=== PATIENT | female | born 1985 | race Caucasian/White ===

== ENCOUNTER 2016-03-07 17:18 | Emergency (ER) | payer OTHER ==
[~2016-03-07] VITALS: Ht 157.5 cm; Wt 61.1 kg
[~2016-03-07 17:18] MED LIST: ALBUAER2 INH; AMT24 PO; FLX/5 PO; LAMO200T38 PO; PRAZ2CAP2 PO; PROM25TA9 PO; PRT/40 PO; QUET1TAB32 PO; QUET1TAB7 PO; TOPI100T20 PO; ZLF/100 PO
[2016-03-07 17:22] VITALS: TEMP 36.9; Ht 157.5 cm; Wt 61.1 kg
[2016-03-07] MEDS ORDERED: HYDROmorphone INJ 1 MG/ML SYR IM STA (18:35)
[2016-03-07] MEDS ORDERED: PROCHLORPERAZINE 5 MG/ML 2 ML VIAL IM STA (18:35)
[2016-03-07] MEDS ORDERED: DiphenhydrAMINE HCL 50 MG/ML VIAL IM STA (18:35)
[2016-03-07] MEDS ORDERED: TOPI200T14 PO (18:55)
--- NOTE | 2016-03-07 19:19 | EMERGENCY ROOM VISIT NOTE ---
History Report prepared by Shawn: Anuel Chen Under the Supervision of: Dr. Buck Vo M.D. First contact with patient: 18:28 Chief Complaint: HEADACHE Stated Complaint: MIGRAINE, PASSED OUT History of Present Illness The patient is a 30 year old female who presents to the Emergency Room with complaints of a persistent headache beginning several hours prior to arrival. She currently rates her discomfort as an 8/10 in severity. The patient associates decreased appetite and two syncopal episodes with today's symptoms. She states she woke up with the headache this morning. The patient notes she was recently put back on her seizure medication a few days ago after being off of them for nine days, while she was being monitored at [facility]. She also complains of persistent left knee numbness with today's symptoms. The patient denies a rash or recent trauma to her knee. She notes she took ibuprofen for her headache this morning. The patient denies taking any narcotics today. She denies hitting her head, fever, shortness of breath, swelling in the legs, and cardiac or kidney issues. Source of History: patient Onset: several hours [employer] Position: head Symptom Intensity: 8/10 Quality: ache Timing: other (persistent) Associated Symptoms: + headache, + numbness (left knee), No SOB, No fevers, No rash Note: Associated symptoms: decreased appetite, two syncopal episodes. Review of Systems See HPI for pertinent positives & negatives. A total of 10 systems reviewed and were otherwise negative. Past Medical & Surgical Medical Problems: (1) Benzodiazepine overdose (2) blood clots (3) Bronchitis (4) Cerebral Thrombosis Wo Cerebral Infarction (5) section (6) Cholecystectomy (7) Depression (8) Gallbladder problem (9) Hysterectomy (10) Migraine Unspecified W/O Intract Mgrn W/O Status Migrainosus (11) Myalgia And Myositis Nos (12) Panic Disorder Without Agoraphobia (13) Phlebitis & Thrombophlebitis,Sup Veins Upper Extr (14) Pneumonia (15) Polysubstance dependence (16) PTSD (17) Seizure disorder (18) Stomach problems (19) Tubal Ligation Status (20) ulcers Family History Diabetes mellitus FH: cancer FH: lung disease Kidney disease or stones Social History Smoking Status: Former Smoker Alcohol Use: none Drug Use: none Marital Status: Housing Status: lives with family Occupation Status: unemployed Current/Historical Medications Scheduled Cyclobenzaprine HCl (Cyclobenzaprine HCl), 5 MG PO BID Lamotrigine (Lamictal), 200 MG PO BID Lubiprostone (Amitiza), 24 MCG PO BID Pantoprazole (Pantoprazole Sodium), 40 MG PO BID Prazosin Hcl (Prazosin), 4 MG PO QPM Quetiapine Fumarate (Seroquel), 25 MG PO QAM Quetiapine Fumarate (Seroquel), 50 MG PO QPM Sertraline HCl (Sertraline HCl), 100 MG PO QPM Topiramate (Topamax), 200 MG PO AMPM Scheduled PRN Albuterol (Ventolin Hfa), 2 PUFFS INH UD PRN for Cough Hydrocodone/Acetaminophen 5MG/325MG ([place] 5MG/325MG), 1 TABLET PO for Pain Promethazine Hcl (Phenergan), 25 MG PO Q4H PRN for Nausea Allergies Coded Allergies: Bupropion (Verified Allergy, Severe, " TOLD HER MAY HAVE INCREASED CHANCES OF SEIZURES"., 03/07/16) Methocarbamol (Verified Allergy, Mild, RASH, 03/07/16) Linaclotide (Verified Allergy, Unknown, LINZESS -- HIVES, 03/07/16) Tramadol (Verified Adverse Reaction, Severe, " TOLD HER IT MAY HAVE INCREASED CHANCES OF SEIZURES"., 03/07/16) PT REPORTS SHE HAS NEVER HAD SEIZURES FROM TRAMADOL Trazodone (Verified Adverse Reaction, Intermediate, "SEVERE DIZZINESS", ) Physical Exam Vital Signs Date Time Temp Pulse Resp B/P Pulse Ox O2 Delivery O2 Flow Rate FiO2 03/07/16 20:05 76 18 112/78 100 03/07/16 19:25 76 18 102/70 98 Room Air 03/07/16 17:22 36.9 113 16 116/73 100 Room Air Physical Exam GENERAL: Patient is well appearing and in mild distress. HEAD: No acute trauma, normocephalic atraumatic ENT: Mucous membranes moist, no nasal congestion. EYES: Equal/Reactive Bilaterally, No scleral icterus, Normal ROM NECK: No nuchal rigidity, no meningismus, trachea is midline, full ROM LUNGS: No dyspnea. Clear to auscultation and equal bilaterally. No wheeze, no rhonchi. HEART: Regular rate and rhythm. No murmurs, rubs, gallops appreciated. ABDOMEN: Soft, nontender, bowel sounds positive, no masses appreciated, no peritonitis. BACK: No midline tenderness, no CVA tenderness EXTREMITIES: Normal motion all extremities, no cyanosis, no edema. NEUROLOGIC: Awake, Alert, Oriented, no acute motor or sensory deficits, no focal weakness, cranial nerves grossly intact. SKIN: No rash, no jaundice, no diaphoresis. Medical Decision & Procedures Laboratory Results Test 03/07/16 18:57 Bedside Hemoglobin 11.2 g/dl (12.0-16.0) Bedside Hematocrit 33 % (37-47) Bedside D-Dimer 296 ng/mlFEU (0-450) Bedside Sodium 143 mEq/L (135-144) Bedside Potassium 3.6 mEq/L (3.3-5.0) Bedside Chloride 111 mEq/L (101-112) Bedside Total CO2 19 mEq/l (24-31) Anion Gap 17.0 mmol/L (16-25) Bedside Blood Urea Nitrogen 22 mg/dl (7-18) Bedside Creatinine 1.1 mg/dl (0.6-1.3) Bedside Glucose (other) 102 mg/dl (70-99) Bedside Ionized Calcium (Vivian) 1.18 mmol/l (1.12-1.32) Bedside Troponin I 0.000 ng/ml (0-0.045) Laboratory results as reviewed by me. Medications Administered Medications (Trade) Dose Ordered Sig/Javier Route Start Time Stop Time Status Last Admin Dose Admin Hydromorphone HCl (Dilaudid Inj) 1 mg NOW STAT IM 03/07/16 18:35 03/07/16 18:37 DC 03/07/16 18:44 1 MG Prochlorperazine Edisylate (Compazine Inj) 10 mg NOW STAT IM 03/07/16 18:35 03/07/16 18:37 DC 03/07/16 18:44 10 MG Diphenhydramine HCl (Benadryl Inj) 50 mg NOW STAT IM 03/07/16 18:35 03/07/16 18:37 DC 03/07/16 18:43 50 MG Oxycodone HCl (Roxicodone Immediate Rel Tab) 5 mg NOW STAT PO 03/07/16 19:32 03/07/16 19:33 DC 03/07/16 20:07 5 MG ECG Indication: other (headache) Rate (beats per minute): 72 Rhythm: normal sinus Findings: no acute ischemic change, no ectopy ED Course 1829: The patient was evaluated in room C12B. A complete history and physical exam was performed. 1834: Ordered Benadryl Inj 50 mg IM, Compazine Inj 10 mg IM, Dilaudid Inj 1 mg IM. 1929: Reevaluated the patient, and she is feeling better and would like to get something for overnight. She will call her neurologist tomorrow. Discussed results and discharge instructions: She verbalized understanding and agreement. The patient is ready for discharge. 1931: Ordered Oxycodone HCl 5 mg PO. Medical Decision Differential: Headache, Migraine, Cluster Headache, Seizure, Meningitis, Sinusitis, CO exposure, ICH/SAH, Infectious, Tumor, Sinus Thrombosis, Arterial Dissection, amongst other pathologies entertained. 30 yr old female well known to department arrives complaining of her chronic migraines that started up again this morning. No evidence of meningitis, nor history suggestive of dissection, sah, ich. She notes two "syncopal" events but admits this may have just been her sleeping on the couch. No falls nor trauma. She is stable and feeling improved. Will follow up with her neurologist. With normal EKG, normal Dimer, normal trop, unremarkable istat I do not feel further evaluation required at this time. Impression Primary Impression: Headache Additional Impressions: Migraine Syncope Scribe Attestation The scribe's documentation has been prepared under my direction and personally reviewed by me in its entirety. I confirm that the note above accurately reflects all work, treatment, procedures, and medical decision making performed by me. Departure Information Dispostion Home / Self-Care Referrals Hubert Mortensen M.D. (PCP) Forms HOME CARE DOCUMENTATION FORM, IMPORTANT VISIT INFORMATION Patient Instructions Headache Pain, My [facility], Syncope Problem Qualifiers Primary Impression: Headache Headache type: unspecified Headache chronicity pattern: acute headache Intractability: not intractable Qualified Codes: R51 - Headache Additional Impressions: Migraine Migraine type: unspecified Status migrainosus presence: without status migrainosus Intractability: not intractable Qualified Codes: G43.909 - Migraine, unspecified, not intractable, without status migrainosus Syncope Syncope type: unspecified Qualified Codes: R55 - Syncope and collapse
[2016-03-07] MEDS ORDERED: OXYCODONE HCL IR 5 MG TAB (IMMEDIATE RELEASE) PO STA (19:32)
[2016-03-07 19:55] LABS: ISTAT CREATININE 1.1 mg/dl (0.6-1.3); ISTAT HEMOGLOBIN 11.2 g/dl (12.0-16.0); ISTAT IONIZED CALCIUM 1.18 mmol/l (1.12-1.32)
[2016-03-07 20:05] VITALS: BP 112/78; PULSE 76; O2SAT 100
[2016-03-31] MEDS ORDERED: MELO7.5T5 PO (13:01)
[2016-06-06] MEDS ORDERED: TOPI100T45 PO (11:38)
[2016-06-06] MEDS ORDERED: ALBU18002 INH (11:38)
[2016-06-06] MEDS ORDERED: QUET1TAB30 PO ×2 (11:38)
[2016-06-06] MEDS ORDERED: HYDR-3126 PO (11:38)
[2016-06-06] MEDS ORDERED: PANT1TAB48 PO (11:38)
[2016-06-06] MEDS ORDERED: SERT-234 PO (11:38)
[2016-06-06] MEDS ORDERED: GABA-113 PO (11:38)
[2016-06-16] MEDS ORDERED: HYDR-5688 PO (09:52)
[2016-06-16] MEDS ORDERED: PROM25TA9 PO (11:38)
[2016-06-28] MEDS ORDERED: OXYC-57 PO (10:11)
[2016-08-09] MEDS ORDERED: SERTRALINE 150 MG PO (10:04)
[2016-11-03] MEDS ORDERED: OXYC-57 PO (00:32)
[2016-11-03] MEDS ORDERED: TOPI100T20 PO (10:04)
[2016-11-03] MEDS ORDERED: AMT24 PO (11:38)
[2016-11-03] MEDS ORDERED: PRAZ2CAP2 PO (11:38)
[2016-11-03] MEDS ORDERED: LAMO200T38 PO (11:38)
[2016-11-03] MEDS ORDERED: SERT-234 PO (16:43)
[2016-11-03] MEDS ORDERED: PRT/40 PO (18:54)
[2016-11-03] MEDS ORDERED: QUET5TAB PO (18:54)
[2016-11-03] MEDS ORDERED: HYDR50CA2 PO (18:54)
[2016-11-03] MEDS ORDERED: VNTHFA/IN INH (18:58)
[2016-11-10] MEDS ORDERED: MAGN400T6 PO (13:30)
== END 2016-03-07 20:05 | disposition home or self-care (01) ==
LOC: C.EDB 17:19 → C.EDC 20:05
DX: G43.909 Migraine, unspecified, not intractable, without status migrainosus (principal); R55 Syncope and collapse; G40.909 Epilepsy, unspecified, not intractable, without status epilepticus; Z90.49 Acquired absence of other specified parts of digestive tract; F32.9 Major depressive disorder, single episode, unspecified; Z90.710 Acquired absence of both cervix and uterus; F41.0 Panic disorder [episodic paroxysmal anxiety]; Z87.01 Personal history of pneumonia (recurrent); Z98.51 Tubal ligation status; Z83.3 Family history of diabetes mellitus; Z87.891 Personal history of nicotine dependence; Z79.899 Other long term (current) drug therapy

== ENCOUNTER 2016-04-12 19:35 | Emergency (ER) | payer OTHER ==
[~2016-04-12] VITALS: Ht 157.5 cm; Wt 60.0 kg
[~2016-04-12 19:35] MED LIST changes: +MELO7.5T5 PO; -TOPI100T20 PO; +TOPI200T14 PO
[2016-04-12 19:39] VITALS: TEMP 37.1; Ht 157.5 cm; Wt 60.0 kg
[2016-04-12 19:44] VITALS: O2SAT 98
[2016-04-12] MEDS ORDERED: DiphenhydrAMINE HCL 50 MG/ML VIAL IV STA (21:14)
[2016-04-12] MEDS ORDERED: SODIUM CHLORIDE 0.9% 1000ML 1,000 ML IV STA (21:14)
[2016-04-12] MEDS ORDERED: HYDROmorphone INJ 2 MG/ML SYR/VIAL IV STA (21:14)
[2016-04-12] MEDS ORDERED: PROCHLORPERAZINE 5 MG/ML 2 ML VIAL IV STA (21:14)
[2016-04-12] MEDS ORDERED: TOPIRAMATE 100 MG TAB PO SCH (21:15)
[2016-04-12 21:25] LABS: HEMATOCRIT 35.3 % (37-47); MEAN CELL VOLUME 81.3 fL (80-100); MEAN CORPUSCULAR HEMOGLOBIN 27.6 pg (25-34); MEAN PLATELET VOLUME 12.2 fL (7.4-10.4); PLATELET COUNT 134 K/uL (130-400); RED BLOOD COUNT 4.34 M/uL (4.2-5.4); WHITE BLOOD COUNT 5.83 K/uL (4.8-10.8)
--- NOTE | 2016-04-12 21:25 | EMERGENCY ROOM VISIT NOTE ---
History Report prepared by Shawn: Luis Funez Under the Supervision of: Dr. Zeeshan Menjivar M.D. First contact with patient: 21:12 Chief Complaint: SEIZURE Stated Complaint: SEIZURE Nursing Triage Summary: Patient presents ALS for evaluation of ? unwitnessed seizure. Patient states she has had a headache x3 days. Tonight, called EMS because she woke up and was "postictal." A/O x upon arrival. Hx: seizures; states she has not missed any meds. No obvious signs of injury noted. History of Present Illness The patient is a 30 year old female who presents to the Emergency Room by EMS with complaints of an episode of seizure occurring this evening. She notes that she has a history of seizures, the last of which was a couple months ago. She is on medication for her seizure, though notes she has missed a few morning medication doses recently, and has not yet taken her evening doses. She reports that she was in the kitchen at the time of the episode, but denies hitting her head. She adds that her daughter witnessed the seizure and reported that there was blood in her mouth. The patient complains also of a headache beginning 3 days ago which she describes as a migraine. She notes she woke up today feeling nauseated but denies any vomiting, fever, cough, or congestion. She states she has felt "weird" all day today and describes her head pain as lightheadedness and pressure on the head. She rates her headache an 8/10 in severity. Source of History: patient Onset: this evening Position: other (global) Quality: other (seizure) Timing: other (episode) Associated Symptoms: + headache, + nausea, No cough, No fevers, No vomiting Note: The patient denies having any congestion. Review of Systems See HPI for pertinent positives & negatives. A total of 10 systems reviewed and were otherwise negative. Past Medical & Surgical Medical Problems: (1) Benzodiazepine overdose (2) blood clots (3) Bronchitis (4) Cerebral Thrombosis Wo Cerebral Infarction (5) section (6) Cholecystectomy (7) Depression (8) Gallbladder problem (9) Hysterectomy (10) Migraine Unspecified W/O Intract Mgrn W/O Status Migrainosus (11) Myalgia And Myositis Nos (12) Panic Disorder Without Agoraphobia (13) Phlebitis & Thrombophlebitis,Sup Veins Upper Extr (14) Pneumonia (15) Polysubstance dependence (16) PTSD (17) Seizure disorder (18) Stomach problems (19) Tubal Ligation Status (20) ulcers Family History Diabetes mellitus FH: cancer FH: lung disease Kidney disease or stones Social History Smoking Status: Never Smoker Alcohol Use: none Drug Use: none Marital Status: Housing Status: lives with family Occupation Status: unemployed Current/Historical Medications Scheduled Cyclobenzaprine HCl (Cyclobenzaprine HCl), 5 MG PO BID Lamotrigine (Lamictal), 200 MG PO BID Lubiprostone (Amitiza), 24 MCG PO BID Meloxicam (Mobic), 7.5 MG PO DAILY Pantoprazole (Pantoprazole Sodium), 40 MG PO BID Prazosin Hcl (Prazosin), 4 MG PO QPM Quetiapine Fumarate (Seroquel), 25 MG PO QAM Quetiapine Fumarate (Seroquel), 50 MG PO QPM Sertraline HCl (Sertraline HCl), 100 MG PO QPM Topiramate (Topamax), 200 MG PO AMPM Scheduled PRN Albuterol (Ventolin Hfa), 2 PUFFS INH UD PRN for Cough Hydrocodone/Acetaminophen 5MG/325MG ([place] 5MG/325MG), 1 TABLET PO for Pain Promethazine Hcl (Phenergan), 25 MG PO Q4H PRN for Nausea Allergies Coded Allergies: Bupropion (Verified Allergy, Severe, " TOLD HER MAY HAVE INCREASED CHANCES OF SEIZURES"., 03/07/16) Methocarbamol (Verified Allergy, Mild, RASH, 03/07/16) Linaclotide (Verified Allergy, Unknown, LINZESS -- HIVES, 03/07/16) Tramadol (Verified Adverse Reaction, Severe, " TOLD HER IT MAY HAVE INCREASED CHANCES OF SEIZURES"., 03/07/16) PT REPORTS SHE HAS NEVER HAD SEIZURES FROM TRAMADOL Trazodone (Verified Adverse Reaction, Intermediate, "SEVERE DIZZINESS", ) Physical Exam Vital Signs Date Time Temp Pulse Resp B/P Pulse Ox O2 Delivery O2 Flow Rate FiO2 04/12/16 22:57 73 20 107/81 100 04/12/16 21:19 75 18 112/67 98 Room Air 04/12/16 19:44 98 Room Air 04/12/16 19:40 68 04/12/16 19:39 37.1 71 20 112/67 100 Room Air Physical Exam GENERAL: Patient is in no acute distress. HEENT: No acute trauma, normocephalic atraumatic, mucous membranes moist, no nasal congestion, no scleral icterus. Pupils equal and reactive to light. No tongue bite. NECK: No stridor, no adenopathy, no meningismus, trachea is midline. LUNGS: Clear to auscultation bilaterally, no wheeze, no rhonchi, breath sounds equal. HEART: Without murmurs gallops or rubs, regular rate and rhythm. ABDOMEN: Soft, nontender, bowel sounds positive, no hernias, no peritonitis. EXTREMITIES: No cyanosis or edema, full range of motion of all the joints without pain or difficulty, no signs for acute trauma. NEUROLOGIC: Oriented x 3, no acute motor or sensory deficits, no focal weakness. No cerebellar deficits. SKIN: No rash, no jaundice, no diaphoresis. Medical Decision & Procedures Laboratory Results 04/12/16 20:35 Red Blood Count 4.34, Mean Corpuscular Volume 81.3, Mean Corpuscular Hemoglobin 27.6, Mean Corpuscular Hemoglobin Concent 34.0, Mean Platelet Volume 12.2, Neutrophils (%) (Auto) 53.5, Lymphocytes (%) (Auto) 37.7, Monocytes (%) (Auto) 7.2, Eosinophils (%) (Auto) 1.4, Basophils (%) (Auto) 0.2, Neutrophils # (Auto) 3.12, Lymphocytes # (Auto) 2.20, Monocytes # (Auto) 0.42, Eosinophils # (Auto) 0.08, Basophils # (Auto) 0.01 04/12/16 20:35 Test 04/12/16 20:35 04/12/16 21:56 White Blood Count 5.83 K/uL (4.8-10.8) Red Blood Count 4.34 M/uL (4.2-5.4) Hemoglobin 12.0 g/dL (12.0-16.0) Hematocrit 35.3 % (37-47) Mean Corpuscular Volume 81.3 fL (80-100) Mean Corpuscular Hemoglobin 27.6 pg (25-34) Mean Corpuscular Hemoglobin Concent 34.0 g/dl (32-36) Platelet Count 134 K/uL (130-400) Mean Platelet Volume 12.2 fL (7.4-10.4) Neutrophils (%) (Auto) 53.5 % Lymphocytes (%) (Auto) 37.7 % Monocytes (%) (Auto) 7.2 % Eosinophils (%) (Auto) 1.4 % Basophils (%) (Auto) 0.2 % Neutrophils # (Auto) 3.12 K/uL (1.4-6.5) Lymphocytes # (Auto) 2.20 K/uL (1.2-3.4) Monocytes # (Auto) 0.42 K/uL (0.11-0.59) Eosinophils # (Auto) 0.08 K/uL (0-0.5) Basophils # (Auto) 0.01 K/uL (0-0.2) RDW Standard Deviation 43.6 fL (36.4-46.3) RDW Coefficient of Variation 14.7 % (11.5-14.5) Immature Granulocyte % (Auto) 0.0 % Immature Granulocyte # (Auto) 0.00 K/uL (0.00-0.02) Red Blood Cell Morphology Unremarkable Anion Gap 8.0 mmol/L (3-11) Est Creatinine Clear Calc Drug Dose 86.0 ml/min Estimated GFR () 123.1 Estimated GFR (Non- 106.2 BUN/Creatinine Ratio 17.5 (10-20) Calcium Level 8.4 mg/dl (8.5-10.1) Total Bilirubin 0.3 mg/dl (0.2-1) Aspartate Amino Transf (AST/SGOT) 11 U/L (15-37) Alanine Aminotransferase (ALT/SGPT) 11 U/L (12-78) Alkaline Phosphatase 48 U/L (45-117) Total Protein 6.9 gm/dl (6.4-8.2) Albumin 3.5 gm/dl (3.4-5.0) Globulin 3.4 gm/dl (2.5-4.0) Albumin/Globulin Ratio 1.0 (0.9-2) Urine Color YELLOW Urine Appearance CLEAR (CLEAR) Urine pH 7.5 (4.5-7.5) Urine Specific [place] 1.013 (1.000-1.030) Urine Protein NEG (NEG) Urine Glucose (UA) NEG (NEG) Urine Ketones NEG (NEG) Urine Occult Blood NEG (NEG) Urine Nitrite NEG (NEG) Urine Bilirubin NEG (NEG) Urine Urobilinogen NEG (NEG) Urine Leukocyte Esterase NEG (NEG) Laboratory results reviewed by me. Medications Administered Medications (Trade) Dose Ordered Sig/Javier Route Start Time Stop Time Status Last Admin Dose Admin Sodium Chloride (Nss 1000ml) 1,000 ml @ 999 mls/hr Q1H1M STAT IV 04/12/16 21:14 04/12/16 22:14 DC 04/12/16 21:34 999 MLS/HR Lamotrigine (Lamictal Tab) 200 mg NOW STAT PO 04/12/16 21:14 04/12/16 21:20 DC 04/12/16 22:07 200 MG Topiramate (Topamax Tab) 200 mg NOW PO 04/12/16 21:15 04/12/16 23:21 DC 04/12/16 22:07 200 MG Hydromorphone HCl (Dilaudid Inj) 0.5 mg NOW STAT IV 04/12/16 21:14 04/12/16 21:20 DC 04/12/16 21:34 0.5 MG Prochlorperazine Edisylate (Compazine Inj) 10 mg NOW STAT IV 04/12/16 21:14 04/12/16 21:20 DC 04/12/16 21:35 10 MG Diphenhydramine HCl (Benadryl Inj) 25 mg NOW STAT IV 04/12/16 21:14 04/12/16 21:20 DC 04/12/16 21:35 25 MG ECG Indication: other (seizure) Rate (beats per minute): 61 Rhythm: normal sinus Findings: no acute ischemic change, no ectopy ED Course 2112: The patient was evaluated in room C12B. A complete history and physical exam was performed. 2113: Ordered Benadryl Inj 25 mg Iv, Compazine Inj 10 mg IV, Dilaudid Inj 0.5 mg IV, Lamictal Tab 200 mg PO, and NSS 1,000 ml @ 999 mls/hr IV. 2114: Ordered Topiramate 200 mg PO. 2239: Reevaluated the patient. Discussed results and discharge instructions: She verbalized understanding and agreement. The patient is ready for discharge. Medical Decision Differentials include breakthrough seizure, medication noncompliance, dehydration, electrolyte imbalance, infection, migraine headache, tension headache, meningitis, and head trauma. There is no leukocytosis or concerning anemia. No significant electrolyte abnormality, kidney failure or hepatitis. Urinalysis does not show infection. On exam, I did not find any evidence for focal neurologic deficit. There was no evidence for head trauma. She was not febrile or toxic. The patient was given her typical doses of Lamictal and Topamax orally. She received IV saline, IV Compazine, IV Benadryl and a small dose of IV Dilaudid. The patient feels markedly better, there has been no further seizure-like activity. She does admit that she has missed a few doses of her seizure meds, this likely contributed to the breakthrough seizure tonight. I do think the patient can be discharged to follow with her neurologist. Her headache sounds migrainous, she has a history of the same. Impression Primary Impression: Headache Additional Impression: Seizure Scribe Attestation The scribe's documentation has been prepared under my direction and personally reviewed by me in its entirety. I confirm that the note above accurately reflects all work, treatment, procedures, and medical decision making performed by me. Departure Information Dispostion Home / Self-Care Referrals Hubert Mortensen M.D. (PCP) Patient Instructions My [facility] Additional Instructions talk with your neurologist rest stay well hydrated return if worsening lab testing today was all ok Problem Qualifiers
[2016-04-12 21:32] LABS: BUN/CREATININE RATIO 17.5 (10-20); CALCIUM 8.4 mg/dl (8.5-10.1); CREATININE 0.75 mg/dl (0.60-1.20)
[2016-04-12 21:49] LABS: BASO % 0.2 %; BASO ABS # 0.01 K/uL (0-0.2); COMPLETE YES; EOS % 1.4 %; LYMPH % 37.7 %; MONO % 7.2 %; NEUT % 53.5 %
[2016-04-12 22:06] LABS: URINE APPEARANCE CLEAR (CLEAR); URINE BILIRUBIN NEG (NEG); URINE COLOR YELLOW; URINE NITRITE NEG (NEG); URINE PH 7.5 (4.5-7.5); URINE SPECIFIC GRAVITY 1.013 (1.000-1.030); UROBILINOGEN NEG (NEG); ZZUR CULT IF INDIC CLEAN CATCH NO
[2016-04-12 22:09] LABS: MANUAL MICROSCOPIC REQUIRED? NO; REVIEW REQ? NO
[2016-04-12 22:57] VITALS: BP 107/81; PULSE 73; O2SAT 100
[2016-06-06] MEDS ORDERED: TOPI100T45 PO (11:38)
[2016-06-06] MEDS ORDERED: QUET1TAB30 PO ×2 (11:38)
[2016-06-06] MEDS ORDERED: PANT1TAB48 PO (11:38)
[2016-06-06] MEDS ORDERED: ALBU18002 INH (11:38)
[2016-06-06] MEDS ORDERED: HYDR-3126 PO (11:38)
[2016-06-06] MEDS ORDERED: GABA-113 PO (11:38)
[2016-06-06] MEDS ORDERED: SERT-234 PO (11:38)
[2016-06-16] MEDS ORDERED: HYDR-5688 PO (09:52)
[2016-06-16] MEDS ORDERED: PROM25TA9 PO (11:38)
[2016-06-28] MEDS ORDERED: OXYC-57 PO (10:11)
[2016-08-09] MEDS ORDERED: SERTRALINE 150 MG PO (10:04)
[2016-11-03] MEDS ORDERED: OXYC-57 PO (00:32)
[2016-11-03] MEDS ORDERED: TOPI100T20 PO (10:04)
[2016-11-03] MEDS ORDERED: AMT24 PO (11:38)
[2016-11-03] MEDS ORDERED: LAMO200T38 PO (11:38)
[2016-11-03] MEDS ORDERED: PRAZ2CAP2 PO (11:38)
[2016-11-03] MEDS ORDERED: SERT-234 PO (16:43)
[2016-11-03] MEDS ORDERED: HYDR50CA2 PO (18:54)
[2016-11-03] MEDS ORDERED: PRT/40 PO (18:54)
[2016-11-03] MEDS ORDERED: QUET5TAB PO (18:54)
[2016-11-03] MEDS ORDERED: VNTHFA/IN INH (18:58)
[2016-11-10] MEDS ORDERED: MAGN400T6 PO (13:30)
== END 2016-04-12 22:58 | disposition home or self-care (01) ==
LOC: EDBD 19:35 → C.EDC 19:36
DX: G40.909 Epilepsy, unspecified, not intractable, without status epilepticus (principal); R51 Headache; Z90.49 Acquired absence of other specified parts of digestive tract; F32.9 Major depressive disorder, single episode, unspecified; Z90.710 Acquired absence of both cervix and uterus; Z98.51 Tubal ligation status; Z86.73 Personal history of transient ischemic attack (TIA), and cerebral infarction without residual deficits

== ENCOUNTER 2016-05-18 16:54 | Emergency (ER) | payer OTHER ==
[~2016-05-18] VITALS: Ht 157.5 cm; Wt 58.4 kg
[~2016-05-18 16:54] MED LIST changes: -FLX/5 PO; -MELO7.5T5 PO; +PANT40TA2 PO; -PRT/40 PO
[2016-05-18 16:57] VITALS: TEMP 37; Ht 157.5 cm; Wt 58.4 kg
[2016-05-18] MEDS ORDERED: SODIUM CHLORIDE 0.9% 1000ML 1,000 ML IV STA (17:36)
[2016-05-18] MEDS ORDERED: FAMOTIDINE 20MG/102 ML D5W IV STA (17:36)
[2016-05-18] MEDS ORDERED: PROMETHAZINE HCL INJ 25 MG/ML 1 ML VIAL IV STA (17:36)
--- NOTE | 2016-05-18 17:50 | EMERGENCY ROOM VISIT NOTE ---
History Report prepared by Shawn: Silas Stubbs Under the Supervision of: Dr. Zeeshan Menjivar M.D. First contact with patient: 17:29 Chief Complaint: ABDOMINAL PAIN Stated Complaint: SEVERE STOMACH PAIN, VOMITING BLOOD Nursing Triage Summary: Patient reports left sided abd pain with n/v today. History of Present Illness The patient is a 30 year old female who presents to the Emergency Room with complaints of persistent left sided abdominal pain starting about 6 hours ago. She currently rates a pain intensity of 8/10. She describes it to be a sharp, stabbing pain. She has some pain improvement with applying pressure. She had one episode of vomiting with bright red blood. She continues to complain of nausea. She had an increased urinary output today but otherwise denies any urinary symptoms. Her last bowel movement was 2 days ago. She has been taking laxatives for the past few days. She is unsure about any dark or tarry stools. She did not have any recent ill contacts. She denies any history of hernia or of similar pain. She has a history of ulcer, acid reflux, colonoscopy, , tubal, hysterectomy, and cholecystectomy. She is no longer on any blood thinners. Source of History: patient Onset: about 6 hours ago Position: abdomen (left sided) Symptom Intensity: 8/10 Quality: sharp, stabbing Timing: other (persistent) Modifying Factors (Relieving): other (pressure) Associated Symptoms: + nausea, + vomiting Review of Systems See HPI for pertinent positives & negatives. A total of 10 systems reviewed and were otherwise negative. Past Medical & Surgical Medical Problems: (1) Benzodiazepine overdose (2) blood clots (3) Bronchitis (4) Cerebral Thrombosis Wo Cerebral Infarction (5) section (6) Cholecystectomy (7) Depression (8) Gallbladder problem (9) Hysterectomy (10) Migraine Unspecified W/O Intract Mgrn W/O Status Migrainosus (11) Myalgia And Myositis Nos (12) Panic Disorder Without Agoraphobia (13) Phlebitis & Thrombophlebitis,Sup Veins Upper Extr (14) Pneumonia (15) Polysubstance dependence (16) PTSD (17) Seizure disorder (18) Stomach problems (19) Tubal Ligation Status (20) ulcers Family History Diabetes mellitus FH: cancer FH: lung disease Kidney disease or stones Social History Smoking Status: Former Smoker Alcohol Use: none Drug Use: none Marital Status: Housing Status: lives with family Occupation Status: unemployed Current/Historical Medications Scheduled Hydroxyzine Pamoate (Vistaril), 1 CAP PO HS Lamotrigine (Lamictal), 200 MG PO BID Lubiprostone (Amitiza), 24 MCG PO BID Pantoprazole (Pantoprazole Sodium), 40 MG PO BID Prazosin Hcl (Prazosin), 4 MG PO QPM Quetiapine Fumarate (Seroquel), 25 MG PO QAM Quetiapine Fumarate (Seroquel), 50 MG PO QPM Ranitidine (Zantac), 150 MG PO BID Sertraline HCl (Sertraline HCl), 100 MG PO QPM Topiramate (Topamax), 200 MG PO QAM Topiramate (Topamax), 2 TAB PO HS Scheduled PRN Hydrocodone/Acetaminophen 5MG/325MG ([place] 5MG/325MG), 1 TABLET PO for Pain Promethazine Hcl (Phenergan), 25 MG PO Q4H PRN for Nausea Allergies Coded Allergies: Bupropion (Verified Allergy, Severe, "DR TOLD HER MAY HAVE INCREASED CHANCES OF SEIZURES"., 05/18/16) Methocarbamol (Verified Allergy, Mild, RASH, 05/18/16) Linaclotide (Verified Allergy, Unknown, LINZESS -- HIVES, 05/18/16) Tramadol (Verified Adverse Reaction, Severe, "DR TOLD HER IT MAY HAVE INCREASED CHANCES OF SEIZURES"., 05/18/16) PT REPORTS SHE HAS NEVER HAD SEIZURES FROM TRAMADOL Trazodone (Verified Adverse Reaction, Intermediate, "SEVERE DIZZINESS", 05/18/16) Physical Exam Vital Signs Date Time Temp Pulse Resp B/P Pulse Ox O2 Delivery O2 Flow Rate FiO2 05/18/16 18:16 71 16 114/72 98 Room Air 05/18/16 16:57 37.0 110 20 100/59 98 Room Air Physical Exam GENERAL: Patient is in moderate distress secondary to pain. HEENT: No acute trauma, normocephalic atraumatic, mucous membranes moist, no nasal congestion, no scleral icterus. NECK: No stridor, no adenopathy, no meningismus, trachea is midline. LUNGS: Clear to auscultation bilaterally, no wheeze, no rhonchi, breath sounds equal. HEART: Without murmurs gallops or rubs, regular rate and rhythm. ABDOMEN: Soft, tenderness along the entire left side, no abdominal distention, bowel sounds positive, no hernias, no peritonitis. EXTREMITIES: No cyanosis or edema, full range of motion of all the joints without pain or difficulty, no signs for acute trauma. NEUROLOGIC: Oriented x 3, no acute motor or sensory deficits, no focal weakness. SKIN: No rash, no jaundice, no diaphoresis. Medical Decision & Procedures ER Provider Diagnostic Interpretation: X-ray results as stated below per interpretation by me and the radiologist: SONYA CLINICAL HISTORY: Possible abdominal foreign body. COMPARISON STUDY: Abdominal series performed earlier today. FINDINGS: There are cholecystectomy clips. The previously described 1 cm metallic density now projects over the left lower quadrant. Bowel gas pattern is normal. IMPRESSION: Previously described 1 cm metallic density now projects over the left lower quadrant. This may reflect an ingested metallic foreign body although could be correlated with physical exam to exclude the possibility of a structure on the patient. Electronically signed by: Farooq Garcia M.D. 05/18/2016 8:12 PM Dictated Date/Time: 05/18/2016 8:11 PM PA CHEST RADIOGRAPH AND UPRIGHT AND SUPINE AP RADIOGRAPHS OF THE ABDOMEN CLINICAL HISTORY: Abdominal pain and vomiting. COMPARISON STUDY: Chest radiograph January 04, 2016 and abdominal series March 06, 2013. FINDINGS: There is no pneumothorax or pleural effusion. There is no consolidation to suggest pneumonia. Cardiac size is normal. Mediastinal contours are normal. There is no free air. There are cholecystectomy clips. Bowel gas pattern is normal. Note is made of a 9 mm metallic density which projects over the mid lower abdomen. A left pelvic calcification represents a phlebolith. IMPRESSION: 1. 9 mm metallic density which projects over the lower mid abdomen. This could be within or on the patient. This may reflect an ingested foreign body and clinical correlation is recommended. 2. No free air or evidence of bowel obstruction. Electronically signed by: Farooq Garcia M.D. 05/18/2016 7:23 PM Dictated Date/Time: 05/18/2016 7:19 PM Laboratory Results 05/18/16 17:50 Red Blood Count 4.43, Mean Corpuscular Volume 79.0, Mean Corpuscular Hemoglobin 27.1, Mean Corpuscular Hemoglobin Concent 34.3, Mean Platelet Volume 11.5, Neutrophils (%) (Auto) 53.3, Lymphocytes (%) (Auto) 35.9, Monocytes (%) (Auto) 9.5, Eosinophils (%) (Auto) 1.0, Basophils (%) (Auto) 0.3, Neutrophils # (Auto) 3.08, Lymphocytes # (Auto) 2.08, Monocytes # (Auto) 0.55, Eosinophils # (Auto) 0.06, Basophils # (Auto) 0.02 05/18/16 17:50 Test 05/18/16 17:50 White Blood Count 5.79 K/uL (4.8-10.8) Red Blood Count 4.43 M/uL (4.2-5.4) Hemoglobin 12.0 g/dL (12.0-16.0) Hematocrit 35.0 % (37-47) Mean Corpuscular Volume 79.0 fL (80-100) Mean Corpuscular Hemoglobin 27.1 pg (25-34) Mean Corpuscular Hemoglobin Concent 34.3 g/dl (32-36) Platelet Count 144 K/uL (130-400) Mean Platelet Volume 11.5 fL (7.4-10.4) Neutrophils (%) (Auto) 53.3 % Lymphocytes (%) (Auto) 35.9 % Monocytes (%) (Auto) 9.5 % Eosinophils (%) (Auto) 1.0 % Basophils (%) (Auto) 0.3 % Neutrophils # (Auto) 3.08 K/uL (1.4-6.5) Lymphocytes # (Auto) 2.08 K/uL (1.2-3.4) Monocytes # (Auto) 0.55 K/uL (0.11-0.59) Eosinophils # (Auto) 0.06 K/uL (0-0.5) Basophils # (Auto) 0.02 K/uL (0-0.2) RDW Standard Deviation 43.1 fL (36.4-46.3) RDW Coefficient of Variation 14.9 % (11.5-14.5) Immature Granulocyte % (Auto) 0.0 % Immature Granulocyte # (Auto) 0.00 K/uL (0.00-0.02) Urine Color YELLOW Urine Appearance CLEAR (CLEAR) Urine pH 5.5 (4.5-7.5) Urine Specific [place] 1.015 (1.000-1.030) Urine Protein NEG (NEG) Urine Glucose (UA) NEG (NEG) Urine Ketones NEG (NEG) Urine Occult Blood NEG (NEG) Urine Nitrite NEG (NEG) Urine Bilirubin NEG (NEG) Urine Urobilinogen NEG (NEG) Urine Leukocyte Esterase NEG (NEG) Anion Gap 9.0 mmol/L (3-11) Est Creatinine Clear Calc Drug Dose 64.5 ml/min Estimated GFR () 86.9 Estimated GFR (Non- 75.0 BUN/Creatinine Ratio 13.3 (10-20) Calcium Level 8.7 mg/dl (8.5-10.1) Total Bilirubin 0.2 mg/dl (0.2-1) Aspartate Amino Transf (AST/SGOT) 7 U/L (15-37) Alanine Aminotransferase (ALT/SGPT) 11 U/L (12-78) Alkaline Phosphatase 45 U/L (45-117) Total Protein 7.3 gm/dl (6.4-8.2) Albumin 3.8 gm/dl (3.4-5.0) Globulin 3.5 gm/dl (2.5-4.0) Albumin/Globulin Ratio 1.1 (0.9-2) Lipase 125 U/L (73-393) Laboratory results reviewed by me. Medications Administered Medications (Trade) Dose Ordered Sig/Javier Route Start Time Stop Time Status Last Admin Dose Admin Promethazine HCl 12.5 mg 12.5 mg NOW STAT IV 05/18/16 17:36 05/18/16 17:41 DC 05/18/16 18:10 12.5 MG Sodium Chloride (Nss 1000ml) 1,000 ml @ 999 mls/hr Q1H1M STAT IV 05/18/16 17:36 05/18/16 18:36 DC 05/18/16 18:10 999 MLS/HR Hydromorphone HCl (Dilaudid Inj) 1 mg Q30M PRN IV 05/18/16 17:45 06/01/16 17:44 05/18/16 19:29 1 MG Famotidine (Pepcid 20mg/100 ml) 20 mg ONE STAT IV 05/18/16 17:36 05/18/16 17:41 DC 05/18/16 18:09 20 MG ED Course 1729: The patient was evaluated in room A02. A complete history and physical exam was performed. 1736: Famotidine 20 mg IV, Sodium Chloride 1000 ml @ 999 mls/hr IV, Phenergan Inj 12.5 mg IV 1745: Dilaudid Inj 1 mg IV 2017: Reevaluated the patient who is feeling better. Discussed results and discharge instructions: She verbalized understanding and agreement. The patient is ready for discharge. 2030: Oxycodone HCl 1 homepack PO Medical Decision Differential diagnosis includes but is not limited to bowel obstruction, ulcer, renal colic, pancreatitis, UTI, pneumonia, musculoskeletal pain, intestinal colic, constipation. There is no leukocytosis or concerning anemia. No significant electrolyte abnormality, kidney failure or hepatitis. There is no pancreatitis. Urinalysis does not show evidence for infection, there was no hematuria. Abdominal series shows no bowel obstruction, free air or pneumonia. A metallic foreign body was thought possible within the intestine. Repeat KUB done a short time after the initial x-ray shows the same metallic foreign body but it appears to have moved some through the intestines. On exam, the patient's rectal exam was heme-negative. She was not toxic or febrile. The patient presents with left-sided abdominal pain. She received IV Dilaudid, IV Phenergan, IV saline. She was given IV Pepcid. The patient feels improved. The cause for the pain is unclear. This may be intestinal colic, it may be gastritis. I doubt the metallic foreign body is causing her trouble. She was told to have a repeat x-ray in about 2 days to see if the foreign body has passed. She does have nausea medication at home to use for her symptoms, a bland diet was suggested. I'm going to add Zantac to her proton pump inhibitor. If worsening, she should return for reassessment. Impression Primary Impression: Left sided abdominal pain Additional Impressions: Vomiting Foreign body in intestine Scribe Attestation The scribe's documentation has been prepared under my direction and personally reviewed by me in its entirety. I confirm that the note above accurately reflects all work, treatment, procedures, and medical decision making performed by me. Departure Information Dispostion Home / Self-Care Prescriptions Ranitidine (Zantac) 150 Mg Tab 150 MG PO BID for 14 Days, #28 TAB Prov: Zeeshan Menjivar M.D. 05/18/16 Referrals No Doctor, Assigned (PCP) Forms Call Back Authorization, HOME CARE DOCUMENTATION FORM, IMPORTANT VISIT INFORMATION Patient Instructions My [facility] Additional Instructions bland diet---crackers, soup, toast, gatorade zantac 2x per day for 2 weeks oxy ir 1 tab every 4 hours for severe pain follow with your fam md or this ER for a repeat film to be sure the piece of metal has passed return for worsening symptoms, fever. Problem Qualifiers
[2016-05-18 18:00] LABS: BASO % 0.3 %; BASO ABS # 0.02 K/uL (0-0.2); COMPLETE YES; LYMPH % 35.9 %; LYMPH ABS # 2.08 K/uL (1.2-3.4); MEAN CORPUSCULAR HEMOGLOBIN 27.1 pg (25-34); MEAN CORPUSCULAR HGB CONC 34.3 g/dl (32-36); MEAN PLATELET VOLUME 11.5 fL (7.4-10.4); MONO % 9.5 %; NEUT % 53.3 %; PLATELET COUNT 144 K/uL (130-400); RED BLOOD COUNT 4.43 M/uL (4.2-5.4); WHITE BLOOD COUNT 5.79 K/uL (4.8-10.8)
[2016-05-18] MEDS ORDERED: TOPI200T20 PO (18:01)
[2016-05-18] MEDS ORDERED: HYDR50CA2 PO (18:01)
[2016-05-18] MEDS: HYDROmorphone INJ 2 MG/ML SYR/VIAL IV PRN ×2 (18:09→19:29)
[2016-05-18 18:17] LABS: BUN/CREATININE RATIO 13.3 (10-20); CALCIUM 8.7 mg/dl (8.5-10.1); POTASSIUM 3.6 mmol/L (3.5-5.1)
[2016-05-18 18:20] LABS: ALB/GLOB RATIO 1.1 (0.9-2)
[2016-05-18 18:30] LABS: URINE APPEARANCE CLEAR (CLEAR); URINE BILIRUBIN NEG (NEG); URINE COLOR YELLOW; URINE NITRITE NEG (NEG); URINE PH 5.5 (4.5-7.5); URINE SPECIFIC GRAVITY 1.015 (1.000-1.030); UROBILINOGEN NEG (NEG); ZZUR CULT IF INDIC CLEAN CATCH NO
[2016-05-18 18:39] LABS: MANUAL MICROSCOPIC REQUIRED? NO; REVIEW REQ? NO
--- NOTE | 2016-05-18 19:24 | DIAGNOSTIC IMAGING REPORT ---
PA CHEST RADIOGRAPH AND UPRIGHT AND SUPINE AP RADIOGRAPHS OF THE ABDOMEN CLINICAL HISTORY: Abdominal pain and vomiting. COMPARISON STUDY: Chest radiograph January 04, 2016 and abdominal series March 06, 2013. FINDINGS: There is no pneumothorax or pleural effusion. There is no consolidation to suggest pneumonia. Cardiac size is normal. Mediastinal contours are normal. There is no free air. There are cholecystectomy clips. Bowel gas pattern is normal. Note is made of a 9 mm metallic density which projects over the mid lower abdomen. A left pelvic calcification represents a phlebolith. IMPRESSION: 1. 9 mm metallic density which projects over the lower mid abdomen. This could be within or on the patient. This may reflect an ingested foreign body and clinical correlation is recommended. 2. No free air or evidence of bowel obstruction. Electronically signed by: Farooq Garcia M.D. 05/18/2016 7:23 PM Dictated Date/Time: 05/18/2016 7:19 PM
--- NOTE | 2016-05-18 20:13 | DIAGNOSTIC IMAGING REPORT ---
KUB CLINICAL HISTORY: Possible abdominal foreign body. COMPARISON STUDY: Abdominal series performed earlier today. FINDINGS: There are cholecystectomy clips. The previously described 1 cm metallic density now projects over the left lower quadrant. Bowel gas pattern is normal. IMPRESSION: Previously described 1 cm metallic density now projects over the left lower quadrant. This may reflect an ingested metallic foreign body although could be correlated with physical exam to exclude the possibility of a structure on the patient. Electronically signed by: Farooq Garcia M.D. 05/18/2016 8:12 PM Dictated Date/Time: 05/18/2016 8:11 PM
[2016-05-18] MEDS ORDERED: ZNTT/150 PO (20:21)
[2016-05-18] MEDS ORDERED: OXYCODONE IR HOME PACK PO ONE (20:30)
[2016-05-18 21:04] VITALS: BP 109/65; PULSE 76; O2SAT 99
[2016-06-06] MEDS ORDERED: TOPI100T45 PO (11:38)
[2016-06-06] MEDS ORDERED: ALBU18002 INH (11:38)
[2016-06-06] MEDS ORDERED: SERT-234 PO (11:38)
[2016-06-06] MEDS ORDERED: QUET1TAB30 PO ×2 (11:38)
[2016-06-06] MEDS ORDERED: GABA-113 PO (11:38)
[2016-06-06] MEDS ORDERED: PANT1TAB48 PO (11:38)
[2016-06-06] MEDS ORDERED: HYDR-3126 PO (11:38)
[2016-06-16] MEDS ORDERED: HYDR-5688 PO (09:52)
[2016-06-16] MEDS ORDERED: PROM25TA9 PO (11:38)
[2016-06-28] MEDS ORDERED: OXYC-57 PO (10:11)
[2016-08-09] MEDS ORDERED: SERTRALINE 150 MG PO (10:04)
[2016-11-03] MEDS ORDERED: OXYC-57 PO (00:32)
[2016-11-03] MEDS ORDERED: TOPI100T20 PO (10:04)
[2016-11-03] MEDS ORDERED: PRAZ2CAP2 PO (11:38)
[2016-11-03] MEDS ORDERED: LAMO200T38 PO (11:38)
[2016-11-03] MEDS ORDERED: AMT24 PO (11:38)
[2016-11-03] MEDS ORDERED: SERT-234 PO (16:43)
[2016-11-03] MEDS ORDERED: HYDR50CA2 PO (18:54)
[2016-11-03] MEDS ORDERED: PANT40TA2 PO (18:54)
[2016-11-03] MEDS ORDERED: QUET5TAB PO (18:54)
[2016-11-03] MEDS ORDERED: VNTHFA/IN INH (18:58)
[2016-11-10] MEDS ORDERED: MAGN400T6 PO (13:30)
== END 2016-05-18 21:06 | disposition home or self-care (01) ==
LOC: C.EDB 16:55 → C.EDA 21:06
DX: R10.9 Unspecified abdominal pain (principal); R11.10 Vomiting, unspecified; T18.9XXA Foreign body of alimentary tract, part unspecified, initial encounter; X58.XXXA Exposure to other specified factors, initial encounter; K21.9 Gastro-esophageal reflux disease without esophagitis; Z98.51 Tubal ligation status; Z90.710 Acquired absence of both cervix and uterus; Z90.49 Acquired absence of other specified parts of digestive tract; F32.9 Major depressive disorder, single episode, unspecified; F41.0 Panic disorder [episodic paroxysmal anxiety]; Z86.718 Personal history of other venous thrombosis and embolism; F19.21 Other psychoactive substance dependence, in remission; Z87.01 Personal history of pneumonia (recurrent); F43.10 Post-traumatic stress disorder, unspecified; G40.909 Epilepsy, unspecified, not intractable, without status epilepticus; Z83.3 Family history of diabetes mellitus; Z80.9 Family history of malignant neoplasm, unspecified; Z87.891 Personal history of nicotine dependence; Z79.899 Other long term (current) drug therapy

== ENCOUNTER → 2016-05-20 | Outpatient (CLI) | payer OTHER ==
[~2016-05-20] MED LIST changes: +ALBU18002 INH; -ALBUAER2 INH; +AMOX875T PO; +ASPI-390 PO; +DICY20TA35 PO; +DOXY100C PO; +FAMO20TA9 PO; +GABA-113 PO; +GABA1CAP4 PO; +GABA1CAP5 PO; +HYDR-3126 PO; +HYDR-5688 PO; +HYDR50CA2 PO; +IBUP-103 PO; +LINA1CAP2 PO; +MAGN400T6 PO; +MDRDP21 PO; +MELA1TAB54 PO; +METH4PAK PO; +MOXI400T2 PO; +NRN400 PO; +ONDA4TAB10 SL; +OXYC-57 PO; +PANT1TAB48 PO; +PROM25TA16 PO; +QUET1TAB30 PO; +QUET5TAB PO; +SERT-234 PO; +SERT50TA PO; +SERTRALINE 150 MG PO; +SRQ25 PO; +TOPI100T20 PO; +TOPI100T45 PO; +TOPI200T20 PO; +TOPI50TA16 PO; +TPM100 PO; +VNTHFA/IN INH; +ZNTT/150 PO
--- NOTE | 2016-05-20 12:39 | DIAGNOSTIC IMAGING REPORT ---
KUB CLINICAL HISTORY: R10.9 Abdominal [id number] pain COMPARISON STUDY: 05/18/2016 FINDINGS: The radiopaque density previously described overlying left sacroiliac joint is no longer present. Nonobstructive bowel pattern. IMPRESSION: The radiopaque foreign body body previously described is no longer seen. Nonobstructive bowel pattern. Electronically signed by: Frankie Rodriguez M.D. 05/20/2016 12:37 PM Dictated Date/Time: 05/20/2016 12:32 PM
== END | disposition home or self-care (01) ==
LOC: C.RAD1850 12:11
PROVIDERS: ATTEND Physician Assistant
DX: R10.9 Unspecified abdominal pain (principal)

== ENCOUNTER → 2016-05-27 | Outpatient (CLI) | payer OTHER ==
--- NOTE | 2016-05-27 08:37 | DIAGNOSTIC IMAGING REPORT ---
LUMBAR SPINE MRI HISTORY: Back pain. Radiculopathy. LUMBOSACRAL RADICULOPATHY TECHNIQUE: Multiplanar multisequence MRI of the lumbar spine was performed without the use of contrast. COMPARISON: None. FINDINGS: For the purpose of the report the L5-S1 disc space will be located on axial image 23 of 25. Mild disc desiccation. Normal signal characteristics of the vertebral bodies. L1-L2: No significant central canal or neural foraminal narrowing. L2-L3: Minimal central disc bulge. Minimal impact with anterior thecal sac. L3-L4: No significant central canal or neural foraminal narrowing. L4-L5: Mild central disc bulge. Minimal impact anterior thecal sac. L5-S1: No significant central canal or neural foraminal narrowing. IMPRESSION: 1. Minimal central disc bulges L2-L3 and L4-L5. 2. No evidence for significant disc herniation or component of spinal stenosis. 3. note is made of a left ovarian cyst measuring 4.4 x 4.1 cm. Electronically signed by: Frankie Rodriguez M.D. 05/27/2016 8:35 AM Dictated Date/Time: 05/27/2016 8:30 AM
== END | disposition home or self-care (01) ==
LOC: C.MRI 07:34
PROVIDERS: ATTEND Psychiatry & Neurology Neurology
DX: M51.16 Intervertebral disc disorders with radiculopathy, lumbar region (principal)

== ENCOUNTER → 2016-06-10 | Day surgery (SDC) | payer OTHER ==
[2016-06-06 11:23] VITALS: Ht 157.5 cm; Wt 59.1 kg
[~2016-06-10] VITALS: Ht 157.5 cm; Wt 59.1 kg
[~2016-06-10] MED LIST changes: +LIDOCAINE HCL 2% 2 ML VIAL (20MG/ML) ONE; +MIDAZOLAM HCL 1 MG/ML 2ML VIAL ONE; +ONDANSETRON INJ 2 MG/ML 2 ML VIAL ONE; +PROPOFOL IV EMULSION 10 MG/ML 20 ML VIAL IV ONE; -QUET1TAB32 PO; -QUET1TAB7 PO; +SODIUM CHLORIDE 0.9% 500ML 500 ML IV ONE; -TOPI200T20 PO; -ZNTT/150 PO
--- NOTE | 2016-06-10 08:53 | Endo History and Physical ---
History & Physical Date of Service: Jun 10, 2016. Chief Complaint: Change in bowel habit Referring Physician: Hubert Mortensen History of Present Illness 31 yo CF who presents for colonoscopy secondary to change in bowel habits. Past Medical History Eating Disorders, Anxiety, Reflux, Seizure Disorder, CVA/TIA, Depression Past Surgical History Hx Cardiac Surgery: No Hx Internal Defibrillator: No Hx Pacemaker: No Hx Abdominal Surgery: Yes (PARTIAL HYSTERECTOMY, , TUBAL LIGATION, JEANNINE) Hx of Implantable Prosthesis: No Hx Post-Op Nausea and Vomiting: No Hx Cancer Surgery: No Hx Thoracic Surgery: No Hx Orthopedic: No Hx Urinary Tract Surgery: No Family History None Social History Smoking Status: Former Smoker Hx Substance Use: No Hx Alcohol Use: Yes (VERY RARELY) Allergies Coded Allergies: Bupropion (Verified Allergy, Severe, "DR TOLD HER MAY HAVE INCREASED CHANCES OF SEIZURES"., 06/06/16) Methocarbamol (Verified Allergy, Mild, RASH, 06/06/16) Linaclotide (Verified Allergy, Unknown, LINZESS -- HIVES, 06/06/16) Tramadol (Verified Adverse Reaction, Severe, " TOLD HER IT MAY HAVE INCREASED CHANCES OF SEIZURES"., 06/06/16) PT REPORTS SHE HAS NEVER HAD SEIZURES FROM TRAMADOL Trazodone (Verified Adverse Reaction, Intermediate, "SEVERE DIZZINESS", ) Current Medications Reported Home Medications Medications Dose Route/Sig Max Daily Dose Days Date Category Dose Instructions Topamax (Topiramate) 100 Mg Tab 300 Mg PO BID 06/06/16 Reported Zoloft (Sertraline HCl) 100 Mg Tab 100 Mg PO QAM 06/06/16 Reported Seroquel (Quetiapine Fumarate) 25 Mg Tab 2 Tab PO HS 06/06/16 Reported Seroquel (Quetiapine Fumarate) 25 Mg Tab 0.5 Tab PO QAM 06/06/16 Reported Proair Respiclick (Albuterol Sulfate) 108 Mcg/Act Aer 2 Puff INH Q6H PRN 06/06/16 Reported Prazosin (Prazosin Hcl) 2 Mg Cap 2 Cap PO HS 06/06/16 Reported Phenergan (Promethazine HCl) 25 Mg Tab 25 Mg PO Q6H PRN 06/06/16 Reported Protonix (Pantoprazole) 40 Mg Tab 40 Mg PO BID 06/06/16 Reported Lamictal (Lamotrigine) 200 Mg Tab 200 Mg PO BID 06/06/16 Reported Atarax (Hydroxyzine Hcl) 50 Mg Tab 50 Mg PO HS 06/06/16 Reported Neurontin (Gabapentin) 300 Mg Cap 300 Mg PO TID 06/06/16 Reported Amitiza (Lubiprostone) 24 Mcg Cap 24 Mcg PO BID 06/06/16 Reported [place] 5MG/325MG (Acetaminophen/Hydrocodone Bitart) Tab 1 Tablet PO PRN 01/12/16 Reported PRN PAIN Vital Signs Weight (Kilograms): 59.09 Height (Feet): 5 Height (Inches): 2 Date Time Temp Pulse Resp B/P Pulse Ox O2 Delivery O2 Flow Rate FiO2 06/10/16 08:47 37 65 16 104/66 100 Room Air Physical Exam General Appearance: WD/WN, no apparent distress Respiratory/Chest: Auscultation: breath sounds normal Cardiovascular: Heart Auscultation: RRR Abdomen: Bowel Sounds: normal Inspection & Palpation: soft, non-distended, no tenderness, guarding & rebound Assessment and Plan Assessment: 31 yo CF who presents for colonoscopy secondary to change in bowel habits. Plan: Proceed with colonoscopy.
--- NOTE | 2016-06-10 09:33 | Discharge Instructions ---
Endoscopy Patient Instructions Date / Procedure(s) Performed Jun 10, 2016. Colonoscopy Allergy Information Coded Allergies: Bupropion (Verified Allergy, Severe, "DR TOLD HER MAY HAVE INCREASED CHANCES OF SEIZURES"., 06/06/16) Methocarbamol (Verified Allergy, Mild, RASH, 06/06/16) Linaclotide (Verified Allergy, Unknown, LINZESS -- HIVES, 06/06/16) Tramadol (Verified Adverse Reaction, Severe, "DR TOLD HER IT MAY HAVE INCREASED CHANCES OF SEIZURES"., 06/06/16) PT REPORTS SHE HAS NEVER HAD SEIZURES FROM TRAMADOL Trazodone (Verified Adverse Reaction, Intermediate, "SEVERE DIZZINESS", ) Discharge Date / Findings Jun 10, 2016. Normal colonoscopy Random colon biopsies Medication Instructions OK to resume all medications today as prescribed Reported Home Medications Medications Dose Route/Sig Max Daily Dose Days Date Category Dose Instructions Topamax (Topiramate) 100 Mg Tab 300 Mg PO BID 06/06/16 Reported Zoloft (Sertraline HCl) 100 Mg Tab 100 Mg PO QAM 06/06/16 Reported Seroquel (Quetiapine Fumarate) 25 Mg Tab 2 Tab PO HS 06/06/16 Reported Seroquel (Quetiapine Fumarate) 25 Mg Tab 0.5 Tab PO QAM 06/06/16 Reported Proair Respiclick (Albuterol Sulfate) 108 Mcg/Act Aer 2 Puff INH Q6H PRN 06/06/16 Reported Prazosin (Prazosin Hcl) 2 Mg Cap 2 Cap PO HS 06/06/16 Reported Phenergan (Promethazine HCl) 25 Mg Tab 25 Mg PO Q6H PRN 06/06/16 Reported Protonix (Pantoprazole) 40 Mg Tab 40 Mg PO BID 06/06/16 Reported Lamictal (Lamotrigine) 200 Mg Tab 200 Mg PO BID 06/06/16 Reported Atarax (Hydroxyzine Hcl) 50 Mg Tab 50 Mg PO HS 06/06/16 Reported Neurontin (Gabapentin) 300 Mg Cap 300 Mg PO TID 06/06/16 Reported Amitiza (Lubiprostone) 24 Mcg Cap 24 Mcg PO BID 06/06/16 Reported [place] 5MG/325MG (Acetaminophen/Hydrocodone Bitart) Tab 1 Tablet PO PRN 01/12/16 Reported PRN PAIN Provider Instructions Activity Restrictions - No exercising or heavy lifting for 24 hours. - Do not drink alcohol the day of the procedure. - Do not drive a car or operate machinery until the day after the procedure. - Do not make any important decisions or sign important papers in 24 hours after the procedure. Following Day: - Return to full activity which may include returning to work/school. Diet Start your diet with liquids and light foods (jello, soup, juice, toast). Then eat your usual diet if not nauseated. Treatment For Common After Affects For mild abdominal pain, bloating, or excessive gas: - Rest - Eat lightly - Lie on right side Follow-Up Information Follow-up with Hubert Mortensen as scheduled Anesthesia Information What You Should Know You have had a procedure that required some medicine to reduce anxiety and discomfort. This treatment is called moderate sedation. After receiving the treatment, you may be sleepy, but you will be able to breathe on your own. The effects of the treatment may last for several hours. Follow these instructions along with Activity/Diet recommendations noted above: * Do NOT do anything where dizziness or clumsiness would be dangerous. * Rest quietly at home today, then you can be up and about tomorrow. * Have a responsible person stay with you the rest of today. * You may have had an I.V. today. If so, you may take the dressing off later today. Recommendations Call your doctor if: * Trouble breathing * Continuous vomiting for more than 24 hours * Temperature above 101 degrees * Severe abdominal pain or bloating * Pain not relieved by pain medicine ordered * There is increased drainage or redness from any incision * A large amount of rectal bleeding greater than 2-3 tablespoons. (If you had a polyp/s removed or have hemorrhoids, a small amount of blood - from the rectum is to be expected.) * You have any unanswered questions or concerns. IN THE EVENT OF A SERIOUS EMERGENCY, GO TO THE NEAREST EMERGENCY ROOM Your discharge instructions were prepared by provider Levon Moreau. Patient Instructions Signature Page Purvi Cline Patient (or Guardian) Signature/Date: I have read and understand the instructions given to me by my caregivers. Caregiver/RN/Doctor Signature/Date: The above-named patient and/or guardian has received patient instructions on this date. + Original Patient Signature Page (only) stays with chart. Please make copy for patient.
--- NOTE | 2016-06-10 09:40 | GI REPORT ---
Procedure Date: 06/10/2016 8:50 AM Procedure: Colonoscopy Indications: Change in bowel habits Medicines: Monitored Anesthesia Care Complications: No immediate complications. Estimated Blood Loss: Estimated blood loss: none. Procedure: Pre-Anesthesia Assessment: - Prior to the procedure, a History and Physical was performed, and patient medications and allergies were reviewed. The patient's tolerance of previous anesthesia was also reviewed. The risks and benefits of the procedure and the sedation options and risks were discussed with the patient. All questions were answered, and informed consent was obtained. Prior Anticoagulants: The patient has taken no previous anticoagulant or antiplatelet agents. ASA Grade Assessment: II - A patient with mild systemic disease. After reviewing the risks and benefits, the patient was deemed in satisfactory condition to undergo the procedure. After I obtained informed consent, the scope was passed under direct vision. Throughout the procedure, the patient's blood pressure, pulse, and oxygen saturations were monitored continuously. The scope was introduced through the anus and advanced to the terminal ileum. The colonoscopy was performed without difficulty. The patient tolerated the procedure well. The quality of the bowel preparation was good. The terminal ileum, the appendiceal orifice and the rectum were photographed. Findings: The colon (entire examined portion) appeared normal. Several random biopsies were obtained with cold forceps for histology in the entire colon. Impression: - The entire examined colon is normal. - Several random biopsies were obtained in the entire colon. Recommendation: - Resume previous diet. - Continue present medications. - Repeat colonoscopy for surveillance based on pathology results. - Return to primary care physician as previously scheduled. Levon Moreau DO 06/10/2016 9:38:52 AM This report has been signed electronically. Note Initiated On: 06/10/2016 8:50 AM I attest to the content of the Intraoperative Record and orders documented therein, exceptions below
--- NOTE | 2016-06-10 09:47 | Anesthesiology Progress Note ---
Anesthesia Post Op Note Date & Time Jun 10, 2016 at 09:46 Vital Signs Pain Intensity: 0 Vital Signs Past 12 Hours Date Time Temp Pulse Resp B/P Pulse Ox O2 Delivery O2 Flow Rate FiO2 06/10/16 09:32 66 16 98/58 100 Room Air 06/10/16 08:47 37 65 16 104/66 100 Room Air Notes Mental Status: alert / awake / arousable, participated in evaluation Pt Amnestic to Procedure: Yes Nausea / Vomiting: adequately controlled Pain: adequately controlled Airway Patency, RR, SpO2: stable & adequate BP & HR: stable & adequate Hydration State: stable & adequate Anesthetic Complications: no major complications apparent
[2016-06-10 10:05] VITALS: BP 106/68; PULSE 59; O2SAT 100
== END | disposition home or self-care (01) ==
LOC: C.GI 08:13
PROVIDERS: ATTEND Internal Medicine
DX: R19.4 Change in bowel habit (principal); G40.909 Epilepsy, unspecified, not intractable, without status epilepticus; Z86.73 Personal history of transient ischemic attack (TIA), and cerebral infarction without residual deficits; F32.9 Major depressive disorder, single episode, unspecified

== ENCOUNTER 2016-06-16 18:04 | Emergency (ER) | payer OTHER ==
[~2016-06-16] VITALS: Ht 157.5 cm; Wt 58.7 kg
[~2016-06-16 18:04] MED LIST changes: -AMOX875T PO; -AMT24 PO; -ASPI-390 PO; -DICY20TA35 PO; -DOXY100C PO; -FAMO20TA9 PO; -GABA1CAP4 PO; -GABA1CAP5 PO; -HYDR50CA2 PO; -IBUP-103 PO; -LAMO200T38 PO; -LIDOCAINE HCL 2% 2 ML VIAL (20MG/ML) ONE; -LINA1CAP2 PO; -MAGN400T6 PO; -MDRDP21 PO; -MELA1TAB54 PO; -METH4PAK PO; -MIDAZOLAM HCL 1 MG/ML 2ML VIAL ONE; -MOXI400T2 PO; -NRN400 PO; -ONDA4TAB10 SL; -ONDANSETRON INJ 2 MG/ML 2 ML VIAL ONE; -OXYC-57 PO; -PANT40TA2 PO; -PRAZ2CAP2 PO; -PROM25TA16 PO; -PROPOFOL IV EMULSION 10 MG/ML 20 ML VIAL IV ONE; -QUET5TAB PO; -SERT50TA PO; -SERTRALINE 150 MG PO; -SODIUM CHLORIDE 0.9% 500ML 500 ML IV ONE; -SRQ25 PO; -TOPI100T20 PO; -TOPI200T14 PO; -TOPI50TA16 PO; -TPM100 PO; -VNTHFA/IN INH; -ZLF/100 PO
[2016-06-16 18:13] VITALS: TEMP 36.8; Ht 157.5 cm; Wt 58.7 kg
[2016-06-16] MEDS ORDERED: DiphenhydrAMINE HCL 50 MG/ML VIAL IV STA (18:25)
[2016-06-16] MEDS ORDERED: PROCHLORPERAZINE 5 MG/ML 2 ML VIAL IV STA (18:25)
[2016-06-16] MEDS ORDERED: DEXAMETHASONE SOD INJ 10 MG/ML VIAL IV ONE (18:30)
[2016-06-16] MEDS ORDERED: SODIUM CHLORIDE 0.9% 1000ML 1,000 ML IV ONE (18:30)
[2016-06-16] MEDS: KETOROLAC TROMETHAMINE 30 MG/ML VIAL IV STA ×2 (18:49→18:52)
[2016-06-16] MEDS ORDERED: ZLF/100 PO (18:54)
[2016-06-16] MEDS ORDERED: SRQ25 PO (18:54)
[2016-06-16] MEDS ORDERED: GABA1CAP4 PO (18:54)
[2016-06-16] MEDS ORDERED: TPM100 PO (18:54)
[2016-06-16 19:24] LABS: URINE APPEARANCE CLOUDY (CLEAR); URINE BILIRUBIN NEG (NEG); URINE COLOR YELLOW; URINE EPITHELIAL CELL AUTO >30 /lpf (0-5); URINE NITRITE NEG (NEG); URINE SPECIFIC GRAVITY 1.028 (1.000-1.030); UROBILINOGEN NEG (NEG); ZZUR CULT IF INDIC CLEAN CATCH YES
[2016-06-16] MEDS ORDERED: ACETAMINOPHEN IV 100 ML IV ONE (19:30)
[2016-06-16 19:37] LABS: MANUAL MICROSCOPIC REQUIRED? NO; REVIEW REQ? YES
[2016-06-16 19:59] LABS: BENZODIAZEPINE, URINE NEG (NEG); COCAINE,URINE NEG (NEG); PHENCYCLIDINE, URINE NEG (NEG)
[2016-06-16 20:01] LABS: BASO % 0.4 %; BASO ABS # 0.02 K/uL (0-0.2); COMPLETE YES; EOS % 2.2 %; HEMATOCRIT 36.4 % (37-47); LYMPH % 46.4 %; LYMPH ABS # 2.09 K/uL (1.2-3.4); MEAN CORPUSCULAR HEMOGLOBIN 26.6 pg (25-34); MEAN CORPUSCULAR HGB CONC 32.4 g/dl (32-36); MEAN PLATELET VOLUME 12.8 fL (7.4-10.4); PLATELET COUNT 153 K/uL (130-400); RED BLOOD COUNT 4.44 M/uL (4.2-5.4)
[2016-06-16 20:03] LABS: URINE MUCUS PRESENT (NONE PRSENT)
[2016-06-16 20:19] LABS: ALB/GLOB RATIO 1.2 (0.9-2); BUN/CREATININE RATIO 17.6 (10-20); CALCIUM 9.3 mg/dl (8.5-10.1); CREATININE 1.1 mg/dl (0.60-1.20); POTASSIUM 3.6 mmol/L (3.5-5.1)
[2016-06-16] MEDS ORDERED: HYDROmorphone INJ 0.5 MG/0.5 ML SYR IV STA (20:25)
[2016-06-16 21:52] VITALS: BP 103/70; PULSE 82; O2SAT 95
--- NOTE | 2016-06-17 21:53 | EMERGENCY ROOM VISIT NOTE ---
History First contact with patient: 18:14 Chief Complaint: HEADACHE Stated Complaint: MIGRAINE,NAUSEA,DIARRHEA,DIZZY History of Present Illness The patient is a 31 year old female who presents to the Emergency Room with complaints of nausea, diarrhea, dizziness, and migraine headache. The patient states that her symptoms began 2 or 3 days ago. The patient has a history of chronic migraines and this is not the worst headache of her life. She rates her overall discomfort a 7/10. She does not have recent antibiotic use or recent travel history. She states that she is having 4-5 episodes of diarrhea per day. Review of Systems More than 10 systems were reviewed and otherwise negative with the exception of history of present illness. Past Medical/Surgical History Medical Problems: (1) Benzodiazepine overdose (2) blood clots (3) Bronchitis (4) Cerebral Thrombosis Wo Cerebral Infarction (5) section (6) Cholecystectomy (7) Depression (8) Gallbladder problem (9) Hysterectomy (10) Migraine Unspecified W/O Intract Mgrn W/O Status Migrainosus (11) Myalgia And Myositis Nos (12) Panic Disorder Without Agoraphobia (13) Phlebitis & Thrombophlebitis,Sup Veins Upper Extr (14) Pneumonia (15) Polysubstance dependence (16) PTSD (17) Seizure disorder (18) Stomach problems (19) Tubal Ligation Status (20) ulcers Family History Diabetes mellitus FH: cancer FH: lung disease Kidney disease or stones Social History Smoking Status: Former Smoker Alcohol Use: none Drug Use: none Marital Status: Housing Status: lives with family Occupation Status: unemployed Current/Historical Medications Scheduled Gabapentin (Gabapentin), 300 MG PO TID Hydroxyzine Pamoate (Vistaril), 50 MG PO HS Lamotrigine (Lamictal), 200 MG PO BID Lubiprostone (Amitiza), 24 MCG PO BID Pantoprazole (Pantoprazole Sodium), 40 MG PO BID Prazosin Hcl (Prazosin), 4 MG PO HS Quetiapine Fumarate (Quetiapine Fumarate), 12.5 MG PO QAM Quetiapine Fumarate (Seroquel), 50 MG PO HS Sertraline HCl (Sertraline HCl), 100 MG PO QAM Topiramate (Topiramate), 300 MG PO BID Scheduled PRN Albuterol Hfa (Ventolin Hfa), 2 PUFFS INH Q4-6HRS PRN for Shortness of Breath Hydrocodone/Acetaminophen 5MG/325MG ([place] 5MG/325MG), 1-2 TABS PO Q6H PRN for Pain Promethazine Hcl (Phenergan), 25 MG PO Q6H PRN for Nausea Allergies Coded Allergies: Bupropion (Verified Allergy, Severe, "DR TOLD HER MAY HAVE INCREASED CHANCES OF SEIZURES"., 06/16/16) Methocarbamol (Verified Allergy, Mild, RASH, 06/16/16) Ketorolac Tromethamine (Verified Allergy, Unknown, Rash, 06/16/16) Linaclotide (Verified Allergy, Unknown, LINZESS -- HIVES, 06/16/16) Tramadol (Verified Adverse Reaction, Severe, "DR TOLD HER IT MAY HAVE INCREASED CHANCES OF SEIZURES"., 06/16/16) PT REPORTS SHE HAS NEVER HAD SEIZURES FROM TRAMADOL Trazodone (Verified Adverse Reaction, Intermediate, "SEVERE DIZZINESS", 06/16/16) Physical Exam Vital Signs Date Time Temp Pulse Resp B/P Pulse Ox O2 Delivery O2 Flow Rate FiO2 06/16/16 21:52 82 16 103/70 95 06/16/16 21:00 72 16 96/60 98 Room Air 06/16/16 18:13 36.8 95 16 104/73 97 Room Air Pain Rating (0-10): 6.0 Physical Exam VITALS: Vitals are noted on the nurse's note and reviewed by myself. Vital signs stable. GENERAL: Well-developed, well-nourished, white female, who is in no acute distress and resting comfortably. Patient is cooperative with the examination. HEAD: Normocephalic atraumatic. EARS: External ear normal. External auditory canals clear, tympanic membranes pearly paris without erythema or effusion bilaterally. EYES: Pupils equal round and reactive to light and accommodation. Conjunctivae without injection, sclerae without icterus. Extraocular movements intact. NOSE: Patent, turbinates without inflammation or discharge. MOUTH: Mucous membranes moist. Tonsils are not enlarged. Pharynx without erythema, blood, or exudate. Uvula midline. Airway patent. NECK: Supple without nuchal rigidity. No lymphadenopathy. No thyromegaly. Cervical spine is nontender. HEART: Regular rate and rhythm without murmurs gallops or rubs. LUNGS: Clear to auscultation bilaterally without wheezes, rales or rhonchi. No retractions or accessory muscle use. ABDOMEN: Positive normal bowel sounds x 4. Soft, nontender, without masses or organomegaly. No guarding or rebound tenderness. MUSCULOSKELETAL: No muscle atrophy, erythema, or edema noted. Full range of motion without joint tenderness in all extremities. Medical Decision & Procedures Laboratory Results 06/16/16 18:40 Red Blood Count 4.44, Mean Corpuscular Volume 82.0, Mean Corpuscular Hemoglobin 26.6, Mean Corpuscular Hemoglobin Concent 32.4, Mean Platelet Volume 12.8, Neutrophils (%) (Auto) 41.0, Lymphocytes (%) (Auto) 46.4, Monocytes (%) (Auto) 10.0, Eosinophils (%) (Auto) 2.2, Basophils (%) (Auto) 0.4, Neutrophils # (Auto ) 1.84, Lymphocytes # (Auto) 2.09, Monocytes # (Auto) 0.45, Eosinophils # (Auto ) 0.10, Basophils # (Auto) 0.02 06/16/16 18:40 Test 06/16/16 18:40 White Blood Count 4.50 K/uL (4.8-10.8) Red Blood Count 4.44 M/uL (4.2-5.4) Hemoglobin 11.8 g/dL (12.0-16.0) Hematocrit 36.4 % (37-47) Mean Corpuscular Volume 82.0 fL (80-100) Mean Corpuscular Hemoglobin 26.6 pg (25-34) Mean Corpuscular Hemoglobin Concent 32.4 g/dl (32-36) Platelet Count 153 K/uL (130-400) Mean Platelet Volume 12.8 fL (7.4-10.4) Neutrophils (%) (Auto) 41.0 % Lymphocytes (%) (Auto) 46.4 % Monocytes (%) (Auto) 10.0 % Eosinophils (%) (Auto) 2.2 % Basophils (%) (Auto) 0.4 % Neutrophils # (Auto) 1.84 K/uL (1.4-6.5) Lymphocytes # (Auto) 2.09 K/uL (1.2-3.4) Monocytes # (Auto) 0.45 K/uL (0.11-0.59) Eosinophils # (Auto) 0.10 K/uL (0-0.5) Basophils # (Auto) 0.02 K/uL (0-0.2) RDW Standard Deviation 47.9 fL (36.4-46.3) RDW Coefficient of Variation 15.8 % (11.5-14.5) Immature Granulocyte % (Auto) 0.0 % Immature Granulocyte # (Auto) 0.00 K/uL (0.00-0.02) Urine Color YELLOW Urine Appearance CLOUDY (CLEAR) Urine pH 5.0 (4.5-7.5) Urine Specific [place] 1.028 (1.000-1.030) Urine Protein NEG (NEG) Urine Glucose (UA) NEG (NEG) Urine Ketones TRACE (NEG) Urine Occult Blood NEG (NEG) Urine Nitrite NEG (NEG) Urine Bilirubin NEG (NEG) Urine Urobilinogen NEG (NEG) Urine Leukocyte Esterase NEG (NEG) Urine WBC (Auto) 5-10 /hpf (0-5) Urine RBC (Auto) 0-4 /hpf (0-4) Urine Hyaline Casts (Auto) 0 /lpf (0-5) Urine Epithelial Cells (Auto) >30 /lpf (0-5) Urine Bacteria (Auto) 1+ (NEG) Urine Crystals CALCIUM OXALATE (NONE Urine Pathogenic Casts /lpf (0) Urine Mucus PRESENT (NONE PRSENT) Anion Gap 7.0 mmol/L (3-11) Est Creatinine Clear Calc Drug Dose 58.1 ml/min Estimated GFR () 76.9 Estimated GFR (Non- 66.4 BUN/Creatinine Ratio 17.6 (10-20) Calcium Level 9.3 mg/dl (8.5-10.1) Total Bilirubin 0.2 mg/dl (0.2-1) Aspartate Amino Transf (AST/SGOT) 9 U/L (15-37) Alanine Aminotransferase (ALT/SGPT) 12 U/L (12-78) Alkaline Phosphatase 39 U/L (45-117) Total Protein 7.1 gm/dl (6.4-8.2) Albumin 3.8 gm/dl (3.4-5.0) Globulin 3.3 gm/dl (2.5-4.0) Albumin/Globulin Ratio 1.2 (0.9-2) Urine Opiates Screen POS (NEG) Urine Methadone, Qualitative NEG (NEG) Urine Barbiturates NEG (NEG) Urine Phencyclidine (PCP) Level NEG (NEG) Ur Amphetamine/Methamphetamine NEG (NEG) MDMA (Ecstasy) Screen NEG (NEG) Urine Benzodiazepines Screen NEG (NEG) Urine Cocaine Metabolite NEG (NEG) Urine Marijuana (THC) NEG (NEG) Medications Administered Medications (Trade) Dose Ordered Sig/Javier Route Start Time Stop Time Status Last Admin Dose Admin Sodium Chloride (Nss 1000ml) 1,000 ml @ 999 mls/hr Q1H1M ONCE IV 06/16/16 18:30 06/16/16 19:30 DC 06/16/16 18:49 999 MLS/HR Diphenhydramine HCl (Benadryl Inj) 50 mg NOW STAT IV 06/16/16 18:25 06/16/16 18:27 DC 06/16/16 18:49 50 MG Prochlorperazine Edisylate (Compazine Inj) 10 mg NOW STAT IV 06/16/16 18:25 06/16/16 18:27 DC 06/16/16 18:49 10 MG Dexamethasone Sodium Phosphate (Decadron Inj) 10 mg NOW ONCE IV 06/16/16 18:30 06/16/16 18:31 DC 06/16/16 18:49 10 MG Hydromorphone HCl (Dilaudid Inj) 0.5 mg NOW STAT IV 06/16/16 20:25 06/16/16 20:26 DC 06/16/16 21:00 0.5 MG ED Course Physical exam and history were performed. Nursing notes and EMR were reviewed. Patient appears to have nausea, diarrhea, and headache symptoms. The patient is well-known to us and is on a 2 shot treatment plan at this facility. The axis was established and labs were obtained. The patient was hydrated as above. Her blood work is as above and was reviewed. She does not have a significantly elevated white blood cell count, anemia, bandemia, or significant electrolyte imbalance the patient's remaining labs are fairly unremarkable. Overall the patient felt significantly better after the above interventions. She was able to sleep in the ER without difficulty and was very comfortable. The patient had significant improvement of her symptoms and is felt to be stable for discharge home. I suspect her symptoms are likely related to her migraine. The patient was given discharge instructions as below and discharged home under the care of a family member. The chart was completed utilizing [employer] Voice Recognition Software. Grammatical errors, random word insertions, pronoun errors, and incomplete sentences are an occasional consequence of this system due to software limitations, ambient noise, and hardware issues. Any formal questions or concerns about the content, text, or information contained within the body of this dictation should be directly addressed to the provider for clarification. . Medical Decision The differential diagnosis includes, but is not limited to: acute intracranial bleed, meningitis, encephalitis, mass or mass effect, sinusitis, infection, tumor, headache, temporal arteritis and carbon monoxide exposure, and migraine. Impression Primary Impression: Migraine Departure Information Referrals Hubert Mortensen M.D. (PCP) Forms HOME CARE DOCUMENTATION FORM, IMPORTANT VISIT INFORMATION Patient Instructions [facility] Additional Instructions You were seen and evaluated today on an emergency basis only. This is not a substitute for, or an effort to provide, complete comprehensive medical care. It is not possible to recognize and treat all injuries or illnesses in a single emergency department visit. For this reason it is recommended that you followup with your primary care physician or neurologist this week for ongoing care and evaluation. DO NOT drive, drink alcohol, operate machinery, or perform dangerous activities today. You were given medications in the ER that can affect your ability to safely function or operate a vehicle. Rest today in a quiet, peaceful, dark environment and get a full 8-10 hrs of sleep tonight. Avoid loud noises, smoke/smoking, alcohol, bright lights, stress, or physical exertion today to minimize the chance the headache may return. Continue current medications. Ibuprofen(Motrin, Advil) may be used for fever or pain. Use 600mg every six hours as needed. Take with food. Avoid using more than 2400mg in a 24 hour period. Do not use 2400mg per day for more than three consecutive days without physician direction. Prolonged inappropriate use can lead to stomach upset or ulcers. (AND/OR) Acetaminophen(Tylenol) may be used for fever or pain. Use 1000mg every six hours as needed. Avoid using more than 4000mg in a 24 hour period. Return to the ER for passing out, worsening headache, vision problems, neck stiffness/pain, fevers, vomiting, worsening of your condition, or as needed.
[2016-06-20 10:46] LABS: COD UR NEGATIVE NG/ML (CUTOFF=50); HYDROCOD UR 420 NG/ML (CUTOFF=50); HYDROMOR UR NEGATIVE NG/ML (CUTOFF=50); MORPHINE UR NEGATIVE NG/ML (CUTOFF=50); NORHYDROCODONE CONF UR 4560 NG/ML (CUTOFF=50); OXYMORPH UR NEGATIVE NG/ML (CUTOFF=50)
[2016-06-28] MEDS ORDERED: OXYC-57 PO (10:11)
[2016-08-09] MEDS ORDERED: SERTRALINE 150 MG PO (10:04)
[2016-11-03] MEDS ORDERED: OXYC-57 PO (00:32)
[2016-11-03] MEDS ORDERED: TOPI100T20 PO (10:04)
[2016-11-03] MEDS ORDERED: AMT24 PO (11:38)
[2016-11-03] MEDS ORDERED: LAMO200T38 PO (11:38)
[2016-11-03] MEDS ORDERED: PRAZ2CAP2 PO (11:38)
[2016-11-03] MEDS ORDERED: SERT-234 PO (16:43)
[2016-11-03] MEDS ORDERED: HYDR50CA2 PO (18:54)
[2016-11-03] MEDS ORDERED: PANT40TA2 PO (18:54)
[2016-11-03] MEDS ORDERED: QUET5TAB PO (18:54)
[2016-11-03] MEDS ORDERED: VNTHFA/IN INH (18:58)
[2016-11-10] MEDS ORDERED: MAGN400T6 PO (13:30)
== END 2016-06-16 21:53 | disposition home or self-care (01) ==
LOC: C.EDB 18:05 → C.EDA 21:53
DX: G43.909 Migraine, unspecified, not intractable, without status migrainosus (principal); Z90.49 Acquired absence of other specified parts of digestive tract; F32.9 Major depressive disorder, single episode, unspecified; Z90.710 Acquired absence of both cervix and uterus; F41.0 Panic disorder [episodic paroxysmal anxiety]; Z87.01 Personal history of pneumonia (recurrent); F43.10 Post-traumatic stress disorder, unspecified; G40.909 Epilepsy, unspecified, not intractable, without status epilepticus; Z98.51 Tubal ligation status; Z83.3 Family history of diabetes mellitus; Z80.9 Family history of malignant neoplasm, unspecified; Z84.1 Family history of disorders of kidney and ureter; Z87.891 Personal history of nicotine dependence; Z79.899 Other long term (current) drug therapy

== ENCOUNTER 2016-07-21 22:58 | Emergency (ER) | payer OTHER ==
[~2016-07-21] VITALS: Ht 157.5 cm; Wt 59.6 kg
[~2016-07-21 22:58] MED LIST changes: -ALBU18002 INH; -GABA-113 PO; +GABA1CAP4 PO; -HYDR-3126 PO; -HYDR-5688 PO; +OXYC-57 PO; -PANT1TAB48 PO; -QUET1TAB30 PO; -SERT-234 PO; +SRQ25 PO; -TOPI100T45 PO; +TPM100 PO; +ZLF/100 PO
[2016-07-21 23:02] VITALS: TEMP 36.8; Ht 157.5 cm; Wt 59.6 kg
[2016-07-21] MEDS ORDERED: ACETAMINOPHEN 500 MG TAB PO STA (23:13)
[2016-07-21 23:15] VITALS: O2SAT 100
[2016-07-21 23:24] LABS: HEMATOCRIT 35.1 % (37-47); MEAN CELL VOLUME 81.1 fL (80-100); MEAN CORPUSCULAR HGB CONC 33.3 g/dl (32-36); MEAN PLATELET VOLUME 11.6 fL (7.4-10.4); PLATELET COUNT 157 K/uL (130-400); RED BLOOD COUNT 4.33 M/uL (4.2-5.4); WHITE BLOOD COUNT 5.85 K/uL (4.8-10.8)
[2016-07-21 23:41] LABS: BUN/CREATININE RATIO 14.4 (10-20); CALCIUM 8.2 mg/dl (8.5-10.1); CREATININE 1.1 mg/dl (0.60-1.20); MAGNESIUM 2.2 mg/dl (1.8-2.4); POTASSIUM 3.2 mmol/L (3.5-5.1)
[2016-07-21 23:47] LABS: URINE APPEARANCE CLEAR (CLEAR); URINE BILIRUBIN NEG (NEG); URINE COLOR YELLOW; URINE NITRITE NEG (NEG); URINE PH 5.5 (4.5-7.5); URINE SPECIFIC GRAVITY 1.021 (1.000-1.030); UROBILINOGEN NEG (NEG)
[2016-07-21 23:53] LABS: BASO % 0.2 %; BASO ABS # 0.01 K/uL (0-0.2); COMPLETE YES; EOS % 0.5 %; IG% 0.2 %; LYMPH % 41.5 %; LYMPH ABS # 2.43 K/uL (1.2-3.4); MONO % 5.3 %; NEUT % 52.3 %
--- NOTE | 2016-07-21 23:55 | EMERGENCY ROOM VISIT NOTE ---
History Report prepared by Isaakibdonald: Arya Mendoza Under the Supervision of: Dr. Santiago Galindo D.O. First contact with patient: 23:07 Chief Complaint: SEIZURE Stated Complaint: SEIZURE History of Present Illness The patient is a 31 year old female who presents to the Emergency Room with complaints of an episode of seizure-like activity occurring shortly prior to arrival. She was found unresponsive on her couch by her daughter. She has a history of epilepsy and is on Topamax. Nursing staff notes that there was some blood on the patient's shirt when she was found. The patient currently complains of blurred vision, headache, back pain, and shakiness. She believes that she bit her tongue. She denies any loss of bowel or bladder continence. The patient states that she hasn't had a seizure in several months. Source of History: patient, nursing staff Onset: shortly prior to arrival Quality: other (seizure-like activity) Timing: other (episode) Associated Symptoms: + headache, + back pain Note: The patient denies any loss of bowel or bladder continence. She also complains of blurred vision and shakiness. Review of Systems See HPI for pertinent positives and negatives. A total of ten systems were reviewed and were otherwise negative. Past Medical & Surgical Medical Problems: (1) Benzodiazepine overdose (2) blood clots (3) Bronchitis (4) Cerebral Thrombosis Wo Cerebral Infarction (5) section (6) Cholecystectomy (7) Depression (8) Gallbladder problem (9) Hysterectomy (10) Migraine Unspecified W/O Intract Mgrn W/O Status Migrainosus (11) Myalgia And Myositis Nos (12) Panic Disorder Without Agoraphobia (13) Phlebitis & Thrombophlebitis,Sup Veins Upper Extr (14) Pneumonia (15) Polysubstance dependence (16) PTSD (17) Seizure disorder (18) Stomach problems (19) Tubal Ligation Status (20) ulcers Family History Diabetes mellitus FH: cancer FH: lung disease Kidney disease or stones Social History Smoking Status: Current Every Day Smoker Alcohol Use: none Drug Use: none Marital Status: Housing Status: lives with family Occupation Status: unemployed Current/Historical Medications Scheduled Gabapentin (Gabapentin), 300 MG PO TID Hydroxyzine Pamoate (Vistaril), 50 MG PO HS Lamotrigine (Lamictal), 200 MG PO BID Lubiprostone (Amitiza), 24 MCG PO BID Pantoprazole (Pantoprazole Sodium), 40 MG PO BID Prazosin Hcl (Prazosin), 4 MG PO HS Quetiapine Fumarate (Quetiapine Fumarate), 12.5 MG PO QAM Quetiapine Fumarate (Seroquel), 50 MG PO HS Sertraline HCl (Sertraline HCl), 100 MG PO QAM Topiramate (Topiramate), 300 MG PO BID Scheduled PRN Albuterol Hfa (Ventolin Hfa), 2 PUFFS INH Q4-6HRS PRN for Shortness of Breath Oxycodone/Acetaminophen 5MG/325MG (Percocet 5MG/325MG), 2 TABLETS PO Q4H PRN for Pain Promethazine Hcl (Phenergan), 25 MG PO Q6H PRN for Nausea Allergies Coded Allergies: Bupropion (Verified Allergy, Severe, "DR TOLD HER MAY HAVE INCREASED CHANCES OF SEIZURES"., 07/21/16) Methocarbamol (Verified Allergy, Mild, RASH, 07/21/16) Ketorolac Tromethamine (Verified Allergy, Unknown, Rash, 07/21/16) Linaclotide (Verified Allergy, Unknown, LINZESS -- HIVES, 07/21/16) Tramadol (Verified Adverse Reaction, Severe, "DR TOLD HER IT MAY HAVE INCREASED CHANCES OF SEIZURES"., 07/21/16) PT REPORTS SHE HAS NEVER HAD SEIZURES FROM TRAMADOL Trazodone (Verified Adverse Reaction, Intermediate, "SEVERE DIZZINESS", 07/21/16) Physical Exam Vital Signs Date Time Temp Pulse Resp B/P (MAP) Pulse Ox O2 Delivery O2 Flow Rate FiO2 07/21/16 23:15 100 Room Air 07/21/16 23:09 100 Room Air 07/21/16 23:09 84 07/21/16 23:02 36.8 82 20 122/74 100 Room Air Physical Exam GENERAL: Awake, alert, well-appearing, in no distress HENT: Normocephalic, atraumatic. Oropharynx unremarkable. EYES: Normal conjunctiva. Sclera non-icteric. NECK: Supple. No nuchal rigidity. FROM. No JVD. RESPIRATORY: Clear to auscultation. CARDIAC: Regular rate, normal rhythm. Extremities warm and well perfused. Pulses equal. ABDOMEN: Soft, non-distended. No tenderness to palpation. No rebound or guarding. No masses. RECTAL: Deferred. MUSCULOSKELETAL: Chest examination reveals no tenderness. The back is symmetrical on inspection without obvious abnormality. There is no CVA tenderness to palpation. No joint edema. LOWER EXTREMITIES: Calves are equal size bilaterally and non-tender. No edema. No discoloration. NEURO: Normal sensorium. No sensory or motor deficits noted. SKIN: No rash or jaundice noted. Medical Decision & Procedures Laboratory Results 07/21/16 22:55 Red Blood Count 4.33, Mean Corpuscular Volume 81.1, Mean Corpuscular Hemoglobin 27.0, Mean Corpuscular Hemoglobin Concent 33.3, Mean Platelet Volume 11.6, Neutrophils (%) (Auto) 52.3, Lymphocytes (%) (Auto) 41.5, Monocytes (%) (Auto) 5.3, Eosinophils (%) (Auto) 0.5, Basophils (%) (Auto) 0.2, Neutrophils # (Auto) 3.06, Lymphocytes # (Auto) 2.43, Monocytes # (Auto) 0.31, Eosinophils # (Auto) 0.03, Basophils # (Auto) 0.01 07/21/16 22:55 Test 07/21/16 22:55 07/21/16 23:13 07/21/16 23:20 White Blood Count 5.85 K/uL (4.8-10.8) Red Blood Count 4.33 M/uL (4.2-5.4) Hemoglobin 11.7 g/dL (12.0-16.0) Hematocrit 35.1 % (37-47) Mean Corpuscular Volume 81.1 fL (80-100) Mean Corpuscular Hemoglobin 27.0 pg (25-34) Mean Corpuscular Hemoglobin Concent 33.3 g/dl (32-36) Platelet Count 157 K/uL (130-400) Mean Platelet Volume 11.6 fL (7.4-10.4) Neutrophils (%) (Auto) 52.3 % Lymphocytes (%) (Auto) 41.5 % Monocytes (%) (Auto) 5.3 % Eosinophils (%) (Auto) 0.5 % Basophils (%) (Auto) 0.2 % Neutrophils # (Auto) 3.06 K/uL (1.4-6.5) Lymphocytes # (Auto) 2.43 K/uL (1.2-3.4) Monocytes # (Auto) 0.31 K/uL (0.11-0.59) Eosinophils # (Auto) 0.03 K/uL (0-0.5) Basophils # (Auto) 0.01 K/uL (0-0.2) RDW Standard Deviation 47.8 fL (36.4-46.3) RDW Coefficient of Variation 15.9 % (11.5-14.5) Immature Granulocyte % (Auto) 0.2 % Immature Granulocyte # (Auto) 0.01 K/uL (0.00-0.02) Anion Gap 10.0 mmol/L (3-11) Est Creatinine Clear Calc Drug Dose 58.1 ml/min Estimated GFR () 76.9 Estimated GFR (Non- 66.4 BUN/Creatinine Ratio 14.4 (10-20) Calcium Level 8.2 mg/dl (8.5-10.1) Magnesium Level 2.2 mg/dl (1.8-2.4) Bedside Glucose 81 mg/dl (70-90) Laboratory results reviewed by me Medications Administered Medications (Trade) Dose Ordered Sig/Javier Route Start Time Stop Time Status Last Admin Dose Admin Acetaminophen (Tylenol Tab) 1,000 mg NOW STAT PO 07/21/16 23:13 07/21/16 23:14 DC 07/21/16 23:23 1,000 MG ED Course 2308: The patient was evaluated in room C5. A complete history and physical exam was performed. 2313: Ordered Tylenol Tab 1000 mg PO. 0000: I reevaluated the patient. Discussed results and discharge instructions: she verbalized understanding and agreement. The patient is ready for discharge. Medical Decision Differential diagnosis: Etiologies such as infection, hypoglycemia, electrolyte abnormalities, cardiac sources, intracerebral event, trauma, toxicologic, neurologic, as well as others were entertained. Patient did not have any seizure activity throughout emergency department evaluation. Patient was given Tylenol. Patient is under treatment plan and requested Dilaudid. Patient was not given medication. She is nonfocal neurologically on repeat examination at 2359 Impression Primary Impression: Seizure Scribe Attestation The scribe's documentation has been prepared under my direction and personally reviewed by me in its entirety. I confirm that the note above accurately reflects all work, treatment, procedures, and medical decision making performed by me. Departure Information Dispostion Home / Self-Care Referrals Hubert Mortensen M.D. (PCP) Patient Instructions ED Seizure Recurrent, [facility]
[2016-07-21 23:59] LABS: MANUAL MICROSCOPIC REQUIRED? NO; REVIEW REQ? NO
[2016-07-22 00:01] VITALS: BP 101/63; PULSE 81; O2SAT 99
[2016-07-23] MEDS ORDERED: GABA1CAP5 PO (00:26)
[2016-07-23] MEDS ORDERED: TOPI200T14 PO ×2 (00:41→00:43)
[2016-07-23] MEDS ORDERED: TOPI50TA16 PO (00:44)
[2016-07-23] MEDS ORDERED: TOPI100T45 PO (00:52)
[2016-08-09] MEDS ORDERED: SERTRALINE 150 MG PO (10:04)
[2016-11-03] MEDS ORDERED: OXYC-57 PO (00:32)
[2016-11-03] MEDS ORDERED: TOPI100T20 PO (10:04)
[2016-11-03] MEDS ORDERED: PRAZ2CAP2 PO (11:38)
[2016-11-03] MEDS ORDERED: AMT24 PO (11:38)
[2016-11-03] MEDS ORDERED: LAMO200T38 PO (11:38)
[2016-11-03] MEDS ORDERED: SERT-234 PO (16:43)
[2016-11-03] MEDS ORDERED: HYDR50CA2 PO (18:54)
[2016-11-03] MEDS ORDERED: QUET5TAB PO (18:54)
[2016-11-03] MEDS ORDERED: PANT40TA2 PO (18:54)
[2016-11-03] MEDS ORDERED: VNTHFA/IN INH (18:58)
[2016-11-10] MEDS ORDERED: MAGN400T6 PO (13:30)
== END 2016-07-22 00:04 | disposition home or self-care (01) ==
LOC: EDBD 22:58 → C.EDC 22:59
DX: R56.9 Unspecified convulsions (principal); R51 Headache; M54.9 Dorsalgia, unspecified; F32.9 Major depressive disorder, single episode, unspecified; F41.0 Panic disorder [episodic paroxysmal anxiety]; F19.20 Other psychoactive substance dependence, uncomplicated; F43.10 Post-traumatic stress disorder, unspecified; F17.200 Nicotine dependence, unspecified, uncomplicated; Z86.718 Personal history of other venous thrombosis and embolism; Z86.72 Personal history of thrombophlebitis; Z90.710 Acquired absence of both cervix and uterus; Z83.3 Family history of diabetes mellitus

== ENCOUNTER 2016-07-22 22:15 | Emergency (ER) | payer OTHER ==
[~2016-07-22] VITALS: Ht 157.5 cm; Wt 58.8 kg
[2016-07-22 22:17] VITALS: Ht 157.5 cm; Wt 58.8 kg
[2016-07-22] MEDS ORDERED: SODIUM CHLORIDE 0.9% 1000ML 1,000 ML IV STA (22:28)
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
[2016-07-22 22:36] VITALS: O2SAT 97
[2016-07-22 22:38] LABS: HEMATOCRIT 34.7 % (37-47); MEAN CELL VOLUME 80.9 fL (80-100); MEAN CORPUSCULAR HEMOGLOBIN 27.3 pg (25-34); MEAN CORPUSCULAR HGB CONC 33.7 g/dl (32-36); MEAN PLATELET VOLUME 12.1 fL (7.4-10.4); PLATELET COUNT 168 K/uL (130-400); RED BLOOD COUNT 4.29 M/uL (4.2-5.4); WHITE BLOOD COUNT 4.59 K/uL (4.8-10.8)
[2016-07-22 22:46] LABS: PARTIAL THROMBOPLASTIN RATIO 0.9; PROTHROMBIN TIME (PATIENT) 10.8 SECONDS (9.0-12.0)
[2016-07-22 23:01] LABS: MANUAL MICROSCOPIC REQUIRED? NO; REVIEW REQ? NO; URINE APPEARANCE CLEAR (CLEAR); URINE BILIRUBIN NEG (NEG); URINE COLOR DK YELLOW; URINE NITRITE NEG (NEG); URINE SPECIFIC GRAVITY 1.036 (1.000-1.030); UROBILINOGEN NEG (NEG)
[2016-07-22 23:05] LABS: ALT/SGPT 15 U/L (12-78); AST/SGOT 9 U/L (15-37); BLOOD UREA NITROGEN 18 mg/dl (7-18); BUN/CREATININE RATIO 14.9 (10-20); CALCIUM 8.3 mg/dl (8.5-10.1); CARBON DIOXIDE 19 mmol/L (21-32); CHLORIDE 116 mmol/L (98-107); GLUCOSE 82 mg/dl (70-99); POTASSIUM 3.4 mmol/L (3.5-5.1); SODIUM 145 mmol/L (136-145)
[2016-07-22 23:08] LABS: ALKALINE PHOSPHATASE 52 U/L (45-117)
[2016-07-22 23:21] LABS: BENZODIAZEPINE, URINE NEG (NEG); COCAINE,URINE NEG (NEG); PHENCYCLIDINE, URINE NEG (NEG)
[2016-07-22 23:24] LABS: BASO % 0.2 %; BASO ABS # 0.01 K/uL (0-0.2); COMPLETE YES; EOS % 1.5 %; HYPERSEGMENTED POLYS 1+; LYMPH % 50.1 %; MONO % 5.2 %; OVALOCYTES 1+
[2016-07-23] MEDS ORDERED: GABA1CAP5 PO (00:26)
[2016-07-23] MEDS ORDERED: TOPI200T14 PO ×2 (00:41→00:43)
[2016-07-23] MEDS ORDERED: TOPI50TA16 PO (00:44)
[2016-07-23] MEDS ORDERED: TOPI100T45 PO (00:52)
[2016-07-23 02:02] VITALS: BP 105/66; PULSE 69; TEMP 36.9; O2SAT 95
[2016-08-09] MEDS ORDERED: SERTRALINE 150 MG PO (10:04)
[2016-11-03] MEDS ORDERED: OXYC-57 PO (00:32)
[2016-11-03] MEDS ORDERED: TOPI100T20 PO (10:04)
[2016-11-03] MEDS ORDERED: LAMO200T38 PO (11:38)
[2016-11-03] MEDS ORDERED: PRAZ2CAP2 PO (11:38)
[2016-11-03] MEDS ORDERED: AMT24 PO (11:38)
[2016-11-03] MEDS ORDERED: SERT-234 PO (16:43)
[2016-11-03] MEDS ORDERED: HYDR50CA2 PO (18:54)
[2016-11-03] MEDS ORDERED: PANT40TA2 PO (18:54)
[2016-11-03] MEDS ORDERED: QUET5TAB PO (18:54)
[2016-11-03] MEDS ORDERED: VNTHFA/IN INH (18:58)
[2016-11-10] MEDS ORDERED: MAGN400T6 PO (13:30)
== END 2016-07-23 02:03 | disposition home or self-care (01) ==
LOC: EDBD 22:15 → C.EDB 22:16
DX: T42.6X2A Poisoning by other antiepileptic and sedative-hypnotic drugs, intentional self-harm, initial encounter (principal); F32.9 Major depressive disorder, single episode, unspecified; G40.909 Epilepsy, unspecified, not intractable, without status epilepticus; Z86.73 Personal history of transient ischemic attack (TIA), and cerebral infarction without residual deficits; Z86.718 Personal history of other venous thrombosis and embolism; Z87.01 Personal history of pneumonia (recurrent); Z98.51 Tubal ligation status; Z90.49 Acquired absence of other specified parts of digestive tract; Z90.710 Acquired absence of both cervix and uterus; Z98.891 History of uterine scar from previous surgery; Z79.899 Other long term (current) drug therapy; Z83.3 Family history of diabetes mellitus

== ENCOUNTER 2016-08-08 15:15 | Emergency (ER) | payer OTHER ==
[~2016-08-08] VITALS: Ht 157.5 cm; Wt 57.2 kg
[~2016-08-08 15:15] MED LIST changes: -GABA1CAP4 PO; +GABA1CAP5 PO; -OXYC-57 PO; +TOPI100T45 PO; +TOPI200T14 PO; +TOPI50TA16 PO; -TPM100 PO
[2016-08-08 15:21] VITALS: BP 102/69; TEMP 36.9; Ht 157.5 cm; Wt 57.2 kg
[2016-08-08] MEDS ORDERED: DiphenhydrAMINE HCL 50 MG/ML VIAL IV STA (15:32)
[2016-08-08] MEDS ORDERED: SODIUM CHLORIDE 0.9% 1000ML 1,000 ML IV STA (15:32)
[2016-08-08] MEDS ORDERED: HYDROmorphone INJ 0.5 MG/0.5 ML SYR IV STA (15:32)
[2016-08-08] MEDS ORDERED: PROCHLORPERAZINE 5 MG/ML 2 ML VIAL IV STA (15:32)
[2016-08-08] MEDS ORDERED: DEXAMETHASONE SOD INJ 10 MG/ML VIAL IV ONE (15:45)
--- NOTE | 2016-08-08 16:09 | EMERGENCY ROOM VISIT NOTE ---
History First contact with patient: 15:23 Chief Complaint: HEADACHE Stated Complaint: MIGRAINE - NAUSEA History of Present Illness The patient is a 31 year old female who presents to the Emergency Room with complaints of migraine headache. The patient states that she has had intermittent headaches over the last week but last night the headache worsened. The patient states the pain is on the right side of her head. The patient admits to photosensitivity but denies any other visual changes. The patient also admits to nausea and vomiting. The patient took a Zofran without any relief of her nausea she also took an Excedrin Migraine. The patient did not take any of her Percocet for pain since she was vomiting. The patient states that she is scheduled tomorrow for a Botox injection. The patient states that this is not the worst headache of her life. The patient states that this is typical for her migraine headaches. Review of Systems 10 system review was performed and was negative unless stated otherwise history of present illness. Past Medical/Surgical History Medical Problems: (1) Benzodiazepine overdose (2) blood clots (3) Bronchitis (4) Cerebral Thrombosis Wo Cerebral Infarction (5) section (6) Cholecystectomy (7) Depression (8) Gallbladder problem (9) Hysterectomy (10) Migraine Unspecified W/O Intract Mgrn W/O Status Migrainosus (11) Myalgia And Myositis Nos (12) Panic Disorder Without Agoraphobia (13) Phlebitis & Thrombophlebitis,Sup Veins Upper Extr (14) Pneumonia (15) Polysubstance dependence (16) PTSD (17) Seizure disorder (18) Stomach problems (19) Tubal Ligation Status (20) ulcers Family History Diabetes mellitus FH: cancer FH: lung disease Kidney disease or stones Social History Smoking Status: Current Every Day Smoker Alcohol Use: none Drug Use: none Marital Status: Housing Status: lives with family Occupation Status: unemployed Current/Historical Medications Scheduled Gabapentin (Neurontin), 400 MG PO TID Hydroxyzine Pamoate (Vistaril), 50 MG PO HS Lamotrigine (Lamictal), 200 MG PO BID Lubiprostone (Amitiza), 24 MCG PO BID Pantoprazole (Pantoprazole Sodium), 40 MG PO BID Prazosin Hcl (Prazosin), 4 MG PO HS Quetiapine Fumarate (Quetiapine Fumarate), 12.5 MG PO QAM Quetiapine Fumarate (Seroquel), 50 MG PO HS Sertraline HCl (Sertraline HCl), 100 MG PO QAM Topiramate (Topamax), 200 MG PO QAM Topiramate (Topamax), 50 MG PO QAM Topiramate (Topamax), 300 MG PO QPM Scheduled PRN Albuterol Hfa (Ventolin Hfa), 2 PUFFS INH Q4-6HRS PRN for Shortness of Breath Oxycodone/Acetaminophen 5MG/325MG (Percocet 5MG/325MG), 1 TAB PO DAILY PRN for Pain Promethazine Hcl (Phenergan), 25 MG PO Q6H PRN for Nausea Allergies Coded Allergies: Bupropion (Verified Allergy, Severe, "DR TOLD HER MAY HAVE INCREASED CHANCES OF SEIZURES"., 07/21/16) Methocarbamol (Verified Allergy, Mild, RASH, 07/21/16) Ketorolac Tromethamine (Verified Allergy, Unknown, Rash, 07/21/16) Linaclotide (Verified Allergy, Unknown, LINZESS -- HIVES, 07/21/16) Tramadol (Verified Adverse Reaction, Severe, " TOLD HER IT MAY HAVE INCREASED CHANCES OF SEIZURES"., 07/21/16) PT REPORTS SHE HAS NEVER HAD SEIZURES FROM TRAMADOL Trazodone (Verified Adverse Reaction, Intermediate, "SEVERE DIZZINESS", 07/21/16) Physical Exam Vital Signs Date Time Temp Pulse Resp B/P (MAP) Pulse Ox O2 Delivery O2 Flow Rate FiO2 08/08/16 15:21 36.9 95 16 102/69 99 Room Air Physical Exam GENERAL: 31 white female appears lying in a darkened room in no acute distress. MENTAL STATUS: Patient is alert and oriented x3 EYES: PERRLA. EOMs intact. EARS: Canals clear. TMs without fluid level noted. NECK: Supple, no lymphadenopathy noted. No carotid bruits noted. LUNGS: Clear auscultation without wheezes rales or rhonchi. CARDIAC: Regular rate and rhythm without murmur. Pulses is full and equal throughout. ABDOMEN: Positive bowel sounds all 4 quadrants. Soft, nontender to palpation without organomegaly or masses. NEURO:Cranial nerves two through 12 intact. Cerebellar function intact with [id number]. Fine motor intact with alternating finger motions. Medical Decision & Procedures Medications Administered Medications (Trade) Dose Ordered Sig/Javier Route Start Time Stop Time Status Last Admin Dose Admin Diphenhydramine HCl (Benadryl Inj) 50 mg NOW STAT IV 08/08/16 15:32 08/08/16 15:34 DC 08/08/16 15:52 50 MG Prochlorperazine Edisylate (Compazine Inj) 10 mg NOW STAT IV 08/08/16 15:32 08/08/16 15:34 DC 08/08/16 15:52 10 MG Dexamethasone Sodium Phosphate (Decadron Inj) 10 mg NOW ONCE IV 08/08/16 15:45 08/08/16 15:46 DC 08/08/16 15:52 10 MG Hydromorphone HCl (Dilaudid Inj) 0.5 mg NOW STAT IV 08/08/16 15:32 08/08/16 15:34 DC 08/08/16 15:53 0.5 MG Sodium Chloride 1,000 ml @ 999 mls/hr Q1H1M STAT IV 08/08/16 15:32 08/08/16 16:32 08/08/16 15:52 999 MLS/HR ED Course The patient was evaluated. IV access was obtained. The patient was given 1 L normal saline wide-open. The patient was given Benadryl 50 mg IV, Compazine 10 mg IV, Decadron 10 mg IV and Dilaudid 0.5 mg IV. The patient is on a 2 injection per month treatment plan for her migraine headaches. This is her first injection of the month. The patient was reevaluated was feeling better. The patient was discharged home in stable condition with a family member driving. Medical Decision Differential includes: Acute intracranial bleed, trauma, meningitis, encephalitis, increased intracranial pressure, mass or mass effect, facial or dental infection, temporal arteritis, CVA, TIA, acute hypertensive emergency, sinusitis, carbon monoxide exposure. The patient presented with her typical migraine headache symptoms are for no additional diagnostic imaging was performed. Impression Primary Impression: Migraine Departure Information Dispostion Home / Self-Care Condition GOOD Referrals Hubert Mortensen M.D. (PCP) Forms HOME CARE DOCUMENTATION FORM, IMPORTANT VISIT INFORMATION Patient Instructions ED Headache Migraine, My [facility] Additional Instructions Go home and rest in a dark room. Do not drive for the remainder of the day. Keep scheduled appointment for your Botox injection tomorrow. If symptoms persist or worsen, return to ER. Problem Qualifiers Primary Impression: Migraine Migraine type: unspecified Status migrainosus presence: without status migrainosus Intractability: intractable Qualified Codes: G43.919 - Migraine , unspecified, intractable, without status migrainosus
[2016-08-08 16:48] VITALS: PULSE 63; O2SAT 100
[2016-08-09] MEDS ORDERED: SERTRALINE 150 MG PO (10:04)
[2016-11-03] MEDS ORDERED: OXYC-57 PO (00:32)
[2016-11-03] MEDS ORDERED: TOPI100T20 PO (10:04)
[2016-11-03] MEDS ORDERED: PRAZ2CAP2 PO (11:38)
[2016-11-03] MEDS ORDERED: AMT24 PO (11:38)
[2016-11-03] MEDS ORDERED: LAMO200T38 PO (11:38)
[2016-11-03] MEDS ORDERED: SERT-234 PO (16:43)
[2016-11-03] MEDS ORDERED: PANT40TA2 PO (18:54)
[2016-11-03] MEDS ORDERED: QUET5TAB PO (18:54)
[2016-11-03] MEDS ORDERED: HYDR50CA2 PO (18:54)
[2016-11-03] MEDS ORDERED: VNTHFA/IN INH (18:58)
[2016-11-10] MEDS ORDERED: MAGN400T6 PO (13:30)
== END 2016-08-08 16:49 | disposition home or self-care (01) ==
LOC: C.EDB 15:16 → C.EDD 16:49
DX: G43.919 Migraine, unspecified, intractable, without status migrainosus (principal); G40.909 Epilepsy, unspecified, not intractable, without status epilepticus; F17.200 Nicotine dependence, unspecified, uncomplicated; Z86.73 Personal history of transient ischemic attack (TIA), and cerebral infarction without residual deficits; Z98.891 History of uterine scar from previous surgery; Z90.49 Acquired absence of other specified parts of digestive tract; Z90.710 Acquired absence of both cervix and uterus; Z86.72 Personal history of thrombophlebitis; Z87.01 Personal history of pneumonia (recurrent); Z98.51 Tubal ligation status; Z83.3 Family history of diabetes mellitus; Z79.899 Other long term (current) drug therapy; F32.9 Major depressive disorder, single episode, unspecified

== ENCOUNTER 2016-08-29 15:05 | Emergency (ER) | payer OTHER ==
[~2016-08-29] VITALS: Ht 157.5 cm; Wt 55.4 kg
[~2016-08-29 15:05] MED LIST changes: +SERTRALINE 150 MG PO; -TOPI100T45 PO; -TOPI200T14 PO; -TOPI50TA16 PO; -ZLF/100 PO
[2016-08-29 15:07] VITALS: TEMP 36.7; Ht 157.5 cm; Wt 55.4 kg
[2016-08-29 15:20] VITALS: O2SAT 100
[2016-08-29] MEDS ORDERED: ACETAMINOPHEN 500 MG TAB PO STA (16:05)
[2016-08-29 16:35] LABS: BASO % 0.2 %; BASO ABS # 0.01 K/uL (0-0.2); COMPLETE YES; IG% 0.2 %; LYMPH % 49.7 %; MEAN CORPUSCULAR HEMOGLOBIN 26.7 pg (25-34); MEAN CORPUSCULAR HGB CONC 32.5 g/dl (32-36); MEAN PLATELET VOLUME 11.6 fL (7.4-10.4); MONO % 6.2 %; NEUT % 42.7 %; PLATELET COUNT 153 K/uL (130-400); RED BLOOD COUNT 4.39 M/uL (4.2-5.4); WHITE BLOOD COUNT 4.83 K/uL (4.8-10.8)
[2016-08-29 16:36] LABS: URINE APPEARANCE CLEAR (CLEAR); URINE BILIRUBIN NEG (NEG); URINE COLOR YELLOW; URINE PH 5.5 (4.5-7.5); URINE SPECIFIC GRAVITY 1.026 (1.000-1.030); ZZUR CULT IF INDIC CLEAN CATCH NO
[2016-08-29 16:37] LABS: URINE NITRITE NEG (NEG); UROBILINOGEN NEG (NEG)
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
[2016-08-29] MEDS ORDERED: MDRDP21 PO (16:45)
[2016-08-29 16:57] LABS: BUN/CREATININE RATIO 15.7 (10-20); CALCIUM 8.5 mg/dl (8.5-10.1); CREATININE 1.2 mg/dl (0.60-1.20); POTASSIUM 3.3 mmol/L (3.5-5.1)
[2016-08-29 16:57] LABS: MANUAL MICROSCOPIC REQUIRED? NO; REVIEW REQ? NO
[2016-08-29 16:59] LABS: BENZODIAZEPINE, URINE NEG (NEG); COCAINE,URINE NEG (NEG); PHENCYCLIDINE, URINE NEG (NEG)
[2016-08-29 17:00] LABS: ALB/GLOB RATIO 1.2 (0.9-2)
[2016-08-29] MEDS ORDERED: PROCHLORPERAZINE 5 MG/ML 2 ML VIAL IV STA (17:15)
[2016-08-29] MEDS ORDERED: DiphenhydrAMINE HCL 50 MG/ML VIAL IV STA (17:15)
--- NOTE | 2016-08-29 17:30 | EMERGENCY ROOM VISIT NOTE ---
History First contact with patient: 15:48 Chief Complaint: SEIZURE Stated Complaint: SEIZURE, FELL AND HIT HEAD Nursing Triage Summary: Patient presents with history of seizure disorder and c/o seizure today Patient reports that she woke at the bottom of the stairs with a bump on her head Denies other pain or injury Unwitnessed seizure Patient states her seizures are worse when she is stressed and she has increased stress currently with her 15 year old daughter History of Present Illness The patient is a 31 year old female who presents to the Emergency Room with complaints of a seizure which occurred earlier today. The patient states that she has a long history of seizures. She takes Topamax and Lamictal. She sees a neurologist in [place]. She reports that she was walking out of the bathroom today and had a seizure while walking down the stairs. The seizure was unwitnessed. She does not typically have and are with her seizures. She states that her boyfriend found her at the bottom of the stairs. She had a small amount of dried blood around her mouth and feels she may have bit her tongue. She was not incontinent. She states that she felt slightly "off" initially, but is feeling better now. She reports she has had increased stress recently and feels that may have contributed to her having a seizure. She is scheduled to see a therapist soon. She reports a headache which she rates an 8/ 10 and associated nausea. She denies any blurred vision, slurred speech, numbness or weakness. There has been no further seizure-like activity. She denies any neck pain or any other injuries. Review of Systems A complete 10 point review of systems was reviewed with the patient with pertinent positives and negatives as per history of present illness. All else were negative. Past Medical/Surgical History Medical Problems: (1) Benzodiazepine overdose (2) blood clots (3) Bronchitis (4) Cerebral Thrombosis Wo Cerebral Infarction (5) section (6) Cholecystectomy (7) Depression (8) Gallbladder problem (9) Hysterectomy (10) Migraine Unspecified W/O Intract Mgrn W/O Status Migrainosus (11) Myalgia And Myositis Nos (12) Panic Disorder Without Agoraphobia (13) Phlebitis & Thrombophlebitis,Sup Veins Upper Extr (14) Pneumonia (15) Polysubstance dependence (16) PTSD (17) Seizure disorder (18) Stomach problems (19) Tubal Ligation Status (20) ulcers Family History Diabetes mellitus FH: cancer FH: lung disease Kidney disease or stones Social History Smoking Status: Current Every Day Smoker Alcohol Use: none Drug Use: none Marital Status: Housing Status: lives with family Occupation Status: unemployed Current/Historical Medications Scheduled Gabapentin (Neurontin), 400 MG PO TID Hydroxyzine Pamoate (Vistaril), 50 MG PO HS Lamotrigine (Lamictal), 200 MG PO BID Lubiprostone (Amitiza), 24 MCG PO BID Methylprednisolone (Methylprednisolone Dose P), PO DAILY/UD Pantoprazole (Pantoprazole Sodium), 40 MG PO BID Prazosin Hcl (Prazosin), 4 MG PO HS Quetiapine Fumarate (Quetiapine Fumarate), 12.5 MG PO QAM Quetiapine Fumarate (Seroquel), 50 MG PO HS Sertraline (Zoloft), 100 MG PO DAILY Topiramate (Topamax), 300 MG PO BID Scheduled PRN Albuterol Hfa (Ventolin Hfa), 2 PUFFS INH Q4-6HRS PRN for Shortness of Breath Oxycodone/Acetaminophen 5MG/325MG (Percocet 5MG/325MG), 1 TAB PO DAILY PRN for Pain Promethazine Hcl (Phenergan), 25 MG PO Q6H PRN for Nausea Allergies Coded Allergies: Bupropion (Verified Allergy, Severe, "DR TOLD HER MAY HAVE INCREASED CHANCES OF SEIZURES"., 07/21/16) Methocarbamol (Verified Allergy, Mild, RASH, 07/21/16) Ketorolac Tromethamine (Verified Allergy, Unknown, Rash, 07/21/16) Linaclotide (Verified Allergy, Unknown, LINZESS -- HIVES, 07/21/16) Tramadol (Verified Adverse Reaction, Severe, " TOLD HER IT MAY HAVE INCREASED CHANCES OF SEIZURES"., 07/21/16) PT REPORTS SHE HAS NEVER HAD SEIZURES FROM TRAMADOL Trazodone (Verified Adverse Reaction, Intermediate, "SEVERE DIZZINESS", 07/21/16) Physical Exam Vital Signs Date Time Temp Pulse Resp B/P (MAP) Pulse Ox O2 Delivery O2 Flow Rate FiO2 08/29/16 18:10 65 16 110/72 99 08/29/16 16:12 92 16 108/63 99 Room Air 08/29/16 15:25 71 08/29/16 15:20 100 Room Air 08/29/16 15:07 36.7 86 20 101/73 99 Room Air Physical Exam VITALS: Vitals are noted on the nurse's note and reviewed by myself. Vital signs stable. GENERAL: This is a 31-year-old female, in no acute distress, nondiaphoretic, well-developed well-nourished. SKIN: The skin was without rashes, erythema, or bruising. HEAD: Normocephalic atraumatic. There is a small right frontal hematoma. EARS: External auditory canals clear, tympanic membranes pearly paris without erythema or effusion bilaterally. No hemotympanum. EYES: Pupils equal round and reactive to light and accommodation. Conjunctivae without injection, sclerae without icterus. Extraocular movements intact. MOUTH: Mucous membranes moist. No laceration of the tongue. NECK: Supple without nuchal rigidity. No lymphadenopathy. Cervical spine is nontender. No meningismus. HEART: Regular rate and rhythm without murmurs gallops or rubs. LUNGS: Clear to auscultation bilaterally without wheezes, rales or rhonchi. MUSCULOSKELETAL: Full range of motion throughout. Strength 5/5 throughout. NEURO: Patient was alert and oriented to person place and time. Normal sensation to light and sharp touch. Deep tendon reflexes 2+ throughout. No focal neurological deficits. Medical Decision & Procedures ER Provider Diagnostic Interpretation: HEAD WITHOUT CONTRAST (CT) Findings: The paranasal sinuses and mastoid air cells are clear. The calvarium and skull base are intact. The ventricles and sulci are within normal limits. There is no mass, hematoma, midline shift, or acute infarct. Impression: No acute intracranial abnormality. Laboratory Results 08/29/16 16:20 Red Blood Count 4.39, Mean Corpuscular Volume 82.0, Mean Corpuscular Hemoglobin 26.7, Mean Corpuscular Hemoglobin Concent 32.5, Mean Platelet Volume 11.6, Neutrophils (%) (Auto) 42.7, Lymphocytes (%) (Auto) 49.7, Monocytes (%) (Auto) 6.2, Eosinophils (%) (Auto) 1.0, Basophils (%) (Auto) 0.2, Neutrophils # (Auto) 2.06, Lymphocytes # (Auto) 2.40, Monocytes # (Auto) 0.30, Eosinophils # (Auto) 0.05, Basophils # (Auto) 0.01 08/29/16 16:20 Test 08/29/16 15:20 08/29/16 16:20 Urine Color YELLOW Urine Appearance CLEAR (CLEAR) Urine pH 5.5 (4.5-7.5) Urine Specific [place] 1.026 (1.000-1.030) Urine Protein NEG (NEG) Urine Glucose (UA) NEG (NEG) Urine Ketones NEG (NEG) Urine Occult Blood NEG (NEG) Urine Nitrite NEG (NEG) Urine Bilirubin NEG (NEG) Urine Urobilinogen NEG (NEG) Urine Leukocyte Esterase NEG (NEG) Urine Opiates Screen NEG (NEG) Urine Methadone, Qualitative NEG (NEG) Urine Barbiturates NEG (NEG) Urine Phencyclidine (PCP) Level NEG (NEG) Ur Amphetamine/Methamphetamine NEG (NEG) MDMA (Ecstasy) Screen NEG (NEG) Urine Benzodiazepines Screen NEG (NEG) Urine Cocaine Metabolite NEG (NEG) Urine Marijuana (THC) NEG (NEG) White Blood Count 4.83 K/uL (4.8-10.8) Red Blood Count 4.39 M/uL (4.2-5.4) Hemoglobin 11.7 g/dL (12.0-16.0) Hematocrit 36.0 % (37-47) Mean Corpuscular Volume 82.0 fL (80-100) Mean Corpuscular Hemoglobin 26.7 pg (25-34) Mean Corpuscular Hemoglobin Concent 32.5 g/dl (32-36) Platelet Count 153 K/uL (130-400) Mean Platelet Volume 11.6 fL (7.4-10.4) Neutrophils (%) (Auto) 42.7 % Lymphocytes (%) (Auto) 49.7 % Monocytes (%) (Auto) 6.2 % Eosinophils (%) (Auto) 1.0 % Basophils (%) (Auto) 0.2 % Neutrophils # (Auto) 2.06 K/uL (1.4-6.5) Lymphocytes # (Auto) 2.40 K/uL (1.2-3.4) Monocytes # (Auto) 0.30 K/uL (0.11-0.59) Eosinophils # (Auto) 0.05 K/uL (0-0.5) Basophils # (Auto) 0.01 K/uL (0-0.2) RDW Standard Deviation 48.7 fL (36.4-46.3) RDW Coefficient of Variation 16.1 % (11.5-14.5) Immature Granulocyte % (Auto) 0.2 % Immature Granulocyte # (Auto) 0.01 K/uL (0.00-0.02) Anion Gap 8.0 mmol/L (3-11) Est Creatinine Clear Calc Drug Dose 53.2 ml/min Estimated GFR () 69.3 Estimated GFR (Non- 59.8 BUN/Creatinine Ratio 15.7 (10-20) Calcium Level 8.5 mg/dl (8.5-10.1) Total Bilirubin 0.2 mg/dl (0.2-1) Aspartate Amino Transf (AST/SGOT) 10 U/L (15-37) Alanine Aminotransferase (ALT/SGPT) 15 U/L (12-78) Alkaline Phosphatase 45 U/L (45-117) Total Protein 6.6 gm/dl (6.4-8.2) Albumin 3.6 gm/dl (3.4-5.0) Globulin 3.0 gm/dl (2.5-4.0) Albumin/Globulin Ratio 1.2 (0.9-2) Medications Administered Medications (Trade) Dose Ordered Sig/Javier Route Start Time Stop Time Status Last Admin Dose Admin Acetaminophen (Tylenol Tab) 1,000 mg NOW STAT PO 08/29/16 16:05 08/29/16 16:07 DC 08/29/16 16:11 1,000 MG Prochlorperazine Edisylate (Compazine Inj) 5 mg NOW STAT IV 08/29/16 17:15 08/29/16 17:17 DC 08/29/16 17:30 5 MG Diphenhydramine HCl (Benadryl Inj) 25 mg NOW STAT IV 08/29/16 17:15 08/29/16 17:17 DC 08/29/16 17:31 25 MG ED Course The patient was evaluated as above. Labs were drawn and IV access was obtained. Patient was medicated with 1 g Tylenol for her headache. CT of head was performed and read by radiology as above. Patient was reevaluated and complained of continued headache. She was given IV Compazine and Benadryl. Discharge instructions were reviewed with the patient. The patient verbalized understanding of my assessment and treatment plan and was discharged home in good condition. Medical Decision Differential diagnosis includes breakthrough seizure, medication noncompliance, hypoglycemia, altered abnormality, infection, among others. The patient is a 31-year-old female who presents today complaining of an unwitnessed seizure which occurred this morning. She states she is taking medications as prescribed. Labs were unremarkable. No leukocytosis or electrolyte abnormalities. There is no evidence of infection on exam. No neuro deficits. CT of the head was performed due to the head injury and was read by radiology with no acute findings. The patient did complain of a headache and was given Tylenol, Compazine and Benadryl. Patient had no further seizure activity throughout her stay in the emergency department. She was instructed to follow-up with her primary care provider and neurologist for further evaluation. The patient's case was reviewed with Dr. Roman, ED attending physician, who agreed with my assessment and treatment plan. Based on the patient's presentation and work up, I feel the patient is stable for outpatient treatment. The patient was educated to return to the emergency department for any worsening of their current condition or new/concerning symptoms. She will follow up with her neurologist at [facility]. Medication reconciliation: I attest that I have personally reviewed the patient 's current medication list. Blood pressure screening: Patient was found to have normal blood pressure on screening and does not require follow-up. Impression Primary Impression: Seizure Departure Information Dispostion Home / Self-Care Condition GOOD Referrals Hubert Mortensen M.D. (PCP) Patient Instructions My [facility] Additional Instructions Call your neurologist to schedule follow-up. Take all of your seizure medications as prescribed. Rest and drink plenty of fluids. Return to the emergency department with any recurrent seizures or any other new/ concerning symptoms.
[2016-08-29 18:10] VITALS: BP 110/72; PULSE 65; O2SAT 99
[2016-11-03] MEDS ORDERED: OXYC-57 PO (00:32)
[2016-11-03] MEDS ORDERED: TOPI100T20 PO (10:04)
[2016-11-03] MEDS ORDERED: PRAZ2CAP2 PO (11:38)
[2016-11-03] MEDS ORDERED: LAMO200T38 PO (11:38)
[2016-11-03] MEDS ORDERED: AMT24 PO (11:38)
[2016-11-03] MEDS ORDERED: SERT-234 PO (16:43)
[2016-11-03] MEDS ORDERED: HYDR50CA2 PO (18:54)
[2016-11-03] MEDS ORDERED: PRT/40 PO (18:54)
[2016-11-03] MEDS ORDERED: QUET5TAB PO (18:54)
[2016-11-03] MEDS ORDERED: VNTHFA/IN INH (18:58)
[2016-11-10] MEDS ORDERED: MAGN400T6 PO (13:30)
== END 2016-08-29 18:11 | disposition home or self-care (01) ==
LOC: C.EDB 15:06 → C.EDC 18:11
DX: S09.90XA Unspecified injury of head, initial encounter (principal); R56.9 Unspecified convulsions; R51 Headache; W10.9XXA Fall (on) (from) unspecified stairs and steps, initial encounter; F17.210 Nicotine dependence, cigarettes, uncomplicated; Z79.899 Other long term (current) drug therapy; Z86.73 Personal history of transient ischemic attack (TIA), and cerebral infarction without residual deficits; Z90.710 Acquired absence of both cervix and uterus; Z86.72 Personal history of thrombophlebitis

== ENCOUNTER 2016-11-03 19:22 | Emergency (ER) | payer OTHER ==
[~2016-11-03] VITALS: Ht 157.5 cm; Wt 53.7 kg
[~2016-11-03 19:22] MED LIST changes: +AMT24 PO; +HYDR50CA2 PO; +LAMO200T38 PO; +MDRDP21 PO; +OXYC-57 PO; +PRAZ2CAP2 PO; +PRT/40 PO; +QUET5TAB PO; +SERT-234 PO; -SERTRALINE 150 MG PO; +TOPI100T20 PO; +VNTHFA/IN INH
[2016-11-03 20:00] VITALS: TEMP 36.8; Ht 157.5 cm; Wt 53.7 kg
[2016-11-03] MEDS ORDERED: NRN400 PO (21:56)
[2016-11-03] MEDS ORDERED: PROM25TA16 PO (21:56)
[2016-11-03] MEDS ORDERED: IBUP-103 PO (21:56)
[2016-11-03] MEDS ORDERED: ASPI-390 PO (21:56)
[2016-11-03] MEDS ORDERED: METOCLOPRAMIDE HCL INJ 5 MG/ML 2 ML VIAL IV STA (21:58)
[2016-11-03] MEDS ORDERED: SODIUM CHLORIDE 0.9% 1000ML 1,000 ML IV STA (21:58)
[2016-11-03] MEDS ORDERED: DiphenhydrAMINE HCL 50 MG/ML VIAL IV STA (21:58)
[2016-11-03] MEDS ORDERED: MAGNESIUM SULFATE 1GM / D5W 1 GM BAG IV STA (21:58)
--- NOTE | 2016-11-03 22:28 | EMERGENCY ROOM VISIT NOTE ---
History Report prepared by Shawn: Beck Ellsworth Under the Supervision of: Dr. Naresh Friedman M.D. First contact with patient: 21:23 Chief Complaint: DIZZY Stated Complaint: DIZZY, SICK, LIGHT HEADED Nursing Triage Summary: pt states "I haven't been able to eat for three days, i've just been feeling so sick. today I got dizzy and light headed and pain in my back that goes into my chest." pt has a hx of a stroke. pt reports upper mid back pain that radiates into her chest. pt alert and oriented x4. breathing WNL. lungs clear in all reeves. History of Present Illness The patient is a 31 year old white female with a past medical history of stroke , UTI, hysterectomy, C- Section, and cholecystectomy who presents to the ED with a cc of constant dizziness beginning yesterday. She rates her pain as a 7/ 10 in severity. The patient states that she has not been able to eat for the last three days. The patient states that she has been experiencing nausea, which she has been taking nausea medication for. She reports that her lightheadedness and dizziness began yesterday. The patient reports that her dizziness worsened today. She states that she started to experience back, chest , and head pain. The patient reports that she normally experiences headaches. She reports that she has also been experiencing constipation and is going to see a specialist at [facility]. Positive nausea, lightheaded, headache. Negative vomiting, fevers, chills, cough, sore throat, recent travel, recent antibiotics , sick contact, recent trauma or injury. Source of History: patient Onset: yesterday Position: other (global) Symptom Intensity: 7/10 Quality: other (lightheaded) Timing: constant Associated Symptoms: + chest pain, + nausea, + back pain, No fevers, No chills, No sorethroat, No cough, No vomiting Review of Systems See HPI for pertinent positives and negatives. A total of ten systems were reviewed and were otherwise negative. Past Medical & Surgical Medical Problems: (1) Benzodiazepine overdose (2) blood clots (3) Bronchitis (4) Cerebral Thrombosis Wo Cerebral Infarction (5) section (6) Cholecystectomy (7) Depression (8) Gallbladder problem (9) Hysterectomy (10) Migraine Unspecified W/O Intract Mgrn W/O Status Migrainosus (11) Myalgia And Myositis Nos (12) Panic Disorder Without Agoraphobia (13) Phlebitis & Thrombophlebitis,Sup Veins Upper Extr (14) Pneumonia (15) Polysubstance dependence (16) PTSD (17) Seizure disorder (18) Stomach problems (19) Tubal Ligation Status (20) ulcers Family History Diabetes mellitus FH: cancer FH: lung disease Kidney disease or stones Social History Smoking Status: Current Every Day Smoker Alcohol Use: none Drug Use: none Marital Status: Housing Status: lives with family Occupation Status: unemployed Current/Historical Medications Scheduled Eypispc-Clxspsahxmnle-Rhjzjonq (Excedrin Migraine), 1 TAB PO PRN UD Famotidine (Pepcid), 20 MG PO QD Gabapentin (Gabapentin), 400 MG PO TID Hydroxyzine Pamoate (Vistaril), 50 MG PO HS Ibuprofen Tab (Advil), 600 MG PO PRN UD Lamotrigine (Lamictal), 200 MG PO BID Lubiprostone (Amitiza), 24 MCG PO BID Ondasetron Odt (Zofran Odt), 4 MG SL Q6H Pantoprazole (Pantoprazole Sodium), 40 MG PO BID Prazosin Hcl (Prazosin), 4 MG PO HS Quetiapine Fumarate (Quetiapine Fumarate), 12.5 MG PO HS Quetiapine Fumarate (Seroquel), 50 MG PO HS Sertraline (Zoloft), 100 MG PO DAILY Topiramate (Topamax), 300 MG PO BID Scheduled PRN Albuterol Hfa (Ventolin Hfa), 2 PUFFS INH Q4-6HRS PRN for Shortness of Breath Oxycodone/Acetaminophen 5MG/325MG (Percocet 5MG/325MG), 1 TAB PO DAILY PRN for Pain Promethazine HCl (Promethazine HCl), 25 MG PO Q4 PRN for Nausea or Vomiting Allergies Coded Allergies: Bupropion (Verified Allergy, Severe, "DR TOLD HER MAY HAVE INCREASED CHANCES OF SEIZURES"., 10/10/16) Methocarbamol (Verified Allergy, Mild, RASH, 10/10/16) Ketorolac Tromethamine (Verified Allergy, Unknown, Rash, 10/10/16) Linaclotide (Verified Allergy, Unknown, LINZESS -- HIVES, 10/10/16) Tramadol (Verified Adverse Reaction, Severe, "DR TOLD HER IT MAY HAVE INCREASED CHANCES OF SEIZURES"., 10/10/16) PT REPORTS SHE HAS NEVER HAD SEIZURES FROM TRAMADOL Trazodone (Verified Adverse Reaction, Intermediate, "SEVERE DIZZINESS", ) Physical Exam Vital Signs Date Time Temp Pulse Resp B/P (MAP) Pulse Ox O2 Delivery O2 Flow Rate FiO2 11/04/16 00:30 79 18 116/69 100 11/04/16 00:03 76 11/03/16 22:42 83 18 115/76 100 Room Air 11/03/16 21:01 79 11/03/16 20:59 80 18 110/73 98 Room Air 85 108/88 92 113/89 11/03/16 20:00 36.8 104 20 107/80 99 Room Air Physical Exam GENERAL: Awake, alert, well-appearing, NAD HENT: Normocephalic, atraumatic. EYES: Normal conjunctiva. Sclera non-icteric. NECK: Supple. No nuchal rigidity. FROM. RESPIRATORY: CTAB, no rhonchi, wheezing, crackles CARDIAC: RRR, no MRG ABDOMEN: Soft, epigastric tenderness, BS+, negative obturator's and psoae's. MSK: No chest wall TTP, no LE edema NEURO: GCS 15, CN 2-12 intact, moves all 4s on command. SKIN: No rash or jaundice noted. Medical Decision & Procedures ER Provider Diagnostic Interpretation: X-ray: Per my interpretation, radiologist review. CHEST ONE VIEW PORTABLE CLINICAL HISTORY: 31 years-old Female presenting with chest pain. TECHNIQUE: Portable upright AP view of the chest was obtained. COMPARISON: 05/18/2016. FINDINGS: Cardiomediastinal silhouette normal. Lungs and pleural spaces clear. Osseous structures normal. Upper abdomen normal. IMPRESSION: 1. No acute cardiopulmonary disease. Electronically signed by: Abraham Reyes M.D. 11/03/2016 10:35 PM Dictated Date/Time: 11/03/2016 10:35 PM Laboratory Results 11/03/16 22:30 Red Blood Count 4.45, Mean Corpuscular Volume 83.8, Mean Corpuscular Hemoglobin 27.2, Mean Corpuscular Hemoglobin Concent 32.4, Mean Platelet Volume 12.1, Neutrophils (%) (Auto) 49.2, Lymphocytes (%) (Auto) 41.9, Monocytes (%) (Auto) 7.8, Eosinophils (%) (Auto) 0.6, Basophils (%) (Auto) 0.3, Neutrophils # (Auto) 3.24, Lymphocytes # (Auto) 2.75, Monocytes # (Auto) 0.51, Eosinophils # (Auto) 0.04, Basophils # (Auto) 0.02 11/03/16 22:30 Test 11/03/16 22:30 11/03/16 22:37 11/03/16 22:48 White Blood Count 6.57 K/uL (4.8-10.8) Red Blood Count 4.45 M/uL (4.2-5.4) Hemoglobin 12.1 g/dL (12.0-16.0) Hematocrit 37.3 % (37-47) Mean Corpuscular Volume 83.8 fL (80-100) Mean Corpuscular Hemoglobin 27.2 pg (25-34) Mean Corpuscular Hemoglobin Concent 32.4 g/dl (32-36) Platelet Count 171 K/uL (130-400) Mean Platelet Volume 12.1 fL (7.4-10.4) Neutrophils (%) (Auto) 49.2 % Lymphocytes (%) (Auto) 41.9 % Monocytes (%) (Auto) 7.8 % Eosinophils (%) (Auto) 0.6 % Basophils (%) (Auto) 0.3 % Neutrophils # (Auto) 3.24 K/uL (1.4-6.5) Lymphocytes # (Auto) 2.75 K/uL (1.2-3.4) Monocytes # (Auto) 0.51 K/uL (0.11-0.59) Eosinophils # (Auto) 0.04 K/uL (0-0.5) Basophils # (Auto) 0.02 K/uL (0-0.2) RDW Standard Deviation 49.3 fL (36.4-46.3) RDW Coefficient of Variation 16.0 % (11.5-14.5) Immature Granulocyte % (Auto) 0.2 % Immature Granulocyte # (Auto) 0.01 K/uL (0.00-0.02) Anion Gap 9.0 mmol/L (3-11) Est Creatinine Clear Calc Drug Dose 58.1 ml/min Estimated GFR () 76.9 Estimated GFR (Non- 66.4 BUN/Creatinine Ratio 20.4 (10-20) Calcium Level 8.9 mg/dl (8.5-10.1) Total Bilirubin 0.3 mg/dl (0.2-1) Direct Bilirubin < 0.1 mg/dl (0-0.2) Aspartate Amino Transf (AST/SGOT) 14 U/L (15-37) Alanine Aminotransferase (ALT/SGPT) 11 U/L (12-78) Alkaline Phosphatase 40 U/L (45-117) Total Protein 7.5 gm/dl (6.4-8.2) Albumin 3.9 gm/dl (3.4-5.0) Lipase 110 U/L (73-393) Bedside Troponin I < 0.030 ng/ml (0-0.045) Urine Color DK YELLOW Urine Appearance CLOUDY (CLEAR) Urine pH 5.0 (4.5-7.5) Urine Specific [place] 1.040 (1.000-1.030) Urine Protein TRACE (NEG) Urine Glucose (UA) NEG (NEG) Urine Ketones TRACE (NEG) Urine Occult Blood NEG (NEG) Urine Nitrite NEG (NEG) Urine Bilirubin NEG (NEG) Urine Urobilinogen NEG (NEG) Urine Leukocyte Esterase NEG (NEG) Urine WBC (Auto) 1-5 /hpf (0-5) Urine RBC (Auto) 0-4 /hpf (0-4) Urine Hyaline Casts (Auto) 0 /lpf (0-5) Urine Epithelial Cells (Auto) >30 /lpf (0-5) Urine Bacteria (Auto) NEG (NEG) Urine Crystals CALCIUM OXALATE (NONE Urine Pathogenic Casts /lpf (0) Urine Mucus PRESENT (NONE PRSENT) Urine Test NEG (NEG) Laboratory results reviewed by me Medications Administered Medications (Trade) Dose Ordered Sig/Javier Route Start Time Stop Time Status Last Admin Dose Admin Sodium Chloride 1,000 ml @ 999 mls/hr Q1H1M STAT IV 11/03/16 21:58 11/03/16 22:58 DC 11/03/16 22:42 999 MLS/HR Metoclopramide HCl (Reglan Inj) 20 mg NOW STAT IV 11/03/16 21:58 11/03/16 22:01 DC 11/03/16 22:44 20 MG Diphenhydramine HCl (Benadryl Inj) 50 mg NOW STAT IV 11/03/16 21:58 11/03/16 22:01 DC 11/03/16 22:42 50 MG Magnesium Sulfate (Magnesium Sulfate) 1 gm NOW STAT IV 11/03/16 21:58 11/03/16 22:01 DC 11/03/16 22:42 1 GM ECG Indication: other (dizzy) Rate (beats per minute): 82 Rhythm: normal sinus Findings: other (Normal intervals and axis. No ST changes or TWI) ED Course 2137: The patient was evaluated in room B09. A complete history and physical exam was performed. 0004: I reevaluated the patient. Discussed results and discharge instructions: She verbalized understanding and agreement. The patient is ready for discharge. Medical Decision The differential diagnosis includes etiologies such as appendicitis, diverticulitis, PUD, biliary pathology, UTI, pancreatitis, obstruction, mesenteric ischemia, aortic pathology, infections, inflammatory bowel disease, renal colic, as well as others were entertained. Patient w/ nausea and inability to tolerated PO. Also concomitant complaints of CP and ZEPEDA. No fevers or chills. No signs of meningismus. No focal neuro deficits. No trauma, no blood thinners. Not HTNsive. H/o of seizures but no reported seizures, AMS, or concern for overdose. PERC out. HEART score < 3, EKG unremarkable, trop neg. Patient sleeping comfortably upon reassessment. LFTs/ lipase WNL. Patient UA and UPT neg for infection or . Patient tolerated PO. Patient given strict f/u, d/c, and return precautions and d/c'ed to home. Medication Reconcilliation Current Medication List: was personally reviewed by me Blood Pressure Screening Patient's blood pressure: Normal blood pressure Impression Primary Impression: Gastritis Additional Impression: Nausea & vomiting Scribe Attestation The scribe's documentation has been prepared under my direction and personally reviewed by me in its entirety. I confirm that the note above accurately reflects all work, treatment, procedures, and medical decision making performed by me. Departure Information Dispostion Home / Self-Care Prescriptions Ondasetron Odt (ZOFRAN ODT) 4 Mg Tab 4 MG SL Q6H for Nausea, #6 TAB Prov: Naresh Friedman M.D. 11/04/16 Famotidine (PEPCID) 20 Mg Tab 20 MG PO QD, #30 TAB Prov: Naresh Friedman M.D. 11/04/16 Referrals No Doctor, Assigned (PCP) Patient Instructions Headache Pain, My [facility] Additional Instructions Please return to the emergency department if you have worsening or recurrent symptoms not amenable to at-home treatment. Please call for a follow-up appointment with her primary care physician. Please take your medications as prescribed. If you have other concerns and/or complaints please feel free to also call your primary care physician's office or return the ED for further evaluation, management, and treatment. You may take tylenol 1000mg every 6 hours as needed for pain. Avoid NSAIDs like motrin/ibuprofen. Avoid spicy or citrus foods, caffeine, or mint as they can cause some upset stomach. You have been examined and treated today on an emergency basis only. This is not a substitute for, or an effort to provide, complete comprehensive medical care. It is impossible to recognize and treat all injuries or illnesses in a single emergency department visit. It is therefore important that you follow up closely with [facility]. Call as soon as possible for an appointment. Thank you for your time and consideration. I look forward to speaking with you again soon. Please don't hesitate to call us if you have any questions. Problem Qualifiers Primary Impression: Gastritis Gastritis type: unspecified gastritis Chronicity: unspecified Gastritis bleeding: presence of bleeding unspecified Qualified Codes: K29.70 - Gastritis, unspecified, without bleeding Additional Impression: Nausea & vomiting Vomiting type: unspecified Vomiting Intractability: non-intractable Qualified Codes: R11.2 - Nausea with vomiting, unspecified
--- NOTE | 2016-11-03 22:37 | DIAGNOSTIC IMAGING REPORT ---
CHEST ONE VIEW PORTABLE CLINICAL HISTORY: 31 years-old Female presenting with chest pain. TECHNIQUE: Portable upright AP view of the chest was obtained. COMPARISON: 05/18/2016. FINDINGS: Cardiomediastinal silhouette normal. Lungs and pleural spaces clear. Osseous structures normal. Upper abdomen normal. IMPRESSION: 1. No acute cardiopulmonary disease. Electronically signed by: Abraham Reyes M.D. 11/03/2016 10:35 PM Dictated Date/Time: 11/03/2016 10:35 PM
[2016-11-03 22:43] LABS: BASO % 0.3 %; BASO ABS # 0.02 K/uL (0-0.2); COMPLETE YES; EOS % 0.6 %; HEMATOCRIT 37.3 % (37-47); IG% 0.2 %; LYMPH % 41.9 %; LYMPH ABS # 2.75 K/uL (1.2-3.4); MEAN CELL VOLUME 83.8 fL (80-100); MEAN CORPUSCULAR HEMOGLOBIN 27.2 pg (25-34); MEAN CORPUSCULAR HGB CONC 32.4 g/dl (32-36); MEAN PLATELET VOLUME 12.1 fL (7.4-10.4); MONO % 7.8 %; NEUT % 49.2 %; PLATELET COUNT 171 K/uL (130-400); RED BLOOD COUNT 4.45 M/uL (4.2-5.4); WHITE BLOOD COUNT 6.57 K/uL (4.8-10.8)
[2016-11-03 23:10] LABS: ALT/SGPT 11 U/L (12-78); BLOOD UREA NITROGEN 22 mg/dl (7-18); BUN/CREATININE RATIO 20.4 (10-20); CALCIUM 8.9 mg/dl (8.5-10.1); CARBON DIOXIDE 16 mmol/L (21-32); CHLORIDE 114 mmol/L (98-107); GLUCOSE 78 mg/dl (70-99); POTASSIUM 3.4 mmol/L (3.5-5.1); SODIUM 139 mmol/L (136-145)
[2016-11-03 23:13] LABS: ALKALINE PHOSPHATASE 40 U/L (45-117); AST/SGOT 14 U/L (15-37)
[2016-11-03 23:14] LABS: URINE APPEARANCE CLOUDY (CLEAR); URINE BILIRUBIN NEG (NEG); URINE COLOR DK YELLOW; URINE EPITHELIAL CELL AUTO >30 /lpf (0-5); URINE NITRITE NEG (NEG); UROBILINOGEN NEG (NEG); ZZUR CULT IF INDIC CLEAN CATCH NO
[2016-11-03 23:21] LABS: MANUAL MICROSCOPIC REQUIRED? NO; REVIEW REQ? YES
[2016-11-03 23:31] LABS: URINE MUCUS PRESENT (NONE PRSENT)
[2016-11-04] MEDS ORDERED: FAMO20TA9 PO (00:16)
[2016-11-04] MEDS ORDERED: ONDA4TAB10 SL (00:16)
[2016-11-04 00:30] VITALS: BP 116/69; PULSE 79; O2SAT 100
[2016-11-10] MEDS ORDERED: MAGN400T6 PO (13:30)
== END 2016-11-04 00:30 | disposition home or self-care (01) ==
LOC: C.EDB 19:23
DX: K29.70 Gastritis, unspecified, without bleeding (principal); R11.2 Nausea with vomiting, unspecified; R42 Dizziness and giddiness; R51 Headache; R07.9 Chest pain, unspecified; M54.9 Dorsalgia, unspecified; F32.9 Major depressive disorder, single episode, unspecified; Z79.899 Other long term (current) drug therapy; Z86.73 Personal history of transient ischemic attack (TIA), and cerebral infarction without residual deficits; Z86.718 Personal history of other venous thrombosis and embolism; Z87.01 Personal history of pneumonia (recurrent); Z87.09 Personal history of other diseases of the respiratory system; Z87.440 Personal history of urinary (tract) infections; Z87.898 Personal history of other specified conditions; Z83.3 Family history of diabetes mellitus; Z83.6 Family history of other diseases of the respiratory system; Z84.1 Family history of disorders of kidney and ureter; F17.200 Nicotine dependence, unspecified, uncomplicated

== ENCOUNTER 2016-11-06 22:11 | Emergency (ER) | payer OTHER ==
[~2016-11-06] VITALS: Ht 157.5 cm; Wt 46.4 kg
[~2016-11-06 22:11] MED LIST changes: +ASPI-390 PO; +FAMO20TA9 PO; -GABA1CAP5 PO; +IBUP-103 PO; -MDRDP21 PO; +NRN400 PO; +ONDA4TAB10 SL; +PROM25TA16 PO; -PROM25TA9 PO
[2016-11-06 22:23] VITALS: TEMP 36.7; Ht 157.5 cm; Wt 46.4 kg
[2016-11-06] MEDS ORDERED: MELA1TAB54 PO (22:49)
[2016-11-06] MEDS ORDERED: SERT50TA PO (22:49)
[2016-11-06] MEDS ORDERED: ONDANSETRON INJ 2 MG/ML 2 ML VIAL IV STA (22:55)
[2016-11-06] MEDS ORDERED: SODIUM CHLORIDE 0.9% 1000ML 1,000 ML IV STA (22:55)
[2016-11-06] MEDS ORDERED: DICYCLOMINE HCL 10 MG/ML 2 ML AMP IM ONE (23:00)
[2016-11-06 23:12] LABS: URINE APPEARANCE CLEAR (CLEAR); URINE BILIRUBIN NEG (NEG); URINE COLOR DK YELLOW; URINE NITRITE NEG (NEG); URINE SPECIFIC GRAVITY 1.044 (1.000-1.030); UROBILINOGEN NEG (NEG); ZZUR CULT IF INDIC CLEAN CATCH NO
[2016-11-06] MEDS ORDERED: OPTIRAY 320 IV PRN (23:15)
[2016-11-06 23:16] LABS: MANUAL MICROSCOPIC REQUIRED? NO; REVIEW REQ? NO
[2016-11-06 23:18] LABS: BASO % 0.2 %; BASO ABS # 0.01 K/uL (0-0.2); COMPLETE YES; EOS % 1.1 %; HEMATOCRIT 35.8 % (37-47); IG% 0.3 %; LYMPH % 42.6 %; LYMPH ABS # 2.79 K/uL (1.2-3.4); MEAN CELL VOLUME 82.7 fL (80-100); MEAN CORPUSCULAR HEMOGLOBIN 28.6 pg (25-34); MEAN CORPUSCULAR HGB CONC 34.6 g/dl (32-36); MEAN PLATELET VOLUME 12.2 fL (7.4-10.4); MONO % 8.2 %; NEUT % 47.6 %; PLATELET COUNT 163 K/uL (130-400); RED BLOOD COUNT 4.33 M/uL (4.2-5.4); WHITE BLOOD COUNT 6.55 K/uL (4.8-10.8)
[2016-11-06 23:31] LABS: BUN/CREATININE RATIO 15.1 (10-20); CALCIUM 8.5 mg/dl (8.5-10.1); CREATININE 1.2 mg/dl (0.60-1.20); POTASSIUM 3.6 mmol/L (3.5-5.1)
[2016-11-06 23:34] LABS: ALB/GLOB RATIO 1.1 (0.9-2)
[2016-11-07] MEDS ORDERED: DICY20TA35 PO (01:08)
--- NOTE | 2016-11-07 01:08 | EMERGENCY ROOM VISIT NOTE ---
History First contact with patient: 22:33 Chief Complaint: ABDOMINAL PAIN Stated Complaint: AB PAIN, BLOOD IN STOOL Nursing Triage Summary: Pt arrives ALS for evaluation of sudden onset of sharp, stabbing abd pain, reports more to left abd. Started approx 2 hr ago. Pt reports watery, bloody diarrhea. Pt reports unable to control bowel movements. Pt has hx constipation. Took laxatives yesterday. Reports she tok 6 ducolax pills. Was seen here 3 days ago for dehydration. History of Present Illness The patient is a 31 year old female who presents to the Emergency Room with complaints of abdominal pain. The patient states that she has had right-sided abdominal pain which shoots into the left side which began 2-3 hours ago. She reports a history of constipation. She took 6 Dulcolax tablets yesterday for constipation. She states that she has had diarrhea and has had difficulty controlling her bowel movements since this pain started. She rates her discomfort a 9/10. She reports that the diarrhea has been blood-tinged. She denies any vomiting. She denies fevers. She denies urinary symptoms. Review of Systems A complete 10 point review of systems was reviewed with the patient with pertinent positives and negatives as per history of present illness. All else were negative. Past Medical/Surgical History Medical Problems: (1) Benzodiazepine overdose (2) blood clots (3) Bronchitis (4) Cerebral Thrombosis Wo Cerebral Infarction (5) section (6) Cholecystectomy (7) Depression (8) Gallbladder problem (9) Hysterectomy (10) Migraine Unspecified W/O Intract Mgrn W/O Status Migrainosus (11) Myalgia And Myositis Nos (12) Panic Disorder Without Agoraphobia (13) Phlebitis & Thrombophlebitis,Sup Veins Upper Extr (14) Pneumonia (15) Polysubstance dependence (16) PTSD (17) Seizure disorder (18) Stomach problems (19) Tubal Ligation Status (20) ulcers Family History Diabetes mellitus FH: cancer FH: lung disease Kidney disease or stones Social History Smoking Status: Current Every Day Smoker Alcohol Use: none Drug Use: none Marital Status: Housing Status: lives with family Occupation Status: unemployed Current/Historical Medications Scheduled Dicyclomine Hcl (Bentyl), 1 TAB PO TID Gabapentin (Gabapentin), 400 MG PO TID Hydroxyzine Pamoate (Vistaril), 50 MG PO HS Ibuprofen Tab (Advil), 600 MG PO PRN UD Lamotrigine (Lamictal), 200 MG PO BID Lubiprostone (Amitiza), 24 MCG PO BID Melatonin (Melatonin), 5 MG PO HS Pantoprazole (Pantoprazole Sodium), 40 MG PO BID Prazosin Hcl (Prazosin), 4 MG PO HS Quetiapine Fumarate (Quetiapine Fumarate), 12.5 MG PO HS Quetiapine Fumarate (Seroquel), 50 MG PO HS Sertraline (Zoloft), 50 MG PO DAILY Topiramate (Topamax), 300 MG PO BID Scheduled PRN Oxycodone/Acetaminophen 5MG/325MG (Percocet 5MG/325MG), 1 TAB PO DAILY PRN for Pain Promethazine HCl (Promethazine HCl), 25 MG PO Q4 PRN for Nausea or Vomiting Allergies Coded Allergies: Bupropion (Verified Allergy, Severe, "DR TOLD HER MAY HAVE INCREASED CHANCES OF SEIZURES"., 10/10/16) Methocarbamol (Verified Allergy, Mild, RASH, 10/10/16) Ketorolac Tromethamine (Verified Allergy, Unknown, Rash, 10/10/16) Linaclotide (Verified Allergy, Unknown, LINZESS -- HIVES, 10/10/16) Tramadol (Verified Adverse Reaction, Severe, "DR TOLD HER IT MAY HAVE INCREASED CHANCES OF SEIZURES"., 10/10/16) PT REPORTS SHE HAS NEVER HAD SEIZURES FROM TRAMADOL Trazodone (Verified Adverse Reaction, Intermediate, "SEVERE DIZZINESS", ) Physical Exam Vital Signs Date Time Temp Pulse Resp B/P (MAP) Pulse Ox O2 Delivery O2 Flow Rate FiO2 11/07/16 01:25 74 103/71 98 11/06/16 22:23 36.7 104 20 112/73 98 Room Air Physical Exam VITALS: Vitals are noted on the nurse's note and reviewed by myself. Vital signs stable. GENERAL: This is a 31-year-old female, in no acute distress, nondiaphoretic, well-developed well-nourished. EYES: Pupils equal round and reactive to light and accommodation. MOUTH: Mucous membranes moist. NECK: Supple without nuchal rigidity. HEART: Regular rate and rhythm without murmurs gallops or rubs. LUNGS: Clear to auscultation bilaterally without wheezes, rales or rhonchi. ABDOMEN: Positive bowel sounds x 4. Soft, tenderness to palpation diffusely across the upper abdomen. No guarding or rebound tenderness. NEURO: Patient was alert and oriented to person place and time. Medical Decision & Procedures ER Provider Diagnostic Interpretation: CT ABDOMEN & PELVIS: Normal appendix. Liquid stool in colon, compatible with diarrhea. No evidence of bowel wall thickening or focal inflammatory changes. No bowel obstruction. Post cholecystectomy. Biliary ductal dilatation which may be physiologic post cholecystectomy. Hysterectomy. Spleen mildly enlarged. No free air or free fluid. Solid organs otherwise unremarkable. Radiologist: Buck Wolf MD Laboratory Results 11/06/16 22:00 Red Blood Count 4.33, Mean Corpuscular Volume 82.7, Mean Corpuscular Hemoglobin 28.6, Mean Corpuscular Hemoglobin Concent 34.6, Mean Platelet Volume 12.2, Neutrophils (%) (Auto) 47.6, Lymphocytes (%) (Auto) 42.6, Monocytes (%) (Auto) 8.2, Eosinophils (%) (Auto) 1.1, Basophils (%) (Auto) 0.2, Neutrophils # (Auto) 3.12, Lymphocytes # (Auto) 2.79, Monocytes # (Auto) 0.54, Eosinophils # (Auto) 0.07, Basophils # (Auto) 0.01 11/06/16 22:00 Test 11/06/16 22:00 11/06/16 22:30 White Blood Count 6.55 K/uL (4.8-10.8) Red Blood Count 4.33 M/uL (4.2-5.4) Hemoglobin 12.4 g/dL (12.0-16.0) Hematocrit 35.8 % (37-47) Mean Corpuscular Volume 82.7 fL (80-100) Mean Corpuscular Hemoglobin 28.6 pg (25-34) Mean Corpuscular Hemoglobin Concent 34.6 g/dl (32-36) Platelet Count 163 K/uL (130-400) Mean Platelet Volume 12.2 fL (7.4-10.4) Neutrophils (%) (Auto) 47.6 % Lymphocytes (%) (Auto) 42.6 % Monocytes (%) (Auto) 8.2 % Eosinophils (%) (Auto) 1.1 % Basophils (%) (Auto) 0.2 % Neutrophils # (Auto) 3.12 K/uL (1.4-6.5) Lymphocytes # (Auto) 2.79 K/uL (1.2-3.4) Monocytes # (Auto) 0.54 K/uL (0.11-0.59) Eosinophils # (Auto) 0.07 K/uL (0-0.5) Basophils # (Auto) 0.01 K/uL (0-0.2) RDW Standard Deviation 48.7 fL (36.4-46.3) RDW Coefficient of Variation 16.0 % (11.5-14.5) Immature Granulocyte % (Auto) 0.3 % Immature Granulocyte # (Auto) 0.02 K/uL (0.00-0.02) Anion Gap 13.0 mmol/L (3-11) Est Creatinine Clear Calc Drug Dose 49.3 ml/min Estimated GFR () 69.3 Estimated GFR (Non- 59.8 BUN/Creatinine Ratio 15.1 (10-20) Calcium Level 8.5 mg/dl (8.5-10.1) Total Bilirubin 0.2 mg/dl (0.2-1) Aspartate Amino Transf (AST/SGOT) 11 U/L (15-37) Alanine Aminotransferase (ALT/SGPT) 12 U/L (12-78) Alkaline Phosphatase 44 U/L (45-117) Total Protein 7.3 gm/dl (6.4-8.2) Albumin 3.9 gm/dl (3.4-5.0) Globulin 3.4 gm/dl (2.5-4.0) Albumin/Globulin Ratio 1.1 (0.9-2) Lipase 126 U/L (73-393) Urine Color DK YELLOW Urine Appearance CLEAR (CLEAR) Urine pH 5.0 (4.5-7.5) Urine Specific [place] 1.044 (1.000-1.030) Urine Protein NEG (NEG) Urine Glucose (UA) NEG (NEG) Urine Ketones NEG (NEG) Urine Occult Blood NEG (NEG) Urine Nitrite NEG (NEG) Urine Bilirubin NEG (NEG) Urine Urobilinogen NEG (NEG) Urine Leukocyte Esterase NEG (NEG) Medications Administered Medications (Trade) Dose Ordered Sig/Javier Route Start Time Stop Time Status Last Admin Dose Admin Sodium Chloride 1,000 ml @ 999 mls/hr Q1H1M STAT IV 11/06/16 22:55 11/06/16 23:55 DC 11/06/16 23:00 999 MLS/HR Ondansetron HCl (Zofran Inj) 4 mg NOW STAT IV 11/06/16 22:55 11/06/16 22:58 DC 11/06/16 23:10 4 MG Dicyclomine HCl (Bentyl Inj) 20 mg NOW ONCE IM 11/06/16 23:00 11/06/16 23:01 DC 11/06/16 23:10 20 MG ED Course The patient was evaluated as above. Labs were drawn and IV access was obtained. Patient was medicated with 1 L normal saline solution, 20 mg Bentyl and [address] of the abdomen and pelvis was performed and read by radiology as above. Patient was reevaluated and was sleeping. She was woken up and findings were discussed. Discharge instructions were reviewed with the patient. The patient verbalized understanding of my assessment and treatment plan and was discharged home in good condition. Medical Decision Differential diagnosis includes colitis, gastroenteritis, C. dif infection, UTI , kidney stone, among others. The patient is a 31-year-old female who presents today complaining of abdominal pain. The patient does admit to taking 6 Dulcolax tablets prior to the onset of pain. Labs revealed no leukocytosis, anemia or concerning electrolyte abnormalities. Urinalysis was not suggestive of infection. Urine was negative. CT of the abdomen and pelvis was performed and showed findings consistent with diarrhea but no acute infectious or inflammatory findings. This is likely secondary to the patient's Dulcolax use. She was treated with Bentyl. Stool studies were sent and are pending. She was advised to follow-up with her primary care provider for further evaluation of her abdominal pain. Based on the patient's presentation and work up, I feel the patient is stable for outpatient treatment. The patient was educated to return to the emergency department for any worsening of their current condition or new/concerning symptoms. She will follow up with her PCP. Medication reconciliation: I attest that I have personally reviewed the patient 's current medication list. Blood pressure screening: Patient was found to have normal blood pressure on screening and does not require follow-up. Impression Primary Impression: Right sided abdominal pain Additional Impression: Diarrhea Departure Information Dispostion Home / Self-Care Condition GOOD Prescriptions Dicyclomine Hcl (BENTYL) 20 Mg Tab 1 TAB PO TID for 5 Days, #15 TAB Prov: Carito Al PA-C 11/07/16 Referrals Hubert Mortensen M.D. (PCP) Patient Instructions My [facility] Additional Instructions You have been treated in the Emergency Department your Abdominal Pain. Laboratory results and imaging studies have ruled out any emergent causes for your abdominal pain which would warrant admission or surgery. Bentyl as prescribed. For pain control, you can use the following [id number] medicines (if >12 yo): - Regular strength (325mg/tab) Tylenol (acetaminophen) 2 tabs every 4-6 hours as needed. Do not exceed 12 tablets in a 24 hour period. Avoid taking more than 4 grams (4000 mg) of Tylenol per day. This includes any other sources of acetaminophen you may take on a regular basis. - Regular strength (200 mg/tab) Advil (ibuprofen) 1-2 tabs every 4-6 hours as needed. Do not exceed a dose of 3200 mg per day. Drink plenty of water and stay well hydrated. As with any trip to the Emergency Department, you should follow-up with your Primary Care Provider from today's visit. Return to the emergency department if your symptoms persist despite treatment plan outlined above or if the following symptoms occur: increased fevers, chills , worsening nausea/vomiting, or large amounts of blood in your stool or urine. Problem Qualifiers
[2016-11-07 01:25] VITALS: BP 103/71; PULSE 74; O2SAT 98
--- NOTE | 2016-11-07 06:53 | DIAGNOSTIC IMAGING REPORT ---
ABD/PELVIS IV CONTRAST ONLY HISTORY: 31 years-old Female abd pain, nausea acute generalized abdominal pain with nausea. Initial exam. COMPARISON: CT abdomen and pelvis 10/02/2012 TECHNIQUE: Multiple axial CT images of the abdomen and pelvis were obtained following the intravenous administration of 92 mL Optiray 320. A dose lowering technique was used consistent with the principals of LUIS. FINDINGS: The imaged lung bases are generally clear. No pneumoperitoneum. Imaged inferior cardiac chambers are unremarkable. Status post cholecystectomy. Mild intrahepatic and extra hepatic biliary ductal dilation is again seen with the common bile duct measuring up to 9 mm transversely, likely physiologic postcholecystectomy state, unchanged from 10/02/2012. 4 mm low attenuating lesion of the spleen seen on image 49 of series 3 is nonspecific, however statistically is likely benign. Adrenal glands are unremarkable. Left kidney and ureters are unremarkable. 3 mm calcification of the interpolar left kidney suggests nonobstructing calculus. No hydronephrosis. Prior hysterectomy. There is minimal atherosclerotic plaquing of the infrarenal abdominal aorta. No bulky retroperitoneal adenopathy. No bowel obstruction. Air-fluid levels with multiple fluid-filled loops of colon are noted without focal bowel wall thickening. The appendix appears normal. Soft tissues are unremarkable. Bones appear intact. Chronic bilateral pars defects are seen at L5-S1 with 3 mm anterolisthesis. IMPRESSION: 1. Multiple fluid-filled nondilated loops of colon without bowel wall thickening is most compatible with diarrheal state. 2. No evidence of acute appendicitis or bowel obstruction. 3. Prior cholecystectomy and hysterectomy. 4. 3 mm nonobstructing calculus of the interpolar right kidney. 5. Chronic bilateral pars defects at L5 with 3 mm anterolisthesis. The above report was generated using voice recognition software. It may contain grammatical, syntax or spelling errors. Electronically signed by: Harry Lee M.D. 11/07/2016 6:52 AM Dictated Date/Time: 11/07/2016 6:45 AM
[2016-11-10] MEDS ORDERED: MAGN400T6 PO (13:30)
== END 2016-11-07 01:27 | disposition home or self-care (01) ==
LOC: EDBD 22:11 → C.EDB 22:12
DX: R10.9 Unspecified abdominal pain (principal); R19.7 Diarrhea, unspecified; Z90.49 Acquired absence of other specified parts of digestive tract; F32.9 Major depressive disorder, single episode, unspecified; Z90.710 Acquired absence of both cervix and uterus; F41.0 Panic disorder [episodic paroxysmal anxiety]; Z87.01 Personal history of pneumonia (recurrent); G40.909 Epilepsy, unspecified, not intractable, without status epilepticus; Z98.51 Tubal ligation status; Z83.3 Family history of diabetes mellitus; Z80.9 Family history of malignant neoplasm, unspecified; Z84.1 Family history of disorders of kidney and ureter; F17.210 Nicotine dependence, cigarettes, uncomplicated; Z79.899 Other long term (current) drug therapy

== ENCOUNTER → 2016-11-25 | Outpatient (CLI) | payer OTHER ==
[~2016-11-25] MED LIST changes: -ASPI-390 PO; -FAMO20TA9 PO; +MAGN400T6 PO; +MELA1TAB54 PO; -ONDA4TAB10 SL; +OPTIRAY 320 IV PRN; -SERT-234 PO; +SERT50TA PO; -VNTHFA/IN INH
--- NOTE | 2016-11-25 12:50 | DIAGNOSTIC IMAGING REPORT ---
CT ENTEROGRAPHY OF THE ABDOMEN AND PELVIS WITH CONTRAST CLINICAL HISTORY: Abdominal pain and constipation. COMPARISON STUDY: CT of the abdomen and pelvis November 06, 2016. TECHNIQUE: The patient ingested Volumen. The patient was unable to complete the oral prep. Following IV administration of 120 mL of Optiray-320, axial images of the abdomen and pelvis were obtained from the lung bases to the proximal femurs. Images were reviewed in the axial, sagittal, and coronal planes. IV contrast was administered without complication. A dose lowering technique was utilized adhering to the principles of ALARA. CT DOSE: 272.15 mGy.cm FINDINGS: Lung bases are clear. Mild biliary ductal dilatation is unchanged from earlier exams. This is likely related to prior cholecystectomy. The spleen, adrenal glands, kidneys and pancreas are normal with the exception of a 3 mm right renal calculus. There are no ureteral calculi. There is no hydronephrosis. The appendix is normal. Hypodensities adjacent to the pancreatic tail and splenic hilum are unchanged from earlier exams. This could reflect a lymphangioma or small lymph nodes. This is benign given relative stability. Caliber and wall thickness of small and large bowel are normal. No bowel wall thickening is evident. No fistula or abscess is present. There is no evidence for a bowel obstruction. Terminal ileum is unremarkable. No perirectal or perianal abscess/fistula is present. There is no pneumatosis, free air or portal venous gas. A 2 cm peripherally enhancing right adnexal lesion reflects a corpus luteal cyst. Skeletal structures are unremarkable with exception of minimal anterolisthesis of L5 on S1 due to bilateral L5 pars defects. IMPRESSION: 1. Unremarkable CT enterography. No bowel wall thickening or hyperemia. Normal appendix. No bowel obstruction or abscess. 2. No acute process within the abdomen or pelvis. Electronically signed by: Farooq Garcia M.D. 11/25/2016 12:48 PM Dictated Date/Time: 11/25/2016 12:33 PM
== END | disposition home or self-care (01) ==
LOC: C.CTS 11-18 10:51
PROVIDERS: ATTEND Registered Nurse
DX: K59.09 Other constipation (principal); R10.9 Unspecified abdominal pain

== ENCOUNTER 2016-12-09 13:58 | Emergency (ER) | payer OTHER ==
[~2016-12-09] VITALS: Ht 157.5 cm; Wt 54.2 kg
[~2016-12-09 13:58] MED LIST changes: -OPTIRAY 320 IV PRN; +PANT40TA2 PO; -PRT/40 PO
[2016-12-09 14:08] VITALS: TEMP 36.5; Ht 157.5 cm; Wt 54.2 kg
--- NOTE | 2016-12-09 14:56 | DIAGNOSTIC IMAGING REPORT ---
TWO VIEW CHEST CLINICAL HISTORY: Atypical chest pain.. FINDINGS: PA and lateral chest radiographs are compared to study dated 11/03/2016. Correlation is made with chest CT dated 02/03/2013. The cardiomediastinal silhouette is unremarkable. The lungs and pleural spaces are clear. There is no pneumothorax. The bony thorax appears intact. Cholecystectomy clips are seen in the right upper quadrant. IMPRESSION: No active disease in the chest. Electronically signed by: Zeeshan Muñoz M.D. 12/09/2016 2:55 PM Dictated Date/Time: 12/09/2016 2:54 PM
[2016-12-09] MEDS ORDERED: LINA1CAP2 PO (15:11)
[2016-12-09] MEDS ORDERED: AMOX875T PO (15:13)
[2016-12-09] MEDS ORDERED: AMOXICILLIN/CLAVULANATE TAB 875 MG TAB PO ONE (15:15)
[2016-12-09 15:35] VITALS: BP 104/74; PULSE 79; O2SAT 100
--- NOTE | 2016-12-09 19:15 | EMERGENCY ROOM VISIT NOTE ---
History First contact with patient: 14:09 Chief Complaint: FLU LIKE SX Stated Complaint: COUGH,CHEST PAIN, RUNNY NOSE, PAIN IN FACE History of Present Illness The patient is a 31 year old female who presents to the Emergency Room with complaints of sinus congestion, cough, sore throat, right-sided facial pain for the past 9 days. The patient initially thought her symptoms were related to a viral infection and she did try [id number] antipyretics. The patient has had worsening symptoms in the past 2 or 3 days. She has developed a cough that has been nonproductive. She does not have chest pain or abdominal pain. No fever or chills. She rates her discomfort a 8/10. Review of Systems More than 10 systems were reviewed and otherwise negative with the exception of history of present illness. Past Medical/Surgical History Medical Problems: (1) Benzodiazepine overdose (2) blood clots (3) Bronchitis (4) Cerebral Thrombosis Wo Cerebral Infarction (5) section (6) Cholecystectomy (7) Depression (8) Gallbladder problem (9) Hysterectomy (10) Migraine Unspecified W/O Intract Mgrn W/O Status Migrainosus (11) Myalgia And Myositis Nos (12) Panic Disorder Without Agoraphobia (13) Phlebitis & Thrombophlebitis,Sup Veins Upper Extr (14) Pneumonia (15) Polysubstance dependence (16) PTSD (17) Seizure disorder (18) Stomach problems (19) Tubal Ligation Status (20) ulcers Family History Diabetes mellitus FH: cancer FH: lung disease Kidney disease or stones Social History Smoking Status: Current Every Day Smoker Alcohol Use: none Drug Use: none Marital Status: Housing Status: lives with family Occupation Status: unemployed Current/Historical Medications Scheduled Amoxicillin & Pot Clavulanate (Augmentin 875-125 mg), 1 TAB PO BID Gabapentin (Gabapentin), 400 MG PO TID Hydroxyzine Pamoate (Vistaril), 50 MG PO HS Ibuprofen Tab (Advil), 600 MG PO PRN UD Lamotrigine (Lamictal), 200 MG PO BID Linaclotide (Linzess), 1 CAP PO DAILY Melatonin (Melatonin), 5 MG PO HS Pantoprazole (Pantoprazole Sodium), 40 MG PO BID Prazosin Hcl (Prazosin), 4 MG PO HS Quetiapine Fumarate (Quetiapine Fumarate), 12.5 MG PO HS Quetiapine Fumarate (Seroquel), 50 MG PO HS Sertraline (Zoloft), 50 MG PO DAILY Topiramate (Topamax), 300 MG PO BID Scheduled PRN Oxycodone/Acetaminophen 5MG/325MG (Percocet 5MG/325MG), 1 TAB PO DAILY PRN for Pain Promethazine HCl (Promethazine HCl), 25 MG PO Q4 PRN for Nausea or Vomiting Miscellaneous Medications Magnesium Oxide (Mag-Ox), 400 MG PO Physical Exam Vital Signs Date Time Temp Pulse Resp B/P (MAP) Pulse Ox O2 Delivery O2 Flow Rate FiO2 12/09/16 15:35 79 20 104/74 100 12/09/16 14:08 36.5 88 20 104/73 98 Room Air Physical Exam VITALS: Vitals are noted on the nurse's note and reviewed by myself. Vital signs stable. GENERAL: Well-developed, well-nourished, white female, who is in no acute distress and resting comfortably. Patient is cooperative with the examination. HEAD: Normocephalic atraumatic. Tenderness to percussion appreciated over the right maxillary sinus. EARS: External ear normal. External auditory canals clear, tympanic membranes pearly paris without erythema or effusion bilaterally. EYES: Pupils equal round and reactive to light and accommodation. Conjunctivae without injection, sclerae without icterus. Extraocular movements intact. NOSE: Patent, turbinates without inflammation or discharge. MOUTH: Mucous membranes moist. Tonsils are not enlarged. Pharynx without erythema, blood, or exudate. Uvula midline. Airway patent. NECK: Supple without nuchal rigidity. No lymphadenopathy. No thyromegaly. Cervical spine is nontender. HEART: Regular rate and rhythm without murmurs gallops or rubs. LUNGS: Clear to auscultation bilaterally without wheezes, rales or rhonchi. No retractions or accessory muscle use. Medical Decision & Procedures ER Provider Diagnostic Interpretation: TWO VIEW CHEST CLINICAL HISTORY: Atypical chest pain.. FINDINGS: PA and lateral chest radiographs are compared to study dated 11/03/2016. Correlation is made with chest CT dated 02/03/2013. The cardiomediastinal silhouette is unremarkable. The lungs and pleural spaces are clear. There is no pneumothorax. The bony thorax appears intact. Cholecystectomy clips are seen in the right upper quadrant. IMPRESSION: No active disease in the chest. Medications Administered Medications (Trade) Dose Ordered Sig/Javier Route Start Time Stop Time Status Last Admin Dose Admin Amoxicillin/ Clavulanate Potassium (Augmentin Tab) 875 mg NOW ONCE PO 12/09/16 15:15 12/09/16 15:16 DC 12/09/16 15:29 875 MG ED Course Physical exam and history were performed. Nursing notes, EMR, and Medication List were personally reviewed. Patient appears to have URI/cold symptoms for the past 9 or 10 days. She has had a worsening cough over the past few days. X-ray was obtained and does not show evidence of acute findings. The patient's symptoms seem most consistent with acute sinusitis. She will be started on Augmentin here in the department. She was otherwise invited back to the ER with any new, worsening, or concerning symptoms. The chart was completed utilizing [employer]Port[employer] Speech Voice Recognition Software. Grammatical errors, random word insertions, pronoun errors, and incomplete sentences are an occasional consequence of this system due to software limitations, ambient noise, and hardware issues. Any formal questions or concerns about the content, text, or information contained within the body of this dictation should be directly addressed to the provider for clarification. . Medical Decision Differential diagnosis: Etiologies such as viral syndrome, otitis, pharyngitis, pneumonia, influenza, meningitis, urinary tract infection, sepsis, bacteremia, as well as others were entertained. Impression Primary Impression: Acute sinusitis Departure Information Dispostion Home / Self-Care Condition GOOD Prescriptions Amoxicillin & Pot Clavulanate (Augmentin 875-125 mg) 1 Tab Tab 1 TAB PO BID for 10 Days, #20 TAB Prov: Humble Gongora PA-C 12/09/16 Forms HOME CARE DOCUMENTATION FORM, IMPORTANT VISIT INFORMATION Patient Instructions My [facility] Additional Instructions You were seen and evaluated today on an emergency basis only. This is not a substitute for, or an effort to provide, complete comprehensive medical care. It is not possible to recognize and treat all injuries or illnesses in a single emergency department visit. For this reason it is recommended that you followup with your primary care physician with any ongoing or persistent symptoms. Amoxicillin Clavulanate (Augmentin) 875mg: Take one pill twice daily for 10 days for your infection. All antibiotics can cause diarrhea. If this occurs and you feel worse or it does not resolve in 1-2 days follow up with your doctor or return to the Emergency Department as this could be signs of serious underlying problems. Any medication can cause an allergic reaction, stop the pills immediately and return to the ER for rash, hives, breathing difficulties, or swelling. You are welcome to return to the emergency department anytime with new, worsening, or concerning symptoms.
== END 2016-12-09 15:30 | disposition home or self-care (01) ==
LOC: C.EDB 14:00 → C.EDA 15:30
DX: J01.90 Acute sinusitis, unspecified (principal); G40.909 Epilepsy, unspecified, not intractable, without status epilepticus; F32.9 Major depressive disorder, single episode, unspecified; K82.9 Disease of gallbladder, unspecified; F17.200 Nicotine dependence, unspecified, uncomplicated; Z87.19 Personal history of other diseases of the digestive system; Z98.51 Tubal ligation status; Z90.710 Acquired absence of both cervix and uterus; Z90.49 Acquired absence of other specified parts of digestive tract; Z88.8 Allergy status to other drugs, medicaments and biological substances; Z83.3 Family history of diabetes mellitus; Z80.9 Family history of malignant neoplasm, unspecified; Z84.1 Family history of disorders of kidney and ureter

== ENCOUNTER → 2016-12-22 | Outpatient (CLI) | payer OTHER ==
[~2016-12-22] MED LIST changes: -AMT24 PO; +LINA1CAP2 PO
[2016-12-26 06:11] LABS: CHLAMYDIA TRACH RNA*** NOT DETECTED (NOT DETECTED); GC (NEIS GONORRHOEAE)RNA** NOT DETECTED (NOT DETECTED)
== END | disposition home or self-care (01) ==
LOC: C.LABSPEC 16:02
PROVIDERS: ATTEND Physician Assistant
DX: Z12.4 Encounter for screening for malignant neoplasm of cervix (principal); N89.8 Other specified noninflammatory disorders of vagina

== ENCOUNTER 2017-01-03 13:51 | Emergency (ER) | payer OTHER ==
[~2017-01-03] VITALS: Ht 157.5 cm; Wt 51.6 kg
[2017-01-03 13:54] VITALS: BP 102/68; PULSE 96; TEMP 36.9; O2SAT 99; Ht 157.5 cm; Wt 51.6 kg
[2017-01-03] MEDS ORDERED: METH4PAK PO (14:19)
[2017-01-03] MEDS ORDERED: MOXI400T2 PO (14:19)
[2017-01-03] MEDS ORDERED: DOXY100C PO (14:35)
--- NOTE | 2017-01-03 20:27 | EMERGENCY ROOM VISIT NOTE ---
History First contact with patient: 13:57 Chief Complaint: SINUS CONGESTION/PRESSURE Stated Complaint: SINUS INFECTION, HEAD PAIN Nursing Triage Summary: triage note: Pt reports "i think i have a sinus infection, i was on antibiotics but i don't think they worked." pt reports head pain and pressure. History of Present Illness The patient is a 31 year old female who presents to the Emergency Room with complaints of persistent sinus congestion and headache. The patient reports that she was here about 3 weeks ago for a sinus infection. She was provided a prescription for Augmentin but never really had any significant improvement of symptoms. She reports persistent runny nose and postnasal drip. She reports a mild nonproductive cough as well. She has taken Sudafed without relief. She denies any fevers or chills, and rates her discomfort a 9 out of 10. She denies history of chronic sinusitis or known seasonal allergies. Review of Systems 10 system review was performed and was negative except for pertinent positives and negatives as indicated in history of present illness Past Medical/Surgical History Medical Problems: (1) Benzodiazepine overdose (2) blood clots (3) Bronchitis (4) Cerebral Thrombosis Wo Cerebral Infarction (5) section (6) Cholecystectomy (7) Depression (8) Gallbladder problem (9) Hysterectomy (10) Migraine Unspecified W/O Intract Mgrn W/O Status Migrainosus (11) Myalgia And Myositis Nos (12) Panic Disorder Without Agoraphobia (13) Phlebitis & Thrombophlebitis,Sup Veins Upper Extr (14) Pneumonia (15) Polysubstance dependence (16) PTSD (17) Seizure disorder (18) Stomach problems (19) Tubal Ligation Status (20) ulcers Family History Diabetes mellitus FH: cancer FH: lung disease Kidney disease or stones Social History Smoking Status: Current Every Day Smoker Alcohol Use: none Drug Use: none Marital Status: Housing Status: lives with family Occupation Status: unemployed Current/Historical Medications Scheduled Doxycycline Hyclate (Vibramycin), 100 MG PO BID Gabapentin (Gabapentin), 400 MG PO TID Hydroxyzine Pamoate (Vistaril), 50 MG PO HS Ibuprofen Tab (Advil), 600 MG PO PRN UD Lamotrigine (Lamictal), 200 MG PO BID Linaclotide (Linzess), 1 CAP PO DAILY Melatonin (Melatonin), 5 MG PO HS Methylprednisolone (Medrol Dosepak), 0 PO DAILY Pantoprazole (Pantoprazole Sodium), 40 MG PO BID Prazosin Hcl (Prazosin), 4 MG PO HS Quetiapine Fumarate (Quetiapine Fumarate), 12.5 MG PO HS Quetiapine Fumarate (Seroquel), 50 MG PO HS Sertraline (Zoloft), 50 MG PO DAILY Topiramate (Topamax), 300 MG PO BID Scheduled PRN Oxycodone/Acetaminophen 5MG/325MG (Percocet 5MG/325MG), 1 TAB PO DAILY PRN for Pain Promethazine HCl (Promethazine HCl), 25 MG PO Q4 PRN for Nausea or Vomiting Miscellaneous Medications Magnesium Oxide (Mag-Ox), 400 MG PO Physical Exam Vital Signs Date Time Temp Pulse Resp B/P (MAP) Pulse Ox O2 Delivery O2 Flow Rate FiO2 01/03/17 13:54 36.9 96 18 102/68 99 Room Air Physical Exam CONSTITUTIONAL: Healthy and well nourished. Alert and oriented X 3 with a flat affect. HEENT: Normocephalic, atraumatic. Pupils equal, round and reactive. No facial edema noted. Examination of the years but show mild TM bulging without air-fluid levels or erythema. Rhinorrhea is noted without purulent drainage. Patient has tenderness to palpation and percussion of the frontal and maxillary sinuses. OROPHARYNX: No postnasal drip, tonsillar hypertrophy or exudates. NECK: Full active range of motion without discomfort. RESPIRATORY: Clear to auscultation bilaterally with no wheezing, crackles, rhonchi or stridor. INTEGUMENTARY: No rash or other significant dermatologic conditions noted. NEUROLOGIC: No focal neurologic deficits noted. Medical Decision & Procedures ED Course Patient history and physical exam were performed. Nurse's notes were reviewed. Vital signs were reviewed and were normal. History and clinical exam are consistent with a recurrent sinusitis. The patient was initially provided a prescription for Biaxin, however her pharmacist called the patient and told her that her insurance does not cover Biaxin. She was therefore provided a prescription for a Medrol Dosepak and doxycycline. The patient was also encouraged alternate ibuprofen and Tylenol as needed for pain. She was instructed to follow-up with her PCP for recheck in one week. If her symptoms persist, she may warrant ENT referral. The patient voiced understanding of all discharge instructions, was happy with plan of care, and rated her discomfort a 6 out of 10 at the conclusion of my exam. Medical Decision Blood Pressure Screening Patient's blood pressure: Normal blood pressure Impression Primary Impression: Recurrent acute sinusitis Departure Information Dispostion Home / Self-Care Condition GOOD Prescriptions Doxycycline Hyclate (VIBRAMYCIN) 100 Mg Cap 100 MG PO BID for 10 Days, #20 CAP Prov: Dc Denis PA 01/03/17 Methylprednisolone (MEDROL DOSEPAK) 4 Mg Royal 0 PO DAILY, #1 PKT Prov: Dc Denis PA 01/03/17 Referrals No Doctor, Assigned Hubert Mortensen M.D. (PCP) Forms HOME CARE DOCUMENTATION FORM, IMPORTANT VISIT INFORMATION Patient Instructions Sinusitis Chronic, Sinusitis Self Care, My [facility] Additional Instructions Take doxycycline antibiotics and Medrol dosepak as prescribed. Ibuprofen 800 mg and/or Tylenol 1000 mg every 8 hours. You may also alternate these medications for more effective pain relief: Ibuprofen --4 HRS--> Tylenol --4 HRS--> ibuprofen --4 HRS--> Tylenol .... You can also try saline nasal rinses for additional relief. A humidifier will also help with symptoms. You may also try Afrin nasal spray twice daily for no more than 3 days to help with congestion. Follow-up with your PCP next week as you should be referred to ENT with no improving symptoms. Problem Qualifiers Primary Impression: Recurrent acute sinusitis Sinusitis location: unspecified location Qualified Codes: J01.91 - Acute recurrent sinusitis, unspecified
== END 2017-01-03 14:39 | disposition home or self-care (01) ==
LOC: C.EDB 13:53 → C.EDD 14:39
DX: J01.91 Acute recurrent sinusitis, unspecified (principal); G40.909 Epilepsy, unspecified, not intractable, without status epilepticus; K86.1 Other chronic pancreatitis; F32.9 Major depressive disorder, single episode, unspecified; F17.200 Nicotine dependence, unspecified, uncomplicated; Z87.19 Personal history of other diseases of the digestive system; Z98.51 Tubal ligation status; Z90.710 Acquired absence of both cervix and uterus; Z79.899 Other long term (current) drug therapy; Z83.3 Family history of diabetes mellitus; Z80.9 Family history of malignant neoplasm, unspecified; Z84.1 Family history of disorders of kidney and ureter

== ENCOUNTER 2017-02-07 13:55 | Emergency (ER) | payer OTHER ==
[~2017-02-07] VITALS: Ht 157.5 cm; Wt 51.8 kg
[~2017-02-07 13:55] MED LIST changes: -HYDR50CA2 PO; -IBUP-103 PO; +LAMO200T35 PO; -LAMO200T38 PO; -LINA1CAP2 PO; -NRN400 PO; -PANT40TA2 PO; -PROM25TA16 PO; -SERT50TA PO
[2017-02-07 13:58] VITALS: Ht 157.5 cm; Wt 51.8 kg
[2017-02-07] MEDS ORDERED: PRED20TA2 PO (14:56)
[2017-02-07] MEDS ORDERED: LINA1CAP2 PO (15:11)
[2017-02-07 15:19] VITALS: BP 116/84; PULSE 71; TEMP 36.5; O2SAT 100
[2017-02-07] MEDS ORDERED: QUET1TAB30 PO (15:40)
[2017-02-07] MEDS ORDERED: ZLF/100 PO (15:40)
[2017-02-07] MEDS ORDERED: VNTHFA/IN INH (15:40)
[2017-02-07] MEDS ORDERED: AZEL0.1S2 NAE (15:40)
[2017-02-07] MEDS ORDERED: RANI150T2 PO (15:40)
[2017-02-07] MEDS ORDERED: LAMO150T PO (15:40)
[2017-02-07] MEDS ORDERED: PANT40TA2 PO (18:54)
[2017-02-07] MEDS ORDERED: HYDR50CA2 PO (18:54)
[2017-02-07] MEDS ORDERED: PROM25TA16 PO (21:56)
[2017-02-07] MEDS ORDERED: IBUP-103 PO (21:56)
[2017-02-07] MEDS ORDERED: NRN400 PO (21:56)
[2017-02-07] MEDS ORDERED: SERT50TA PO (22:49)
--- NOTE | 2017-02-08 10:55 | EMERGENCY ROOM VISIT NOTE ---
ED Visit Note First contact with patient: 14:14 Chief Complaint: Rash. History of Present Illness: Ms. Cline is a 31-year-old white female who ambulates into the ED complaining of a rash. Patient reports she has 2 rashes. She reports she has one rash that is on the anterior aspect of the left shoulder that has been there for months. She reports this rash is slightly itchy. She has not identified any aggravating or alleviating factors related to this rash. She has not taken any medications for this rash prior to arrival at the hospital. She denies any associated symptoms with this rash. Her second rash started approximately 5 days ago. She reports initially it was around her umbilicus and then has gradually spread throughout the chest, back, arms and legs. She reports this rash avoids the genital and rectal areas. She has not identified any aggravating or alleviating factors related to this rash. She has not taken any medication for this rash prior to arrival at the hospital. She reports once again this is mildly itchy and she has been scratching an area on the posterior right shoulder area that has some mild burning at this time. Initially she reports currently she is under care for her migraine headaches with neurology and is being evaluated for recurrent sinusitis and has recently been started nasal steroids by an ENT specialist. She denies any recent close contacts with rashes, exposures to new foods or personal hygiene products, fevers, chills, sweats, previous skin eruptions, upper respiratory tract symptoms, shortness of breath, chest pain, abdominal pain, nausea, vomiting, joint pains. Review of Systems: As noted above in history of present illness. All body systems were reviewed and found to be negative as noted above. Past Medical History: (1) Benzodiazepine overdose (2) blood clots (3) Bronchitis (4) Cerebral Thrombosis Wo Cerebral Infarction (5) section (6) Cholecystectomy (7) Depression (8) Gallbladder problem (9) Hysterectomy (10) Migraine Unspecified W/O Intract Mgrn W/O Status Migrainosus (11) Myalgia And Myositis Nos (12) Panic Disorder Without Agoraphobia (13) Phlebitis & Thrombophlebitis,Sup Veins Upper Extr (14) Pneumonia (15) Polysubstance dependence (16) PTSD (17) Seizure disorder (18) Stomach problems (19) Tubal Ligation Status (20) ulcers Current Medications: Medications Dose Route/Sig Max Daily Dose Days Date Category Dose Instructions Lamictal (Lamotrigine) 150 Mg Tab 150 Mg PO BID 02/07/17 Reported Ranitidine HCl 150 Mg Tab 150 Mg PO BID PRN 02/07/17 Reported Ventolin Hfa (Albuterol) 200 Puffs/00665 Mcg Aers 2 Puff INH Q4-6HRS PRN 02/07/17 Reported Azelastine Hydrochloride (Azelastine HCl) 0.1 % Spr 2 Sprays DAYANA BID 02/07/17 Reported Seroquel (Quetiapine Fumarate) 25 Mg Tab 25 Mg PO HS 02/07/17 Reported Sertraline HCl 100 Mg Tab 100 Mg PO QAM 02/07/17 Reported Linzess (Linaclotide) 290 Mcg Cap 1 Cap PO DAILY 12/09/16 Reported Mag-Ox (Magnesium Oxide) 400 Mg Tab 400 Mg PO 11/10/16 Reported Gabapentin 400 Mg Cap 400 Mg PO TID 11/03/16 Reported Promethazine HCl 25 Mg Tab 25 Mg PO Q4 PRN 11/03/16 Reported Advil (Ibuprofen) 200 Mg Tab 600 Mg PO PRN UD 11/03/16 Reported Topamax (Topiramate) 100 Mg Tab 300 Mg PO BID 08/09/16 Reported Percocet 5MG/325MG (Oxycodone/Acetaminophen) Tab 1 Tab PO DAILY PRN 07/23/16 Reported PAIN Vistaril (Hydroxyzine Pamoate) 50 Mg Cap 50 Mg PO HS 06/16/16 Reported Pantoprazole Sodium (Pantoprazole) 40 Mg Tab 40 Mg PO BID 06/16/16 Reported Prazosin (Prazosin Hcl) 2 Mg Cap 4 Mg PO HS 06/06/16 Reported Allergies to Medications: Bupropion, ketorolac tromethamine, linaclotide, methocarbamol, tramadol, trazodone. Social History: Patient is not employed; she feels safe in her home environment ; she admits to tobacco use and denies alcohol use. Physical Examination: Vital Signs: Date Time Temp Pulse Resp B/P (MAP) Pulse Ox O2 Delivery O2 Flow Rate FiO2 02/07/17 15:19 36.5 71 16 116/84 100 02/07/17 14:54 36.5 71 16 116/84 100 Room Air 02/07/17 14:11 36.5 84 16 124/82 100 Room Air 02/07/17 13:58 36.5 84 16 114/78 100 GENERAL: 31-year-old female in no acute distress, nontoxic-appearing, afebrile and hemodynamically stable. NEUROLOGICAL: Awake, alert and oriented to person, place and time. Answering questions appropriately and following commands. Normal gait. Good hand eye coordination. No focal motor or sensory deficits. SKIN: Warm, dry and pink. Right Anterior Shoulder: Single round lesion measuring approximately 2-3 cm in diameter. Consistent with tinea corpus/ ringworm. Borders are mildly erythematous and appear to have vesicles in this area. No local lymphangitis. No signs of infection. Body: Patient's second rash show diffuse subcentimeter erythematous patches diffusely over the chest, back and extremities sparing the face and patient reports sparing the genitals and rectal areas. These are irregular shaped. There is no additional vesicles or pustules associated with them. They do have a slightly scaly appearance. These individual lesions do not coalesce. Once again they do not appear infectious. Negative dermatographia testing. HEENT: Atraumatic and normocephalic. Sclera white and conjunctiva pink. No drainage from naris. Airway patent. Pharynx is nonerythematous or edematous. Speech normal. No lymphadenopathy. THORAX: Lungs sounds are clear to auscultation and equal bilaterally with symmetrical chest wall. No wheezing, rales or rhonchi. ABDOMEN: Flat, soft and nontender. Positive bowel sounds in all quadrants. No guarding, rigidity or organomegaly. EXTREMITIES: Moves all extremities well on command and with purpose. All distal neurovascular statuses are intact and equal bilaterally. No calf tenderness or cords. ED Course: Patient is assessed as noted above. Patient's medication list was reviewed. Patient was educated on today's findings and instructed on her treatment plan; she verbalizes understanding and agreement with this plan. Clinical Impression: Tinea corpus. Rash. Disposition: Patient discharged home in stable condition; prior to departure she was reassessed and subjectively reported she was feeling the same. Plan: Patient was encouraged to continue her current medications. Patient is encouraged use ibuprofen and acetaminophen as needed for pain. Patient was given a prednisone taper and encouraged to use the medication as prescribed. Patient was encouraged to use [id number] Lamisil cream for her ringworm; 2 times a day until resolution. Patient did report she has an upcoming follow-up with her primary care provider and encouraged her to keep that for recheck of her rash. Patient was encouraged return ED for worsening rash, fevers or any new/ concerning symptoms.
== END 2017-02-07 15:20 | disposition home or self-care (01) ==
LOC: C.EDB 13:57 → C.EDD 15:20
DX: B35.4 Tinea corporis (principal); R21 Rash and other nonspecific skin eruption; G40.909 Epilepsy, unspecified, not intractable, without status epilepticus; F32.9 Major depressive disorder, single episode, unspecified; Z79.899 Other long term (current) drug therapy; Z86.718 Personal history of other venous thrombosis and embolism; Z87.01 Personal history of pneumonia (recurrent); Z87.19 Personal history of other diseases of the digestive system; F17.200 Nicotine dependence, unspecified, uncomplicated

== ENCOUNTER → 2017-03-10 | Outpatient (CLI) | payer OTHER ==
[~2017-03-10] MED LIST changes: +AZEL0.1S2 NAE; +HYDR50CA2 PO; +IBUP-103 PO; +LAMO150T PO; -LAMO200T35 PO; +LINA1CAP2 PO; -MELA1TAB54 PO; +NRN400 PO; +PANT40TA2 PO; +PROM25TA16 PO; +QUET1TAB30 PO; -QUET5TAB PO; +RANI150T2 PO; -SRQ25 PO; +VNTHFA/IN INH; +ZLF/100 PO
[2017-03-10 12:50] LABS: ALBUMIN 3.4 gm/dl (3.4-5.0); BLOOD UREA NITROGEN 18 mg/dl (7-18); CALCIUM 8.3 mg/dl (8.5-10.1); CARBON DIOXIDE 19 mmol/L (21-32); CREATININE 0.86 mg/dl (0.60-1.20); GLUCOSE 91 mg/dl (70-99); PHOSPHORUS 2.6 mg/dl (2.5-4.9); POTASSIUM 3.9 mmol/L (3.5-5.1); SODIUM 140 mmol/L (136-145)
== END | disposition home or self-care (01) ==
LOC: C.LABBFT 09:42
PROVIDERS: ATTEND Physician Assistant
DX: K59.09 Other constipation (principal); R10.9 Unspecified abdominal pain; J30.9 Allergic rhinitis, unspecified

== ENCOUNTER 2017-03-13 18:16 | Emergency (ER) | payer OTHER ==
[~2017-03-13] VITALS: Ht 157.5 cm; Wt 57.4 kg
[2017-03-13 18:20] VITALS: TEMP 37
[2017-03-13] MEDS ORDERED: SODIUM CHLORIDE 0.9% 1000ML 1,000 ML IV STA (18:28)
--- NOTE | 2017-03-13 18:46 | DIAGNOSTIC IMAGING REPORT ---
CHEST ONE VIEW PORTABLE CLINICAL HISTORY: Weakness COMPARISON STUDY: 12/09/2016 FINDINGS: The cardiac and mediastinal contours are normal. There is no evidence of focal pulmonary consolidation. There is no evidence of failure. No pleural effusions are visualized.[ IMPRESSION: No active disease in the chest. Electronically signed by: Alvin Villanueva M.D. 03/13/2017 6:45 PM Dictated Date/Time: 03/13/2017 6:45 PM
[2017-03-13 18:47] VITALS: O2SAT 98; Ht 157.5 cm; Wt 57.4 kg
[2017-03-13] MEDS ORDERED: ACETAMINOPHEN 500 MG TAB PO STA (18:54)
--- NOTE | 2017-03-13 19:09 | DIAGNOSTIC IMAGING REPORT ---
CT HEAD WITHOUT CONTRAST (CT) CLINICAL HISTORY: Weakness COMPARISON STUDY: 08/29/2016 TECHNIQUE: Axial CT of the brain is performed from the vertex to the skull base. IV contrast was not administered for this examination. A dose lowering technique was utilized adhering to the principles of ALARA. CT DOSE: 537.48 mGy.cm FINDINGS: No intra or extra-axial mass lesions are visualized. There is no CT evidence of acute cortical infarction. There is no evidence of midline shift. There is no acute hemorrhage. No calvarial fractures are visualized. There is a stable right posterior occipital dural calcification There is no evidence of pathologic ventricular dilatation. There is no evidence of acute sinusitis IMPRESSION: No acute intracranial findings Electronically signed by: Alvin Villanueva M.D. 03/13/2017 7:08 PM Dictated Date/Time: 03/13/2017 7:07 PM
[2017-03-13 19:27] LABS: BASO % 0.2 %; BASO ABS # 0.01 K/uL (0-0.2); EOS % 0.6 %; EOS ABS # 0.04 K/uL (0-0.5); HEMATOCRIT 37.7 % (37-47); HEMOGLOBIN 12.7 g/dL (12.0-16.0); IG# 0.01 K/uL (0.00-0.02); LYMPH % 32.5 %; LYMPH ABS # 2.04 K/uL (1.2-3.4); MEAN CELL VOLUME 87.9 fL (80-100); MEAN CORPUSCULAR HEMOGLOBIN 29.6 pg (25-34); MEAN CORPUSCULAR HGB CONC 33.7 g/dl (32-36); MEAN PLATELET VOLUME 12.2 fL (7.4-10.4); MONO % 6.5 %; MONO ABS # 0.41 K/uL (0.11-0.59); NEUT ABS # 3.76 K/uL (1.4-6.5); PLATELET COUNT 140 K/uL (130-400); RED CELL DISTRIBUTION WIDTH CV 15.6 % (11.5-14.5); WHITE BLOOD COUNT 6.27 K/uL (4.8-10.8)
[2017-03-13 19:44] LABS: ALBUMIN 3.6 gm/dl (3.4-5.0); ALT/SGPT 17 U/L (12-78); AST/SGOT 8 U/L (15-37); BLOOD UREA NITROGEN 21 mg/dl (7-18); CALCIUM 8.2 mg/dl (8.5-10.1); CARBON DIOXIDE 18 mmol/L (21-32); CREATININE 0.92 mg/dl (0.60-1.20); GLUCOSE 83 mg/dl (70-99); LIPASE 134 U/L (73-393); SODIUM 141 mmol/L (136-145)
[2017-03-13 19:52] LABS: PTT PATIENT 25.3 SECONDS (21.0-31.0)
[2017-03-13 19:53] LABS: ALKALINE PHOSPHATASE 112 U/L (45-117); CKMB < 0.5 ng/ml (0.5-3.6)
[2017-03-13] MEDS ORDERED: MoRPHine SULFATE 4 MG/ML 1 ML CARP\\VIAL IV STA (19:59)
--- NOTE | 2017-03-13 20:09 | EMERGENCY ROOM VISIT NOTE ---
History Report prepared by Shawn: Beck Ellsworth Under the Supervision of: Dr. Bora Parsons M.D. First contact with patient: 18:17 Stated Complaint: SYNCOPE, DIZZY, EYE & CHECK PAIN History of Present Illness The patient is a 31 year old female who presents to the Emergency Room with complaints of a resolved syncopal episode that occurred prior to arrival. She rates her discomfort as an 8/10 in severity. The patient states that recently she has been experiencing lightheadedness, dizziness, shortness of breath, and chest pain when she stands up after sitting for a certain period of time. She states that a couple of seconds after the onset of these symptoms, they are able to resolve on their own. She states that she also experienced a mild cough and sore throat for one day, but denies any other flu symptoms. The patient states that her appetite has been decreased recently, but she is unsure as to why. The patient states that today she went to wash dishes when she suddenly experienced a syncopal episode. She reports that she woke up to her dad trying to wake her up. The patient states that following the accident, she has been experiencing back pain, blurry vision in her right eye, and soreness in her extremities. She states that she is currently experiencing a right sided headache, which she believes is due to hitting her head. The patient denies biting her tongue, fevers, chills, diaphoresis, neck pain, nausea, vomiting, abdominal pain, melena, hematochezia, urinary symptoms, numbness, weakness, lymphadenopathy, rash, or other complaints. 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 A total of ten systems were reviewed and were otherwise negative. Past Medical & Surgical Medical Problems: (1) Benzodiazepine overdose (2) blood clots (3) Bronchitis (4) Cerebral Thrombosis Wo Cerebral Infarction (5) section (6) Cholecystectomy (7) Depression (8) Gallbladder problem (9) Hysterectomy (10) Migraine Unspecified W/O Intract Mgrn W/O Status Migrainosus (11) Myalgia And Myositis Nos (12) Panic Disorder Without Agoraphobia (13) Phlebitis & Thrombophlebitis,Sup Veins Upper Extr (14) Pneumonia (15) Polysubstance dependence (16) PTSD (17) Seizure disorder (18) Stomach problems (19) Tubal Ligation Status (20) ulcers Family History Diabetes mellitus FH: cancer FH: lung disease Kidney disease or stones Social History Smoking Status: Current Every Day Smoker Alcohol Use: none Drug Use: none Marital Status: Housing Status: lives with family Occupation Status: unemployed Current/Historical Medications Scheduled Azelastine HCl (Azelastine Hydrochloride), 2 SPRAYS DAYANA BID Gabapentin (Gabapentin), 400 MG PO TID Hydroxyzine Pamoate (Vistaril), 50 MG PO HS Ibuprofen Tab (Advil), 600 MG PO PRN UD Lamotrigine (Lamictal), 150 MG PO BID Linaclotide (Linzess), 1 CAP PO DAILY Pantoprazole (Pantoprazole Sodium), 40 MG PO BID Prazosin Hcl (Prazosin), 4 MG PO HS Quetiapine Fumarate (Seroquel), 25 MG PO HS Sertraline HCl (Sertraline HCl), 100 MG PO QAM Topiramate (Topamax), 300 MG PO BID Scheduled PRN Albuterol Hfa (Ventolin Hfa), 2 PUFF INH Q4-6HRS PRN for SOB/Wheezing Oxycodone/Acetaminophen 5MG/325MG (Percocet 5MG/325MG), 1 TAB PO DAILY PRN for Pain Promethazine HCl (Promethazine HCl), 25 MG PO Q4 PRN for Nausea or Vomiting Ranitidine HCl (Ranitidine HCl), 150 MG PO BID PRN for ACID REFLUX Miscellaneous Medications Magnesium Oxide (Mag-Ox), 400 MG PO Allergies Coded Allergies: Bupropion (Verified Allergy, Severe, "DR TOLD HER MAY HAVE INCREASED CHANCES OF SEIZURES"., 12/09/16) Methocarbamol (Verified Allergy, Mild, RASH, 12/09/16) Ketorolac Tromethamine (Verified Allergy, Unknown, Rash, 12/09/16) Linaclotide (Verified Allergy, Unknown, LINZESS -- HIVES, 12/09/16) Tramadol (Verified Adverse Reaction, Severe, "DR TOLD HER IT MAY HAVE INCREASED CHANCES OF SEIZURES"., 12/09/16) PT REPORTS SHE HAS NEVER HAD SEIZURES FROM TRAMADOL Trazodone (Verified Adverse Reaction, Intermediate, "SEVERE DIZZINESS", ) Physical Exam Vital Signs Date Time Temp Pulse Resp B/P (MAP) Pulse Ox O2 Delivery O2 Flow Rate FiO2 03/13/17 20:53 83 16 108/73 98 Room Air 75 100/67 86 107/78 03/13/17 19:43 68 16 115/76 98 Room Air 03/13/17 18:47 98 Room Air 03/13/17 18:47 87 108/71 98 Room Air 84 105/78 113 93/72 03/13/17 18:20 37.0 75 16 107/73 100 Room Air Physical Exam GENERAL: Awake, alert, in no distress HEAD: Small contusion to the right cheek. Small subconjunctival hemorrhage to right side of eye on the lateral aspect. No cohn sign. No raccoon eyes. EYES: Normal conjunctiva. PERRL. EOMI EARS: External ears normal. NOSE: Atraumatic OROPHARYNX: Lips, tongue, and mucosa unremarkable. No erythema or exudate. NECK: Supple. Full range of motion. No tracheal deviation or JVD. No posterior midline tenderness. No step offs noted. RESPIRATORY: CTA bilaterally CARDIAC: [] rate, normal rhythm. ABDOMEN: Inspection reveals no abnormalities. Soft, non distended. No tenderness to palpation. No hernias. BACK: No midline step offs or tenderness to palpation. Unremarkable. PELVIS: Stable to rock. SKIN: Normal. LYMPH: No adenopathy. MUSCULOSKELETAL: Upper and lower extremities are atraumatic. NEURO: GCS 15. Normal sensorium. No sensory or motor deficits noted. Medical Decision & Procedures ER Provider Diagnostic Interpretation: Radiology results as stated below per my review and radiologist interpretation: CHEST ONE VIEW PORTABLE CLINICAL HISTORY: Weakness COMPARISON STUDY: 12/09/2016 FINDINGS: The cardiac and mediastinal contours are normal. There is no evidence of focal pulmonary consolidation. There is no evidence of failure. No pleural effusions are visualized.[ IMPRESSION: No active disease in the chest. Electronically signed by: Alvin Villanueva M.D. 03/13/2017 6:45 PM Dictated Date/Time: 03/13/2017 6:[address] HEAD WITHOUT CONTRAST (CT) CLINICAL HISTORY: Weakness COMPARISON STUDY: 08/29/2016 TECHNIQUE: Axial CT of the brain is performed from the vertex to the skull base. IV contrast was not administered for this examination. A dose lowering technique was utilized adhering to the principles of ALARA. CT DOSE: 537.48 mGy.cm FINDINGS: No intra or extra-axial mass lesions are visualized. There is no CT evidence of acute cortical infarction. There is no evidence of midline shift. There is no acute hemorrhage. No calvarial fractures are visualized. There is a stable right posterior occipital dural calcification There is no evidence of pathologic ventricular dilatation. There is no evidence of acute sinusitis IMPRESSION: No acute intracranial findings Electronically signed by: Alvin Villanueva M.D. 03/13/2017 7:08 PM Dictated Date/Time: 03/13/2017 7:07 PM Laboratory Results 03/13/17 19:16 Red Blood Count 4.29, Mean Corpuscular Volume 87.9, Mean Corpuscular Hemoglobin 29.6, Mean Corpuscular Hemoglobin Concent 33.7, Mean Platelet Volume 12.2, Neutrophils (%) (Auto) 60.0, Lymphocytes (%) (Auto) 32.5, Monocytes (%) (Auto) 6.5, Eosinophils (%) (Auto) 0.6, Basophils (%) (Auto) 0.2, Neutrophils # (Auto) 3.76, Lymphocytes # (Auto) 2.04, Monocytes # (Auto) 0.41, Eosinophils # (Auto) 0.04, Basophils # (Auto) 0.01 03/13/17 19:16 Test 03/13/17 19:16 03/13/17 20:12 White Blood Count 6.27 K/uL (4.8-10.8) Red Blood Count 4.29 M/uL (4.2-5.4) Hemoglobin 12.7 g/dL (12.0-16.0) Hematocrit 37.7 % (37-47) Mean Corpuscular Volume 87.9 fL (80-100) Mean Corpuscular Hemoglobin 29.6 pg (25-34) Mean Corpuscular Hemoglobin Concent 33.7 g/dl (32-36) Platelet Count 140 K/uL (130-400) Mean Platelet Volume 12.2 fL (7.4-10.4) Neutrophils (%) (Auto) 60.0 % Lymphocytes (%) (Auto) 32.5 % Monocytes (%) (Auto) 6.5 % Eosinophils (%) (Auto) 0.6 % Basophils (%) (Auto) 0.2 % Neutrophils # (Auto) 3.76 K/uL (1.4-6.5) Lymphocytes # (Auto) 2.04 K/uL (1.2-3.4) Monocytes # (Auto) 0.41 K/uL (0.11-0.59) Eosinophils # (Auto) 0.04 K/uL (0-0.5) Basophils # (Auto) 0.01 K/uL (0-0.2) RDW Standard Deviation 50.0 fL (36.4-46.3) RDW Coefficient of Variation 15.6 % (11.5-14.5) Immature Granulocyte % (Auto) 0.2 % Immature Granulocyte # (Auto) 0.01 K/uL (0.00-0.02) Prothrombin Time 10.7 SECONDS (9.0-12.0) Prothromb Time International Ratio 1.0 (0.9-1.1) Activated Partial Thromboplast Time 25.3 SECONDS (21.0-31.0) Partial Thromboplastin Ratio 1.0 D-Dimer 230 ug/L FEU (0-500) Anion Gap 8.0 mmol/L (3-11) Est Creatinine Clear Calc Drug Dose 69.5 ml/min Estimated GFR () 95.5 Estimated GFR (Non- 82.4 BUN/Creatinine Ratio 23.4 (10-20) Calcium Level 8.2 mg/dl (8.5-10.1) Magnesium Level 2.1 mg/dl (1.8-2.4) Total Bilirubin 0.3 mg/dl (0.2-1) Direct Bilirubin < 0.1 mg/dl (0-0.2) Aspartate Amino Transf (AST/SGOT) 8 U/L (15-37) Alanine Aminotransferase (ALT/SGPT) 17 U/L (12-78) Alkaline Phosphatase 112 U/L (45-117) Total Creatine Kinase 46 U/L (26-192) Creatine Kinase MB < 0.5 ng/ml (0.5-3.6) Creatine Kinase MB Ratio (0-3.0) Troponin I < 0.015 ng/ml (0-0.045) Total Protein 7.0 gm/dl (6.4-8.2) Albumin 3.6 gm/dl (3.4-5.0) Lipase 134 U/L (73-393) Thyroid Stimulating Hormone (TSH) 0.785 uIu/ml (0.300-4.500) Human Chorionic Gonadotropin, Qual NEG (NEG) Urine Color YELLOW Urine Appearance CLOUDY (CLEAR) Urine pH 5.0 (4.5-7.5) Urine Specific [place] 1.033 (1.000-1.030) Urine Protein TRACE (NEG) Urine Glucose (UA) NEG (NEG) Urine Ketones NEG (NEG) Urine Occult Blood NEG (NEG) Urine Nitrite NEG (NEG) Urine Bilirubin NEG (NEG) Urine Urobilinogen NEG (NEG) Urine Leukocyte Esterase TRACE (NEG) Urine WBC (Auto) 1-5 /hpf (0-5) Urine RBC (Auto) 0-4 /hpf (0-4) Urine Hyaline Casts (Auto) 10-30 /lpf (0-5) Urine Epithelial Cells (Auto) >30 /lpf (0-5) Urine Bacteria (Auto) NEG (NEG) Laboratory results reviewed by me Medications Administered Medications (Trade) Dose Ordered Sig/Javier Route Start Time Stop Time Status Last Admin Dose Admin Sodium Chloride 1,000 ml @ 999 mls/hr Q1H1M STAT IV 03/13/17 18:28 03/13/17 19:28 DC 03/13/17 18:28 999 MLS/HR Morphine Sulfate (MoRPHine SULFATE INJ) 2 mg NOW STAT IV 03/13/17 19:59 03/13/17 20:00 DC 03/13/17 19:59 2 MG ECG Indication: syncope Rate (beats per minute): 81 Rhythm: normal sinus Findings: no acute ischemic change, no ectopy Change: Patient's electrocardiogram was interpreted by me. ED Course 1826: The patient was evaluated in room A09B. A complete history and physical exam was performed. 1827: Ordered Sodium Chloride 1000 ml @ 999 mls/hr IV. 1953: I reevaluated the patient and updated her on her results. She is currently complaining of a right sided headache where she was impacted. I discussed medications with the patient. 1958: Ordered Morphine Sulfate 2 mg IV. 2026: I reevaluated the patient. Discussed results and discharge instructions: She verbalized understanding and agreement. The patient is ready for discharge. Medical Decision Prior records/ancillary studies reviewed. Triage Nursing notes reviewed and agree them. Additional history obtained from the family. The patient's history was concerning for syncope. Differential diagnosis: Etiologies such as infection, hypoglycemia, electrolyte abnormalities, cardiac sources, intracerebral event, toxicologic, neurologic, trauma, as well as others were entertained. Physical examination: As above. Mild contusion to the right cheek. She had a minimal subconjunctival hemorrhage on the right. ER treatment provided: IV hydration with normal saline. The patient was mildly orthostatic. Patient requested analgesia but refused Tylenol. She wanted to take her Excedrin. I advised against this given the aspirin component. I did explain that Excedrin is Tylenol and aspirin combined. Morphine 2 mg IV On reassessment the patient felt better. Diagnostics interpretation by me: ECG: No evidence of dysrhythmia. The labs revealed an unremarkable CBC and chemistry panel except for dehydration. Cardiac markers negative. negative. Urinalysis negative. D-dimer negative. Imaging studies: Chest x-ray and CT scan as above. The patient is doing well at this time. She readily admits she hasn't been eating and drinking well. Her significant other confirms. The patient was orthostatic. She was hydrated and felt much better. She was given a small dose of pain medicine for her facial contusion and headache from the fall. Conservative management was discussed. The patient feels comfortable. She actually notes her appetite is improved and desires discharge. I gave my usual and customary discussion regarding this issue. By the evaluation outlined above other emergent etiologies such as those listed in the differential, as well as others, were deemed relatively unlikely. The patient was educated about the findings as listed above. All questions were answered and the patient was pleased with the treatment. Return instructions were outlined and the patient was discharged in stable condition. The patient was referred to her PCP for follow-up for a recheck of the current condition. Medication Reconcilliation Current Medication List: was personally reviewed by me Blood Pressure Screening Patient's blood pressure: Normal blood pressure Impression Primary Impression: Syncope Additional Impressions: Facial contusion Subconjunctival hemorrhage of right eye Scribe Attestation The scribe's documentation has been prepared under my direction and personally reviewed by me in its entirety. I confirm that the note above accurately reflects all work, treatment, procedures, and medical decision making performed by me. Departure Information Dispostion Home / Self-Care Referrals Isela Dominguez PA (PCP) Additional Instructions Syncope instructions: Hold your Excedrin for 24 hours. Substitute Tylenol.Tylenol: Take 1000 mg every 6 hours as needed for pain. Do not take more than 3000 mg in a 24 hour period. Rest and drink plenty of fluids as tolerated. Increase fluid intake as discussed. Continue current medications. Resume normal activities once your symptoms resolve. Eat a heart healthy, low fat, low cholesterol diet. Return to the ER immediately for passing out, chest pain, abdominal pain, vomiting, fevers, difficulty breathing, worsening of your condition, or as needed. Follow up with your primary physician in 2-3 days for a recheck of your current condition. Problem Qualifiers
[2017-03-13] MEDS ORDERED: MoRPHine SULFATE 2 MG/ML CARP ONE (20:27)
[2017-03-13 20:53] VITALS: BP 107/78; PULSE 86; O2SAT 98
== END 2017-03-13 21:32 | disposition home or self-care (01) ==
LOC: EDBD 18:16 → C.EDA 18:17
DX: R55 Syncope and collapse (principal); S00.83XA Contusion of other part of head, initial encounter; W18.30XA Fall on same level, unspecified, initial encounter; Y92.010 Kitchen of single-family (private) house as the place of occurrence of the external cause; H11.31 Conjunctival hemorrhage, right eye; R51 Headache; F32.9 Major depressive disorder, single episode, unspecified; G43.909 Migraine, unspecified, not intractable, without status migrainosus; Z86.72 Personal history of thrombophlebitis; G40.909 Epilepsy, unspecified, not intractable, without status epilepticus; F41.0 Panic disorder [episodic paroxysmal anxiety]; F43.10 Post-traumatic stress disorder, unspecified; F19.20 Other psychoactive substance dependence, uncomplicated; F17.200 Nicotine dependence, unspecified, uncomplicated; Z86.718 Personal history of other venous thrombosis and embolism; Z90.710 Acquired absence of both cervix and uterus; Z98.51 Tubal ligation status

== ENCOUNTER → 2017-03-16 | Outpatient (CLI) | payer OTHER | END | disposition home or self-care (01) | LOC: C.LABSPEC 14:02 | PROVIDERS: ATTEND Physician Assistant | DX: N89.8 Other specified noninflammatory disorders of vagina (principal) ==

== ENCOUNTER → 2017-05-19 | Outpatient (CLI) | payer OTHER ==
[~2017-05-19] MED LIST changes: +GABA800T PO; -PRAZ2CAP2 PO
[2017-05-19 12:29] LABS: BASO % 0.4 %; BASO ABS # 0.02 K/uL (0-0.2); EOS % 2.5 %; EOS ABS # 0.12 K/uL (0-0.5); HEMATOCRIT 38.5 % (37-47); HEMOGLOBIN 13.1 g/dL (12.0-16.0); LYMPH % 42.4 %; LYMPH ABS # 2.05 K/uL (1.2-3.4); MEAN CELL VOLUME 85.4 fL (80-100); MEAN PLATELET VOLUME 12.5 fL (7.4-10.4); MONO % 5.2 %; MONO ABS # 0.25 K/uL (0.11-0.59); NEUT % 49.5 %; NEUT ABS # 2.39 K/uL (1.4-6.5); PLATELET COUNT 164 K/uL (130-400); RED CELL DISTRIBUTION WIDTH CV 16.2 % (11.5-14.5); RED CELL DISTRIBUTION WIDTH SD 50.3 fL (36.4-46.3); WHITE BLOOD COUNT 4.83 K/uL (4.8-10.8)
[2017-05-19 16:02] LABS: ALBUMIN 3.9 gm/dl (3.4-5.0); ALT/SGPT 57 U/L (12-78); AST/SGOT 45 U/L (15-37); BLOOD UREA NITROGEN 16 mg/dl (7-18); CARBON DIOXIDE 18 mmol/L (21-32); CREATININE 1.04 mg/dl (0.60-1.20); GLUCOSE 93 mg/dl (70-99); SODIUM 140 mmol/L (136-145)
[2017-05-19 16:12] LABS: ALKALINE PHOSPHATASE 147 U/L (45-117); TOTAL PROTEIN 7.2 gm/dl (6.4-8.2)
[2017-05-23 13:10] LABS: METHYLMALONIC ACID 101 NMOL/L (87-318)
== END | disposition home or self-care (01) ==
LOC: C.LAB1850 10:05
PROVIDERS: ATTEND Psychiatry & Neurology Neurology
DX: Z51.81 Encounter for therapeutic drug level monitoring (principal); M45.5 Ankylosing spondylitis of thoracolumbar region; Z79.899 Other long term (current) drug therapy; R53.83 Other fatigue; E53.8 Deficiency of other specified B group vitamins; E55.9 Vitamin D deficiency, unspecified

== ENCOUNTER → 2017-08-31 | Outpatient (CLI) | payer OTHER ==
[~2017-08-31] MED LIST changes: +ALBU18002 INH; +ASPI-390 PO; -AZEL0.1S2 NAE; +BISA-16 PO; +CHOL500024 PO; +HYDR-3126 PO; -HYDR50CA2 PO; +LAMO100T16 PO; +LANS30CA12 PO; -MAGN400T6 PO; +MELATAB2 PO; +ONDA4TAB46 PO; -OXYC-57 PO; +OXYC-90 PO; -PANT40TA2 PO; -PROM25TA16 PO; +QUET1TAB32 PO; -RANI150T2 PO; +SIME125C52 PO
== END | disposition home or self-care (01) ==
LOC: C.LABSPEC 15:47
PROVIDERS: ATTEND Obstetrics & Gynecology
DX: N76.3 Subacute and chronic vulvitis (principal); R30.0 Dysuria

== ENCOUNTER 2017-09-23 18:04 | Emergency (ER) | payer OTHER ==
[~2017-09-23] VITALS: Ht 154.9 cm; Wt 45.5 kg
[~2017-09-23 18:04] MED LIST changes: -SIME125C52 PO; +[UNRECOGNIZED DRUG - CODE] PO
[2017-09-23] MEDS ORDERED: SODIUM CHLORIDE 0.9% 1000ML 1,000 ML IV STA (18:21)
[2017-09-23] MEDS ORDERED: PROCHLORPERAZINE 5 MG/ML 2 ML VIAL IV STA (18:21)
[2017-09-23] MEDS ORDERED: DiphenhydrAMINE HCL 50 MG/ML VIAL IV STA (18:21)
[2017-09-23] MEDS ORDERED: ACETAMINOPHEN 500 MG TAB PO STA (18:21)
[2017-09-23] MEDS ORDERED: MAGNESIUM SULFATE 1GM / D5W 1 GM BAG IV STA (18:21)
[2017-09-23 18:55] VITALS: O2SAT 98
[2017-09-23 18:57] VITALS: Ht 154.9 cm; Wt 45.5 kg
[2017-09-23 18:59] LABS: HEMATOCRIT 39.2 % (37-47); HEMOGLOBIN 12.9 g/dL (12.0-16.0); MEAN CORPUSCULAR HEMOGLOBIN 28.3 pg (25-34); MEAN CORPUSCULAR HGB CONC 32.9 g/dl (32-36); MEAN PLATELET VOLUME 11.4 fL (7.4-10.4); PLATELET COUNT 148 K/uL (130-400); RED CELL DISTRIBUTION WIDTH CV 15.8 % (11.5-14.5); RED CELL DISTRIBUTION WIDTH SD 50.4 fL (36.4-46.3); WHITE BLOOD COUNT 6.84 K/uL (4.8-10.8)
[2017-09-23] MEDS ORDERED: CEFTRIAXONE SOD INJ 1 GM ADDVIAL IV STA (19:19)
--- NOTE | 2017-09-23 19:22 | DIAGNOSTIC IMAGING REPORT ---
CT SCAN OF THE BRAIN WITHOUT IV CONTRAST CLINICAL HISTORY: Headache. COMPARISON STUDY: CT of the brain dated 07/25/2017. TECHNIQUE: Unenhanced axial CT scan of the brain is performed from the vertex to the skull base. A dose lowering technique was utilized adhering to the principles of ALARA. CT DOSE: 580.48 mGy.cm FINDINGS: Brain parenchyma: The brain parenchyma is normal in appearance. There is no hemorrhage, mass effect, or evidence of acute territorial ischemia by CT criteria. [place]-white matter is preserved. No extra-axial fluid collection is seen. Ventricles, sulci, cisterns: Normal in configuration. Intracranial vasculature: The visualized intracranial vasculature at the skull base is normal in appearance. Calvarium: Unremarkable. Sinuses and mastoids: The visualized paranasal sinuses are clear. The mastoid air cells are well pneumatized. Orbits: The bony orbits are grossly intact. IMPRESSION: No acute intracranial abnormality. Electronically signed by: Zeeshan Muñoz M.D. 09/23/2017 7:20 PM Dictated Date/Time: 09/23/2017 7:19 PM
[2017-09-23 19:24] LABS: BASO % 0.1 %; BASO ABS # 0.01 K/uL (0-0.2); EOS % 0.1 %; EOS ABS # 0.01 K/uL (0-0.5); IG# 0.01 K/uL (0.00-0.02); LYMPH % 28.2 %; LYMPH ABS # 1.93 K/uL (1.2-3.4); MONO % 4.8 %; MONO ABS # 0.33 K/uL (0.11-0.59); NEUT % 66.7 %; NEUT ABS # 4.55 K/uL (1.4-6.5)
[2017-09-23 19:27] LABS: ALKALINE PHOSPHATASE 52 U/L (45-117); ALT/SGPT 18 U/L (12-78); AST/SGOT 17 U/L (15-37); BLOOD UREA NITROGEN 22 mg/dl (7-18); CALCIUM 8.2 mg/dl (8.5-10.1); CARBON DIOXIDE 17 mmol/L (21-32); CREATININE 1.27 mg/dl (0.60-1.20); GLUCOSE 81 mg/dl (70-99); SODIUM 139 mmol/L (136-145); TOTAL PROTEIN 7.6 gm/dl (6.4-8.2)
[2017-09-23] MEDS ORDERED: VALPROATE SOD IV 500 MG in DEXTROSE 5% 50ML 50 ML IV STA (19:29)
[2017-09-23] MEDS ORDERED: ONDANSETRON INJ 2 MG/ML 2 ML VIAL IV STA (19:29)
[2017-09-23] MEDS ORDERED: POTASSIUM CHLORIDE 20 MEQ TABCR PO STA (19:29)
[2017-09-23] MEDS ORDERED: DEXAMETHASONE INJ 10 MG in SYRINGE 0 ML IV STA (19:29)
--- NOTE | 2017-09-23 19:33 | DIAGNOSTIC IMAGING REPORT ---
PA CHEST WITH ABDOMINAL SERIES CLINICAL HISTORY: Nausea and vomiting. Loss of appetite. FINDINGS: A PA chest radiograph is compared to study dated 03/13/2017. The cardiomediastinal silhouette is unremarkable. The lungs and pleural spaces are clear. No pneumothorax is seen. The bony thorax is grossly intact. Supine and erect abdominal radiographs are correlated with abdominal CT dated 11/25/2016. Cholecystectomy clips are noted in the right upper quadrant. There is a nonobstructed abdominal bowel gas pattern. No evidence of intraperitoneal free air is seen. There are no abnormal abdominal calcifications. Phleboliths are noted in the pelvis. The lumbosacral spine and bony pelvis appear intact. IMPRESSION: 1. No active disease in the chest. 2. Nonobstructed abdominal bowel gas pattern. Electronically signed by: Zeeshan Muñoz M.D. 09/23/2017 7:32 PM Dictated Date/Time: 09/23/2017 7:31 PM
[2017-09-23] MEDS ORDERED: POTASSIUM CHLORIDE 10 MEQ TABCR ONE (20:06)
[2017-09-23] MEDS ORDERED: DEXAMETHASONE SOD INJ 10 MG/ML VIAL ONE (20:07)
[2017-09-23] MEDS ORDERED: GABA-113 PO (20:36)
[2017-09-23] MEDS ORDERED: GABA-1219 PO (20:38)
[2017-09-23] MEDS ORDERED: PROM25TA9 PO (20:49)
[2017-09-23] MEDS ORDERED: PRMVC PV (20:56)
[2017-09-23 21:23] VITALS: BP 105/70; PULSE 74; TEMP 36.9; O2SAT 100
--- NOTE | 2017-09-24 00:37 | EMERGENCY ROOM VISIT NOTE ---
History First contact with patient: 18:14 Chief Complaint: HEAD PAIN Stated Complaint: CAN'T EAT, PAIN IN HEAD, LIGHT HEADED, DIZZY History of Present Illness The patient is a 32 year old female who presents to the Emergency Room with complaints of headache. The patient's fiancee is also present and he is concerned that the patient is not eating. The patient states that the headache is different from previous headaches and that the pain came on gradually. She denies any sinus symptoms like runny nose. She did take Tylenol for the headache early this morning and 1 percocet without relief. She denies any other complaints including nausea vomiting diarrhea or abdominal pain. She also denies any chest pain or shortness of breath. Review of Systems See HPI for pertinent positives & negatives. A total of 10 systems reviewed and were otherwise negative. Past Medical/Surgical History Medical Problems: (1) Benzodiazepine overdose (2) blood clots (3) Bronchitis (4) Cerebral Thrombosis Wo Cerebral Infarction (5) section (6) Cholecystectomy (7) Depression (8) Gallbladder problem (9) Hysterectomy (10) Migraine Unspecified W/O Intract Mgrn W/O Status Migrainosus (11) Myalgia And Myositis Nos (12) Panic Disorder Without Agoraphobia (13) Phlebitis & Thrombophlebitis,Sup Veins Upper Extr (14) Pneumonia (15) Polysubstance dependence (16) PTSD (17) Seizure disorder (18) Stomach problems (19) Tubal Ligation Status (20) ulcers Family History Diabetes mellitus FH: cancer FH: lung disease Kidney disease or stones Social History Smoking Status: Current Every Day Smoker Alcohol Use: none Drug Use: none Marital Status: Housing Status: lives with family Occupation Status: unemployed Current/Historical Medications Scheduled Estrogens, Conjugated (Premarin), 1 APPLN PV 2XWK Gabapentin (Neurontin), 300 MG PO AM & NOON Gabapentin (Gabapentin), 600 MG PO HS Lamotrigine (Lamictal), 100 MG PO AMPM Lansoprazole (Prevacid), 30 MG PO DAILYBB Linaclotide (Linzess), 1 CAP PO DAILY Melatonin (Melatonin Maximum Strengt), 5 MG PO HS Quetiapine Fumarate (Seroquel), 25 MG PO HS Quetiapine Fumarate (Seroquel), 50 MG PO HS Sertraline HCl (Sertraline HCl), 100 MG PO QAM Simethicone (Gas Relief Extra Strength), 2-3 TABS PO prn Topiramate (Topamax), 300 MG PO BID Scheduled PRN Albuterol Sulfate (Proair Respiclick), 2 PUFFS INH Q4-6HRS PRN for Shortness of Breath Ifwfdni-Cnljnofkvyune-Qvhxybkt (Excedrin Migraine), 4 TAB PO DIRECTED PRN for Headache Bisacodyl (Dulcolax), 5 MG PO QAM PRN for Constipation Ibuprofen Tab (Advil), 200 MG PO TID PRN for Pain Oxycodone Ir (Roxicodone Ir), 5 MG PO Q8 PRN for Severe Pain Promethazine Hcl (Phenergan), 25 MG PO BID PRN for Nausea Physical Exam Vital Signs Date Time Temp Pulse Resp B/P (MAP) Pulse Ox O2 Delivery O2 Flow Rate FiO2 09/23/17 21:23 36.9 74 22 105/70 100 09/23/17 20:43 75 22 91/66 09/23/17 19:51 75 09/23/17 19:46 78 16 104/70 99 Room Air 09/23/17 19:08 84 102/54 79 96/59 09/23/17 18:55 98 Room Air 09/23/17 18:07 36.9 71 18 109/69 98 Room Air Physical Exam GENERAL: Awake, alert, well-appearing, in no acute distress, no evidence of meningitis or encephalitis on exam HENT: Normocephalic, atraumatic. Oropharynx unremarkable. EYES: Normal conjunctiva. Sclera non-icteric. NECK: Supple. No nuchal rigidity. FROM. No JVD. RESPIRATORY: Clear to auscultation. CARDIAC: Regular rate, normal rhythm. Extremities warm and well perfused. Pulses equal. ABDOMEN: Soft, non-distended. No tenderness to palpation. No rebound or guarding. No masses. RECTAL: Deferred. MUSCULOSKELETAL: Chest examination reveals no tenderness. The back is symmetrical on inspection without obvious abnormality. There is no CVA tenderness to palpation. No joint edema. LOWER EXTREMITIES: Calves are equal size bilaterally and non-tender. No edema. No discoloration. NEURO: Normal sensorium. No sensory or motor deficits noted. SKIN: No rash or jaundice noted. Medical Decision & Procedures ER Provider Diagnostic Interpretation: PA CHEST WITH ABDOMINAL SERIES CLINICAL HISTORY: Nausea and vomiting. Loss of appetite. FINDINGS: A PA chest radiograph is compared to study dated 03/13/2017. The cardiomediastinal silhouette is unremarkable. The lungs and pleural spaces are clear. No pneumothorax is seen. The bony thorax is grossly intact. Supine and erect abdominal radiographs are correlated with abdominal CT dated 11/25/2016. Cholecystectomy clips are noted in the right upper quadrant. There is a nonobstructed abdominal bowel gas pattern. No evidence of intraperitoneal free air is seen. There are no abnormal abdominal calcifications. Phleboliths are noted in the pelvis. The lumbosacral spine and bony pelvis appear intact. IMPRESSION: 1. No active disease in the chest. 2. Nonobstructed abdominal bowel gas pattern. CT SCAN OF THE BRAIN WITHOUT IV CONTRAST CLINICAL HISTORY: Headache. COMPARISON STUDY: CT of the brain dated 07/25/2017. TECHNIQUE: Unenhanced axial CT scan of the brain is performed from the vertex to the skull base. A dose lowering technique was utilized adhering to the principles of ALARA. CT DOSE: 580.48 mGy.cm FINDINGS: Brain parenchyma: The brain parenchyma is normal in appearance. There is no hemorrhage, mass effect, or evidence of acute territorial ischemia by CT criteria. [place]-white matter is preserved. No extra-axial fluid collection is seen. Ventricles, sulci, cisterns: Normal in configuration. Intracranial vasculature: The visualized intracranial vasculature at the skull base is normal in appearance. Calvarium: Unremarkable. Sinuses and mastoids: The visualized paranasal sinuses are clear. The mastoid air cells are well pneumatized. Orbits: The bony orbits are grossly intact. IMPRESSION: No acute intracranial abnormality Laboratory Results 09/23/17 18:47 Red Blood Count 4.56, Mean Corpuscular Volume 86.0, Mean Corpuscular Hemoglobin 28.3, Mean Corpuscular Hemoglobin Concent 32.9, Mean Platelet Volume 11.4, Neutrophils (%) (Auto) 66.7, Lymphocytes (%) (Auto) 28.2, Monocytes (%) (Auto) 4.8, Eosinophils (%) (Auto) 0.1, Basophils (%) (Auto) 0.1, Neutrophils # (Auto) 4.55, Lymphocytes # (Auto) 1.93, Monocytes # (Auto) 0.33, Eosinophils # (Auto) 0.01, Basophils # (Auto) 0.01 09/23/17 18:47 Test 09/23/17 18:35 09/23/17 18:47 09/23/17 19:02 Urine Color DK YELLOW Urine Appearance CLOUDY (CLEAR) Urine pH 5.0 (4.5-7.5) Urine Specific [place] 1.040 (1.000-1.030) Urine Protein TRACE (NEG) Urine Glucose (UA) NEG (NEG) Urine Ketones TRACE (NEG) Urine Occult Blood NEG (NEG) Urine Nitrite NEG (NEG) Urine Bilirubin NEG (NEG) Urine Urobilinogen NEG (NEG) Urine Leukocyte Esterase TRACE (NEG) Urine WBC (Auto) 5-10 /hpf (0-5) Urine RBC (Auto) 0-4 /hpf (0-4) Urine Hyaline Casts (Auto) 1-5 /lpf (0-5) Urine Epithelial Cells (Auto) >30 /lpf (0-5) Urine Bacteria (Auto) NEG (NEG) Urine Crystals CALCIUM OXALATE (NONE Urine Pathogenic Casts /lpf (0) Urine Mucus PRESENT (NONE PRSENT) Urine Yeast (Auto) (NONE PRSENT) White Blood Count 6.84 K/uL (4.8-10.8) Red Blood Count 4.56 M/uL (4.2-5.4) Hemoglobin 12.9 g/dL (12.0-16.0) Hematocrit 39.2 % (37-47) Mean Corpuscular Volume 86.0 fL (80-100) Mean Corpuscular Hemoglobin 28.3 pg (25-34) Mean Corpuscular Hemoglobin Concent 32.9 g/dl (32-36) Platelet Count 148 K/uL (130-400) Mean Platelet Volume 11.4 fL (7.4-10.4) Neutrophils (%) (Auto) 66.7 % Lymphocytes (%) (Auto) 28.2 % Monocytes (%) (Auto) 4.8 % Eosinophils (%) (Auto) 0.1 % Basophils (%) (Auto) 0.1 % Neutrophils # (Auto) 4.55 K/uL (1.4-6.5) Lymphocytes # (Auto) 1.93 K/uL (1.2-3.4) Monocytes # (Auto) 0.33 K/uL (0.11-0.59) Eosinophils # (Auto) 0.01 K/uL (0-0.5) Basophils # (Auto) 0.01 K/uL (0-0.2) RDW Standard Deviation 50.4 fL (36.4-46.3) RDW Coefficient of Variation 15.8 % (11.5-14.5) Immature Granulocyte % (Auto) 0.1 % Immature Granulocyte # (Auto) 0.01 K/uL (0.00-0.02) Anion Gap 10.0 mmol/L (3-11) Est Creatinine Clear Calc Drug Dose 45.3 ml/min Estimated GFR () 64.2 Estimated GFR (Non- 55.4 BUN/Creatinine Ratio 17.6 (10-20) Calcium Level 8.2 mg/dl (8.5-10.1) Magnesium Level 2.1 mg/dl (1.8-2.4) Total Bilirubin 0.2 mg/dl (0.2-1) Direct Bilirubin < 0.1 mg/dl (0-0.2) Aspartate Amino Transf (AST/SGOT) 17 U/L (15-37) Alanine Aminotransferase (ALT/SGPT) 18 U/L (12-78) Alkaline Phosphatase 52 U/L (45-117) Total Creatine Kinase 80 U/L (26-192) Total Protein 7.6 gm/dl (6.4-8.2) Albumin 4.0 gm/dl (3.4-5.0) Thyroid Stimulating Hormone (TSH) 0.980 uIu/ml (0.300-4.500) Bedside Glucose 91 mg/dl (70-90) Medications Administered Medications (Trade) Dose Ordered Sig/Javier Route Start Time Stop Time Status Last Admin Dose Admin Sodium Chloride 1,000 ml @ 999 mls/hr Q1H1M STAT IV 09/23/17 18:21 09/23/17 19:21 DC 09/23/17 18:21 999 MLS/HR Acetaminophen (Tylenol Tab) 1,000 mg NOW STAT PO 09/23/17 18:21 09/23/17 18:24 DC 09/23/17 18:21 1,000 MG Prochlorperazine Edisylate (Compazine Inj) 10 mg NOW STAT IV 09/23/17 18:21 09/23/17 18:24 DC 09/23/17 18:21 10 MG Diphenhydramine HCl (Benadryl Inj) 50 mg NOW STAT IV 09/23/17 18:21 09/23/17 18:24 DC 09/23/17 18:21 50 MG Magnesium Sulfate (Magnesium Sulfate 1gm / D5W) 1 gm NOW STAT IV 09/23/17 18:21 09/23/17 18:24 DC 09/23/17 18:21 1 GM Ceftriaxone Sodium (Rocephin Inj) 1 gm NOW STAT IV 09/23/17 19:19 09/23/17 19:21 DC 09/23/17 20:18 1 GM Dexamethasone Sodium Phosphate 10 mg/Syringe 2.5 ml @ 1 mls/min NOW STAT IV 09/23/17 19:29 09/23/17 19:31 DC 09/23/17 20:18 1 MLS/MIN Ondansetron HCl (Zofran Inj) 4 mg NOW STAT IV 09/23/17 19:29 09/23/17 19:31 DC 09/23/17 20:18 4 MG Potassium Chloride (Klor-Con M10) 40 meq STK-MED ONCE .ROUTE 09/23/17 20:06 09/23/17 20:07 DC 09/23/17 20:06 40 MEQ Medical Decision This is a 32-year-old female who presents emergency department complaining of severe headache. The patient reports that the headache was gradual in onset. Her fianc is also concerned that the patient is not eating at home and has lost a significant amount of weight since changing medications. Patient was sent for CAT scan of the head however she does not have an elevation in her white blood cell count. I also do not feel that the patient has any evidence of meningitis or encephalitis on physical examination. The patient was given a normal saline bolus of was as well as Toradol Compazine and Benadryl. She was independently evaluated by case management is see if the patient was suicidal or homicidal. Patient denies any of this and she did eat crackers as well as peanut butter here in the emergency department. Repeat examination revealed much improvement the patient's symptoms. Case management did get in touch with the patient's fianc and they are going to have close follow-up with the patient 's neurologist. Patient was in agreement with the treatment plan. Impression Primary Impression: Headache Departure Information Dispostion Home / Self-Care Condition FAIR Referrals Remedios Raines MD patent counsel will call Dr. Raines's office on Monday morning and schedule follow-up appointment. Toll Service Observer will then call you with appointment information. Sola Sabillon M.D. Forms WORK / SCHOOL INSTRUCTIONS, HOME CARE DOCUMENTATION FORM, IMPORTANT VISIT INFORMATION Patient Instructions My [facility], ED Headache Tension Additional Instructions Need follow up with Neurology Culture results are usually available in approx 48 hours You have been examined and treated today on an emergency basis only. This is not a substitute for, or an effort to provide, complete comprehensive medical care. It is impossible to recognize and treat all injuries or illnesses in a single emergency department visit. It is therefore important that you follow up closely with Dr Mortensen. Call as soon as possible for an appointment. Thank you for your time and consideration. I look forward to speaking with you again soon. Please don't hesitate to call us if you have any questions. Problem Qualifiers Primary Impression: Headache Headache type: unspecified Headache chronicity pattern: unspecified pattern Intractability: not intractable Qualified Codes: R51 - Headache
== END 2017-09-23 21:24 | disposition home or self-care (01) ==
LOC: C.EDB 18:05 → C.EDA 21:24
DX: R51 Headache (principal); F43.10 Post-traumatic stress disorder, unspecified; F17.200 Nicotine dependence, unspecified, uncomplicated

== ENCOUNTER 2018-11-04 16:09 | Inpatient (IN) ==
[2018-11-04] MEDS ORDERED: ONDANSETRON 4 MG OD TAB PO STA (16:52)
[2018-11-04 17:11] LABS: Basophils # (auto) 0.01 K/uL (0-0.2); Basophils % (auto) 0.1 %; Eosinophils # (auto) 0.07 K/uL (0-0.5); Eosinophils % (auto) 0.7 %; Hematocrit (blood only) 41.6 % (37-47); Immature Granulocytes # (auto) 0.02 K/uL (0.00-0.02); Immature Granulocytes % (auto) 0.2 %; Lymphocytes # (auto) 1.93 K/uL (1.2-3.4); Lymphocytes % (auto) 18.9 %; Mean Corpuscular Hgb Conc 33.7 g/dL (32-36); Mean Corpuscular Volume 89.3 fL (80-100); Mean Platelet Volume 11.2 fL (7.4-10.4); Monocytes # (auto) 0.48 K/uL (0.11-0.59); Monocytes % (auto) 4.7 %; Neutrophils # (auto) 7.71 K/uL (1.4-6.5); Neutrophils % (auto) 75.4 %; Platelet Count 170 K/uL (130-400); RDW Coefficient of Variation 13.8 % (11.5-14.5); RDW Standard Deviation 45.1 fL (36.4-46.3); Red Blood Count 4.66 M/uL (4.2-5.4); White Blood Count 10.22 K/uL (4.8-10.8)
[2018-11-04 17:11] LABS: Appearance Urine Cloudy (Clear); Bacteria Urine Automated Negative (Negative); Bilirubin Urine Negative (Negative); Blood Urine Negative (Negative); Color Urine Yellow; Epithelial Cell Urine Auto >30 /lpf (0-5); Glucose Urine UA Negative (Negative); Ketones Urine Negative (Negative); Leukocyte Esterase Urine Trace (Negative); Nitrite Urine Negative (Negative); Protein Urine Negative (Negative); Urobilinogen Urine Negative (Negative)
[2018-11-04 17:26] LABS: Mucus Urine Present (None Prsent)
[2018-11-04 17:28] LABS: Albumin Level 3.7 gm/dl (3.4-5.0); BUN Creatinine Ratio 26.2 (10-20); Calcium 8.7 mg/dl (8.5-10.1); Creatinine Clr Calc Pharmacy 64.9 ml/min; Est GFR (African American) 84.1; Est GFR (Non-African American) 72.6
[2018-11-04 17:34] LABS: Pregnancy Test, Serum Negative (Negative)
[2018-11-04 17:38] LABS: Acetaminophen < 2 ug/ml (10-30); Bilirubin,Total 0.2 mg/dl (0.2-1); Globulin 3.6 gm/dl (2.5-4.0); Salicylate 2.6 mg/dl (2.8-20); Thyroid Stimulating Hormone 4.71 uIu/ml (0.300-4.500); Total Protein 7.3 gm/dl (6.4-8.2)
[2018-11-04 17:38] LABS: Amphetamines+Metham, Urine Neg (Neg); Barbiturates, Urine Neg (Neg); Benzodiazepine, Urine Neg (Neg); Cocaine, Urine Neg (Neg); MDMA (Ecstacy), Urine Neg (Neg); Methadone, Urine Neg (Neg); Opiate, Urine Pos (Neg); Phencyclidine, Urine Neg (Neg)
[2018-11-04 17:51] LABS: T4 Free Thyroxine 0.74 ng/dl (0.8-1.6)
[2018-11-04] MEDS ORDERED: ACETAMINOPHEN 325 MG TAB PO STA (18:18)
--- NOTE | 2018-11-04 19:31 | Emergency Department Note ---
Entered by Lien Braxton acting as a scribe for Judy Wong DO History of Present Illness General Chief complaint: Mental Health Evaluation Stated complaint: MENTAL HEALTH Time Seen by Provider: 11/04/18 16:36 Source: patient History of Present Illness Provider complaint: Mental Health Evaluation Onset (ago): hour(s) 2 Radiation: non-radiation Maximum Pain Intensity: 6 Relieved By: + none Exacerbated By: + none Associated symptoms: + other (Fatigued ) The patient is a 33 year old female who presents to the Emergency Room with complaints of worsening depression and an attempted suicide that occurred about 2 hours ago. The patient states that she took 8 or less Benadryl in an attempt to hurt herself. The patients state the symptoms do not radiate anywhere else on the body. Additionally, the patient reports that the symptoms are not relieved nor exacerbated by anything. The patient notes that she feels fatigued but denies experiencing any symptoms that are out of the ordinary after the overdose. The patient mentioned that she has attempted to hurt herself before but this episode is the first in almost a year now that she is . States she attempted self harm 5 times while she was . The patient states that she has a history of seizures and IBS. Additionally, the patient notes that she is a smoker and trying to quit. The patient denies any recent medication changes and notes that she has not taken her IBS medication in about 4 days. Denies any other congestion. Home Medications Home Medications Medication Instructions Recorded Confirmed Type lamotrigine 150 mg PO BID 11/10/17 11/04/18 History lansoprazole 30 mg PO DAILYBB 11/10/17 11/04/18 History linaclotide 290 mcg PO DAILYBB 11/10/17 11/04/18 History escitalopram oxalate 20 mg PO QAM #1 tab 01/10/18 11/04/18 Rx levothyroxine [Synthroid] 25 mcg PO DAILYBB #30 tab 01/10/18 11/04/18 Rx lacosamide [Vimpat] 150 mg PO BID 04/22/18 11/04/18 History cyproheptadine 4 mg PO Q8 07/17/18 11/04/18 History fremanezumab-vfrm [Ajovy] 225 mg SUBCUT MONTHLY 07/17/18 11/04/18 History ibuprofen [Advil] 400 mg PO Q4 PRN 07/17/18 11/04/18 History albuterol sulfate 2 puff INHALATION Q6H PRN 07/29/18 11/04/18 History melatonin 6 mg PO HS 07/29/18 11/04/18 History ondansetron 4 mg PO Q8H PRN 07/29/18 11/04/18 History oxycodone 5 mg tablet 5 mg PO TID PRN #90 tab 10/19/18 11/04/18 Rx aripiprazole [Abilify] 5 mg PO HS 11/04/18 11/04/18 History Allergies Allergy/AdvReac Type Severity Reaction Status Date / Time ketorolac Allergy Intermediate Rash Verified 10/16/18 13:18 linaclotide Allergy Intermediate LINZESS -- Verified 10/16/18 13:18 HIVES methocarbamol Allergy Mild RASH Verified 10/16/18 13:[address] TOLD Verified 10/16/18 13:18 HER MAY HAVE INCREASED CHANCES OF SEIZURES. tramadol AdvReac Intermediate DR TOLD Verified 10/16/18 13:18 HER IT MAY HAVE INCREASED CHANCES OF SEIZURES. trazodone AdvReac Intermediate SEVERE Verified 10/16/18 13:18 DIZZINESS Past Med/Surg History Medical History Epilepsy Hypothyroid Depression Suicide attempt by multiple drug overdose (Acute) Stomach problems (Chronic) Gallbladder problem (Chronic) Polysubstance dependence (Chronic 01/10/12) Headache (Acute) Migraine (Acute) Seizure disorder (Chronic) Anemia (Acute) Epilepsy History of ovarian cyst IBS (irritable colon syndrome) Migraine Moderate cervical dysplasia Surgical History Hx of cholecystectomy H/O LEEP conization History of endometrial ablation S/P section S/P cholecystectomy S/P total abdominal hysterectomy Status post tubal ligation Loda teeth extracted Family History Other Breast cancer FHx: cancer Family history of lung disease Social History Preferred Language: Kiswahili Communication Ability: Effective Visual Impairment: No Limitations Hearing Ability: Normal Athletic Trainer Required: No Beliefs That Will Affect Care: None Feels Safe at Home: Yes Smoking Status: Current every day smoker Tobacco Type: cigarettes ; Review of Systems See HPI for pertinent positives & negatives. and A total of 10 systems reviewed and were otherwise negative Physical Exam Vital Signs Vital Signs - 24 hr 11/04/18 16:24 11/04/18 18:00 11/04/18 19:39 Temperature 36.8 C Temperature Source Oral Sepsis Recent Fever Within 48 Hours No Sepsis New/Unexplained Change in Mental Status No Sepsis Action Taken by Nursing No Action Required Pulse Rate 92 H Pulse Rate [Finger] 97 H 84 Pulse Rhythm Regular Pulse Strength Normal Respiratory Rate 20 18 16 Respiratory Effort / Characteristics Non-Labored Spontaneous Non-Labored Spontaneous Non-Labored Spontaneous Respiratory Depth Normal Normal Normal Respiratory Pattern Regular Regular Regular Blood Pressure 109/71 Blood Pressure [Right Arm] 92/64 L 87/54 L Blood Pressure Mean 83 Blood Pressure Mean [Right Arm] 73 65 Blood Pressure Position Sitting Pulse Oximetry 99 97 97 Oxygen Delivery Method Room Air Room Air Room Air 11/04/18 20:04 Temperature Temperature Source Sepsis Recent Fever Within 48 Hours Sepsis New/Unexplained Change in Mental Status Sepsis Action Taken by Nursing Pulse Rate Pulse Rate [Finger] Pulse Rhythm Pulse Strength Respiratory Rate Respiratory Effort / Characteristics Respiratory Depth Respiratory Pattern Blood Pressure Blood Pressure [Right Arm] 87/62 L Blood Pressure Mean Blood Pressure Mean [Right Arm] 70 Blood Pressure Position Pulse Oximetry Oxygen Delivery Method GENERAL: alert, well appearing, well nourished, no distress, non-toxic EYE EXAM: normal conjunctiva, PERRL and EOM's grossly intact OROPHARYNX: no exudate, no erythema, lips, buccal mucosa, and tongue normal and mucous membranes are moist NECK: supple, no nuchal rigidity, no adenopathy, non-tender LUNGS: Clear to auscultation. Normal chest wall mechanics, no w/r/r HEART: no murmurs, S1 normal and S2 normal ABDOMEN: abdomen soft, non-tender, normo-active bowel sounds, no masses, no rebound or guarding. BACK: Back is symmetrical on inspection and there is no deformity, no midline tenderness, no CVA tenderness. SKIN: no rashes and no bruising UPPER EXTREMITIES: upper extremities are grossly normal. FROM, nml pulses b/l. LOWER EXTREMITIES: No pitting edema. FROM, nml pulses b/l. NEURO EXAM: Normal sensorium, cranial nerves II-XII grossly intact, normal speech, no gross weakness of arms, no gross weakness of legs. PSYCH: Positive SI. Positive anxiety. Positive depression. Flat affect. Course 164: Past medical records reviewed. The patient was evaluated in room A05. A complete history and physical exam was performed. 1904: Patient seen and evaluated by John, psychiatric immigration case worker. 2050: The patient was accepted upstairs to [address] [place] [address] for further inpatient care. Administered Medications Aripiprazole (Abilify) 5 mg PO HS CHAITANYA Stop: 12/04/18 20:59 Last Admin: 11/04/18 22:14 Dose: Not Given Documented by: [id number] Admin: 11/04/18 22:10 Dose: 5 mg Documented by: [id number] Cyproheptadine HCl (Periactin) 4 mg PO Q8 CHAITANYA Stop: 12/04/18 21:59 Last Admin: 11/04/18 22:10 Dose: 4 mg Documented by: [id number] Ibuprofen (Advil) 400 mg PO Q4 PRN PRN Reason: Pain Stop: 12/04/18 20:07 Last Admin: 11/04/18 23:37 Dose: 400 mg Documented by: [id number] Lacosamide (Vimpat) 150 mg PO BID CHAITANYA Stop: 12/04/18 20:59 Last Admin: 11/04/18 22:09 Dose: 150 mg Documented by: [id number] Lamotrigine (Lamictal) 150 mg PO BID CHAITANYA Stop: 12/04/18 20:59 Last Admin: 11/04/18 22:10 Dose: 150 mg Documented by: [id number] Miscellaneous (Order Awaiting Action) 1 ea N/A QS CHAITANYA Stop: 12/05/18 00:00 Last Admin: 11/05/18 00:08 Dose: Not Given Documented by: [id number] Miscellaneous (Order Awaiting Action) 1 ea N/A QS CHAITANYA Stop: 12/05/18 00:00 Last Admin: 11/05/18 00:08 Dose: Not Given Documented by: [id number] Discontinued Medications Acetaminophen (Tylenol) 650 mg PO NOW STA Stop: 11/04/18 18:19 Last Admin: 11/04/18 18:53 Dose: 650 mg Documented by: [id number] Sodium Chloride (Nss 1000ml) 1,000 mls @ 999 mls/hr IV .Q1H1M ONE Stop: 11/04/18 21:22 Last Admin: 11/04/18 22:08 Dose: Not Given Documented by: [id number] Ondansetron HCl (Zofran Odt) 4 mg PO NOW STA Stop: 11/04/18 16:53 Last Admin: 11/04/18 17:46 Dose: 4 mg Documented by: [id number] Medical Decision Making Differential Diagnosis Differential diagnosis: Etiologies such as psychiatric disorder, infection, hypoglycemia, electrolyte abnormalities, cardiac sources, intracerebral event, toxicological process, neurologic disorder, as well as others were entertained. Medical Records Attestation: I reviewed the patient's medical records. Home Medications Current Medication List: was personally reviewed by me Laboratory Data Attestation: I reviewed the patient's lab results. Result diagrams: 11/04/18 17:00 11/04/18 17:00 Lab Results 11/04/18 11/04/18 11/04/18 Range/Units 16:33 16:33 17:00 WBC 10.22 (4.8-10.8) K/uL RBC 4.66 (4.2-5.4) M/uL Hgb 14.0 (12.0-16.0) g/dL Hct 41.6 (37-47) % MCV 89.3 (80-100) fL MCH 30.0 (25-34) pg MCHC 33.7 (32-36) g/dL RDW Std Deviation 45.1 (36.4-46.3) fL RDW Coeff of Critsi 13.8 (11.5-14.5) % Plt Count 170 (130-400) K/uL MPV 11.2 H (7.4-10.4) fL Immature Gran % (Auto) 0.2 % Neut % (Auto) 75.4 % Lymph % (Auto) 18.9 % Rhea % (Auto) 4.7 % Eos % (Auto) 0.7 % Baso % (Auto) 0.1 % Immature Gran # (Auto) 0.02 (0.00-0.02) K/uL Neut # (Auto) 7.71 H (1.4-6.5) K/uL Lymph # (Auto) 1.93 (1.2-3.4) K/uL Rhea # (Auto) 0.48 (0.11-0.59) K/uL Eos # (Auto) 0.07 (0-0.5) K/uL Baso # (Auto) 0.01 (0-0.2) K/uL Sodium (136-145) mmol/L Potassium (3.5-5.1) mmol/L Chloride (98-107) mmol/L Carbon Dioxide (21-32) mmol/L Anion Gap (3-11) BUN (7-18) mg/dl Creatinine (0.6-1.2) mg/dl Est Cr Clr Drug Dosing ml/min Est GFR ( Amer) Est GFR (Non-Af Amer) BUN/Creatinine Ratio (10-20) Glucose (70-99) mg/dl Calcium (8.5-10.1) mg/dl Total Bilirubin (0.2-1) mg/dl AST (15-37) U/L ALT (12-78) U/L Alkaline Phosphatase (45-117) U/L Total Protein (6.4-8.2) gm/dl Albumin (3.4-5.0) gm/dl Globulin (2.5-4.0) gm/dl Albumin/Globulin Ratio (0.9-2) TSH (0.300-4.500) uIu/ml Free T4 (0.8-1.6) ng/dl HCG, Qual (Negative) Urine Color Yellow Urine Appearance Cloudy A (Clear) Urine pH 5.0 (4.5-7.5) Ur Specific [place] 1.030 (1.000-1.030) Urine Protein Negative (Negative) Urine Glucose (UA) Negative (Negative) Urine Ketones Negative (Negative) Urine Blood Negative (Negative) Urine Nitrite Negative (Negative) Urine Bilirubin Negative (Negative) Urine Urobilinogen Negative (Negative) Ur Leukocyte Esterase Trace H (Negative) Urine WBC (Auto) 5-10 H (0-5) /hpf Urine RBC (Auto) 5-10 H (0-4) /hpf U Hyaline Cast (Auto) 1-5 (0-5) /lpf U Epithel Cells (Auto) >30 H (0-5) /lpf Urine Bacteria (Auto) Negative (Negative) Urine Mucus Present A (None Prsent) Salicylates (2.8-20) mg/dl Urine Opiates Screen Pos H (Neg) Ur Methadone, Qual Neg (Neg) Acetaminophen (10-30) ug/ml Urine Barbiturates Neg (Neg) Ur Phencyclidine (PCP) Neg (Neg) U Amphetamin/Meth Scrn Neg (Neg) MDMA (Ecstasy) Screen Neg (Neg) U Benzodiazepines Scrn Neg (Neg) Ur Cocaine Metabolite Neg (Neg) U Marijuana (THC) Screen Neg (Neg) Ethyl Alcohol mg/dL (0-3) mg/dl 11/04/18 11/04/18 11/04/18 Range/Units 17:00 17:00 17:00 WBC (4.8-10.8) K/uL RBC (4.2-5.4) M/uL Hgb (12.0-16.0) g/dL Hct (37-47) % MCV (80-100) fL MCH (25-34) pg MCHC (32-36) g/dL RDW Std Deviation (36.4-46.3) fL RDW Coeff of Cristi (11.5-14.5) % Plt Count (130-400) K/uL MPV (7.4-10.4) fL Immature Gran % (Auto) % Neut % (Auto) % Lymph % (Auto) % Rhea % (Auto) % Eos % (Auto) % Baso % (Auto) % Immature Gran # (Auto) (0.00-0.02) K/uL Neut # (Auto) (1.4-6.5) K/uL Lymph # (Auto) (1.2-3.4) K/uL Rhea # (Auto) (0.11-0.59) K/uL Eos # (Auto) (0-0.5) K/uL Baso # (Auto) (0-0.2) K/uL Sodium 142 (136-145) mmol/L Potassium 4.0 (3.5-5.1) mmol/L Chloride 108 H (98-107) mmol/L Carbon Dioxide 26 (21-32) mmol/L Anion Gap 8.0 (3-11) BUN 27 H (7-18) mg/dl Creatinine 1.01 (0.6-1.2) mg/dl Est Cr Clr Drug Dosing 64.9 ml/min Est GFR ( Amer) 84.1 Est GFR (Non-Af Amer) 72.6 BUN/Creatinine Ratio 26.2 H (10-20) Glucose 88 (70-99) mg/dl Calcium 8.7 (8.5-10.1) mg/dl Total Bilirubin 0.2 (0.2-1) mg/dl AST 43 H (15-37) U/L ALT 44 (12-78) U/L Alkaline Phosphatase 76 (45-117) U/L Total Protein 7.3 (6.4-8.2) gm/dl Albumin 3.7 (3.4-5.0) gm/dl Globulin 3.6 (2.5-4.0) gm/dl Albumin/Globulin Ratio 1.0 (0.9-2) TSH 4.710 H (0.300-4.500) uIu/ml Free T4 0.74 L (0.8-1.6) ng/dl HCG, Qual (Negative) Urine Color Urine Appearance (Clear) Urine pH (4.5-7.5) Ur Specific [place] (1.000-1.030) Urine Protein (Negative) Urine Glucose (UA) (Negative) Urine Ketones (Negative) Urine Blood (Negative) Urine Nitrite (Negative) Urine Bilirubin (Negative) Urine Urobilinogen (Negative) Ur Leukocyte Esterase (Negative) Urine WBC (Auto) (0-5) /hpf Urine RBC (Auto) (0-4) /hpf U Hyaline Cast (Auto) (0-5) /lpf U Epithel Cells (Auto) (0-5) /lpf Urine Bacteria (Auto) (Negative) Urine Mucus (None Prsent) Salicylates 2.6 L (2.8-20) mg/dl Urine Opiates Screen (Neg) Ur Methadone, Qual (Neg) Acetaminophen < 2 L (10-30) ug/ml Urine Barbiturates (Neg) Ur Phencyclidine (PCP) (Neg) U Amphetamin/Meth Scrn (Neg) MDMA (Ecstasy) Screen (Neg) U Benzodiazepines Scrn (Neg) Ur Cocaine Metabolite (Neg) U Marijuana (THC) Screen (Neg) Ethyl Alcohol mg/dL < 3.0 (0-3) mg/dl 11/04/18 Range/Units 17:00 WBC (4.8-10.8) K/uL RBC (4.2-5.4) M/uL Hgb (12.0-16.0) g/dL Hct (37-47) % MCV (80-100) fL MCH (25-34) pg MCHC (32-36) g/dL RDW Std Deviation (36.4-46.3) fL RDW Coeff of Cristi (11.5-14.5) % Plt Count (130-400) K/uL MPV (7.4-10.4) fL Immature Gran % (Auto) % Neut % (Auto) % Lymph % (Auto) % Rhea % (Auto) % Eos % (Auto) % Baso % (Auto) % Immature Gran # (Auto) (0.00-0.02) K/uL Neut # (Auto) (1.4-6.5) K/uL Lymph # (Auto) (1.2-3.4) K/uL Rhea # (Auto) (0.11-0.59) K/uL Eos # (Auto) (0-0.5) K/uL Baso # (Auto) (0-0.2) K/uL Sodium (136-145) mmol/L Potassium (3.5-5.1) mmol/L Chloride (98-107) mmol/L Carbon Dioxide (21-32) mmol/L Anion Gap (3-11) BUN (7-18) mg/dl Creatinine (0.6-1.2) mg/dl Est Cr Clr Drug Dosing ml/min Est GFR ( Amer) Est GFR (Non-Af Amer) BUN/Creatinine Ratio (10-20) Glucose (70-99) mg/dl Calcium (8.5-10.1) mg/dl Total Bilirubin (0.2-1) mg/dl AST (15-37) U/L ALT (12-78) U/L Alkaline Phosphatase (45-117) U/L Total Protein (6.4-8.2) gm/dl Albumin (3.4-5.0) gm/dl Globulin (2.5-4.0) gm/dl Albumin/Globulin Ratio (0.9-2) TSH (0.300-4.500) uIu/ml Free T4 (0.8-1.6) ng/dl HCG, Qual Negative (Negative) Urine Color Urine Appearance (Clear) Urine pH (4.5-7.5) Ur Specific [place] (1.000-1.030) Urine Protein (Negative) Urine Glucose (UA) (Negative) Urine Ketones (Negative) Urine Blood (Negative) Urine Nitrite (Negative) Urine Bilirubin (Negative) Urine Urobilinogen (Negative) Ur Leukocyte Esterase (Negative) Urine WBC (Auto) (0-5) /hpf Urine RBC (Auto) (0-4) /hpf U Hyaline Cast (Auto) (0-5) /lpf U Epithel Cells (Auto) (0-5) /lpf Urine Bacteria (Auto) (Negative) Urine Mucus (None Prsent) Salicylates (2.8-20) mg/dl Urine Opiates Screen (Neg) Ur Methadone, Qual (Neg) Acetaminophen (10-30) ug/ml Urine Barbiturates (Neg) Ur Phencyclidine (PCP) (Neg) U Amphetamin/Meth Scrn (Neg) MDMA (Ecstasy) Screen (Neg) U Benzodiazepines Scrn (Neg) Ur Cocaine Metabolite (Neg) U Marijuana (THC) Screen (Neg) Ethyl Alcohol mg/dL (0-3) mg/dl Blood Pressure Blood Pressure Findings: Low blood pressure Blood Pressure Disposition: further management by hospitalist [facility] Narrative Patient here well-appearing despite reported overdose. Patient stated she thought this was at most eight 25 mg tablets. States she had ingested them 2 hours prior, making her outside the window for activated charcoal. Patient with no evidence of somnolence, dizziness, or other adverse reactions related to the increase diphenhydramine ingestion. No symptoms to suggest anticholinergic toxicity. Patient denies any other coingestions. Patient calm and cooperative throughout. Patient tolerated p.o. here without difficulty, was encouraged to drink. Patient was given a liter of IV fluids as she did not want to drink much in the way of fluids orally. I do not suspect other delayed toxicity secondary to the diphenhydramine. Patient's other labs are reassuring. Patient seen and examined by John, psychiatric immigration case worker, and accepted to [facility] [address]. Patient monitored here for several hours as a precaution through would be the anticipated half-life of the medication. Patient had no other side effects or evolving symptoms. Impression & Plan Overdose, Suicidal ideation Discharge Plan Visit Data Chief Complaint: Mental Health Evaluation Stated Complaint: MENTAL HEALTH ED Provider: uJdy Wong Discharge Problem: Overdose, Suicidal ideation Patient Disposition: Transfer Behavioral Health Fac Condition: Good Discharge Instructions Interventions: ED Discharge Assessment Last Done: 11/04/18 21:02 Discharge Problem: Overdose Qualifiers: Encounter type: initial encounter Injury intent: intentional self-harm Qualified Code(s): T50.902A - Poisoning by unspecified drugs, medicaments and biological substances, intentional self-harm, initial encounter The scribe's documentation has been prepared under my direction and personally reviewed by me in its entirety. I confirm that the note above accurately reflects all work, treatment, procedures, and medical decision making performed by me.
[2018-11-04] MEDS ORDERED: ACETAMINOPHEN 325 MG TAB PO PRN (20:05)
[2018-11-04] MEDS ORDERED: ALUMINUM/MAGNESIUM SUSP 30 ML UDC PO PRN (20:05)
[2018-11-04] MEDS ORDERED: MAGNESIUM HYDROXIDE SUSP 30 ML UDC PO PRN (20:05)
[2018-11-04] MEDS ORDERED: BISMUTH SUBSALICYLATE PER ML OMNICELL CHARGE PO PRN (20:05)
[2018-11-04] MEDS ORDERED: SODIUM CHLORIDE 0.65% NA SOLN 45 ML (OCEAN) PRN (20:05)
[2018-11-04] MEDS ORDERED: ONDANSETRON 4 MG OD TAB PO PRN (20:08)
[2018-11-04] MEDS ORDERED: ALBUTEROL HFA 8 GM INHALER INH PRN (20:08)
[2018-11-04] MEDS ORDERED: SODIUM CHLORIDE 0.9% 1000ML 1,000 ML IV ONE (20:22)
[2018-11-04] MEDS ORDERED: NON-FORMULARY MEDICATION (Melatonin 6 MG) PO SCH (21:00)
[2018-11-04] MEDS: LACOSAMIDE 50 MG TABLET PO SCH (22:09)
[2018-11-04] MEDS: CYPROHEPTADINE HCL 4 MG TAB PO SCH (22:10)
[2018-11-04] MEDS: lamoTRIgine 100 MG TAB PO SCH (22:10)
[2018-11-04] MEDS: ARIPiprazole 5 MG TAB PO SCH ×2 (22:10→22:14)
[2018-11-04] MEDS: IBUPROFEN 200 MG TAB PO PRN (23:37)
[2018-11-05] MEDS: LINZESS~ORDER AWAITING ACTION SCH ×3 (00:08→16:13)
[2018-11-05] MEDS: CYPROHEPTADINE HCL 4 MG TAB PO SCH ×3 (06:15→20:46)
[2018-11-05] MEDS ORDERED: LEVOTHYROXINE SODIUM 25 MCG TABLET PO SCH (06:30)
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
[2018-11-05] MEDS: IBUPROFEN 200 MG TAB PO PRN ×2 (08:26→16:15)
[2018-11-05] MEDS: PANTOprazole 40 MG TAB PO SCH (08:27)
[2018-11-05] MEDS: LACOSAMIDE 50 MG TABLET PO SCH ×2 (08:27→20:56)
[2018-11-05] MEDS: lamoTRIgine 100 MG TAB PO SCH ×2 (08:27→20:48)
[2018-11-05] MEDS ORDERED: ESCITALOPRAM OXALATE 20 MG TAB PO SCH (09:00)
[2018-11-05] MEDS: ARIPiprazole 5 MG TAB PO SCH (20:46)
[2018-11-05] MEDS: NICOTINE 21 MG/24 HR TDSY TD SCH (20:52)
[2018-11-06] MEDS: CYPROHEPTADINE HCL 4 MG TAB PO SCH ×3 (06:13→20:55)
[2018-11-06] MEDS: lamoTRIgine 100 MG TAB PO SCH ×2 (07:27→20:52)
[2018-11-06] MEDS: LEVOTHYROXINE SODIUM 50 MCG TABLET PO SCH (07:28)
[2018-11-06] MEDS: PANTOprazole 40 MG TAB PO SCH (07:29)
[2018-11-06] MEDS: NICOTINE 21 MG/24 HR TDSY TD SCH (07:29)
[2018-11-06] MEDS: LACOSAMIDE 50 MG TABLET PO SCH ×2 (07:59→22:01)
[2018-11-06] MEDS: LINZESS~ORDER AWAITING ACTION SCH ×2 (08:01→16:56)
[2018-11-06] MEDS: NICOTINE POLACRILEX 2 MG GUM MT PRN ×4 (08:52→18:16)
[2018-11-06] MEDS ORDERED: ESCITALOPRAM OXALATE 20 MG TAB PO SCH (09:00)
[2018-11-06] MEDS ORDERED: DULOXETINE HCL 20 MG CAP PO SCH (09:00)
[2018-11-06] MEDS: IBUPROFEN 200 MG TAB PO PRN (10:11)
--- NOTE | 2018-11-06 12:07 | Psychiatric Progress Note ---
Date of Service November 06, 2018 Impression / Recommendations Impression 33-year-old engaged female who has a history of recurrent depression, substance abuse, borderline personality disorder, and multiple other psychiatric diagnoses and medical problems who presents after a suicide attempt by diphenhydramine overdose. She reports she overdosed in the context of discord with her hossein's 6-year-old daughter, who has behavioral problems and was not listening to her, and did this in order to communicate her level of distress to her hossein, who was at work at the time. These circumstances are similar to her last hospitalization, when she overdosed in the presence of the then 5-year-old child, resulting in CYS involvement. They will need to be contacted again as she once again overdosed while caring for her hossein's child. She has had multiple medical problems over the past several months, but has been improving and has actually been able to start working part-time recently, which she is happy about. Her primary stressor is her hossein's daughter and her behavioral problems. Patient is tolerating cross-titration from escitalopram to duloxetine. After discussion of patient's comfort with speed of these changes and review of risks, patient is agreeable to discontinuation of escitalopram and titration of duloxetine to 40mg starting tomorrow. Pt reports interest in D&A rehab after she participated in a family meeting with her lance. Pt denies SI today, but still requires additional discharge arrangements to be made. She remains a risk of harm to herself if she is discharged prematurely. (1) Overdose: 11/05 -continue hospitalization on a voluntary commitment. -Every 15 minute checks for safety. -Encourage group attendance and participation; work on healthy coping skills and discharge safety planning. -Patient with >6 intentional overdoses, and access to multiple medications. Will recommend that all medications in the home be locked and secured so that she does not have access to large amount of pills, in order to decrease the risk of an impulsive overdose. -CYS report made re: patient's report that she was caring for her lance's 6 year old daughter when she took the overdose. 11/06 - Pt denies SI today, stating she has a lot more hope (2) Depression: 11/05 -patient has been on escitalopram 20 mg and aripiprazole 5 mg for a couple of months; she does not think the escitalopram has been helpful and would like to try different antidepressant. She does not think she has tried duloxetine before, and agreed to a trial to target mood, anxiety, and pain. We will cross taper from escitalopram to duloxetine. Continue aripiprazole 5 mg daily. -Check fasting lipid profile and glucose tomorrow for monitoring on an atypical antipsychotic. -Coordinate care with outpatient therapist and online merchandiser at [facility]. 11/06 - Reviewed patient's comfort with rapid cross-titration versus allowing more time for these changes. Pt denies side effects or physical concerns today, and after explanation of risks and benefits is agreeable to taking the next step of the cross-titration tomorrow. Will discontinue escitalopram and titrate duloxetine to 40mg for tomorrow morning. - Continue aripiprazole 5mg qHS - Will attempt to acquire fasting labs tomorrow, as patient at and drank this morning despite multiple reminders about testing (3) Opiate abuse, continuous: 11/05 -patient reports abusing Suboxone, which she has been getting off the street. -Recovery protocol. -Contact Dr. Mortensen who has been prescribing chronic opiate pain medication - spoke with his staff to relay concerns regarding Suboxone abuse, as well as thyroid labs here and plan to increase Synthroid. -Avoid controlled substances due to the high risk of abuse/misuse/negative outcomes. 11/06 - Pt now reporting desire to attend D&A rehab - Social work assisting with researching facilities patient can consider (4) Seizure disorder: 11/05 -continue home antiepileptics, Vimpat and lamotrigine. Coordinate care with Dr. Sabillon her outpatient neurologist. Seizure precautions. (5) Hypothyroid: 11/05 -TSH elevated and free T4 low at 0.74. Patient reports good compliance with levothyroxine. Increase levothyroxine to 50 mcg daily and recheck labs in 1-2 months. Risk Factors Assessment Male: No : Yes Do You Have Access To A Gun?: No Health Problems: Yes Mental Health Diagnoses: Yes Substance Use Disorders: Yes Previous Attempt: Yes Family History of Suicide: No Previous Psychiatric Hospitalization: Yes Hopelessness: No Smoker: Yes Protective Factors Assessment : No Responsible for Young Children: Yes Employed: Yes Stable Relationships: Yes Supportive Family: Yes Good Rapport with Provider: Yes Interval History Identifying Information BRUCE ALTMAN is a 33-year-old F who currently lives in [place] with her fimatt and his daughter, has a history of seizure disorder, opiate abuse, and depression with multiple suicide attempts, and was admitted on 11/04/18 20:05 on a 201 voluntary commitment for intentional overdose on diphenhydramine. Chief Complaint "The meeting went well, we both got a lot of things out." Review of Systems Notes Constitutional: reports a mild headache this morning Cardiovascular: denied Respiratory: denied Gastrointestinal: denied Neurological: denied Psychiatric: denies symptoms other than stated above Total of at least 10 systems reviewed, pertinent positives as above and in HPI. Sleep Information Total Hours of Sleep: 8.5 Sleep Comments: pt on q-15 minute checks Meal Information Percent Meal Consumed - Breakfast: 90 Percent Meal Consumed - Lunch: 100 Percent Meal Consumed - Dinner: 90 Subjective Subjective Patient was seen & assessed and interval progress reviewed with nursing and social work. Staff report the patient has been participating in groups intermittently. She was to receive fasting labs this morning, but despite multiple reminders she did consume food and drink prior to the blood draw. Pt reported yesterday that she needed to leave the hospital due to her mother having a stroke, patient's fiance stated he had not heard that this was a concern. Pt has submitted her 72-hour notice overnight, which expires 11/08 at 1345. Pt was seen today to assess progress since admission. Pt states she is doing well today. She had a family meeting with her fiance this afternoon, which she reports "went well, we got a lot of things out." Pt states she expressed to her fiance a desire to attend rehab. She also reported to him that she desires a closer relationship with his daughter, but also needs her space. Pt states they discussed having supports care for the daughter periodically to allow the patient some personal time, but to also allow the couple time to spend together. Pt denies any physical concerns after initiating duloxetine this morning. Pt reports feeling comfortable with rapid medication adjustments, after reviewing timing options with regard to her antidepressant cross- titration. Pt is agreeable to discontinuing her escitalopram and titrating her dose of duloxetine tomorrow. Additional education was provided to the patient on likely benefit from duloxetine for pain improvement. Pt states she is more optimistic about her future. She denies suicidal ideation and admits she is more hopeful today. Pt denies other needs or concerns at this time. Physical Exam Psychiatric Orientation: alert, oriented x 3 and cooperative Apperance: appropriately dressed, appropriately groomed and appeared stated age Eye Contact: good eye contact Motor Behavior: steady gait and station and no abnormal motor movements Pt reporting she is less restless/fidgety today Speech: normal rate/rhythm/volume of speech Affect: + depressed affect and + anxious affect (improved mildy) Mood: + depressed mood ("Feeling a little better about things") and + anxious mood (reports improvement today) Thought Process: goal directed thought process, clear/coherent thought process and thought association intact Thought Content: reality based without delusions; no hopelessness Suicidal Thoughts: denies suicidal thoughts and denies suicidal intent Homicidal Thoughts: denies homicidal thoughts Hallucinations: no auditory hallucinations and no visual hallucinations Cognition: remote memory grossly intact, attention grossly intact and language grossly intact Estimated Intelligence: consistent with education level Insight: + fair insight Judgement: + fair judgement Vital Signs (Past 24 Hours) Last Vital Signs Temp 36.8 C 11/06/18 06:40 Pulse 75 11/06/18 06:40 Resp 18 11/06/18 06:40 BP 114/75 11/06/18 06:40 Pulse Ox 100 11/04/18 21:22 Results & Data Current Inpatient Medications Current Inpatient Medications: Current Inpatient Medications Acetaminophen (Tylenol) 650 mg PO Q4H PRN PRN Reason: Headache or Minor Fever Stop: 12/04/18 20:04 Al Hydrox/Mg Hydrox/Simethicone (Maalox) 30 ml PO Q4H PRN PRN Reason: GI Upset Stop: 12/04/18 20:04 Albuterol (Ventolin Hfa) 2 puffs INH Q6H PRN PRN Reason: Shortness Of Breath Or Wheezing Stop: 12/04/18 20:07 Aripiprazole (Abilify) 5 mg PO HS CHAITANYA Stop: 12/04/18 20:59 Last Admin: 11/05/18 20:46 Dose: 5 mg Documented by: Bismuth Subsalicylate (Kaopectate) 15 ml PO PRN PRN PRN Reason: Loose Stool Stop: 12/04/18 20:04 Cyproheptadine HCl (Periactin) 4 mg PO Q8 CHAITANYA Stop: 12/04/18 21:59 Last Admin: 11/06/18 06:13 Dose: 4 mg Documented by: Duloxetine HCl (Cymbalta) 20 mg PO QAM [facility] Stop: 12/06/18 08:59 Last Admin: 11/06/18 07:28 Dose: 20 mg Documented by: Escitalopram Oxalate (Lexapro Tab) 10 mg PO QAM [facility] Stop: 12/06/18 08:59 Last Admin: 11/06/18 07:28 Dose: 10 mg Documented by: Hydroxyzine HCl (Vistaril) 50 mg PO HSZ PRN PRN Reason: Insomnia Stop: 12/04/18 20:04 Hydroxyzine HCl (Vistaril) 25 mg PO Q4H PRN PRN Reason: Anxiety Stop: 12/04/18 20:04 Ibuprofen (Advil) 400 mg PO Q4 PRN PRN Reason: Pain Stop: 12/04/18 20:07 Last Admin: 11/06/18 10:11 Dose: 400 mg Documented by: Lacosamide (Vimpat) 150 mg PO BID [facility] Stop: 12/04/18 20:59 Last Admin: 11/06/18 07:59 Dose: 150 mg Documented by: Lamotrigine (Lamictal) 150 mg PO BID [facility] Stop: 12/04/18 20:59 Last Admin: 11/06/18 07:27 Dose: 150 mg Documented by: Levothyroxine Sodium (Synthroid) 50 mcg PO DAILYBB [facility] Stop: 12/06/18 07:59 Last Admin: 11/06/18 07:28 Dose: 50 mcg Documented by: Magnesium Hydroxide (Milk Of Magnesia) 30 ml PO DAILY PRN PRN Reason: Constipation Stop: 12/04/18 20:04 Last Admin: 11/06/18 04:27 Dose: 30 ml Documented by: Miscellaneous (Order Awaiting Action) 1 ea N/A QS [facility] Stop: 12/05/18 00:00 Last Admin: 11/06/18 08:01 Dose: Not Given Documented by: Miscellaneous (Order Awaiting Action) 1 ea N/A QS [facility] Stop: 12/05/18 00:00 Last Admin: 11/06/18 08:01 Dose: Not Given Documented by: Miscellaneous (Remove Nicoderm Patch) 1 ea N/A HS PRN PRN Reason: Insomnia Stop: 12/05/18 20:59 Nicotine (Nicoderm Cq) 21 mg TD QAM [facility] Stop: 12/05/18 20:44 Last Admin: 11/06/18 07:29 Dose: 21 mg Documented by: Nicotine Polacrilex (Nicorette 2mg) 1 piece MT Q2H PRN PRN Reason: Nicotine withdrawal Stop: 12/05/18 20:30 Last Admin: 11/06/18 10:11 Dose: 1 piece Documented by: Ondansetron HCl (Zofran Odt) 4 mg PO Q8H PRN PRN Reason: Nausea And Vomiting Stop: 12/04/18 20:07 Pantoprazole Sodium (Protonix) 40 mg PO DAILYBB [facility]ANY[facility] Stop: 12/05/18 06:29 Last Admin: 11/06/18 07:29 Dose: 40 mg Documented by: Sodium Chloride (Winnie Nasal) 1 - 2 sprays NA PRN PRN PRN Reason: Nasal Dryness/Congestion Stop: 12/04/18 20:04 Mental Health & Subst Abuse Tx Psychiatrist Name of Psychiatrist: [facility] Nguyễn Candelario PA-C Psychiatrist's Date of Appointment with Psychiatrist: 11/21/18 Time of Appointment with Psychiatrist: 10:00 a.m. Psychiatric Appointment Comment: [phone] [facility] Therapist Name of Therapist: [facility] Nguyễn Abernathy Therapist's Date of Therapist Appointment: 11/08/18 Time of Therapist Appointment: 11:00 a.m. Therapy Appointment Comment: [address] [facility] Preschool Teacher Assistant Name of Preschool Teacher Assistant: Denies Post Discharge Appointments Primary Care Physician Name Of Family Doctor: [facility] - Dr. Mortensen Primary Care Time of Appointment with PCP: Please follow up as needed Provider Appointment Comment: [phone] [facility] Specialist Name of Specialist: RADHA Sabillon Phone Number for Specialist: [phone] Specialty Appointment Comment: [phone] [facility] Contact Information Discharge Discharge Address: [address] [place] [address], [address] CPT Code CPT Code 16497 (1) Overdose Encounter type: initial encounter Injury intent: intentional self-harm Qualified Code(s): T50.902A - Poisoning by unspecified drugs, medicaments and biological substances, intentional self-harm, initial encounter
[2018-11-06] MEDS ORDERED: SENNA 8.6 MG TAB PO ONE (14:00)
[2018-11-06] MEDS: ARIPiprazole 5 MG TAB PO SCH (20:54)
[2018-11-07 01:00] LABS: Codeine Urine NEGATIVE NG/ML (CUTOFF=50); Hydrocodone Urine NEGATIVE NG/ML (CUTOFF=50); Hydromor Urine NEGATIVE NG/ML (CUTOFF=50); Morphine Urine NEGATIVE NG/ML (CUTOFF=50); Norhydrocodone Conf Ur NEGATIVE NG/ML (CUTOFF=50); Noroxycodone Urine 4070 NG/ML (CUTOFF=50); Oxycodone Urine 714 NG/ML (CUTOFF=50); Oxymorph Urine 161 NG/ML (CUTOFF=50)
[2018-11-07] MEDS: LINZESS~ORDER AWAITING ACTION SCH ×2 (02:36→08:34)
[2018-11-07] MEDS: IBUPROFEN 200 MG TAB PO PRN (04:23)
[2018-11-07] MEDS: CYPROHEPTADINE HCL 4 MG TAB PO SCH (06:32)
[2018-11-07] MEDS: LEVOTHYROXINE SODIUM 50 MCG TABLET PO SCH (08:06)
[2018-11-07] MEDS: PANTOprazole 40 MG TAB PO SCH (08:06)
[2018-11-07] MEDS: lamoTRIgine 100 MG TAB PO SCH (08:07)
[2018-11-07 08:16] LABS: Glucose Fasting 87 mg/dl (70-99)
[2018-11-07] MEDS: NICOTINE 21 MG/24 HR TDSY TD SCH (08:17)
[2018-11-07 08:22] LABS: Chol HDL Ratio 3; Cholesterol 199 mg/dl (0-200); HDL Cholesterol 69 mg/dl; LDL Cholesterol Calculated 119 mg/dl; Triglycerides 54 mg/dl (0-150); VLDL Cholesterol 11 mg/dl
[2018-11-07] MEDS: LACOSAMIDE 50 MG TABLET PO SCH (08:31)
[2018-11-07] MEDS: NICOTINE POLACRILEX 2 MG GUM MT PRN (08:47)
[2018-11-07] MEDS ORDERED: DULOXETINE HCL 20 MG CAP PO SCH (09:00)
--- NOTE | 2018-11-07 09:48 | Discharge Summary ---
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 Days Qty: 1 RF: 0 nicotine [Nicoderm CQ] 21 mg/24 hr Patch 24 Hour 21 mg transdermal QAM 30 Days Qty: 30 RF: 0 duloxetine 40 mg capsule,delayed release(DR/EC) 40 mg PO QAM 30 Days Qty: 30 RF: 0 levothyroxine [Synthroid] 50 mcg Tablet 50 mcg PO DAILYBB 30 Days Qty: 1 RF: 0 Continued Vimpat 150 mg Tablet 150 mg PO BID RF: 0 cyproheptadine 4 mg tablet 4 mg PO Q8 RF: 0 ibuprofen [Advil] 200 mg Tablet 400 mg PO Q4 PRN (Reason: Pain) RF: 0 Ajovy 225 mg/1.5 mL syringe 225 mg subcut MONTHLY RF: 0 melatonin 3 mg Tablet 6 mg PO HS RF: 0 albuterol sulfate 90 mcg/actuation Hfa Aerosol Inhaler 2 puff INHALATION Q6H PRN (Reason: Shortness Of Breath Or Wheezing) RF: 0 ondansetron 4 mg Tablet,Disintegrating 4 mg PO Q8H PRN (Reason: Nausea And Vomiting) RF: 0 lamotrigine 150 mg tablet 150 mg PO BID RF: 0 lansoprazole 30 mg capsule,delayed release(DR/EC) 30 mg PO DAILYBB RF: 0 linaclotide 290 mcg capsule 290 mcg PO DAILYBB RF: 0 aripiprazole [Abilify] 5 mg Tablet 5 mg PO HS RF: 0 sennosides [senna] 8.6 mg Tablet 8.6 mg PO DAILY RF: 0 Discontinued oxycodone 5 mg tablet 5 mg PO TID PRN (Reason: Pain) Qty: 90 RF: 0 escitalopram oxalate 20 mg Tablet 20 mg PO QAM Qty: 1 RF: 0 levothyroxine [Synthroid] 25 mcg Tablet 25 mcg PO DAILYBB Qty: 30 RF: 0 Discharge Orders: Discharge Order (Routine); Ordered 11/07/18 Ordered By: Jacquie Colby Admission Data Admit Date/Time: 11/04/18 20:05 Attending Provider: Ariadne Ayala Admit Provider: Rogers Justice I Primary Care Provider: Hubert Mortensen Other Interventions: Discharge Summary Assessment (RN) Last Done: 11/07/18 10:54 PSY Interdisciplinary Discharge Planning Last Done: 11/07/18 10:53 DC Date/Time DO NOT enter until pt leaves facility: 11/07/18 11:20
[2018-11-07] MEDS ORDERED: SENNA 8.6 MG TAB PO SCH (14:00)
== END 2018-11-07 11:20 | disposition home or self-care (01) | DRG 918 ==
LOC: ED 16:09 → 3S 20:05

== ENCOUNTER 2019-05-13 16:55 | Observation (INO) ==
[2019-05-13] MEDS ORDERED: ACETAMINOPHEN 500 MG TAB PO STA (17:20)
[2019-05-13] MEDS ORDERED: KETOROLAC 30 MG/ML VIAL IV STA (17:20)
[2019-05-13] MEDS ORDERED: SODIUM CHLORIDE 0.9% 1000ML 1,000 ML IV ONE (17:20)
[2019-05-13] MEDS ORDERED: ONDANSETRON INJ 2 MG/ML 2 ML VIAL IV STA (17:20)
[2019-05-13 18:17] LABS: Basophils # (auto) 0.01 K/uL (0-0.2); Basophils % (auto) 0.1 %; Eosinophils # (auto) 0.01 K/uL (0-0.5); Eosinophils % (auto) 0.1 %; Hemoglobin 14.7 g/dL (12.0-16.0); Immature Granulocytes # (auto) 0.03 K/uL (0.00-0.02); Immature Granulocytes % (auto) 0.2 %; Lymphocytes # (auto) 0.88 K/uL (1.2-3.4); Lymphocytes % (auto) 7.3 %; Mean Corpuscular Hemoglobin 31.1 pg (25-34); Mean Corpuscular Hgb Conc 35.9 g/dL (32-36); Mean Corpuscular Volume 86.9 fL (80-100); Mean Platelet Volume 11.7 fL (7.4-10.4); Monocytes % (auto) 4.1 %; Neutrophils # (auto) 10.64 K/uL (1.4-6.5); Neutrophils % (auto) 88.2 %; Platelet Count 131 K/uL (130-400); RDW Coefficient of Variation 15.5 % (11.5-14.5); RDW Standard Deviation 49.6 fL (36.4-46.3); Red Blood Count 4.72 M/uL (4.2-5.4); White Blood Count 12.07 K/uL (4.8-10.8)
[2019-05-13 18:27] LABS: Prothrombin Time 10.9 Seconds (9.0-12.0)
[2019-05-13 18:38] LABS: Albumin Level 3.7 gm/dl (3.4-5.0); BUN Creatinine Ratio 13.7 (10-20); Calcium 8.6 mg/dl (8.5-10.1); Creatinine Clr Calc Pharmacy 81.6 ml/min; Est GFR (African American) 96.7; Est GFR (Non-African American) 83.4; Potassium 2.9 mmol/L (3.5-5.1)
[2019-05-13 18:41] LABS: Albumin Globulin Ratio 1.1 (0.9-2); Bilirubin,Total 0.4 mg/dl (0.2-1); Globulin 3.3 gm/dl (2.5-4.0)
[2019-05-13] MEDS ORDERED: POTASSIUM CHLORIDE / WTR 10 MEQ/100 ML PLCT IV ONE (18:47)
--- NOTE | 2019-05-13 19:00 | CT Scan Report ---
ABDOMEN AND PELVIS CT WITHOUT CONTRAST CT DOSE: 762.71 mGycm HISTORY: hematuria flank pain hx stone TECHNIQUE: Multiaxial CT images of the abdomen and pelvis were performed without contrast. A dose lo wering technique was utilized adhering to the principles of ALARA. COMPARISON STUDY: Abdomen and pelvis CT 11/25/2016. FINDINGS: The lung bases are clear. No pneumoperitoneum. No pneumatosis. No suspicious lytic are michael tic osseous lesions. Bilateral L5 spondylolysis. The unenhanced liver, spleen, adrenal glands, pancre as, and kidneys are unremarkable. No renal or ureteral stones. No hydronephrosis. Prior cholecystecto my. No retroperitoneal lymphadenopathy. The bladder is unremarkable. Prior hysterectomy. No evidence for bowel obstruction. The appendix is distended and thick-walled with mild periappendiceal fat stran ding. Findings are consistent with acute appendicitis. There is a 1 cm appendicolith within the proxi mal appendix. The appendix is distended up to 15 mm. No perforation or abscess at this time. IMPRESSION: Acute appendicitis. ACT 112: Negative or not required by law. Electronically signed by: Prashant Snow M.D. 05/13/2019 6:59 PM
[2019-05-13] MEDS ORDERED: cefOXitin 2,000 MG/60 ML BAG IV STA (19:13)
[2019-05-13 19:27] LABS: Appearance Urine Cloudy (Clear); Bacteria Urine Automated Negative (Negative); Bilirubin Urine Negative (Negative); Blood Urine Negative (Negative); Color Urine Dark Yellow; Epithelial Cell Urine Auto >30 /lpf (0-5); Glucose Urine UA Negative (Negative); Ketones Urine Trace (Negative); Leukocyte Esterase Urine Negative (Negative); Nitrite Urine Negative (Negative); Protein Urine Negative (Negative); RBC Urine Automated 0-4 /hpf (0-4); Specific Gravity Urine 1.024 (1.000-1.030); Urobilinogen Urine Negative (Negative); pH Urine 5.5 (4.5-7.5)
[2019-05-13 19:38] LABS: Calcium Oxalate Crystals Urine Present (None Prsent)
--- NOTE | 2019-05-13 19:45 | Emergency Department Note ---
History of Present Illness General Chief complaint: Hematuria Stated complaint: ABDOMINAL PAIN - HEMATURIA AND BLOOD IN STOOL History of Present Illness Maximum Pain Intensity: 6 This patient is a 33-year-old female who presents to the emergency department complaining of lower abdominal pain and bilateral flank pain right greater than left that started getting gradually worse over the last 2 days. She describes it as a sharp, stabbing sensation. Movement seems to make it worse. She also thinks that she may have had one episode of hematuria this morning. She denies any dysuria or fever. She has felt nauseated. No vomiting reported. No diarrhea. The patient has a history of a hysterectomy. No vaginal discharge reported. She has tried Tylenol and ibuprofen [id number] with minimal relief of her symptoms. Home Medications Home Medications Medication Instructions Recorded Confirmed Type Vimpat 150 mg PO BID 04/22/18 05/13/19 History sennosides 8.6 mg capsule 8.6 mg PO QDL cap 01/01/19 05/13/19 History bisacodyl 5 mg tablet,delayed 5 mg PO DAILY PRN 01/18/19 05/13/19 History release fluoxetine 20 mg capsule 20 mg PO QAM cap 01/18/19 05/13/19 History lansoprazole 30 mg capsule,delayed 30 mg PO DAILYBB #30 cap 01/28/19 05/13/19 Rx release lamotrigine 200 mg tablet 200 mg PO BID 30 Days #60 tab 02/07/19 05/13/19 Rx linaclotide 290 mcg capsule 290 mcg PO DAILYBB 90 Days #90 cap 02/25/19 05/13/19 Rx [employer] 1 tab PO QAM 02/26/19 05/13/19 History acetaminophen [Tylenol Extra 500 mg PO QID PRN 02/26/19 05/13/19 History Strength] ibuprofen 200 mg PO Q6H PRN 02/26/19 05/13/19 History promethazine 25 mg tablet 25 mg PO BID PRN 30 Days #20 tab 03/07/19 05/13/19 Rx prednisone 20 mg tablet 20 mg PO .COMPLEX 3 Days #6 tab 03/19/19 05/13/19 Rx fremanezumab-vfrm 225 mg/1.5 mL 225 mg SUBCUT MONTHLY 30 Days #1.5 03/22/19 05/13/19 Rx subcutaneous syringe ml albuterol sulfate 90 mcg/actuation 2 puff INHALATION .COMPLEX PRN 04/08/19 05/13/19 Rx aerosol inhaler #8.5 gm aripiprazole 10 mg PO HS 05/13/19 05/13/19 History benztropine 0.5 mg PO AMPM 05/13/19 05/13/19 History buspirone 10 mg PO TID 05/13/19 05/13/19 History fluoxetine 10 mg PO QAM 05/13/19 05/13/19 History levothyroxine 50 mcg PO QAM 05/13/19 05/13/19 History oxycodone-acetaminophen [Percocet] 1 tab PO Q6H PRN #12 tab 05/14/19 Rx Allergies Allergy/AdvReac Type Severity Reaction Status Date / Time methocarbamol Allergy Mild RASH Verified 03/18/19 13:[address] TOLD Verified 03/18/19 13:36 HER MAY HAVE INCREASED CHANCES OF SEIZURES. tramadol AdvReac Intermediate DR TOLD Verified 03/18/19 13:36 HER IT MAY HAVE INCREASED CHANCES OF SEIZURES. trazodone AdvReac Intermediate SEVERE Verified 03/18/19 13:36 DIZZINESS Past Med/Surg History Medical History Anemia Anxiety and depression (Chronic) Depression Epilepsy Gallbladder problem Headache History of ovarian cyst Hypothyroid IBS (irritable colon syndrome) (Chronic) Migraine (Chronic) Moderate cervical dysplasia Polysubstance dependence (01/10/12) Seizure disorder (Chronic) Stomach problems Suicide attempt by multiple drug overdose Surgical History H/O LEEP conization History of endometrial ablation Hx of cholecystectomy S/P section S/P cholecystectomy S/P total abdominal hysterectomy Status post tubal ligation [place] teeth extracted Family History Other Breast cancer FHx: cancer Family history of lung disease Denies family history of Ovarian cancer Crohn's disease Colorectal cancer IBS (irritable bowel syndrome) Social History Preferred Language: Greenlandic Communication Ability: Effective Visual Impairment: No Limitations Hearing Ability: Normal Commercial Engineer Required: No Beliefs That Will Affect Care: None Current Living Situation: Spouse Other Information That Helps Us Care for You: Yes (Epilepsy - last seizure 6months) Feels Safe at Home: Yes Safety Concerns: Feels Safe At This Time Smoking Status: Current every day smoker Tobacco Type: cigarettes ; Cigarettes Per Day: 20 ; Do You Dip or Chew Tobacco: No ; Second Hand Exposure: No ; Tobacco Cessation Education Requested by Patient: No Hx Alcohol Use: No Hx Substance Use: No Review of Systems A total of 10 systems reviewed and were otherwise negative Physical Exam Vital Signs Vital Signs - 24 hr 05/13/19 17:02 Temperature 36.8 C Temperature Source Oral Pulse Rate 80 Respiratory Rate 19 Respiratory Depth Normal Blood Pressure 113/72 Blood Pressure Mean 85 Blood Pressure Position Sitting Pulse Oximetry 98 Oxygen Delivery Method Room Air Sepsis Recent Fever Within 48 Hours No Sepsis Action Taken by Nursing No Action Required Constitutional WD/WN, vitals as above Eyes EOM intact bilaterally ENMT Oral mucosa dry Neck trachea midline Respiratory normal respiratory effort, lungs clear to auscultation Cardiovascular RRR, no murmur, no edema Gastrointestinal (Abdomen) Tenderness palpation particularly in the right lower quadrant. No guarding or rebound tenderness. Flank tenderness noted right greater than left. Bowel sounds present in all 4 quadrants. No rigidity noted. Musculoskeletal no cyanosis or clubbing, extremities motor strength 5/5 Skin no rashes, warm and dry Neurologic Alert and oriented x3. No focal motor deficits. Psychiatric Acting appropriately Course Course Patient was seen and examined Vital signs including blood pressure were reviewed medications list was verified with patient Labs were obtained, and a saline lock was established Pain medications and fluids ordered. Imaging performed and reviewed Upon reevaluation, the patient's pain was improved. We discussed her results. She voiced understanding. The case was discussed with general surgery. They agreed to evaluate the patient for further surgical management. Consultations Consultation #1: Dr. Adams Administered Medications Discontinued Medications Acetaminophen (Tylenol) 1,000 mg PO NOW STA Stop: 05/13/19 17:21 Last Admin: 05/13/19 18:23 Dose: 1,000 mg Documented by: [id number] Bacitracin (Bacitracin) Confirm Administered Dose 45 appln .ROUTE .STK-MED ONE Stop: 05/13/19 19:54 Last Admin: 05/13/19 21:16 Dose: 1 appln Documented by: [id number] Benztropine Mesylate (Cogentin) 0.5 mg PO BID [facility] Stop: 06/12/19 22:31 Last Admin: 05/14/19 08:39 Dose: 0.5 mg Documented by: [id number] Admin: 05/13/19 23:18 Dose: 0.5 mg Documented by: [id number] Bupivacaine HCl (Marcaine 0.5% Mpf) Confirm Administered Dose 30 ml .ROUTE .STK- MED ONE Stop: 05/13/19 19:54 Last Admin: 05/13/19 20:53 Dose: 10 ml Documented by: [id number] Buspirone HCl (Buspar) 10 mg PO TID [facility] Stop: 06/13/19 08:59 Last Admin: 05/14/19 12:28 Dose: 10 mg Documented by: [id number] Admin: 05/14/19 08:39 Dose: 10 mg Documented by: [id number] [facility] Stop: 06/13/19 08:59 Last Admin: 05/14/19 08:39 Dose: 10 mg Documented by: [id number] Fluoxetine HCl (Prozac) 20 mg PO QAM [facility] Stop: 06/13/19 08:59 Last Admin: 05/14/19 08:39 Dose: 20 mg Documented by: [id number] Hydromorphone HCl (Dilaudid) 0.25 mg IV Q5M PRN PRN Reason: PACU Use Only-Pain Stop: 05/14/19 04:24 Last Admin: 05/13/19 21:54 Dose: 0.25 mg Documented by: [id number] Admin: 05/13/19 21:49 Dose: 0.25 mg Documented by: [id number] Admin: 05/13/19 21:44 Dose: 0.25 mg Documented by: [id number] Admin: 05/13/19 21:39 Dose: 0.25 mg Documented by: [id number] Hydromorphone HCl (Dilaudid) Confirm Administered Dose 0.5 mg .ROUTE .STK-MED ONE Stop: 05/13/19 21:40 Last Admin: 05/13/19 23:06 Dose: Not Given Documented by: [id number] Hydromorphone HCl (Dilaudid) Confirm Administered Dose 0.5 mg .ROUTE .STK-MED ONE Stop: 05/13/19 21:48 Last Admin: 05/13/19 23:06 Dose: Not Given Documented by: [id number] Sodium Chloride (Nss 1000ml) 1,000 mls @ 999 mls/hr IV .Q1H1M ONE Stop: 05/13/19 18:20 Last Infusion: 05/13/19 19:41 Dose: 0 mls/hr Documented by: [id number] Admin: 05/13/19 18:24 Dose: 999 mls/hr Documented by: [id number] Potassium Chloride (K Arjun / Wtr) 10 meq in 100 mls @ 100 mls/hr IV ONE ONE Stop: 05/13/19 19:46 Last Infusion: 05/13/19 23:31 Dose: 0 mls/hr Documented by: [id number] Admin: 05/13/19 19:32 Dose: 100 mls/hr Documented by: [id number] Cefoxitin Sodium (Mefoxin) 2,000 mg in 60 mls @ 100 mls/hr IV NOW STA Stop: 05/13/19 19:48 Last Infusion: 05/13/19 20:03 Dose: 0 mls/hr Documented by: [id number] Admin: 05/13/19 19:32 Dose: 100 mls/hr Documented by: [id number] Lactated Ringer's (Lr) 1,000 mls @ 80 mls/hr IV .[id number] CHAITANYA Stop: 06/12/19 22:31 Last Infusion: 05/14/19 10:43 Dose: 0 mls/hr Documented by: [id number] Admin: 05/14/19 10:05 Dose: 80 mls/hr Documented by: [id number] Infusion: 05/14/19 09:57 Dose: 0 mls/hr Documented by: [id number] Admin: 05/13/19 23:18 Dose: 80 mls/hr Documented by: [id number] Cefoxitin Sodium 1,000 mg/ (Dextrose) 60 mls @ 100 mls/hr IV Q6H CHAITANYA Stop: 05/15/19 01:59 Last Infusion: 05/14/19 13:04 Dose: 0 mls/hr Documented by: [id number] Admin: 05/14/19 12:27 Dose: 100 mls/hr Documented by: [id number] Infusion: 05/14/19 08:07 Dose: 0 mls/hr Documented by: [id number] Admin: 05/14/19 07:31 Dose: 100 mls/hr Documented by: [id number] Infusion: 05/14/19 02:26 Dose: 0 mls/hr Documented by: [id number] Admin: 05/14/19 01:50 Dose: 100 mls/hr Documented by: [id number] Ketorolac Tromethamine (Toradol) 30 mg IV NOW STA Stop: 05/13/19 17:21 Last Admin: 05/13/19 18:23 Dose: 30 mg Documented by: [id number] Lacosamide (Vimpat) 150 mg PO BID [facility] Stop: 06/13/19 08:59 Last Admin: 05/14/19 08:40 Dose: 150 mg Documented by: [id number] Lamotrigine (Lamictal) 200 mg PO BID [facility] Stop: 06/13/19 08:59 Last Admin: 05/14/19 08:38 Dose: 200 mg Documented by: [id number] Levothyroxine Sodium (Synthroid) 50 mcg PO DAILYBB [facility] Stop: 06/13/19 06:29 Last Admin: 05/14/19 06:33 Dose: 50 mcg Documented by: [id number] Lidocaine HCl (Xylocaine 1% (Local)) Confirm Administered Dose 20 ml .ROUTE .STK-MED ONE Stop: 05/13/19 19:55 Last Admin: 05/13/19 20:53 Dose: 10 ml Documented by: [id number] Linaclotide (Linzess) 288 mcg PO DAILYBB [facility] Stop: 06/13/19 06:29 Last Admin: 05/14/19 06:33 Dose: 288 mcg Documented by: [id number] Multivitamins/Minerals (Multivitamin W/ Minerals Tab) 1 tab PO QAM [facility] Stop: 06/13/19 08:59 Last Admin: 05/14/19 08:38 Dose: 1 tab Documented by: [id number] Ondansetron HCl (Zofran) 4 mg IV NOW STA Stop: 05/13/19 17:21 Last Admin: 05/13/19 18:23 Dose: 4 mg Documented by: [id number] Ondansetron HCl (Zofran) 4 mg IV Q6H PRN PRN Reason: Nausea Stop: 06/12/19 21:22 Last Admin: 05/14/19 09:20 Dose: 4 mg Documented by: [id number] Oxycodone/Acetaminophen (Percocet 5mg/325mg) 1 tab PO Q4H PRN PRN Reason: Pain Stop: 05/27/19 22:31 Last Admin: 05/14/19 11:34 Dose: 1 tab Documented by: [id number] Admin: 05/14/19 06:36 Dose: 1 tab Documented by: [id number] Admin: 05/13/19 23:52 Dose: 1 tab Documented by: [id number] Pantoprazole Sodium (Protonix) 40 mg PO DAILYBB [facility]ANY[facility] Stop: 06/13/19 06:29 Last Admin: 05/14/19 06:33 Dose: 40 mg Documented by: [id number] Sennosides (Senokot) 8.6 mg PO QDL [facility]ANY[facility] Stop: 06/13/19 11:29 Last Admin: 05/14/19 11:33 Dose: 8.6 mg Documented by: [id number] Medical Decision Making Medical Records Attestation: I reviewed the patient's medical records. Home Medications Current Medication List: was personally reviewed by me Laboratory Data Attestation: I reviewed the patient's lab results. Result diagrams: 05/14/19 05:16 05/14/19 05:16 Lab Results 05/13/19 05/13/19 05/13/19 Range/Units 17:40 18:03 18:03 WBC 12.07 H (4.8-10.8) K/uL RBC 4.72 (4.2-5.4) M/uL Hgb 14.7 (12.0-16.0) g/dL Hct 41.0 (37-47) % MCV 86.9 (80-100) fL MCH 31.1 (25-34) pg MCHC 35.9 (32-36) g/dL RDW Std Deviation 49.6 H (36.4-46.3) fL RDW Coeff of Cristi 15.5 H (11.5-14.5) % Plt Count 131 (130-400) K/uL MPV 11.7 H (7.4-10.4) fL Immature Gran % (Auto) 0.2 % Neut % (Auto) 88.2 % Lymph % (Auto) 7.3 % [place] % (Auto) 4.1 % Eos % (Auto) 0.1 % Baso % (Auto) 0.1 % Immature Gran # (Auto) 0.03 H (0.00-0.02) K/uL Neut # (Auto) 10.64 H (1.4-6.5) K/uL Lymph # (Auto) 0.88 L (1.2-3.4) K/uL [place] # (Auto) 0.50 (0.11-0.59) K/uL Eos # (Auto) 0.01 (0-0.5) K/uL Baso # (Auto) 0.01 (0-0.2) K/uL PT 10.9 (9.0-12.0) Seconds INR 1.0 (0.9-1.1) Sodium (136-145) mmol/L Potassium (3.5-5.1) mmol/L Chloride (98-107) mmol/L Carbon Dioxide (21-32) mmol/L Anion Gap (3-11) BUN (7-18) mg/dl Creatinine (0.6-1.2) mg/dl Est Cr Clr Drug Dosing ml/min Est GFR ( Amer) Est GFR (Non-Af Amer) BUN/Creatinine Ratio (10-20) Glucose (70-99) mg/dl Calcium (8.5-10.1) mg/dl Total Bilirubin (0.2-1) mg/dl AST (15-37) U/L ALT (12-78) U/L Alkaline Phosphatase (45-117) U/L Total Protein (6.4-8.2) gm/dl Albumin (3.4-5.0) gm/dl Globulin (2.5-4.0) gm/dl Albumin/Globulin Ratio (0.9-2) Urine Color Dark Yellow Urine Appearance Cloudy A (Clear) Urine pH 5.5 (4.5-7.5) Ur Specific [place] 1.024 (1.000-1.030) Urine Protein Negative (Negative) Urine Glucose (UA) Negative (Negative) Urine Ketones Trace H (Negative) Urine Blood Negative (Negative) Urine Nitrite Negative (Negative) Urine Bilirubin Negative (Negative) Urine Urobilinogen Negative (Negative) Ur Leukocyte Esterase Negative (Negative) Urine WBC (Auto) 1-5 (0-5) /hpf Urine RBC (Auto) 0-4 (0-4) /hpf U Hyaline Cast (Auto) 1-5 (0-5) /lpf U Epithel Cells (Auto) >30 H (0-5) /lpf Urine Bacteria (Auto) Negative (Negative) Urine Crystals Calcium Oxalate A (None Prsent) Calcium Oxalate Crystal Present A (None Prsent) 05/13/19 Range/Units 18:03 WBC (4.8-10.8) K/uL RBC (4.2-5.4) M/uL Hgb (12.0-16.0) g/dL Hct (37-47) % MCV (80-100) fL MCH (25-34) pg MCHC (32-36) g/dL RDW Std Deviation (36.4-46.3) fL RDW Coeff of Cristi (11.5-14.5) % Plt Count (130-400) K/uL MPV (7.4-10.4) fL Immature Gran % (Auto) % Neut % (Auto) % Lymph % (Auto) % [place] % (Auto) % Eos % (Auto) % Baso % (Auto) % Immature Gran # (Auto) (0.00-0.02) K/uL Neut # (Auto) (1.4-6.5) K/uL Lymph # (Auto) (1.2-3.4) K/uL [place] # (Auto) (0.11-0.59) K/uL Eos # (Auto) (0-0.5) K/uL Baso # (Auto) (0-0.2) K/uL PT (9.0-12.0) Seconds INR (0.9-1.1) Sodium 141 (136-145) mmol/L Potassium 2.9 L (3.5-5.1) mmol/L Chloride 115 H (98-107) mmol/L Carbon Dioxide 21 (21-32) mmol/L Anion Gap 5.0 (3-11) BUN 12 (7-18) mg/dl Creatinine 0.90 (0.6-1.2) mg/dl Est Cr Clr Drug Dosing 81.6 ml/min Est GFR ( Amer) 96.7 Est GFR (Non-Af Amer) 83.4 BUN/Creatinine Ratio 13.7 (10-20) Glucose 105 H (70-99) mg/dl Calcium 8.6 (8.5-10.1) mg/dl Total Bilirubin 0.4 (0.2-1) mg/dl AST 11 L (15-37) U/L ALT 17 (12-78) U/L Alkaline Phosphatase 51 (45-117) U/L Total Protein 7.0 (6.4-8.2) gm/dl Albumin 3.7 (3.4-5.0) gm/dl Globulin 3.3 (2.5-4.0) gm/dl Albumin/Globulin Ratio 1.1 (0.9-2) Urine Color Urine Appearance (Clear) Urine pH (4.5-7.5) Ur Specific [place] (1.000-1.030) Urine Protein (Negative) Urine Glucose (UA) (Negative) Urine Ketones (Negative) Urine Blood (Negative) Urine Nitrite (Negative) Urine Bilirubin (Negative) Urine Urobilinogen (Negative) Ur Leukocyte Esterase (Negative) Urine WBC (Auto) (0-5) /hpf Urine RBC (Auto) (0-4) /hpf U Hyaline Cast (Auto) (0-5) /lpf U Epithel Cells (Auto) (0-5) /lpf Urine Bacteria (Auto) (Negative) Urine Crystals (None Prsent) Calcium Oxalate Crystal (None Prsent) Imaging Data Attestation: I personally reviewed and interpreted this imaging study as follows: Radiologist's Impression: CT abdomen and pelvis without contrast IMPRESSION: Acute appendicitis. ACT 112: Negative or not required by law. Electronically signed by: Prashant Snow M.D. 05/13/2019 6:59 PM Dictated: [id number] Transcribed: [id number] [facility] Narrative Differential diagnosis: Ureteral stone, UTI, pyelonephritis, diverticulitis, among others This patient is a 33-year-old female who presents the emergency department for evaluation of abdominal and flank pain with the addition of hematuria. On exam, she was afebrile. Nontoxic in appearance. She had tenderness in the right lower abdomen. Labs reveal mild leukocytosis. Urinalysis is not convincing for infection. A CT scan was performed, because I was concerned for a possible kidney stone. This is consistent with acute appendicitis. Given the patient's physical exam and history, this fits with her clinical picture. General surgery was consulted, and will evaluate the patient for further management. Impression & Plan Acute appendicitis Discharge Plan Visit Data *Final* Discharge Date/Time: 05/13/19 20:08 Chief Complaint: Hematuria Stated Complaint: ABDOMINAL PAIN - HEMATURIA AND BLOOD IN STOOL ED Provider: Jesus Chaidez ED Midlevel Provider: Rachel Song Discharge Problem: Acute appendicitis Patient Disposition: Still a Patient Discharge Instructions Interventions: ED Discharge Assessment Last Done: 05/13/19 20:04
[2019-05-13] MEDS ORDERED: BUPIVACAINE 0.5 % 5 MG/1 ML MPF 30ML VIAL ONE (19:53)
[2019-05-13] MEDS ORDERED: BACITRACIN OINT 15 GM TUBE ONE (19:53)
[2019-05-13] MEDS ORDERED: LIDOCAINE HCL 1% 20 ML VIAL ONE (19:54)
[2019-05-13] MEDS ORDERED: MIDAZOLAM HCL 1 MG/ML 2ML VIAL ONE (19:59)
[2019-05-13] MEDS ORDERED: fentaNYL citrate 100 MCG/2 ML VIAL ONE (20:00)
--- NOTE | 2019-05-13 20:03 | Surgery Consultation ---
Date of Consultation May 13, 2019 Assessment & Plan (1) Acute appendicitis: pt is a 33 year-old female who presents to ER with one day history of acute abdominal pain with nausea and vomiting, IMP: acute appendicitis, Plan, I recommend to do laparoscopic appendectomy, possible open, D/W benefits, risks and alternatives of the surgery, the risks-infection, bleeding, abscess, injury bowel, pt understood, she agrees with the surgery, I answered all questions, History of Present Illness History of Present Illness History of Present Illness General Chief complaint: Hematuria Stated complaint: ABDOMINAL PAIN - HEMATURIA AND BLOOD IN STOOL History of Present Illness Maximum Pain Intensity: 6 This patient is a 33-year-old female who presents to the emergency department complaining of lower abdominal pain and bilateral flank pain right greater than left that started getting gradually worse over the last 2 days. She describes it as a sharp, stabbing sensation. Movement seems to make it worse. She also thinks that she may have had one episode of hematuria this morning. She denies any dysuria or fever. She has felt nauseated. No vomiting reported. No diarrhea. The patient has a history of a hysterectomy. No vaginal discharge reported. She has tried Tylenol and ibuprofen [id number] with minimal relief of her symptoms. I ( Nae Adams MD ) reviewed pt's H/P , labs, CT scan with pt, pt is still have RLQ pain, Home Medications Home Medications Medication Instructions Recorded Confirmed Type Vimpat 150 mg PO BID 04/22/18 03/18/19 History amitriptyline 100 mg tablet 100 mg PO HS 12/06/18 03/18/19 History hydroxyzine pamoate 25 mg capsule 10 mg PO QID PRN 12/06/18 03/18/19 History aripiprazole 15 mg tablet 15 mg PO HS 01/01/19 03/18/19 History sennosides 8.6 mg capsule 8.6 mg PO QDL cap 01/01/19 03/18/19 History blood sugar diagnostic #3 box 01/15/19 03/18/19 Rx bisacodyl 5 mg tablet,delayed 5 mg PO DAILY PRN 01/18/19 03/18/19 History release fluoxetine 20 mg capsule 30 mg PO QAM cap 01/18/19 03/18/19 History lansoprazole 30 mg capsule,delayed 30 mg PO DAILYBB #30 cap 01/28/19 03/18/19 Rx release lancets 33 gauge #100 ea 01/30/19 03/18/19 Rx lamotrigine 200 mg tablet 200 mg PO BID 30 Days #60 tab 02/07/19 03/18/19 Rx linaclotide 290 mcg capsule 290 mcg PO DAILYBB 90 Days #90 cap 02/25/19 03/18/19 Rx acetaminophen [Tylenol Extra 500 mg PO QID PRN 02/26/19 03/18/19 History Strength] ibuprofen 200 mg PO Q6H PRN 02/26/19 03/18/19 History yf-vl-bafg-FA-vit K-ginseng 1 tab PO QAM 02/26/19 03/18/19 History [[employer]] promethazine 25 mg tablet 25 mg PO BID PRN 30 Days #20 tab 03/07/19 03/18/19 Rx naltrexone 50 mg tablet 50 mg PO .qod tab 03/18/19 03/18/19 History prednisone 20 mg tablet 20 mg PO .COMPLEX 3 Days #6 tab 03/19/19 Rx fremanezumab-vfrm 225 mg/1.5 mL 225 mg SUBCUT MONTHLY 30 Days #1.5 03/22/19 Rx subcutaneous syringe ml albuterol sulfate 90 mcg/actuation 2 puff INHALATION .COMPLEX PRN 04/08/19 Rx aerosol inhaler #8.5 gm metronidazole 500 mg tablet 500 mg PO BID 7 Days #14 tab 04/26/19 Rx Allergies Allergy/AdvReac Type Severity Reaction Status Date / Time methocarbamol Allergy Mild RASH Verified 03/18/19 13:[address] TOLD Verified 03/18/19 13:36 HER MAY HAVE INCREASED CHANCES OF SEIZURES. tramadol AdvReac Intermediate DR TOLD Verified 03/18/19 13:36 HER IT MAY HAVE INCREASED CHANCES OF SEIZURES. trazodone AdvReac Intermediate SEVERE Verified 03/18/19 13:36 DIZZINESS Past Med/Surg History Medical History Anemia Anxiety and depression (Chronic) Depression Epilepsy Gallbladder problem Headache History of ovarian cyst Hypothyroid IBS (irritable colon syndrome) (Chronic) Migraine (Chronic) Moderate cervical dysplasia Polysubstance dependence (01/10/12) Seizure disorder (Chronic) Stomach problems Suicide attempt by multiple drug overdose Surgical History H/O LEEP conization History of endometrial ablation Hx of cholecystectomy S/P section S/P cholecystectomy S/P total abdominal hysterectomy Status post tubal ligation [place] teeth extracted Family History Other Breast cancer FHx: cancer Family history of lung disease Denies family history of Ovarian cancer Crohn's disease Colorectal cancer IBS (irritable bowel syndrome) Social History Preferred Language: Divehi Communication Ability: Effective Visual Impairment: No Limitations Hearing Ability: Normal Boiler Control Technician Required: No Beliefs That Will Affect Care: None Feels Safe at Home: Yes Smoking Status: Current every day smoker Tobacco Type: cigarettes ; Review of Systems A total of 10 systems reviewed and were otherwise negative Allergies Allergy/AdvReac Type Severity Reaction Status Date / Time methocarbamol Allergy Mild RASH Verified 03/18/19 13:[address] TOLD Verified 03/18/19 13:36 HER MAY HAVE INCREASED CHANCES OF SEIZURES. tramadol AdvReac Intermediate DR TOLD Verified 03/18/19 13:36 HER IT MAY HAVE INCREASED CHANCES OF SEIZURES. trazodone AdvReac Intermediate SEVERE Verified 03/18/19 13:36 DIZZINESS Home Medications Home Medications Medication Instructions Recorded Confirmed Type Vimpat 150 mg PO BID 04/22/18 03/18/19 History sennosides 8.6 mg capsule 8.6 mg PO QDL cap 01/01/19 03/18/19 History bisacodyl 5 mg tablet,delayed 5 mg PO DAILY PRN 01/18/19 05/13/19 History release fluoxetine 20 mg capsule 20 mg PO QAM cap 01/18/19 05/13/19 History lansoprazole 30 mg capsule,delayed 30 mg PO DAILYBB #30 cap 01/28/19 03/18/19 Rx release lamotrigine 200 mg tablet 200 mg PO BID 30 Days #60 tab 02/07/19 05/13/19 Rx linaclotide 290 mcg capsule 290 mcg PO DAILYBB 90 Days #90 cap 02/25/19 03/18/19 Rx acetaminophen [Tylenol Extra 500 mg PO QID PRN 02/26/19 05/13/19 History Strength] ibuprofen 200 mg PO Q6H PRN 02/26/19 05/13/19 History jj-er-spms-FA-vit K-ginseng 1 tab PO QAM 02/26/19 03/18/19 History [[employer]] promethazine 25 mg tablet 25 mg PO BID PRN 30 Days #20 tab 03/07/19 03/18/19 Rx naltrexone 50 mg tablet 50 mg PO .qod tab 03/18/19 03/18/19 History prednisone 20 mg tablet 20 mg PO .COMPLEX 3 Days #6 tab 03/19/19 Rx fremanezumab-vfrm 225 mg/1.5 mL 225 mg SUBCUT MONTHLY 30 Days #1.5 03/22/19 05/13/19 Rx subcutaneous syringe ml albuterol sulfate 90 mcg/actuation 2 puff INHALATION .COMPLEX PRN 04/08/19 05/13/19 Rx aerosol inhaler #8.5 gm aripiprazole 10 mg PO HS 05/13/19 05/13/19 History benztropine 0.5 mg PO AMPM 05/13/19 05/13/19 History buspirone 10 mg PO TID 05/13/19 05/13/19 History fluoxetine 10 mg PO QAM 05/13/19 05/13/19 History levothyroxine 50 mcg PO QAM 05/13/19 05/13/19 History Patient History Medical History Anemia Anxiety and depression (Chronic) Depression Epilepsy Gallbladder problem Headache History of ovarian cyst Hypothyroid IBS (irritable colon syndrome) (Chronic) Migraine (Chronic) Moderate cervical dysplasia Polysubstance dependence (01/10/12) Seizure disorder (Chronic) Stomach problems Suicide attempt by multiple drug overdose Surgical History H/O LEEP conization History of endometrial ablation Hx of cholecystectomy S/P section S/P cholecystectomy S/P total abdominal hysterectomy Status post tubal ligation [place] teeth extracted Family History Other Breast cancer FHx: cancer Family history of lung disease Denies family history of Ovarian cancer Crohn's disease Colorectal cancer IBS (irritable bowel syndrome) Social History Preferred Language: Divehi Communication Ability: Effective Visual Impairment: No Limitations Hearing Ability: Normal Boiler Control Technician Required: No Beliefs That Will Affect Care: None Feels Safe at Home: Yes Smoking Status: Current every day smoker Tobacco Type: cigarettes ; Physical Exam Constitutional: WD/WN, vitals as above well developed and well nourished Eyes: PERRL, conjunctivae normal, anicteric sclerae ENMT: external ear and nose normal, oropharynx normal Neck: trachea midline, no thyromegaly Respiratory: normal respiratory effort, lungs clear to auscultation normal respiratory effort Cardiovascular: RRR, no murmur, no edema Rate/Rhythm: regular rate and regular rhythm Heart Sounds: normal S1 and normal S2 Gastrointestinal (Abdomen): normal bowel sounds, soft, nontender, no hepatosplenomegaly Percussion/Palpation: + abdomen tender, + guarding and abdomen soft tenderness at RLQ, rebound pain+, BS +. no distend Musculoskeletal: no cyanosis or clubbing, extremities motor strength 5/5 Skin: no rashes, warm and dry Neurologic: patellar DTR's 2+ bilat, sensation intact Psychiatric: Orientation: alert and oriented x 3 Results & Data Vital Signs (Past 12 Hours) Vital Signs Temp Pulse Pulse Resp BP BP Pulse Ox 05/13/19 19:15 76 18 112/73 100 05/13/19 17:02 36.8 C 80 19 113/72 98 Laboratory Results Abnormal lab results 05/13/19 05/13/19 05/13/19 Range/Units 17:40 18:03 18:03 WBC 12.07 H (4.8-10.8) K/uL RDW Std Deviation 49.6 H (36.4-46.3) fL RDW Coeff of Cristi 15.5 H (11.5-14.5) % MPV 11.7 H (7.4-10.4) fL Immature Gran # (Auto) 0.03 H (0.00-0.02) K/uL Neut # (Auto) 10.64 H (1.4-6.5) K/uL Lymph # (Auto) 0.88 L (1.2-3.4) K/uL Potassium 2.9 L (3.5-5.1) mmol/L Chloride 115 H (98-107) mmol/L Glucose 105 H (70-99) mg/dl AST 11 L (15-37) U/L Urine Appearance Cloudy A (Clear) Urine Ketones Trace H (Negative) U Epithel Cells (Auto) >30 H (0-5) /lpf Urine Crystals Calcium Oxalate A (None Prsent) Calcium Oxalate Crystal Present A (None Prsent) Diagnostic Findings ABDOMEN AND PELVIS CT WITHOUT CONTRAST CT DOSE: 762.71 mGycm HISTORY: hematuria flank pain hx stone TECHNIQUE: Multiaxial CT images of the abdomen and pelvis were performed without contrast. A dose lowering technique was utilized adhering to the principles of ALARA. COMPARISON STUDY: Abdomen and pelvis CT 11/25/2016. FINDINGS: The lung bases are clear. No pneumoperitoneum. No pneumatosis. No suspicious lytic are blastic osseous lesions. Bilateral L5 spondylolysis. The unenhanced liver, spleen, adrenal glands, pancreas, and kidneys are unremarkable. No renal or ureteral stones. No hydronephrosis. Prior cholecystectomy. No retroperitoneal lymphadenopathy. The bladder is unremarkable. Prior hysterectomy. No evidence for bowel obstruction. The appendix is distended and thick-walled with mild periappendiceal fat stranding. Findings are consistent with acute appendicitis. There is a 1 cm appendicolith within the proximal appendix. The appendix is distended up to 15 mm. No perforation or abscess at this time. IMPRESSION: Acute appendicitis.
--- NOTE | 2019-05-13 20:07 | Anesthesiology Consultation ---
Date of Service May 13, 2019 Assessment & Plan (1) Encounter for pre-operative examination: Chart Review Chart Review: Acceptable Risk for Surgery History Surgery Operation Date: 05/13/19 20:30 Proposed Procedures p Laparoscopic Appendectomy - Nae Adams MD Height/Weight Height: 5 ft 3 in Weight: 68.1 kg Allergies Allergy/AdvReac Type Severity Reaction Status Date / Time methocarbamol Allergy Mild RASH Verified 03/18/19 13:[address] TOLD Verified 03/18/19 13:36 HER MAY HAVE INCREASED CHANCES OF SEIZURES. tramadol AdvReac Intermediate DR TOLD Verified 03/18/19 13:36 HER IT MAY HAVE INCREASED CHANCES OF SEIZURES. trazodone AdvReac Intermediate SEVERE Verified 03/18/19 13:36 DIZZINESS Medications Home Medications Medication Instructions Recorded Confirmed Last Taken Vimpat 150 mg PO BID 04/22/18 03/18/19 02/26/19 sennosides 8.6 mg capsule 8.6 mg PO QDL cap 01/01/19 03/18/19 02/26/19 bisacodyl 5 mg tablet,delayed 5 mg PO DAILY PRN 01/18/19 05/13/19 02/26/19 release fluoxetine 20 mg capsule 20 mg PO QAM cap 01/18/19 05/13/19 02/26/19 lansoprazole 30 mg capsule,delayed 30 mg PO DAILYBB #30 cap 01/28/19 05/13/19 02/26/19 release lamotrigine 200 mg tablet 200 mg PO BID 30 Days #60 tab 02/07/19 05/13/19 02/26/19 linaclotide 290 mcg capsule 290 mcg PO DAILYBB 90 Days #90 cap 02/25/19 05/13/19 02/26/19 acetaminophen [Tylenol Extra 500 mg PO QID PRN 02/26/19 05/13/19 02/26/19 05:00 Strength] 1000 mg ibuprofen 200 mg PO Q6H PRN 02/26/19 05/13/19 02/26/19 13:00 600 mg fr-ik-utxf-FA-vit K-ginseng 1 tab PO QAM 02/26/19 03/18/19 02/26/19 [[employer]] promethazine 25 mg tablet 25 mg PO BID PRN 30 Days #20 tab 03/07/19 03/18/19 Unknown naltrexone 50 mg tablet 50 mg PO .qod tab 03/18/19 03/18/19 Unknown prednisone 20 mg tablet 20 mg PO .COMPLEX 3 Days #6 tab 03/19/19 Unknown fremanezumab-vfrm 225 mg/1.5 mL 225 mg SUBCUT MONTHLY 30 Days #1.5 03/22/19 05/13/19 Unknown subcutaneous syringe ml albuterol sulfate 90 mcg/actuation 2 puff INHALATION .COMPLEX PRN 04/08/19 05/13/19 Unknown aerosol inhaler #8.5 gm aripiprazole 10 mg PO HS 05/13/19 05/13/19 Unknown benztropine 0.5 mg PO AMPM 05/13/19 05/13/19 Unknown buspirone 10 mg PO TID 05/13/19 05/13/19 Unknown fluoxetine 10 mg PO QAM 05/13/19 05/13/19 Unknown levothyroxine 50 mcg PO QAM 05/13/19 05/13/19 Unknown NPO Date Last Intake of Fluids: 05/13/19 Time Last Intake of Fluids: 18:00 Last Intake of Fluids Comment: water Date Last Intake of Solids: 05/13/19 Time Last Intake of Solids: 11:30 Last Intake of Solids Comment: efren Past Medical History Medical History Anemia Anxiety and depression (Chronic) Depression Epilepsy Gallbladder problem Headache History of ovarian cyst Hypothyroid IBS (irritable colon syndrome) (Chronic) Migraine (Chronic) Moderate cervical dysplasia Polysubstance dependence (01/10/12) Seizure disorder (Chronic) Stomach problems Suicide attempt by multiple drug overdose Exercise / Class Metabolic Activity II 4-5 Yardwork/Stairs/Walk up hill Past Family History Family History Other Breast cancer FHx: cancer Family history of lung disease Denies family history of Ovarian cancer Crohn's disease Colorectal cancer IBS (irritable bowel syndrome) Past Surgical History Surgical History H/O LEEP conization History of endometrial ablation Hx of cholecystectomy S/P section S/P cholecystectomy S/P total abdominal hysterectomy Status post tubal ligation [place] teeth extracted Social History Smoking Status: Current every day smoker tobacco type: cigarettes Physical Exam Vital Signs Last Vital Signs Temp 36.8 C 05/13/19 17:02 Pulse 76 05/13/19 19:15 Resp 18 05/13/19 19:15 BP 112/73 05/13/19 19:15 Pulse Ox 100 05/13/19 19:15 Testing Laboratory Results 05/13/19 18:03 05/13/19 18:03 PT 10.9 Seconds (9.0-12.0) 05/13/19 18:03 INR 1.0 (0.9-1.1) 05/13/19 18:03 Urine Color Dark Yellow 05/13/19 17:40 Urine Appearance Cloudy (Clear) A 05/13/19 17:40 Urine pH 5.5 (4.5-7.5) 05/13/19 17:40 Ur Specific [place] 1.024 (1.000-1.030) 05/13/19 17:40 Urine Protein Negative (Negative) 05/13/19 17:40 Urine Glucose (UA) Negative (Negative) 05/13/19 17:40 Urine Ketones Trace (Negative) H 05/13/19 17:40 Urine Nitrite Negative (Negative) 05/13/19 17:40 Ur Leukocyte Esterase Negative (Negative) 05/13/19 17:40 Urine WBC (Auto) 1-5 /hpf (0-5) 05/13/19 17:40 Urine RBC (Auto) 0-4 /hpf (0-4) 05/13/19 17:40 U Hyaline Cast (Auto) 1-5 /lpf (0-5) 05/13/19 17:40 U Epithel Cells (Auto) >30 /lpf (0-5) H 05/13/19 17:40 Urine Bacteria (Auto) Negative (Negative) 05/13/19 17:40
--- NOTE | 2019-05-13 20:20 | History & Physical Bridge Note ---
Date of Service May 13, 2019 History & Physical Bridge Note I have examined the patient, reviewed the History & Physical and in the interval since the performance of the History & Physical I have noted the following changes of clinical significance: no changes noted
[2019-05-13] MEDS ORDERED: KETOROLAC 30 MG/ML VIAL IV PRN (20:24)
[2019-05-13] MEDS ORDERED: ONDANSETRON INJ 2 MG/ML 2 ML VIAL IV PRN ×2 (20:24→21:23)
[2019-05-13] MEDS ORDERED: ATROPINE SULFATE 0.1 MG/ML 10ML SYR IV PRN (20:24)
[2019-05-13] MEDS ORDERED: PROPOFOL IV EMULSION 10 MG/ML 20 ML VIAL IV ONE (21:05)
[2019-05-13] MEDS ORDERED: ROCURONIUM BROMID 50MG/5ML SYR ONE (21:05)
[2019-05-13] MEDS ORDERED: DEXAMETHASONE SOD INJ 4 MG/ML VIAL ONE (21:05)
[2019-05-13] MEDS ORDERED: ONDANSETRON INJ 2 MG/ML 2 ML VIAL ONE (21:05)
[2019-05-13] MEDS ORDERED: LIDOCAINE HCL 2% 2 ML VIAL/AMP(20MG/ML) INFIL ONE (21:05)
[2019-05-13] MEDS ORDERED: GLYCOPYRROLATE 0.2 MG/ML VIAL ONE (21:06)
[2019-05-13] MEDS ORDERED: NEOSTIGMINE METHYLSULFATE 5 MG/5 ML SYR ONE (21:06)
--- NOTE | 2019-05-13 21:21 | Post Operative Brief Note ---
Immediate Post Op Note v1 Date of Surgery May 13, 2019 Pre & Post Diagnosis Operation Date: 05/13/19 20:30 Pre-Op Diagnosis: Acute Appendicitis Post-Op Diagnosis: Acute Appendicitis I identified the patient and participated in the time-out.: Yes Procedure Operation Date: 05/13/19 20:30 Actual Procedures p Laparoscopic Appendectomy(Not Applicable) - Nae Adams MD Surgeon Nae Adams MD [employer] Post Order Clerk surgical processor Estimated Blood Loss 5 Findings Consistent with Post-Op Diagnosis Fluids 800ml Specimens appendix Anesthesia Type General Complications none Disposition Accompanied Patient To Recovery: Yes Disposition: Recovery Room Overlapping Procedure I was immediately available: during the entire case.
[2019-05-13] MEDS ORDERED: ACETAMINOPHEN 325 MG TAB PO PRN (21:23)
[2019-05-13] MEDS: HYDROmorphone INJ 1 MG/ML SYRINGE IV PRN ×4 (21:39→21:54)
[2019-05-13] MEDS ORDERED: HYDROmorphone INJ 0.5 MG/0.5 ML SYR ONE ×2 (21:39→21:47)
--- NOTE | 2019-05-13 22:00 | Anesthesiology Progress Note ---
Date of Service May 13, 2019 Anesthesia Post Procedure Vital Signs Vital Signs: Temp Pulse Pulse Pulse Resp BP BP 05/13/19 21:50 74 18 05/13/19 21:40 89 18 05/13/19 21:34 36.8 C 90 16 05/13/19 19:15 76 18 112/73 05/13/19 17:02 36.8 C 80 19 113/72 BP Pulse Ox 05/13/19 21:50 108/61 99 05/13/19 21:40 111/61 98 05/13/19 21:34 107/77 100 05/13/19 19:15 100 05/13/19 17:02 98 Transfer of Care Handoff Completed per policy Notes Mental Status: alert / awake / arousable Patient Amnestic to Procedure: Yes Nausea / Vomiting: adequately controlled Pain: adequately controlled Airway Patency, RR, SpO2: stable & adequate BP & HR: stable & adequate Hydration State: stable & adequate Anesthetic Complications: no major complications apparent
[2019-05-13] MEDS ORDERED: ACETAMINOPHEN 500 MG TAB PO PRN (22:32)
[2019-05-13] MEDS ORDERED: PROMETHAZINE HCL 25 MG TAB PO PRN (22:32)
[2019-05-13] MEDS ORDERED: HYDROmorphone INJ 1 MG/ML SYRINGE IV PRN (22:32)
[2019-05-13] MEDS ORDERED: FREMANEZUMAB VFRM 225 MG SQ SCH (22:32)
[2019-05-13] MEDS ORDERED: IBUPROFEN 200 MG TAB PO PRN (22:32)
[2019-05-13] MEDS ORDERED: bisacodyL 5 MG TABEC PO PRN (22:32)
[2019-05-13] MEDS ORDERED: ALBUTEROL HFA 8 GM INHALER INH PRN (22:32)
[2019-05-13] MEDS ORDERED: predniSONE 20 MG TAB PO PRN (22:32)
[2019-05-13] MEDS: BENZTROPINE MESYLATE 0.5 MG TAB PO SCH (23:18)
[2019-05-13] MEDS: LACTATED RINGER'S 1,000 ML IV SCH (23:18)
--- NOTE | 2019-05-13 23:19 | Operative Report (OR) ---
DATE OF OPERATION: 05/13/2019 PREOPERATIVE DIAGNOSIS: Acute appendicitis. POSTOPERATIVE DIAGNOSIS: Acute appendicitis. PROCEDURE: Laparoscopic appendectomy. SURGEON: Nae Adams MD. ANESTHESIA: General. ESTIMATED BLOOD LOSS: About 5 mL. FINDINGS: Acute appendicitis. COMPLICATIONS: None. INDICATIONS FOR THE PROCEDURE: This is a 33-year-old female who presented to ED with acute abdominal pain. The patient had a CT scan diagnosis of acute appendicitis. I recommended to do the laparoscopic appendectomy, possible open. I did talk to the patient about the benefit and risk, alternate procedure. I indicated the risks may include but not limited such as bleeding, infection, abscess, injury to bowel, patient understands. She signed informed consent and I answered all questions. DETAILS OF PROCEDURE: We brought the patient to the OR, put the patient in the supine position. The patient received SCD on bilateral legs to prevent DVT. Also, patient received 2 g cefoxitin IV for prophylactic antibiotic. The patient received general anesthesia without difficulties. Abdomen was appropriately draped in routine sterile fashion. After timeout, I injected local anesthesia by using 1% lidocaine mixed with 0.5% Marcaine just above the umbilicus, then I made a small incision just above the umbilicus, opened fascia and opened peritoneum under direct vision, put a Emil trocar in, connected to CO2 to create pneumoperitoneum. Flow rate at 6 liter per minute. Pressure not more than 14 mmHg. Once we got a nice pneumoperitoneum, we put a camera in, looked around the abdomen showing normal finding on the small bowel, large bowel; however, the appendix is significantly enlarged with inflammation, no perforation at this moment. Also, the patient had some scar on the lower pelvic area because the patient had a hysterectomy in the past. Then, we put another two 5 mm trocar on the left lower quadrant area and then we used the grasper to hold the appendix, used the harmonic to take down appendiceal, rechecked, no active bleeding. Then I used a 45 mm Endo-SHAVON stapler for transection on the base of the appendix, rechecked the staple line intact. No leak, no active bleeding. Then we removed the appendix through the catch bag, then we reinserted Emil trocar in, connected to CO2 to create pneumoperitoneum, again looked around the abdomen, no active bleeding, no leak from staple line and then we removed all trocar under direct vision. No active bleeding from the trocar sites. Pneumoperitoneum was released, then I closed the umbilical incision, fascial layer by using #1 Vicryl [id number] x2, closed subcutaneous layer by using 2-0 Vicryl interruptedly, closed skin by using 4-0 Vicryl continuous running, closed another two 5 mm trocar site skin only by using 4-0 Vicryl. Then we put the dressing on. The patient tolerated the procedure well. All instrument, needle and sponge count were correct x2 at the end of the case. The patient transferred to recovery room in stable condition. The specimen sent to pathology. I attest to the content of the Intraoperative Record and any orders documented therein. Any exception s are noted below.
[2019-05-13] MEDS: OXYCODONE/ACETAMINOPHEN 5mg/325mg TAB PO PRN (23:52)
[2019-05-14 06:20] LABS: Hematocrit (blood only) 38.6 % (37-47); Hemoglobin 13.7 g/dL (12.0-16.0); Mean Corpuscular Hemoglobin 30.8 pg (25-34); Mean Corpuscular Hgb Conc 35.5 g/dL (32-36); Mean Corpuscular Volume 86.7 fL (80-100); Mean Platelet Volume 12.8 fL (7.4-10.4); Platelet Count 125 K/uL (130-400); RDW Coefficient of Variation 15.5 % (11.5-14.5); RDW Standard Deviation 49.7 fL (36.4-46.3); Red Blood Count 4.45 M/uL (4.2-5.4)
[2019-05-14 06:21] LABS: Echinocytes 1+; Immature Granulocytes # (auto) 0.01 K/uL (0.00-0.02); Immature Granulocytes % (auto) 0.1 %; Lymphocytes # (auto) 1.26 K/uL (1.2-3.4); Lymphocytes % (auto) 12.5 %; Monocytes # (auto) 0.43 K/uL (0.11-0.59); Monocytes % (auto) 4.3 %; Neutrophils % (auto) 83.1 %; Platelet Estimate Decreased (Normal)
[2019-05-14] MEDS ORDERED: PANTOprazole 40 MG TAB PO SCH (06:30)
[2019-05-14] MEDS ORDERED: LEVOTHYROXINE SODIUM 50 MCG TABLET PO SCH (06:30)
[2019-05-14] MEDS ORDERED: LINACLOTIDE 72 MCG CAPSULE PO SCH (06:30)
[2019-05-14] MEDS: OXYCODONE/ACETAMINOPHEN 5mg/325mg TAB PO PRN ×2 (06:36→11:34)
[2019-05-14 06:42] LABS: Albumin Globulin Ratio 0.9 (0.9-2); BUN Creatinine Ratio 12.3 (10-20); Bilirubin,Total 0.6 mg/dl (0.2-1); Calcium 8.4 mg/dl (8.5-10.1); Creatinine Clr Calc Pharmacy 95.4 ml/min; Est GFR (African American) 116.8; Est GFR (Non-African American) 100.7; Globulin 3.4 gm/dl (2.5-4.0); Potassium 3.5 mmol/L (3.5-5.1); Total Protein 6.4 gm/dl (6.4-8.2)
[2019-05-14] MEDS: BENZTROPINE MESYLATE 0.5 MG TAB PO SCH (08:39)
[2019-05-14] MEDS ORDERED: CEROVITE ADV FORMULA TAB PO SCH (09:00)
[2019-05-14] MEDS ORDERED: LACOSAMIDE 50 MG TABLET PO SCH (09:00)
[2019-05-14] MEDS ORDERED: FLUOXETINE HCL 10 MG CAP PO SCH (09:00)
[2019-05-14] MEDS ORDERED: FLUOXETINE HCL 20 MG CAP PO SCH (09:00)
[2019-05-14] MEDS ORDERED: lamoTRIgine 100 MG TAB PO SCH (09:00)
[2019-05-14] MEDS: LACTATED RINGER'S 1,000 ML IV SCH (10:05)
[2019-05-14] MEDS ORDERED: SENNA 8.6 MG TAB PO SCH (11:30)
--- NOTE | 2019-05-14 11:46 | Surgery Progress Note ---
Date of Service May 14, 2019 Assessment & Plan (1) Acute appendicitis: POD # 1 s/p laparoscopic appendectomy -vitals stable, afebrile, leukocytosis resolved - moderate postop pain, controlled - no nausea or vomiting Plan: advance to regular diet for lunch continue Percocet prn pain d/c iv fluids encouraged ambulating hallway if does well with lunch, discharge home this afternoon Rx for Percocet will be sent to [facility] surgical follow-up in 2 weeks Discharge instructions reviewed Dr. Adams has seen patient, agrees with above., Subjective still having moderate amount of pain in RLQ and at incisions, different type of pain than preoperative. Percocet seems to help no nausea or vomiting having heartburn this morning only had some tea this morning urinating without difficulty has not ambulated hallway Physical Exam Constitutional: WD/WN, vitals as above no acute distress Respiratory: normal respiratory effort; no respiratory distress Gastrointestinal (Abdomen): Inspection/Auscultation: abdomen normal to inspection and normal bowel sounds; abdomen not distended Percussion/Palpation: + abdomen tender (RLQ and at incision sites) and abdomen soft; no guarding and abdomen not rigid Skin: no rashes, warm and dry + incision (covered with dressings) Psychiatric: Orientation: alert and oriented x 3 Results & Data Vital Signs (Past 12 Hours) Vital Signs Temp Pulse Pulse Resp BP Pulse Ox 05/14/19 11:31 36.7 C 73 16 100/67 99 05/14/19 08:42 36.7 C 69 16 98/61 L 99 05/14/19 03:44 36.8 C 78 16 94/62 L 99 05/14/19 01:20 64 16 90/56 L 98 05/14/19 00:18 89 16 104/67 98 Laboratory Results 05/14/19 05/14/19 05/13/19 Range/Units 05:16 05:16 18:03 WBC 10.10 (4.8-10.8) K/uL RBC 4.45 (4.2-5.4) M/uL Hgb 13.7 (12.0-16.0) g/dL Hct 38.6 (37-47) % MCV 86.7 (80-100) fL MCH 30.8 (25-34) pg MCHC 35.5 (32-36) g/dL RDW Std Deviation 49.7 H (36.4-46.3) fL RDW Coeff of Cristi 15.5 H (11.5-14.5) % Plt Count 125 L (130-400) K/uL MPV 12.8 H (7.4-10.4) fL Immature Gran % (Auto) 0.1 % Neut % (Auto) 83.1 % Lymph % (Auto) 12.5 % Hood % (Auto) 4.3 % Eos % (Auto) 0.0 % Baso % (Auto) 0.0 % Immature Gran # (Auto) 0.01 (0.00-0.02) K/uL Neut # (Auto) 8.40 H (1.4-6.5) K/uL Lymph # (Auto) 1.26 (1.2-3.4) K/uL Hood # (Auto) 0.43 (0.11-0.59) K/uL Eos # (Auto) 0.00 (0-0.5) K/uL Baso # (Auto) 0.00 (0-0.2) K/uL Platelet Estimate Decreased L (Normal) Echinocytes 1+ PT (9.0-12.0) Seconds INR (0.9-1.1) Sodium 139 141 (136-145) mmol/L Potassium 3.5 D 2.9 L (3.5-5.1) mmol/L Chloride 117 H 115 H (98-107) mmol/L Carbon Dioxide 19 L 21 (21-32) mmol/L Anion Gap 3.0 5.0 (3-11) BUN 10 12 (7-18) mg/dl Creatinine 0.77 0.90 (0.6-1.2) mg/dl Est Cr Clr Drug Dosing 95.4 81.6 ml/min Est GFR ( Amer) 116.8 96.7 Est GFR (Non-Af Amer) 100.7 83.4 BUN/Creatinine Ratio 12.3 13.7 (10-20) Glucose 112 H 105 H (70-99) mg/dl Calcium 8.4 L 8.6 (8.5-10.1) mg/dl Total Bilirubin 0.6 0.4 (0.2-1) mg/dl AST 44 H 11 L (15-37) U/L ALT 40 17 (12-78) U/L Alkaline Phosphatase 73 51 (45-117) U/L Total Protein 6.4 7.0 (6.4-8.2) gm/dl Albumin 3.0 L 3.7 (3.4-5.0) gm/dl Globulin 3.4 3.3 (2.5-4.0) gm/dl Albumin/Globulin Ratio 0.9 1.1 (0.9-2) Urine Color Urine Appearance (Clear) Urine pH (4.5-7.5) Ur Specific [place] (1.000-1.030) Urine Protein (Negative) Urine Glucose (UA) (Negative) Urine Ketones (Negative) Urine Blood (Negative) Urine Nitrite (Negative) Urine Bilirubin (Negative) Urine Urobilinogen (Negative) Ur Leukocyte Esterase (Negative) Urine WBC (Auto) (0-5) /hpf Urine RBC (Auto) (0-4) /hpf U Hyaline Cast (Auto) (0-5) /lpf U Epithel Cells (Auto) (0-5) /lpf Urine Bacteria (Auto) (Negative) Urine Crystals (None Prsent) Calcium Oxalate Crystal (None Prsent) 05/13/19 05/13/19 05/13/19 Range/Units 18:03 18:03 17:40 WBC 12.07 H (4.8-10.8) K/uL RBC 4.72 (4.2-5.4) M/uL Hgb 14.7 (12.0-16.0) g/dL Hct 41.0 (37-47) % MCV 86.9 (80-100) fL MCH 31.1 (25-34) pg MCHC 35.9 (32-36) g/dL RDW Std Deviation 49.6 H (36.4-46.3) fL RDW Coeff of Cristi 15.5 H (11.5-14.5) % Plt Count 131 (130-400) K/uL MPV 11.7 H (7.4-10.4) fL Immature Gran % (Auto) 0.2 % Neut % (Auto) 88.2 % Lymph % (Auto) 7.3 % Hood % (Auto) 4.1 % Eos % (Auto) 0.1 % Baso % (Auto) 0.1 % Immature Gran # (Auto) 0.03 H (0.00-0.02) K/uL Neut # (Auto) 10.64 H (1.4-6.5) K/uL Lymph # (Auto) 0.88 L (1.2-3.4) K/uL Hood # (Auto) 0.50 (0.11-0.59) K/uL Eos # (Auto) 0.01 (0-0.5) K/uL Baso # (Auto) 0.01 (0-0.2) K/uL Platelet Estimate (Normal) Echinocytes PT 10.9 (9.0-12.0) Seconds INR 1.0 (0.9-1.1) Sodium (136-145) mmol/L Potassium (3.5-5.1) mmol/L Chloride (98-107) mmol/L Carbon Dioxide (21-32) mmol/L Anion Gap (3-11) BUN (7-18) mg/dl Creatinine (0.6-1.2) mg/dl Est Cr Clr Drug Dosing ml/min Est GFR ( Amer) Est GFR (Non-Af Amer) BUN/Creatinine Ratio (10-20) Glucose (70-99) mg/dl Calcium (8.5-10.1) mg/dl Total Bilirubin (0.2-1) mg/dl AST (15-37) U/L ALT (12-78) U/L Alkaline Phosphatase (45-117) U/L Total Protein (6.4-8.2) gm/dl Albumin (3.4-5.0) gm/dl Globulin (2.5-4.0) gm/dl Albumin/Globulin Ratio (0.9-2) Urine Color Dark Yellow Urine Appearance Cloudy A (Clear) Urine pH 5.5 (4.5-7.5) Ur Specific [place] 1.024 (1.000-1.030) Urine Protein Negative (Negative) Urine Glucose (UA) Negative (Negative) Urine Ketones Trace H (Negative) Urine Blood Negative (Negative) Urine Nitrite Negative (Negative) Urine Bilirubin Negative (Negative) Urine Urobilinogen Negative (Negative) Ur Leukocyte Esterase Negative (Negative) Urine WBC (Auto) 1-5 (0-5) /hpf Urine RBC (Auto) 0-4 (0-4) /hpf U Hyaline Cast (Auto) 1-5 (0-5) /lpf U Epithel Cells (Auto) >30 H (0-5) /lpf Urine Bacteria (Auto) Negative (Negative) Urine Crystals Calcium Oxalate A (None Prsent) Calcium Oxalate Crystal Present A (None Prsent)
[2019-05-14] MEDS ORDERED: ARIPiprazole 10 MG TAB PO SCH (21:00)
--- NOTE | 2019-05-17 11:23 | Discharge Summary (DS) ---
ADMITTING DIAGNOSIS: Acute appendicitis. DISCHARGE DIAGNOSIS: Same. OPERATION: Laparoscopic appendectomy. SURGEON: Nae Adams MD DETAILS OF DISCHARGE SUMMARY: This is a 33-year-old female who presented to ED with acute abdominal pain. The patient had a CT scan diagnosis of acute appendicitis. We took the patient to the OR. We did a laparoscopic appendectomy. The patient tolerated the procedure well and after procedure the patient transferred to recovery room and transferred to the regular floor later on. The patient was doing fine and she tolerated the diet. No nausea, no vomiting, good control of incision pain. PHYSICAL EXAMINATION: VITAL SIGNS: Temperature is 36.7, respiratory rate is 16, heart rate 78, blood pressure is 112/73, O2 saturation 99% on room air. GENERAL: The patient is alert, awake, oriented x3. HEENT: Within normal limitation. NEUROLOGIC: Intact. NECK: No JVD. CHEST: Bilateral lung sounds clear. HEART: Normal S1, S2. No murmur. ABDOMEN: Soft, nondistended. All incisions intact. No redness, no drainage. Mild incision pain. No rebound pain. Bowel sounds positive. EXTREMITIES: No edema. PLAN: The patient wanted to go home on 05/14/2019. We gave the patient postop care instruction. The patient understands. I will follow up the patient in 1 week.
== END 2019-05-14 13:15 | disposition home or self-care (01) ==
LOC: ED 16:55 → 3E 20:07 → OR 20:07

== ENCOUNTER 2021-08-10 15:10 | Observation (INO) ==
--- NOTE | 2021-08-10 15:22 | Emergency Department Note ---
Impression & Plan Slurred speech, Facial droop ED Provider Note NAME: BRUCE ALTMAN AGE: 36 SEX: F : 1985 ARRIVES VIA: Ambulance INFORMANT: Patient, EMS ED PROVIDER(S): Alen Gross DO CHIEF COMPLAINT: Slurred speech and a facial droop HPI: Patient is a 36-year-old female with a past medical history of anxiety, depression, IBS, polypharmacy, migraine and previous seizure disorder as well as intracranial hemorrhage that presents to the ER for left-sided facial droop and slurred speech which occurred around 1348. Patient notes she started this morning with a right-sided headache. She describes as a throbbing pain. It was initially mild and then became more severe. She denies any change in vision chest pain shortness of breath. No nausea, vomiting, or diarrhea. No dysuria, urgency, or frequency. She notes she did notice trouble talking getting her wor ds out as well as bilateral lower extremity weakness. ROS: See above HPI for pertinent positives & negatives. A total of 10 systems reviewed and were otherwise negative. PAST MEDICAL HISTORY:See Below PAST SURGICAL HISTORY:See Below FAMILY HISTORY:See Below SOCIAL HISTORY:See Below HOME MEDICATIONS:See Below ALLERGIES:See Below VITALS:See Below PHYSICAL EXAMINATION: GENERAL: Sitting up in bed, alert, well appearing, well nourished, no distress, non-toxic EYE EXAM: normal conjunctiva. PERRL and EOM's grossly intact. OROPHARYNX: no exudate, no erythema, lips, buccal mucosa, and tongue normal and mucous membranes are moist NECK: supple, no nuchal rigidity, no adenopathy, non-tender LUNGS: Clear to auscultation. Normal chest wall mechanics HEART: no murmurs, S1 normal and S2 normal ABDOMEN: abdomen soft, non-tender, normo-active bowel sounds, no masses, no rebound or guarding. UPPER EXTREMITIES: upper extremities are grossly normal. LOWER EXTREMITIES: No pitting edema. NEURO EXAM: Normal sensorium, cranial nerves II-XII intact, slow to respond and soft-spoken but no garbled speech or expressive aphasia, no weakness of arms, no weakness of legs. No drift. [id number] intact. MEDICAL DECISION MAKING: Patient is a 36-year-old female who presents the ER via EMS for left-sided facial droop and slurred speech. This resolved upon presentation to the ER. She was taken a stroke alert to CT. CT of the head as well as angio of the head and neck were negative. Discussed with Dr. Rodriguez via phone he agreed that she is not a tPA candidate. Recommended MRI and further work-up as her stroke score was 0. Labs show mild leukopenia 4. No significant anemia. INR unremarkable. BMP with slightly low CO2 at 19. LFTs bilirubin troponin and hCG was negative. UA was negative. Tox was negative. COVID was negative. Patient was updated bedside. Discussed with hospitalist admitted for further work-up. We will hold on aspirin with previous brain bleed and defer to neurologist. Triage Nursing notes reviewed. Limited review of prior medical records performed Vital Signs: reviewed and remarkable for no significant abnormalities Differential diagnosis: Differential Diagnosis includes but is not limited to ischemic Stroke, hemorrhagic stroke, bells palsy, mass, neoplasm, migraine headache, seizure, subarachnoid hemorrhage, TIA, and transient global amnesia. ER treatment provided: See below Diagnostics interpreted by me: ECG: Sinus rhythm rate of 67 Normal axis No PVCs QTC 429 Cardiac Monitoring: An order was placed for continuous cardiac monitoring. The monitor shows a rate of 70 with sinus rhythm. Laboratory studies: As stated above and show below. Imaging studies: CT of the head as well as angios of the head and neck were negative Consultation(s): none Procedures: none Critical Care: None Past Med/Surg History Medical History (Updated 08/10/21 @ 21:01 by Alen Gross DO) Anxiety and depression Chronic low back pain DVT (deep venous thrombosis) Patient reports h/o "bilateral upper extremities and brain started from IVs" Elevated liver function tests Epilepsy Family history of blood clots History of ovarian cyst Hx of blood clots Hx of hiatal hernia Hypothyroidism IBS (irritable colon syndrome) Lumbar radicular pain Migraine without aura, not intractable, without status migrainosus Moderate cervical dysplasia Polysubstance dependence (01/10/12) Post traumatic stress disorder Stroke x 2, 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 Per PCP note second CVA is a result of "right basal ganglia hemorrhagic intraparenchymal stroke/hematoma evacuation 2018. Patient also follows with [facility] as well as [facility]. [facility] follows patient for post hemorrhagic stroke/hematoma with residual left facial droop and dysarthria." Suicide attempt by multiple drug overdose previous attempt, but no thoughts of harming self now Surgical History H/O LEEP History of appendectomy History of colonoscopy History of endometrial ablation History of esophagogastroduodenoscopy (EGD) Hx of cholecystectomy S/P section S/P cholecystectomy S/P subdural hematoma evacuation S/P total abdominal hysterectomy Status post tubal ligation [place] teeth extracted Family History Mother Blood clots in brain Lung cancer Uncle Hx of blood clots Other Breast cancer FHx: cancer Family history of lung disease Denies family history of Ovarian cancer Crohn's disease Colorectal cancer IBS (irritable bowel syndrome) Social History Smoking Status: Never smoker Tobacco Type: E-cigarettes / Vaping Age Started Using Tobacco: 24; Age Quit Using Tobacco: 35; packs per day: 2; Years Smoked: 10; Cigarettes Per Day: 20; Second Hand Exposure: No; Hx Alcohol Use: No Hx Substance Use: No Preferred Language: Nauruan Communication Ability: Effective Visual Impairment: No Limitations Hearing Ability: Normal Farm Specialist Required: No Beliefs That Will Affect Care: None Current Living Situation: Significant Other current occupational status: disabled How many Children do You have: 1 Feels Safe at Home: Yes Childhood Exposure to Second-Hand Smoke: Yes (Mother) Dental Care, Regularly: Yes Physical Activity Frequency: 3-4 Times per Week Seatbelt Use: sometimes Sunscreen Use: No Assistive Devices: Glasses Allergies Allergies Allergy/AdvReac Type Severity Reaction Status Date / Time methocarbamol Allergy Mild RASH Verified 08/10/21 19:05 morphine Allergy rash on Verified 08/10/21 19:05 arms NSAIDS (Non-Steroidal AdvReac Severe Gastritis/GI Verified 08/10/21 19:05 Anti-Inflamma bleed bupropion AdvReac Intermediate AVOID DUE Verified 08/10/21 19:05 TO LOWERING SEIZURE THRESHOLD tramadol AdvReac Intermediate AVOID DUE Verified 08/10/21 19:05 TO LOWERING SEIZURE THRESHOLD trazodone AdvReac Intermediate SEVERE Verified 08/10/21 19:05 DIZZINESS Home Meds Home Medications Medication Instructions Recorded Confirmed sennosides 8.6 mg capsule (senna) 8.6 mg PO QDL cap 01/01/19 08/10/21 benztropine 0.5 mg tablet 0.5 mg PO AMPM 05/13/19 08/10/21 topiramate 100 mg tablet 100 mg PO BID 06/11/19 08/10/21 bisacodyl 5 mg tablet,delayed 5 mg PO QDL tab 06/17/19 08/10/21 release (Dulcolax (bisacodyl)) docusate sodium 100 mg capsule 100 mg PO QAM PRN 09/25/19 08/10/21 (Colace) fluoxetine 20 mg capsule 20 mg PO QAM 08/14/20 08/10/21 fluoxetine 40 mg capsule 40 mg PO QAM 08/14/20 08/10/21 lamotrigine 25 mg tablet 50 mg PO BID tab 03/30/21 08/10/21 Cbd Gummy 25 mg PO HS 08/10/21 08/10/21 buspirone 30 mg tablet 15 mg PO QPM 08/10/21 08/10/21 buspirone 30 mg tablet 30 mg PO QAM 08/10/21 08/10/21 cyanocobalamin (vitamin B-12) 1,000 mcg PO QAM 08/10/21 08/10/21 1,000 mcg tablet (Vitamin B-12) lurasidone 60 mg tablet (Latuda) 60 mg PO QPM 08/10/21 08/10/21 Previous Rx's Medication Instructions Recorded lamotrigine 200 mg tablet 200 mg PO BID 30 Days #60 tab 02/07/19 (Lamictal) melatonin 10 mg capsule 10 mg PO HS PRN #30 cap 08/22/19 ondansetron HCl 4 mg tablet 4 mg PO Q8H PRN #30 tab 01/08/20 albuterol sulfate 90 mcg/actuation 2 puff INHALATION Q4 PRN #18 g 07/16/20 aerosol inhaler blood sugar diagnostic #3 box 10/12/20 lancets 33 gauge (OneTouch Delleda #300 ea 02/10/21 Lancets) linaclotide 290 mcg capsule 290 mcg PO DAILY #90 cap 02/17/21 (Linzess) blood sugar diagnostic (Full Throttle Indoor Kart RacingTouch #400 ea 02/26/21 Ultra Test) blood-glucose meter (OneTouch #1 ea 03/12/21 Ultra2 Meter) fremanezumab-vfrm 225 mg/1.5 mL 225 mg SUBCUT MONTHLY 30 Days #1.5 04/05/21 subcutaneous syringe (Ajovy ml Syringe) pantoprazole 40 mg tablet,delayed 40 mg PO BID #60 tab 04/08/21 release ubrogepant 100 mg tablet (Ubrelvy) 100 mg PO DIRECTED PRN 30 Days 06/29/21 #10 tab levothyroxine 50 mcg tablet 50 mcg PO DAILYBB #90 tab 07/02/21 promethazine 25 mg tablet 25 mg PO BID PRN 30 Days #20 tab 07/27/21 Results & Data (ED) Vital Signs Vital Signs - 24 hr 08/10/21 15:31 08/10/21 15:34 08/10/21 15:45 Temperature 36.9 C Temperature Source Oral Pulse Rate 68 68 67 Pulse Rate from SpO2 Sensor 67 Respiratory Rate 22 20 16 Respiratory Effort / Characteristics Non-Labored Spontaneous Respiratory Depth Normal Respiratory Pattern Regular Blood Pressure 130/72 Blood Pressure Mean 91 Blood Pressure Position Sitting Pulse Oximetry 99 95 Oxygen Delivery Method Room Air Sepsis Recent Fever Within 48 Hours No Sepsis New/Unexplained Change in Mental Status No Sepsis Action Taken by Nursing No Action Required 08/10/21 16:13 08/10/21 16:14 08/10/21 16:15 Temperature Temperature Source Pulse Rate 67 68 64 Pulse Rate from SpO2 Sensor 68 69 68 Respiratory Rate 21 21 22 Respiratory Effort / Characteristics Respiratory Depth Respiratory Pattern Blood Pressure 115/73 Blood Pressure Mean 87 Blood Pressure Position Pulse Oximetry 99 98 95 Oxygen Delivery Method Sepsis Recent Fever Within 48 Hours Sepsis New/Unexplained Change in Mental Status Sepsis Action Taken by Nursing 08/10/21 16:30 08/10/21 16:45 Temperature Temperature Source Pulse Rate 61 62 Pulse Rate from SpO2 Sensor 62 63 Respiratory Rate 20 13 Respiratory Effort / Characteristics Respiratory Depth Respiratory Pattern Blood Pressure Blood Pressure Mean Blood Pressure Position Pulse Oximetry 98 99 Oxygen Delivery Method Sepsis Recent Fever Within 48 Hours Sepsis New/Unexplained Change in Mental Status Sepsis Action Taken by Nursing Laboratory Data Result diagrams: 08/10/21 15:35 08/10/21 15:35 Lab Results 08/10/21 08/10/21 08/10/21 Range/Units 15:30 15:30 15:33 WBC (4.8-10.8) K/uL RBC (4.2-5.4) M/uL Hgb (12.0-16.0) g/dL Hct (37-47) % MCV (80-100) fL MCH (25-34) pg MCHC (32-36) g/dL RDW Std Deviation (36.4-46.3) fL RDW Coeff of Cristi (11.5-14.5) % Plt Count (130-400) K/uL MPV (7.4-10.4) fL Immature Gran % (Auto) % Neut % (Auto) % Lymph % (Auto) % [place] % (Auto) % Eos % (Auto) % Baso % (Auto) % Neut # (Auto) (1.4-6.5) K/uL Lymph # (Auto) (1.2-3.4) K/uL [place] # (Auto) (0.11-0.59) K/uL Eos # (Auto) (0-0.5) K/uL Baso # (Auto) (0-0.2) K/uL Immature Gran # (Auto) (0.00-0.02) K/uL ESR (0-20) mm/hr PT (9.0-12.0) Seconds INR (0.9-1.1) APTT (21.0-31.0) Seconds PTT Ratio Sodium (136-145) mmol/L Potassium (3.5-5.1) mmol/L Chloride (98-107) mmol/L Carbon Dioxide (21-32) mmol/L Anion Gap (3-11) BUN (6-23) mg/dl Creatinine (0.6-1.2) mg/dl Est Cr Clr Drug Dosing ml/min Est GFR ( Amer) ml/min Est GFR (Non-Af Amer) ml/min BUN/Creatinine Ratio (10-20) Glucose (70-99(Fasting)) mg/dl POC Glucose 75 (70-99) mg/dl Calcium (8.5-10.1) mg/dl Magnesium (1.7-2.4) mg/dl Total Bilirubin (0.2-1.0) mg/dl AST (13-39) U/L ALT (7-52) U/L Alkaline Phosphatase (34-104) U/L Troponin I High Sens (0-14) pg/ml C-Reactive Protein (0-0.5) mg/dl Total Protein (6.0-8.3) gm/dl Albumin (3.4-5.0) gm/dl Globulin (2.5-4.0) gm/dl Albumin/Globulin Ratio (0.9-2) HCG, Quant mIU/ml Urine Color Yellow Urine Appearance Clear (Clear) Urine pH 6.0 (4.5-7.5) Ur Specific [place] 1.033 H (1.000-1.030) Urine Protein Negative (Negative) Urine Glucose (UA) Negative (Negative) Urine Ketones Negative (Negative) Urine Blood Negative (Negative) Urine Nitrite Negative (Negative) Urine Bilirubin Negative (Negative) Urine Urobilinogen Negative (Negative) Ur Leukocyte Esterase Negative (Negative) Urine Opiates Screen Neg (Neg) Ur Methadone, Qual Neg (Neg) Urine Barbiturates Neg (Neg) Ur Phencyclidine (PCP) Neg (Neg) U Amphetamin/Meth Scrn Neg (Neg) MDMA (Ecstasy) Screen Neg (Neg) U Benzodiazepines Scrn Neg (Neg) Ur Cocaine Metabolite Neg (Neg) U Marijuana (THC) Screen Neg (Neg) SARS-CoV-2, RNA, NAAT (NEGATIVE) 08/10/21 08/10/21 08/10/21 Range/Units 15:35 15:35 15:35 WBC 4.15 L (4.8-10.8) K/uL RBC 4.31 (4.2-5.4) M/uL Hgb 12.4 (12.0-16.0) g/dL Hct 37.2 (37-47) % MCV 86.3 (80-100) fL MCH 28.8 (25-34) pg MCHC 33.3 (32-36) g/dL RDW Std Deviation 47.7 H (36.4-46.3) fL RDW Coeff of Cristi 15.0 H (11.5-14.5) % Plt Count 151 (130-400) K/uL MPV 11.5 H (7.4-10.4) fL Immature Gran % (Auto) 0.0 % Neut % (Auto) 49.7 % Lymph % (Auto) 42.2 % [place] % (Auto) 6.0 % Eos % (Auto) 1.9 % Baso % (Auto) 0.2 % Neut # (Auto) 2.06 (1.4-6.5) K/uL Lymph # (Auto) 1.75 (1.2-3.4) K/uL [place] # (Auto) 0.25 (0.11-0.59) K/uL Eos # (Auto) 0.08 (0-0.5) K/uL Baso # (Auto) 0.01 (0-0.2) K/uL Immature Gran # (Auto) 0.00 (0.00-0.02) K/uL ESR (0-20) mm/hr PT 11.1 (9.0-12.0) Seconds INR 1.0 (0.9-1.1) APTT 25.8 (21.0-31.0) Seconds PTT Ratio 0.9 Sodium 135 L (136-145) mmol/L Potassium 3.6 (3.5-5.1) mmol/L Chloride 109 H (98-107) mmol/L Carbon Dioxide 19 L (21-32) mmol/L Anion Gap 7 (3-11) BUN 12 (6-23) mg/dl Creatinine 1.15 (0.6-1.2) mg/dl Est Cr Clr Drug Dosing 63.9 ml/min Est GFR ( Amer) 70.4 ml/min Est GFR (Non-Af Amer) 60.7 ml/min BUN/Creatinine Ratio 10.4 (10-20) Glucose 67 L (70-99(Fasting)) mg/dl POC Glucose (70-99) mg/dl Calcium 8.2 L (8.5-10.1) mg/dl Magnesium 2.1 (1.7-2.4) mg/dl Total Bilirubin 0.3 (0.2-1.0) mg/dl AST 12 L (13-39) U/L ALT 8 (7-52) U/L Alkaline Phosphatase 43 (34-104) U/L Troponin I High Sens < 2.3 (0-14) pg/ml C-Reactive Protein (0-0.5) mg/dl Total Protein 6.6 (6.0-8.3) gm/dl Albumin 3.8 (3.4-5.0) gm/dl Globulin 2.8 (2.5-4.0) gm/dl Albumin/Globulin Ratio 1.4 (0.9-2) HCG, Quant mIU/ml Urine Color Urine Appearance (Clear) Urine pH (4.5-7.5) Ur Specific [place] (1.000-1.030) Urine Protein (Negative) Urine Glucose (UA) (Negative) Urine Ketones (Negative) Urine Blood (Negative) Urine Nitrite (Negative) Urine Bilirubin (Negative) Urine Urobilinogen (Negative) Ur Leukocyte Esterase (Negative) Urine Opiates Screen (Neg) Ur Methadone, Qual (Neg) Urine Barbiturates (Neg) Ur Phencyclidine (PCP) (Neg) U Amphetamin/Meth Scrn (Neg) MDMA (Ecstasy) Screen (Neg) U Benzodiazepines Scrn (Neg) Ur Cocaine Metabolite (Neg) U Marijuana (THC) Screen (Neg) SARS-CoV-2, RNA, NAAT (NEGATIVE) 08/10/21 08/10/21 08/10/21 Range/Units 15:35 15:35 15:35 WBC (4.8-10.8) K/uL RBC (4.2-5.4) M/uL Hgb (12.0-16.0) g/dL Hct (37-47) % MCV (80-100) fL MCH (25-34) pg MCHC (32-36) g/dL RDW Std Deviation (36.4-46.3) fL RDW Coeff of Cristi (11.5-14.5) % Plt Count (130-400) K/uL MPV (7.4-10.4) fL Immature Gran % (Auto) % Neut % (Auto) % Lymph % (Auto) % [place] % (Auto) % Eos % (Auto) % Baso % (Auto) % Neut # (Auto) (1.4-6.5) K/uL Lymph # (Auto) (1.2-3.4) K/uL [place] # (Auto) (0.11-0.59) K/uL Eos # (Auto) (0-0.5) K/uL Baso # (Auto) (0-0.2) K/uL Immature Gran # (Auto) (0.00-0.02) K/uL ESR 14 (0-20) mm/hr PT (9.0-12.0) Seconds INR (0.9-1.1) APTT (21.0-31.0) Seconds PTT Ratio Sodium (136-145) mmol/L Potassium (3.5-5.1) mmol/L Chloride (98-107) mmol/L Carbon Dioxide (21-32) mmol/L Anion Gap (3-11) BUN (6-23) mg/dl Creatinine (0.6-1.2) mg/dl Est Cr Clr Drug Dosing ml/min Est GFR ( Amer) ml/min Est GFR (Non-Af Amer) ml/min BUN/Creatinine Ratio (10-20) Glucose (70-99(Fasting)) mg/dl POC Glucose (70-99) mg/dl Calcium (8.5-10.1) mg/dl Magnesium (1.7-2.4) mg/dl Total Bilirubin (0.2-1.0) mg/dl AST (13-39) U/L ALT (7-52) U/L Alkaline Phosphatase (34-104) U/L Troponin I High Sens (0-14) pg/ml C-Reactive Protein < 0.50 (0-0.5) mg/dl Total Protein (6.0-8.3) gm/dl Albumin (3.4-5.0) gm/dl Globulin (2.5-4.0) gm/dl Albumin/Globulin Ratio (0.9-2) HCG, Quant 1 mIU/ml Urine Color Urine Appearance (Clear) Urine pH (4.5-7.5) Ur Specific [place] (1.000-1.030) Urine Protein (Negative) Urine Glucose (UA) (Negative) Urine Ketones (Negative) Urine Blood (Negative) Urine Nitrite (Negative) Urine Bilirubin (Negative) Urine Urobilinogen (Negative) Ur Leukocyte Esterase (Negative) Urine Opiates Screen (Neg) Ur Methadone, Qual (Neg) Urine Barbiturates (Neg) Ur Phencyclidine (PCP) (Neg) U Amphetamin/Meth Scrn (Neg) MDMA (Ecstasy) Screen (Neg) U Benzodiazepines Scrn (Neg) Ur Cocaine Metabolite (Neg) U Marijuana (THC) Screen (Neg) SARS-CoV-2, RNA, NAAT (NEGATIVE) 08/10/21 Range/Units 17:59 WBC (4.8-10.8) K/uL RBC (4.2-5.4) M/uL Hgb (12.0-16.0) g/dL Hct (37-47) % MCV (80-100) fL MCH (25-34) pg MCHC (32-36) g/dL RDW Std Deviation (36.4-46.3) fL RDW Coeff of Cristi (11.5-14.5) % Plt Count (130-400) K/uL MPV (7.4-10.4) fL Immature Gran % (Auto) % Neut % (Auto) % Lymph % (Auto) % [place] % (Auto) % Eos % (Auto) % Baso % (Auto) % Neut # (Auto) (1.4-6.5) K/uL Lymph # (Auto) (1.2-3.4) K/uL [place] # (Auto) (0.11-0.59) K/uL Eos # (Auto) (0-0.5) K/uL Baso # (Auto) (0-0.2) K/uL Immature Gran # (Auto) (0.00-0.02) K/uL ESR (0-20) mm/hr PT (9.0-12.0) Seconds INR (0.9-1.1) APTT (21.0-31.0) Seconds PTT Ratio Sodium (136-145) mmol/L Potassium (3.5-5.1) mmol/L Chloride (98-107) mmol/L Carbon Dioxide (21-32) mmol/L Anion Gap (3-11) BUN (6-23) mg/dl Creatinine (0.6-1.2) mg/dl Est Cr Clr Drug Dosing ml/min Est GFR ( Amer) ml/min Est GFR (Non-Af Amer) ml/min BUN/Creatinine Ratio (10-20) Glucose (70-99(Fasting)) mg/dl POC Glucose (70-99) mg/dl Calcium (8.5-10.1) mg/dl Magnesium (1.7-2.4) mg/dl Total Bilirubin (0.2-1.0) mg/dl AST (13-39) U/L ALT (7-52) U/L Alkaline Phosphatase (34-104) U/L Troponin I High Sens (0-14) pg/ml C-Reactive Protein (0-0.5) mg/dl Total Protein (6.0-8.3) gm/dl Albumin (3.4-5.0) gm/dl Globulin (2.5-4.0) gm/dl Albumin/Globulin Ratio (0.9-2) HCG, Quant mIU/ml Urine Color Urine Appearance (Clear) Urine pH (4.5-7.5) Ur Specific [place] (1.000-1.030) Urine Protein (Negative) Urine Glucose (UA) (Negative) Urine Ketones (Negative) Urine Blood (Negative) Urine Nitrite (Negative) Urine Bilirubin (Negative) Urine Urobilinogen (Negative) Ur Leukocyte Esterase (Negative) Urine Opiates Screen (Neg) Ur Methadone, Qual (Neg) Urine Barbiturates (Neg) Ur Phencyclidine (PCP) (Neg) U Amphetamin/Meth Scrn (Neg) MDMA (Ecstasy) Screen (Neg) U Benzodiazepines Scrn (Neg) Ur Cocaine Metabolite (Neg) U Marijuana (THC) Screen (Neg) SARS-CoV-2, RNA, NAAT NEGATIVE (NEGATIVE) Administered Medications Discontinued Medications Ketorolac Tromethamine (Ketorolac Tromethamine 15 Mg/Ml Vial) 15 mg IV NOW ONE Stop: 08/10/21 15:52 Last Admin: 08/10/21 15:57 Dose: 15 mg Documented by: [id number] Imaging Data Radiologist's Impression: Chest X-Ray 08/10/21 15:08 XR chest 1V portable CLINICAL HISTORY: Stroke Like Symptoms TECHNIQUE: Single frontal radiograph of the chest was obtained. Comparison: Comparison is made to chest radiograph 04/30/2021 FINDINGS: No lines and tubes are seen. The cardiomediastinal silhouette is normal. The lungs are clear. No evidence of pleural effusion or pneumothorax. IMPRESSION: No acute chest disease. ACT 112: Negative or not required by law. Electronically signed by: Bharath Dennison M.D. 08/10/2021 4:[address] 08/10/21 15:08 CT angio neck with con, CT head/brain wo con, CT angio head w con CLINICAL HISTORY: Stroke Like Symptoms TECHNIQUE: Contiguous axial CT images of the head were acquired from the base of the skull to the vertex without intravenous contrast administration. CT angiography of the head and neck was performed following intravenous administration of iodinated contrast. Coronal and sagittal MIPS were obtained from the axial data set and were submitted for review. Automated dose lowering techniques and/or adjustment according to patient size were utilized for this examination. All measurements were calculated based on NASCET criteria. CT DOSE: 962.41 mGy.cm Comparison: Comparison is made to CT head 04/30/2021 FINDINGS: CT head: There is no acute intracranial hemorrhage or evidence of acute territorial infarction. No shift of the midline structures, mass effect, or extra-axial abnormalities are shown. Redemonstration of old right periventricular encephalomalacia with extension to the anterior basal ganglia. Postsurgical changes are seen in the right frontal calvarium. Lungs and soft tissues are unremarkable. CTA Neck: A 3 vessel aortic arch is shown. There is no significant atherosclerotic plaque in the aortic arch or the origins of the innominate, left common carotid, and left subclavian arteries. The common carotid, external carotid, cervical segments of the internal carotid arteries, and the cervical segments of the vertebral arteries are patent without hemodynamically significant stenosis. The left vertebral artery is dominant. CTA Head: The anterior and posterior cerebral circulations are patent. No hemodynamically significant stenosis, aneurysm, dissection, or arteriovenous malformation is shown. Incidental note is made of prominence of the right A1 segment compared to the left which is normal variation. IMPRESSION: 1. No acute intracranial hemorrhage, evidence of acute territorial infarction, or other acute intracranial disease process. Right periventricular enc ephalomalacia is unchanged from prior exam. 2. No occlusion, hemodynamically significant stenosis, aneurysm, dissection, or arteriovenous malformation in the major intracranial arteries. 3. No occlusion, hemodynamically significant stenosis, or dissection in the major cervical arteries. Assessment of stenosis of the internal carotid arteries is based on NASCET criteria. ACT 112: Negative or not required by law. Electronically signed by: Bharath Dennison M.D. 08/10/2021 3:40 PM Head CTA 08/10/21 15:08 CT angio neck with con, CT head/brain wo con, CT angio head w con CLINICAL HISTORY: Stroke Like Symptoms TECHNIQUE: Contiguous axial CT images of the head were acquired from the base of the skull to the vertex without intravenous contrast administration. CT angiography of the head and neck was performed following intravenous administration of iodinated contrast. Coronal and sagittal MIPS were obtained fr om the axial data set and were submitted for review. Automated dose lowering techniques and/or adjustment according to patient size were utilized for this examination. All measurements were calculated based on NASCET criteria. CT DOSE: 962.41 mGy.cm Comparison: Comparison is made to CT head 04/30/2021 FINDINGS: CT head: There is no acute intracranial hemorrhage or evidence of acute territor ial infarction. No shift of the midline structures, mass effect, or extra-axial abnormalities are shown. Redemonstration of old right periventricular encephalomalacia with extension to the anterior basal ganglia. Postsurgical changes are seen in the right frontal calvarium. Lungs and soft tissues are unremarkable. CTA Neck: A 3 vessel aortic arch is shown. There is no significant atherosclerotic plaque in the aortic arch or the origins of the innominate, left common carotid, and left subclavian arteries. The common carotid, external carotid, cervical segments of the internal carotid arteries, and the cervical segments of the vertebral arteries are patent without hemodynamically significant stenosis. The left vertebral artery is dominant. CTA Head: The anterior and posterior cerebral circulations are patent. No hemodynamically significant stenosis, aneurysm, dissection, or arteriovenous malformation is shown. Incidental note is made of prominence of the right A1 segment compared to the left which is normal variation. IMPRESSION: 1. No acute intracranial hemorrhage, evidence of acute territorial infarction, or other acute intracranial disease process. Right periventricular encephalomalacia is unchanged from prior exam. 2. No occlusion, hemodynamically significant stenosis, aneurysm, dissection, or arteriovenous malformation in the major intracranial arteries. 3. No occlusion, hemodynamically significant stenosis, or dissection in the major cervical arteries. Assessment of stenosis of the internal carotid arteries is based on NASCET criteria. ACT 112: Negative or not required by law. Electronically signed by: Bharath Dennison M.D. 08/10/2021 3:40 PM Neck CTA 08/10/21 15:08 CT angio neck with con, CT head/brain wo con, CT angio head w con CLINICAL HISTORY: Stroke Like Symptoms TECHNIQUE: Contiguous axial CT images of the head were acquired from the base of the skull to the vertex without intravenous contrast administration. CT angiography of the head and neck was performed following intravenous administration of iodinated contrast. Coronal and sagittal MIPS were obtained from the axial data set and were submitted for review. Automated dose lowering techniques and/or adjustment according to patient size were utilized for this examination. All measurements were calculated based on NASCET criteria. CT DOSE: 962.41 mGy.cm Comparison: Comparison is made to CT head 04/30/2021 FINDINGS: CT head: There is no acute intracranial hemorrhage or evidence of acute territorial infarction. No shift of the midline structures, mass effect, or extra-axial abnormalities are shown. Redemonstration of old right periventricular encephalomalacia with extension to the anterior basal ganglia. Postsurgical changes are seen in the right frontal calvarium. Lungs and soft tissues are unremarkable. CTA Neck: A 3 vessel aortic arch is shown. There is no significant atherosclerotic plaque in the aortic arch or the origins of the innominate, left common carotid, and left subclavian arteries. The common carotid, external carotid, cervical segments of the internal carotid arteries, and the cervical segments of the vertebral arteries are patent without hemodynamically significant stenosis. The left vertebral artery is dominant. CTA Head: The anterior and posterior cerebral circulations are patent. No hemodynamically significant stenosis, aneurysm, dissection, or arteriovenous malformation is shown. Incidental note is made of prominence of the right A1 segment compared to the left which is normal variation. IMPRESSION: 1. No acute intracranial hemorrhage, evidence of acute territorial infarction, or other acute intracranial disease process. Right periventricular encephalomalacia is unchanged from prior exam. 2. No occlusion, hemodynamically significant stenosis, aneurysm, dissection, or arteriovenous malformation in the major intracranial arteries. 3. No occlusion, hemodynamically significant stenosis, or dissection in the major cervical arteries. Assessment of stenosis of the internal carotid arteries is based on NASCET criteria. ACT 112: Negative or not required by law. Electronically signed by: Bharath Dennison M.D. 08/10/2021 3:40 PM Brain MRI 08/10/21 17:33 MRI OF THE BRAIN WITHOUT IV CONTRAST CLINICAL HISTORY: Left facial droop. Dysphasia. COMPARISON STUDY: CT of the brain dated 08/10/2021. TECHNIQUE: MRI of the brain was performed utilizing various T1 and T2-weighted sequences in the axial, sagittal, and coronal planes. IV contrast was not administered for this examination. FINDINGS: Brain parenchyma: Right periventricular encephalomalacia is unchanged from prior studies. There is minimal microscopic radiographic disease. There is no hemorrhage or mass effect. There is no restricted diffusion to suggest acute ischemia. [place]-white matter differentiation is preserved. No extra-axial fluid collection is seen. The cerebellar tonsils are normal in configuration. Ventricles, sulci, and cisterns: Normal in configuration. Pituitary and sella: Unremarkable. Intracranial vasculature: Normal flow voids are maintained at the skull base. Orbits: The bony orbits are grossly intact. Orbital contents are normal in appearance. Sinuses and mastoids: Clear. Calvarium: Postoperative change is noted in the right frontal calvarium. Cervical cord: Partially visualized cervical spinal cord is normal in morphology and signal intensity. IMPRESSION: No acute intracranial abnormality. ACT 112: Negative or not required by law. Electronically signed by: Zeeshan Muñoz M.D. 08/10/2021 7:59 PM Discharge Plan Visit Data Chief Complaint: Neuro Symptoms/Deficit ED Provider: Alen Gross Discharge Problem: Slurred speech, Facial droop Patient Disposition: Admitted As Inpatient Discharge Instructions Interventions: ED Discharge Assessment Last Done: 08/10/21 20:10
[2021-08-10] MEDS ORDERED: OPTIRAY 320 125ml IV ONE (15:33)
--- NOTE | 2021-08-10 15:42 | CT Scan Report ---
CT angio neck with con, CT head/brain wo con, CT angio head w con CLINICAL HISTORY: Stroke Like Symptoms TECHNIQUE: Contiguous axial CT images of the head were acquired from the base of the skull to the gab hugo without intravenous contrast administration. CT angiography of the head and neck was performed f ollowing intravenous administration of iodinated contrast. Coronal and sagittal MIPS were obtained fr om the axial data set and were submitted for review. Automated dose lowering techniques and/or adjus tment according to patient size were utilized for this examination. All measurements were calculated based on NASCET criteria. CT DOSE: 962.41 mGy.cm Comparison: Comparison is made to CT head 04/30/2021 FINDINGS: CT head: There is no acute intracranial hemorrhage or evidence of acute territorial infarction. No sh ift of the midline structures, mass effect, or extra-axial abnormalities are shown. Redemonstration o f old right periventricular encephalomalacia with extension to the anterior basal ganglia. Postsurgic al changes are seen in the right frontal calvarium. Lungs and soft tissues are unremarkable. CTA Neck: A 3 vessel aortic arch is shown. There is no significant atherosclerotic plaque in the aor tic arch or the origins of the innominate, left common carotid, and left subclavian arteries. The c ommon carotid, external carotid, cervical segments of the internal carotid arteries, and the cervical segments of the vertebral arteries are patent without hemodynamically significant stenosis. The left vertebral artery is dominant. CTA Head: The anterior and posterior cerebral circulations are patent. No hemodynamically significan t stenosis, aneurysm, dissection, or arteriovenous malformation is shown. Incidental note is made of prominence of the right A1 segment compared to the left which is normal variation. IMPRESSION: 1. No acute intracranial hemorrhage, evidence of acute territorial infarction, or other acute intrac ranial disease process. Right periventricular encephalomalacia is unchanged from prior exam. 2. No occlusion, hemodynamically significant stenosis, aneurysm, dissection, or arteriovenous malfor mation in the major intracranial arteries. 3. No occlusion, hemodynamically significant stenosis, or dissection in the major cervical arteries. Assessment of stenosis of the internal carotid arteries is based on NASCET criteria. ACT 112: Negative or not required by law. Electronically signed by: Bharath Dennison M.D. 08/10/2021 3:40 PM
[2021-08-10 15:46] LABS: Basophils # (auto) 0.01 K/uL (0-0.2); Basophils % (auto) 0.2 %; Eosinophils # (auto) 0.08 K/uL (0-0.5); Eosinophils % (auto) 1.9 %; Hematocrit (blood only) 37.2 % (37-47); Hemoglobin 12.4 g/dL (12.0-16.0); Lymphocytes # (auto) 1.75 K/uL (1.2-3.4); Lymphocytes % (auto) 42.2 %; Mean Corpuscular Hemoglobin 28.8 pg (25-34); Mean Corpuscular Hgb Conc 33.3 g/dL (32-36); Mean Corpuscular Volume 86.3 fL (80-100); Mean Platelet Volume 11.5 fL (7.4-10.4); Monocytes # (auto) 0.25 K/uL (0.11-0.59); Neutrophils # (auto) 2.06 K/uL (1.4-6.5); Neutrophils % (auto) 49.7 %; Platelet Count 151 K/uL (130-400); RDW Standard Deviation 47.7 fL (36.4-46.3); Red Blood Count 4.31 M/uL (4.2-5.4); White Blood Count 4.15 K/uL (4.8-10.8)
[2021-08-10] MEDS ORDERED: KETOROLAC TROMETHAMINE 15 MG/ML VIAL IV ONE (15:51)
[2021-08-10 16:03] LABS: Partial Thromboplastin Ratio 0.9; Partial Thromboplastin Time 25.8 Seconds (21.0-31.0); Prothrombin Time 11.1 Seconds (9.0-12.0)
[2021-08-10 16:10] LABS: Alanine Aminotransferase 8 U/L (7-52); Albumin Globulin Ratio 1.4 (0.9-2); Albumin Level 3.8 gm/dl (3.4-5.0); Alkaline Phosphatase 43 U/L (34-104); Anion Gap 7 (3-11); Aspartate Aminotransferase 12 U/L (13-39); BUN Creatinine Ratio 10.4 (10-20); Bilirubin,Total 0.3 mg/dl (0.2-1.0); Blood Urea Nitrogen 12 mg/dl (6-23); Calcium 8.2 mg/dl (8.5-10.1); Carbon Dioxide 19 mmol/L (21-32); Chloride 109 mmol/L (98-107); Creatinine Clr Calc Pharmacy 63.9 ml/min; Est GFR (African American) 70.4 ml/min; Est GFR (Non-African American) 60.7 ml/min; Globulin 2.8 gm/dl (2.5-4.0); Glucose 67 mg/dl (70-99(Fasting)); Magnesium 2.1 mg/dl (1.7-2.4); Potassium 3.6 mmol/L (3.5-5.1); Sodium 135 mmol/L (136-145); Total Protein 6.6 gm/dl (6.0-8.3); Troponin I High Sensitivity < 2.3 pg/ml (0-14)
--- NOTE | 2021-08-10 16:17 | XRay Report ---
XR chest 1V portable CLINICAL HISTORY: Stroke Like Symptoms TECHNIQUE: Single frontal radiograph of the chest was obtained. Comparison: Comparison is made to chest radiograph 04/30/2021 FINDINGS: No lines and tubes are seen. The cardiomediastinal silhouette is normal. The lungs are clear. No evid ence of pleural effusion or pneumothorax. IMPRESSION: No acute chest disease. ACT 112: Negative or not required by law. Electronically signed by: Bharath Dennison M.D. 08/10/2021 4:15 PM
[2021-08-10 17:32] LABS: Appearance Urine Clear (Clear); Bilirubin Urine Negative (Negative); Blood Urine Negative (Negative); Color Urine Yellow; Glucose Urine UA Negative (Negative); Ketones Urine Negative (Negative); Leukocyte Esterase Urine Negative (Negative); Nitrite Urine Negative (Negative); Protein Urine Negative (Negative); Specific Gravity Urine 1.033 (1.000-1.030); Urobilinogen Urine Negative (Negative)
--- NOTE | 2021-08-10 17:42 | Hospitalist Consultation ---
Date of Consultation August 10, 2021 History of Present Illness History of Present Illness Facial droop from last stroke 2019 - Treated at [place]. Little headache this morning. Relaxed for the day. Headache got worse as day became on. Still has it now but improved with Toradol. [place] she couldn't move both legs. Difficulty getting words out. Started at 13:30-2pm Lasted for an hour. Allergies Allergy/AdvReac Type Severity Reaction Status Date / Time methocarbamol Allergy Mild RASH Verified 07/28/21 10:48 morphine Allergy rash on Verified 07/28/21 10:48 arms NSAIDS (Non-Steroidal AdvReac Severe Gastritis/GI Verified 07/28/21 10:48 Anti-Inflamma bleed bupropion AdvReac Intermediate AVOID DUE Verified 07/28/21 10:48 TO LOWERING SEIZURE THRESHOLD tramadol AdvReac Intermediate AVOID DUE Verified 07/28/21 10:48 TO LOWERING SEIZURE THRESHOLD trazodone AdvReac Intermediate SEVERE Verified 07/28/21 10:48 DIZZINESS Home Medications Medication Instructions Recorded Confirmed Type sennosides 8.6 mg capsule (senna) 8.6 mg PO QDL cap 01/01/19 07/28/21 History lamotrigine 200 mg tablet 200 mg PO BID 30 Days #60 tab 02/07/19 07/28/21 Rx (Lamictal) benztropine 0.5 mg tablet 0.5 mg PO AMPM 05/13/19 07/28/21 History topiramate 100 mg tablet 100 mg PO BID 06/11/19 07/28/21 History bisacodyl 5 mg tablet,delayed 5 mg PO QDL tab 06/17/19 07/28/21 History release (Dulcolax (bisacodyl)) melatonin 10 mg capsule 10 mg PO HS PRN #30 cap 08/22/19 07/28/21 Rx docusate sodium 100 mg capsule 100 mg PO QAM 09/25/19 07/28/21 History (Colace) ondansetron HCl 4 mg tablet 4 mg PO Q8H PRN #30 tab 01/08/20 07/28/21 Rx albuterol sulfate 90 mcg/actuation 2 puff INHALATION Q4 PRN #18 g 07/16/20 07/28/21 Rx aerosol inhaler fluoxetine 20 mg capsule 20 mg PO QAM 08/14/20 07/28/21 History fluoxetine 40 mg capsule 40 mg PO QAM 08/14/20 07/28/21 History fluticasone propionate 50 1 spray INTRANASAL UD PRN 08/14/20 07/28/21 History mcg/actuation nasal spray,suspension blood sugar diagnostic #3 box 10/12/20 07/28/21 Rx lancets 33 gauge (OneTouch Delica #300 ea 02/10/21 07/28/21 Rx Lancets) linaclotide 290 mcg capsule 290 mcg PO DAILY #90 cap 02/17/21 07/28/21 Rx (Linzess) blood sugar diagnostic (OneTouch #400 ea 02/26/21 07/28/21 Rx Ultra Test) blood-glucose meter (OneTouch #1 ea 03/12/21 07/28/21 Rx Ultra2 Meter) lamotrigine 25 mg tablet 50 mg PO BID tab 03/30/21 07/28/21 History fremanezumab-vfrm 225 mg/1.5 mL 225 mg SUBCUT MONTHLY 30 Days #1.5 04/05/21 07/28/21 Rx subcutaneous syringe (Ajovy ml Syringe) pantoprazole 40 mg tablet,delayed 40 mg PO BID #60 tab 04/08/21 07/28/21 Rx release buspirone 15 mg tablet 15 mg PO TID 04/30/21 07/28/21 History lurasidone 20 mg tablet (Latuda) 20 mg PO QDD 04/30/21 07/28/21 History diclofenac sodium 1 % topical gel 2 g TOPICAL QID #100 g 05/07/21 07/28/21 Rx (Voltaren Arthritis Pain) ubrogepant 100 mg tablet (Ubrelvy) 100 mg PO DIRECTED PRN 30 Days 06/29/21 07/28/21 Rx #10 tab levothyroxine 50 mcg tablet 50 mcg PO DAILYBB #90 tab 07/02/21 07/28/21 Rx cannabidiol 100 mg/mL oral solution PO 07/05/21 07/28/21 History promethazine 25 mg tablet 25 mg PO BID PRN 30 Days #20 tab 07/27/21 07/28/21 Rx Patient History Medical History (Updated 08/02/21 @ 17:04 by Frankie Kraus DO) Anxiety and depression Chronic low back pain DVT (deep venous thrombosis) Patient reports h/o "bilateral upper extremities and brain started from IVs" Elevated liver function tests Epilepsy Family history of blood clots History of ovarian cyst Hx of blood clots Hx of hiatal hernia Hypothyroidism IBS (irritable colon syndrome) Lumbar radicular pain Migraine without aura, not intractable, without status migrainosus Moderate cervical dysplasia Polysubstance dependence (01/10/12) Post traumatic stress disorder Stroke x 2, 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 Per PCP note second CVA is a result of "right basal ganglia hemorrhagic intraparenchymal stroke/hematoma evacuation 2018. Patient also follows with [facility] as well as [facility]. [facility] follows patient for post hemorrhagic stroke/hematoma with residual left facial droop and dysarthria." Suicide attempt by multiple drug overdose previous attempt, but no thoughts of harming self now Surgical History H/O LEEP History of appendectomy History of colonoscopy History of endometrial ablation History of esophagogastroduodenoscopy (EGD) Hx of cholecystectomy S/P section S/P cholecystectomy S/P subdural hematoma evacuation S/P total abdominal hysterectomy Status post tubal ligation [place] teeth extracted Family History Mother Blood clots in brain Lung cancer Uncle Hx of blood clots Other Breast cancer FHx: cancer Family history of lung disease Denies family history of Ovarian cancer Crohn's disease Colorectal cancer IBS (irritable bowel syndrome) Social History Smoking Status: Never smoker Tobacco Type: E-cigarettes / Vaping Age Started Using Tobacco: 24; Age Quit Using Tobacco: 35; packs per day: 2; Years Smoked: 10; Cigarettes Per Day: 20; Second Hand Exposure: No; Hx Alcohol Use: No Hx Substance Use: No Preferred Language: Korean Communication Ability: Effective Visual Impairment: No Limitations Hearing Ability: Normal Water Project [employer] Required: No Beliefs That Will Affect Care: None Current Living Situation: Significant Other current occupational status: disabled How many Children do You have: 1 Feels Safe at Home: Yes Childhood Exposure to Second-Hand Smoke: Yes (Mother) Dental Care, Regularly: Yes Physical Activity Frequency: 3-4 Times per Week Seatbelt Use: sometimes Sunscreen Use: No Assistive Devices: Glasses Results & Data Results & Data ([facility]) Vital Signs (Past 12 Hours) Vital Signs Temp Pulse Resp BP Pulse Ox 08/10/21 16:45 62 13 99 08/10/21 16:30 61 20 98 08/10/21 16:15 64 22 95 08/10/21 16:14 68 21 115/73 98 08/10/21 16:13 67 21 99 08/10/21 15:45 67 16 08/10/21 15:34 36.9 C 68 20 130/72 95 08/10/21 15:31 68 22 99 PG Care Time/CCT Total # of Minutes Spent Total Time Spent with Patient: Total time spent is greater than 50% in coordination of care (as documented) at patient's floor/unit and/or counseling patient: Coding
[2021-08-10 17:43] LABS: Amphetamines+Metham, Urine Neg (Neg); Barbiturates, Urine Neg (Neg); Benzodiazepine, Urine Neg (Neg); Cocaine, Urine Neg (Neg); MDMA (Ecstacy), Urine Neg (Neg); Methadone, Urine Neg (Neg); Opiate, Urine Neg (Neg); Phencyclidine, Urine Neg (Neg)
--- NOTE | 2021-08-10 20:02 | Magnetic Resonance Report ---
MRI OF THE BRAIN WITHOUT IV CONTRAST CLINICAL HISTORY: Left facial droop. Dysphasia. COMPARISON STUDY: CT of the brain dated 08/10/2021. TECHNIQUE: MRI of the brain was performed utilizing various T1 and T2-weighted sequences in the axial , sagittal, and coronal planes. IV contrast was not administered for this examination. FINDINGS: Brain parenchyma: Right periventricular encephalomalacia is unchanged from prior studies. There is mi nimal microscopic radiographic disease. There is no hemorrhage or mass effect. There is no restricted diffusion to suggest acute ischemia. [place]-white matter differentiation is preserved. No extra-axial fluid collection is seen. The cerebellar tonsils are normal in configuration. Ventricles, sulci, and cisterns: Normal in configuration. Pituitary and sella: Unremarkable. Intracranial vasculature: Normal flow voids are maintained at the skull base. Orbits: The bony orbits are grossly intact. Orbital contents are normal in appearance. Sinuses and mastoids: Clear. Calvarium: Postoperative change is noted in the right frontal calvarium. Cervical cord: Partially visualized cervical spinal cord is normal in morphology and signal intensity . IMPRESSION: No acute intracranial abnormality. ACT 112: Negative or not required by law. Electronically signed by: Zeeshan Muñoz M.D. 08/10/2021 7:59 PM
[2021-08-10] MEDS ORDERED: ACETAMINOPHEN 325 MG TAB PO PRN (20:21)
[2021-08-10] MEDS ORDERED: ONDANSETRON INJ 2 MG/ML 2 ML VIAL IV PRN (20:21)
[2021-08-10] MEDS ORDERED: DOCUSATE SODIUM 100 MG CAP PO PRN (20:27)
[2021-08-10] MEDS ORDERED: MELATONIN 3 MG TAB PO PRN (20:40)
[2021-08-10] MEDS ORDERED: ONDANSETRON 4 MG OD TAB PO PRN (20:41)
[2021-08-10] MEDS ORDERED: LURASIDONE HCL 40 MG TAB PO SCH (21:00)
[2021-08-10] MEDS ORDERED: busPIRone 15 MG TAB PO SCH (21:00)
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
[2021-08-10] MEDS: TOPIRAMATE 100 MG TAB PO SCH (22:21)
[2021-08-10] MEDS: PANTOprazole 40 MG TAB PO SCH (22:22)
[2021-08-10] MEDS: lamoTRIgine 25 MG TAB PO SCH (22:23)
[2021-08-10] MEDS: BENZTROPINE MESYLATE 0.5 MG TAB PO SCH (22:24)
[2021-08-10] MEDS: lamoTRIgine 100 MG TAB PO SCH (22:25)
[2021-08-10] MEDS: LACTATED RINGER'S 1,000 ML IV SCH (22:33)
[2021-08-11] MEDS ORDERED: KETOROLAC TROMETHAMINE 15 MG/ML VIAL IV PRN (00:53)
[2021-08-11 03:22] LABS: Pregnancy Test, Urine Negative (Negative)
[2021-08-11] MEDS: LACTATED RINGER'S 1,000 ML IV SCH ×2 (06:30→14:49)
[2021-08-11] MEDS ORDERED: LEVOTHYROXINE SODIUM 50 MCG TABLET PO SCH (06:30)
[2021-08-11] MEDS: lamoTRIgine 100 MG TAB PO SCH (07:32)
[2021-08-11] MEDS: lamoTRIgine 25 MG TAB PO SCH (07:33)
[2021-08-11] MEDS: PANTOprazole 40 MG TAB PO SCH (07:33)
[2021-08-11] MEDS: BENZTROPINE MESYLATE 0.5 MG TAB PO SCH (07:33)
[2021-08-11] MEDS: TOPIRAMATE 100 MG TAB PO SCH (07:33)
[2021-08-11 07:41] LABS: Hematocrit (blood only) 34.3 % (37-47); Hemoglobin 11.4 g/dL (12.0-16.0); Mean Corpuscular Hemoglobin 28.4 pg (25-34); Mean Corpuscular Hgb Conc 33.2 g/dL (32-36); Mean Corpuscular Volume 85.5 fL (80-100); Mean Platelet Volume 11.4 fL (7.4-10.4); Platelet Count 137 K/uL (130-400); RDW Coefficient of Variation 15.2 % (11.5-14.5); RDW Standard Deviation 47.5 fL (36.4-46.3); Red Blood Count 4.01 M/uL (4.2-5.4); White Blood Count 3.92 K/uL (4.8-10.8)
[2021-08-11 08:01] LABS: BUN Creatinine Ratio 8.8 (10-20); Calcium 8.1 mg/dl (8.5-10.1); Creatinine Clr Calc Pharmacy 76.6 ml/min; Est GFR (African American) 93.4 ml/min; Est GFR (Non-African American) 80.6 ml/min; Potassium 3.3 mmol/L (3.5-5.1)
[2021-08-11 08:08] LABS: Basophils # (auto) 0.01 K/uL (0-0.2); Basophils % (auto) 0.3 %; Eosinophils # (auto) 0.11 K/uL (0-0.5); Eosinophils % (auto) 2.8 %; Lymphocytes # (auto) 2.01 K/uL (1.2-3.4); Lymphocytes % (auto) 51.3 %; Monocytes # (auto) 0.28 K/uL (0.11-0.59); Monocytes % (auto) 7.1 %; Neutrophils # (auto) 1.51 K/uL (1.4-6.5); Neutrophils % (auto) 38.5 %
[2021-08-11] MEDS ORDERED: CYANOCOBALAMIN (B-12) 500 MCG TABLET PO SCH (09:00)
[2021-08-11] MEDS ORDERED: busPIRone 15 MG TAB PO SCH (09:00)
[2021-08-11] MEDS ORDERED: FLUoxetine HCL 20 MG CAP PO SCH ×2 (09:00)
--- NOTE | 2021-08-11 09:48 | Electrocardiogram Report ---
Test Reason : Blood Pressure : / mmHG Vent. Rate : 067 BPM Atrial Rate : 067 BPM P-R Int : 152 ms QRS Dur : 078 ms QT Int : 406 ms P-R-T Axes : 064 054 042 degrees QTc Int : 429 ms Normal sinus rhythm Normal ECG When compared with ECG of 30-APR-2021 13:54, No significant change was found Confirmed by Arie Alberto ([id number]) on 08/11/2021 9:48:06 AM Referred By: Confirmed By:Arie Alberto
[2021-08-11] MEDS ORDERED: MAGNESIUM SULFATE / D5W 1 GM/100 ML BAG IV ONE (10:43)
[2021-08-11] MEDS ORDERED: HYDROmorphone INJ 0.5 MG/0.5 ML SYR IV STA ×2 (10:43→14:31)
[2021-08-11] MEDS ORDERED: POTASSIUM CHLORIDE 10 MEQ TABCR PO STA (10:44)
--- NOTE | 2021-08-11 16:57 | Discharge Summary ---
Date of Service August 11, 2021 Admission HPI Per Admitting Provider Purvi Cline is a 36 year old female with history of intracranial hemorrhage who presents to the ER with slurred speech and bilateral leg weakness. She has a history of intraparenchymal hematoma in July 1028 which required surgical decompression. She reports chronic left facial droop follow this but also had similar slurred speech at that time. She reports having an increased migraine- like, pulsating, mainly right sided headache that started this morning. It would improve a little when she relaxed but generally progressed throughout the day. She still has a headache now but it has improved with Toradol given in the ER. Around 13:30-2pm she noticed difficulty getting words out and felt she wouldn't move both her legs. [place] generally weak. No change in vision or hearing. No upper extremity change in weakness or sensation. She has significant history of migraines but never been told she has complex migraines. She reports this is on a background of reduced appetite, nausea, vomiting and mainly watery diarrhea for the last 6 weeks which has progressively been getting worse. She was in the ER with the same symptoms [address] A/P at that time showing liquid contents in colon as well as wall thickening in the splenic flexure and through the sigmoid colon. In the ER she underwent CT head and angiogram head/neck without any acute pathology. Her symptoms other than her chronic facial droop had resolved when seen. She was referred to medicine for admission and ongoing management for possible TIA with history of CVA. Principal Diagnosis stroke like symptoms, negative workup by imaging PNES Discharge Exam The patient appeared well nourished and normally developed. Vital signs as documented. Head exam is normocephalic atraumatic Neck is without JVD, thyromegaly, or carotid bruits. Lungs are clear to auscultation, no focal loss of breath sounds Cardiac exam, Rhythm is regular.. No murmurs, rubs or gallops. Abdominal exam reveals normal bowel sounds, soft non tender, no masses Extremities are nonedematous and both pedal pulses are present Neurologic exam is alert and oriented, no focal loss of strength or sensation Skin is without bruises or rashes Psychologically is with unusual affect Discharge Data Allergies Allergy/AdvReac Type Severity Reaction Status Date / Time methocarbamol Allergy Mild RASH Verified 08/10/21 19:05 morphine Allergy rash on Verified 08/10/21 19:05 arms NSAIDS (Non-Steroidal AdvReac Severe Gastritis/GI Verified 08/10/21 19:05 Anti-Inflamma bleed bupropion AdvReac Intermediate AVOID DUE Verified 08/10/21 19:05 TO LOWERING SEIZURE THRESHOLD tramadol AdvReac Intermediate AVOID DUE Verified 08/10/21 19:05 TO LOWERING SEIZURE THRESHOLD trazodone AdvReac Intermediate SEVERE Verified 08/10/21 19:05 DIZZINESS Consultations 08/10/21 17:16 ED Decision to Admit Stat Ordered Studies 08/10/21 15:08 CT angio head w con Stat CT angio neck with con Stat CT head/brain wo con Stat 08/10/21 17:33 MR brain wo con Urgent Hospital Course (1) Stroke-like symptoms: Suspect either complex migraine induced or possibly just due to diarrheal illness in setting of her chronic right frontal encephalomalacia. Brain MRI did r/o CVA - no further diarrhea headache treated with magnesium and dilaudid and resolved pt sees local Dr Sabillon for PNES and headache (2) Diarrhea: Unclear if this is part of her IBS however recent CT A/P on August 02 showing liquid contents throughout colon and wall thickening of splenic flexure through sigmoid colon. Stool PCR uncollected without pt producing specimen CRP/ESR normal typically on Senna and Linzess recommend follow up (3) Hypothyroidism: TSH 1.24 Levothyroxine 50 mcg PO daily (4) Anxiety and depression: Continue her usual psychiatric medications with Latuda, buspirone and fluoxetine. Presumable benztropine for extrapyramidal side effects of Latuda. (5) Gastritis determined by endoscopy: Continue pantoprazole 40mg PO BID (6) Seizure disorder: PNES per [facility] neurlogy clinic notes, lamictal 250 mg bid and topiramate 100 mg PO BID (7) Chronic headaches: Continue her chronic migraine treatment Total Time Total Time Spent Total Time Spent (In Minutes): Discharge 30 including 2 [id number] visits Discharge Plan Discharge Items Patient Disposition: Home - Self-Care Reason For Visit: STROKE LIKE SYMPTOMS Discharge Diagnosis: stroke like symptoms, resolved, negative brain imaging , stroke ruled out PNES, non epileptogenic seizures, continue seizure medicines Activity: Per Instructions section Non-emergency contact: Primary Care Provider and Neurologist Call non-emergency contact if: your symptoms worsen and you have a fever Follow-up/Referrals: Jesus Diamond MD [Primary Care Provider] - Hermelindo Sabillon MD [Physician] - 08/25/21 Diet: Regular Addtl Attending Provider Instructions: please continue your medication for your seizure disorder and follow up with Dr Sabillon, please discuss your headaches with Dr Sabillon. Please have plenty of rest and good hydration. Your Home medical regiment remains unchanged please consult Dr. Diamond and Dr. Sabillon for any changes recommend in the future Pending Studies at Discharge: No Stand-Alone Forms: My [facility] ThoroughCare, Smoking Cessation Medications and DC Order Prescriptions: Continued lamotrigine [Lamictal] 200 mg tablet 200 mg PO BID 30 Days Qty: 60 RF: 5 ondansetron HCl 4 mg tablet 4 mg PO Q8H PRN (Reason: nausea and vomiting) Qty: 30 RF: 0 albuterol sulfate 90 mcg/actuation HFA aerosol inhaler 2 puff INHALATION Q4 PRN (Reason: Shortness Of Breath) Qty: 18 RF: 3 (DME) blood sugar diagnostic Strip See Rx Instructions .ROUTE .MEDSUPPLY Qty: 3 RF: 1 (DME) lancets [OneTouch Delica Lancets] 33 gauge misc See Rx Instructions .ROUTE .MEDSUPPLY Qty: 300 RF: 3 Linzess 290 mcg capsule 290 mcg PO DAILY Qty: 90 RF: 3 (DME) OneTouch Ultra Test Strip See Rx Instructions .Route Qty: 400 RF: 3 (DME) blood-glucose meter [OneTouch Ultra2 Meter] Misc See Rx Instructions .Route Qty: 1 RF: 0 Ajovy Syringe 225 mg/1.5 mL syringe 225 mg subcut MONTHLY 30 Days Qty: 1.5 RF: 5 pantoprazole 40 mg tablet,delayed release (DR/EC) 40 mg PO BID Qty: 60 RF: 5 Ubrelvy 100 mg tablet 100 mg PO DIRECTED PRN (Reason: migraine headache) 30 Days Qty: 10 RF: 5 levothyroxine 50 mcg tablet 50 mcg PO DAILYBB Qty: 90 RF: 2 promethazine 25 mg tablet 25 mg PO BID PRN (Reason: Nausea from migraine) 30 Days Qty: 20 RF: 2 bisacodyl [Dulcolax (bisacodyl)] 5 mg tablet,delayed release (/EC) 5 mg PO QDL RF: 0 lamotrigine 25 mg tablet 50 mg PO BID RF: 0 senna 8.6 mg capsule 8.6 mg PO QDL RF: 0 melatonin 10 mg capsule 10 mg PO HS PRN (Reason: sleep) Qty: 30 RF: 0 docusate sodium [Colace] 100 mg capsule 100 mg PO QAM PRN (Reason: Constipation) RF: 0 topiramate 100 mg tablet 100 mg PO BID RF: 0 benztropine 0.5 mg tablet 0.5 mg PO AMPM RF: 0 fluoxetine 40 mg capsule 40 mg PO QAM RF: 0 fluoxetine 20 mg capsule 20 mg PO QAM RF: 0 cyanocobalamin (vitamin B-12) [Vitamin B-12] 1,000 mcg Tablet 1,000 mcg PO QAM RF: 0 buspirone 30 mg tablet 30 mg PO QAM RF: 0 Latuda 60 mg tablet 60 mg PO QPM RF: 0 Cbd Gummy 25 mg PO HS RF: 0 buspirone 30 mg tablet 15 mg PO QPM RF: 0 Discharge Orders: Discharge Order (Routine); Ordered 08/11/21 Ordered By: Gonzalo Wilcox Admission Data Admit Date/Time: 08/10/21 18:59 Attending Provider: Gonzalo Wilcox Admit Provider: Hubert Guzman Primary Care Provider: Jesus Diamond Other Providers: Hubert Guzman Coding Level of Care Code D/C DAY MANAGEMENT >30 MINS Diagnoses Stroke-like symptoms R29.90 Diarrhea R19.7 Hypothyroidism E03.9 Anxiety and depression F41.9; F32.9 Gastritis determined by endoscopy K29.70 Seizure disorder G40.909 Chronic headaches R51
== END 2021-08-11 18:10 | disposition home or self-care (01) ==
LOC: ED 15:10 → 2N 15:10 → SUATTDRO 18:59 → 2N 20:10

== ENCOUNTER 2022-04-17 10:06 | Observation (INO) ==
--- NOTE | 2022-04-17 10:45 | Emergency Department Note ---
Impression & Plan Syncope, Fall, Diarrhea ED Provider Note NAME: BRUCE ALTMAN AGE: 36 SEX: F : 1985 ARRIVES VIA: Walk-In INFORMANT: Patient ED PROVIDER(S): Alen Gross DO CHIEF COMPLAINT: syncope/seizure HPI: Patient is a 36-year-old female who presents to the ER for 5 episodes of syncope versus seizure within the past 24 hours. She notes she has had diarrhea for the past 4 days. Denies any headache or change in vision. Admits to mild chest pressure which has been present since 7 AM this morning. She notes it is worse when she pushes on her chest in that spot. Is also worse with twisting turning and bending. Denies any focal belly pain but does have crampy pain with diarrhea. No dysuria, urgency, or frequency. No other exacerbating remitting factors. PAST MEDICAL HISTORY:See Below PAST SURGICAL HISTORY:See Below FAMILY HISTORY:See Below SOCIAL HISTORY:See Below HOME MEDICATIONS:See Below ALLERGIES:See Below VITALS:See Below PHYSICAL EXAMINATION: GENERAL: Sitting up in bed, alert, well appearing, well nourished, no distress, non-toxic HEAD: NC/AT EYE EXAM: normal conjunctiva. PERRL and EOM's grossly intact. OROPHARYNX: no exudate, no erythema, lips, buccal mucosa, and tongue normal and mucous membranes are moist NECK: supple, no nuchal rigidity, no adenopathy, non-tender LUNGS: Clear to auscultation. Normal chest wall mechanics CHEST: Reproducible midsternal pain HEART: no murmurs, S1 normal and S2 normal ABDOMEN: abdomen soft, non-tender, normo-active bowel sounds, no masses, no rebound or guarding. BACK: Back is symmetrical on inspection and there is no deformity, no midline tenderness, no CVA tenderness. SKIN: no rashes and no bruising UPPER EXTREMITIES: upper extremities are grossly normal. LOWER EXTREMITIES: No pitting edema. NEURO EXAM: Normal sensorium, cranial nerves II-XII intact, normal speech, no weakness of arms, no weakness of legs. MEDICAL DECISION MAKING: Patient is a 36-year-old female with a past medical history of seizures and syncope who presents to the ER for recurrent syncope. Patient and she is passed out 5 times in the past 24 hours. No loss control of bowel or bladder. She has not bit her tongue. IV was established blood work is obtained. External records reviewed. Labs show no significant leukocytosis. Mild anemia 11.4. BMP with a slightly low CO2 at 18. LFTs bilirubin and troponin was negative. Lipase unremarkable. UA was clean. COVID flu and RSV was unremarkable. CT of the head and chest x-ray were unremarkable. EKG was nondiagnostic. Discussed case with Dr. Marks for further evaluation management and treatment due to the recurrent episodes of syncope/seizures. She also notes that she has had some midsternal chest pain since this started earlier this morning. Troponin is completely negative with an unremarkable EKG and reproducible pain on exam and I do favor is musculoskeletal. Triage Nursing notes reviewed. Limited review of prior medical records performed Vital Signs: reviewed and remarkable for no significant abnormalities Differential diagnosis: Cardiac ischemia, aortic dissection, pulmonary embolism, pneumothorax, pneumonia, pericarditis, myocarditis, esophageal rupture, GERD, cholecystitis, pancreatitis, musculoskeletal, as well as other pathologies. ER treatment provided: See below Diagnostics interpreted by me include EKG and cardiac monitoring as listed below: -Cardiac Monitoring: An order was placed for continuous cardiac monitoring. The monitor shows a rate of 80 with sinus rhythm. -ECG: Sinus rhythm rate 80 Normal axis No PVCs QTc 449 -Laboratory studies:Interpreted by me as stated above in MDM and shown below. Imaging studies: Xrays: As interpreted by me: Portable AP upright 1 view of the chest shows no pneumonia CTs show: CT head was negative Consultation(s): As described in MDM Procedures:none Critical Care: None Past Med/Surg History Medical History Anxiety and depression Chronic low back pain DVT (deep venous thrombosis) Elevated liver function tests Epilepsy Family history of blood clots History of ovarian cyst Hx of blood clots Hx of hiatal hernia Hypothyroidism IBS (irritable colon syndrome) Lumbar radicular pain Migraine without aura, not intractable, without status migrainosus Moderate cervical dysplasia Polysubstance dependence (01/10/12) Post traumatic stress disorder Stroke Suicide attempt by multiple drug overdose Surgical History H/O LEEP History of appendectomy History of colonoscopy History of endometrial ablation History of esophagogastroduodenoscopy (EGD) Hx of cholecystectomy S/P section S/P cholecystectomy S/P subdural hematoma evacuation S/P total abdominal hysterectomy Status post tubal ligation [place] teeth extracted Family History Mother Blood clots in brain Lung cancer Uncle Hx of blood clots Other Breast cancer FHx: cancer Family history of lung disease Denies family history of Ovarian cancer Crohn's disease Colorectal cancer IBS (irritable bowel syndrome) Social History Smoking Status: Current every day smoker Tobacco Type: E-cigarettes / Vaping Age Started Using Tobacco: 24; Age Quit Using Tobacco: 35; packs per day: 2; Cigarettes Per Day: 20; Second Hand Exposure: No; Hx Alcohol Use: No Hx Substance Use: No Preferred Language: Filipino Communication Ability: Effective Visual Impairment: No Limitations Hearing Ability: Normal Poultry Vaccinator Required: No Beliefs That Will Affect Care: None Current Living Situation: Other Current Living Situation Comment: lives with fiance current occupational status: disabled How many Children do You have: 1 Feels Safe at Home: Yes Childhood Exposure to Second-Hand Smoke: Yes (Mother) Dental Care, Regularly: Yes Physical Activity Frequency: 3-4 Times per Week Seatbelt Use: sometimes Sunscreen Use: No Assistive Devices: Glasses Allergies Allergies Allergy/AdvReac Type Severity Reaction Status Date / Time morphine Allergy Intermediate rash on Verified 04/17/22 11:30 arms methocarbamol Allergy Mild RASH Verified 04/17/22 11:30 NSAIDS (Non-Steroidal AdvReac Severe Gastritis/GI Verified 04/17/22 11:30 Anti-Inflamma bleed bupropion AdvReac Intermediate AVOID DUE Verified 04/17/22 11:30 TO LOWERING SEIZURE THRESHOLD tramadol AdvReac Intermediate AVOID DUE Verified 04/17/22 11:30 TO LOWERING SEIZURE THRESHOLD trazodone AdvReac Intermediate SEVERE Verified 04/17/22 11:30 DIZZINESS Home Meds Home Medications Medication Instructions Recorded Confirmed sennosides 8.6 mg capsule (senna) 8.6 mg PO QDL 01/01/19 04/17/22 docusate sodium 100 mg capsule 100 mg PO QAM PRN Constipation 09/25/19 04/17/22 (Colace) fluoxetine 40 mg capsule 40 mg PO QAM 08/14/20 04/17/22 lamotrigine 25 mg tablet 50 mg PO BID 03/30/21 04/17/22 Cbd Gummy 25 mg PO HS 08/10/21 04/17/22 benztropine 0.5 mg tablet 1 mg PO AMPM 09/14/21 04/17/22 buspirone 30 mg tablet 30 mg PO BID 09/14/21 04/17/22 lorazepam 0.5 mg tablet 0.5 mg PO DAILY PRN Anxiety 12/08/21 04/17/22 lurasidone 80 mg tablet (Latuda) 80 mg PO DAILY 12/08/21 04/17/22 linaclotide 290 mcg capsule 290 mcg PO DAILY 01/31/22 04/17/22 (Linzess) Previous Rx's Medication Instructions Recorded lamotrigine 200 mg tablet 200 mg PO BID 30 days #60 tabs 02/07/19 (Lamictal) melatonin 10 mg capsule 10 mg PO HS PRN sleep #30 caps 08/22/19 blood sugar diagnostic #3 Boxes 10/12/20 blood-glucose meter (OneTouch #1 ea 03/12/21 Ultra2 Meter) lancets 33 gauge (OneTouch Delica #300 ea 09/23/21 Lancets) galcanezumab-gnlm 120 mg/mL 120 mg subcut .COMPLEX 30 days #1 01/18/22 subcutaneous pen injector mL (Emgality Pen) ubrogepant 100 mg tablet (Ubrelvy) 100 mg PO DIRECTED PRN migraine 01/28/22 headache 30 days #16 tabs promethazine 25 mg tablet 25 mg PO BID PRN Nausea from 02/15/22 migraine 30 days #20 tabs azelastine 137 mcg (0.1 %) nasal 2 spray intranasal BID PRN nasal 02/17/22 spray aerosol congestion #30 mL levothyroxine 50 mcg tablet 50 mcg PO DAILYBB #90 tabs 03/01/22 pantoprazole 40 mg tablet,delayed See Rx Instructions .Route 03/08/22 release .COMPLEX #60 tabs albuterol sulfate 90 mcg/actuation 2 puff inhalation Q4 PRN Shortness 03/18/22 aerosol inhaler Of Breath #18 grams naproxen 500 mg tablet 500 mg PO BID 30 days #60 tabs 03/23/22 topiramate 100 mg tablet 100 mg PO .COMPLEX #90 tabs 04/07/22 blood sugar diagnostic (OneTouch #300 ea 04/14/22 Ultra Test strips) Results & Data (ED) Vital Signs Vital Signs - 24 hr 04/17/22 10:21 04/17/22 10:42 04/17/22 10:49 Temperature 36.6 C Temperature Source Temporal Artery Scan Pulse Rate 104 H 78 Pulse Rate [Right Apical] 77 Pulse Rate from SpO2 Sensor Respiratory Rate 22 16 16 Respiratory Effort / Characteristics Non-Labored Respiratory Depth Normal Respiratory Pattern Regular Blood Pressure 102/71 Blood Pressure [Left Arm] 116/72 Blood Pressure Mean 81 Blood Pressure Mean [Left Arm] 86 Blood Pressure Position [Left Arm] Sitting Pulse Oximetry 99 99 99 Oxygen Delivery Method Room Air Room Air Room Air Sepsis Recent Fever Within 48 Hours No Sepsis New/Unexplained Change in Mental Status No Sepsis Action Taken by Nursing No Action Required 04/17/22 11:00 04/17/22 13:22 04/17/22 13:17 Temperature Temperature Source Pulse Rate 77 84 79 Pulse Rate [Right Apical] Pulse Rate from SpO2 Sensor 77 Respiratory Rate 16 18 Respiratory Effort / Characteristics Respiratory Depth Respiratory Pattern Blood Pressure 99/62 L 107/72 Blood Pressure [Left Arm] Blood Pressure Mean 74 83 Blood Pressure Mean [Left Arm] Blood Pressure Position [Left Arm] Pulse Oximetry 99 100 Oxygen Delivery Method Room Air Sepsis Recent Fever Within 48 Hours Sepsis New/Unexplained Change in Mental Status Sepsis Action Taken by Nursing Laboratory Data 04/17/22 10:37 04/17/22 10:37 Lab Results 04/17/22 04/17/22 04/17/22 Range/Units 10:37 10:37 10:37 WBC 5.41 (4.8-10.8) K/ul RBC 4.10 L (4.20-5.40) M/uL Hgb 11.4 L (12.0-16.0) g/dl Hct 35.4 L (37.0-47.0) % MCV 86.3 (80.0-100.0) fL MCH 27.8 (25.0-34.0) pg MCHC 32.2 (32.0-36.0) g/dL RDW Std Deviation 45.7 (36.4-46.3) fL RDW Coeff of Cristi 14.5 (11.5-14.5) % Plt Count 221 (130-400) K/uL MPV 11.2 (9.4-12.4) fL Immature Gran % (Auto) 0.2 % Neut % (Auto) 51.9 % Lymph % (Auto) 32.5 % Evans % (Auto) 7.8 % Eos % (Auto) 7.2 % Baso % (Auto) 0.4 % Neut # (Auto) 2.81 (1.40-6.50) K/uL Lymph # (Auto) 1.76 (1.2-3.4) K/uL Evans # (Auto) 0.42 (0.11-0.59) K/uL Eos # (Auto) 0.39 (0-0.50) K/uL Baso # (Auto) 0.02 (0-0.2) K/uL Immature Gran # (Auto) 0.01 (0.01-0.20) K/uL Sodium 137 (136-145) mmol/L Potassium 3.9 (3.5-5.1) mmol/L Chloride 112 H (98-107) mmol/L Carbon Dioxide 18 L (21-32) mmol/L Anion Gap 7 (3-11) BUN 23 (6-23) mg/dl Creatinine 1.00 (0.6-1.2) mg/dl Est Cr Clr Drug Dosing 73.2 ml/min Est GFR ( Amer) 83.4 ml/min Est GFR (Non-Af Amer) 71.9 ml/min BUN/Creatinine Ratio 23.0 H (10-20) Glucose 94 (70-99(Fasting)) mg/dl Lactate (0.4-2.0) mmol/L Calcium 8.7 (8.5-10.1) mg/dl Magnesium 2.1 (1.7-2.4) mg/dl Total Bilirubin 0.3 (0.2-1.0) mg/dl AST 16 (13-39) U/L ALT 15 (7-52) U/L Alkaline Phosphatase 62 (34-104) U/L Total Creatine Kinase 67 (26-192) U/L Troponin I High Sens < 2.3 (0-14) pg/ml Total Protein 7.5 (6.0-8.3) gm/dl Albumin 4.2 (3.4-5.0) gm/dl Globulin 3.3 (2.5-4.0) gm/dl Albumin/Globulin Ratio 1.3 (0.9-2) Lipase 30 (11-82) U/L Urine Color Urine Appearance (Clear) Urine pH (4.5-7.5) Ur Specific [place] (1.000-1.030) Urine Protein (Negative) Urine Glucose (UA) (Negative) Urine Ketones (Negative) Urine Blood (Negative) Urine Nitrite (Negative) Urine Bilirubin (Negative) Urine Urobilinogen (Negative) Ur Leukocyte Esterase (Negative) Urine WBC (Auto) (0-5) /hpf Urine RBC (Auto) (0-4) /hpf U Hyaline Cast (Auto) (0-5) /lpf U Epithel Cells (Auto) (0-5) /lpf Urine Bacteria (Auto) (Negative) SARS-CoV-2 (PCR) NEGATIVE (Negative) Influenza Type A (PCR) Negative (Neg) Influenza Type B (PCR) Negative (Neg) RSV (RT-PCR) Negative (Neg) 04/17/22 04/17/22 Range/Units 10:37 13:18 WBC (4.8-10.8) K/ul RBC (4.20-5.40) M/uL Hgb (12.0-16.0) g/dl Hct (37.0-47.0) % MCV (80.0-100.0) fL MCH (25.0-34.0) pg MCHC (32.0-36.0) g/dL RDW Std Deviation (36.4-46.3) fL RDW Coeff of Cristi (11.5-14.5) % Plt Count (130-400) K/uL MPV (9.4-12.4) fL Immature Gran % (Auto) % Neut % (Auto) % Lymph % (Auto) % Evans % (Auto) % Eos % (Auto) % Baso % (Auto) % Neut # (Auto) (1.40-6.50) K/uL Lymph # (Auto) (1.2-3.4) K/uL [place] # (Auto) (0.11-0.59) K/uL Eos # (Auto) (0-0.50) K/uL Baso # (Auto) (0-0.2) K/uL Immature Gran # (Auto) (0.01-0.20) K/uL Sodium (136-145) mmol/L Potassium (3.5-5.1) mmol/L Chloride (98-107) mmol/L Carbon Dioxide (21-32) mmol/L Anion Gap (3-11) BUN (6-23) mg/dl Creatinine (0.6-1.2) mg/dl Est Cr Clr Drug Dosing ml/min Est GFR ( Amer) ml/min Est GFR (Non-Af Amer) ml/min BUN/Creatinine Ratio (10-20) Glucose (70-99(Fasting)) mg/dl Lactate 0.8 (0.4-2.0) mmol/L Calcium (8.5-10.1) mg/dl Magnesium (1.7-2.4) mg/dl Total Bilirubin (0.2-1.0) mg/dl AST (13-39) U/L ALT (7-52) U/L Alkaline Phosphatase (34-104) U/L Total Creatine Kinase (26-192) U/L Troponin I High Sens (0-14) pg/ml Total Protein (6.0-8.3) gm/dl Albumin (3.4-5.0) gm/dl Globulin (2.5-4.0) gm/dl Albumin/Globulin Ratio (0.9-2) Lipase (11-82) U/L Urine Color Dark Yellow Urine Appearance Cloudy A (Clear) Urine pH 5.5 (4.5-7.5) Ur Specific [place] 1.043 H (1.000-1.030) Urine Protein Trace H (Negative) Urine Glucose (UA) Negative (Negative) Urine Ketones Negative (Negative) Urine Blood Negative (Negative) Urine Nitrite Negative (Negative) Urine Bilirubin Negative (Negative) Urine Urobilinogen Negative (Negative) Ur Leukocyte Esterase Negative (Negative) Urine WBC (Auto) 1-5 (0-5) /hpf Urine RBC (Auto) 10-30 H (0-4) /hpf U Hyaline Cast (Auto) 5-10 H (0-5) /lpf U Epithel Cells (Auto) >30 H (0-5) /lpf Urine Bacteria (Auto) Negative (Negative) SARS-CoV-2 (PCR) (Negative) Influenza Type A (PCR) (Neg) Influenza Type B (PCR) (Neg) RSV (RT-PCR) (Neg) Administered Medications Discontinued Medications Ioversol (Optiray 350 100ml) 88 ml IV ONCE ONE Stop: 04/17/22 13:40 Last Admin: 04/17/22 13:39 Dose: 88 ml Documented By: NICKI Imaging Data Radiologist's Impression: Head CT 04/17/22 10:41 CT head/brain wo con CLINICAL HISTORY: 36 years-old Female with seizure. Acute seizure like activity TECHNIQUE: Multiple axial CT images of the head were obtained without contrast. A dose lowering technique was utilized adhering to the principles of ALARA. CT DOSE: 537.48 mGy.cm COMPARISON: 01/31/2022. FINDINGS: No acute intracranial hemorrhage, midline shift, intracranial mass, hydrocephalus, territorial ischemia or abnormal extra-axial collection. Right frontal lobe periventricular/golden radiata and external capsule encephalomalacia redemonstrated. No acute calvarial fracture.. Degenerative changes of the right frontal calvarium. The paranasal sinuses, mastoid air cells, and middle ear cavities are clear. IMPRESSION: Chronic findings as above. No acute intracranial abnormality. ACT 112: Negative or not required by law. The above report was generated using voice recognition software. It may contain grammatical, syntax or spelling errors. Electronically signed by: Jonathon Lee M.D. 04/17/2022 11:39 AM Chest X-Ray 04/17/22 10:42 XR chest 1V portable HISTORY: 36 years-old Female Chest pain, nonspecific COMPARISON: 08/10/2021 TECHNIQUE: AP view of the chest FINDINGS: Cardiomediastinal and hilar silhouettes are within normal limits. No pneumothorax, pleural effusion, airspace consolidation or pulmonary edema. The bones of the chest appear grossly intact. IMPRESSION: No acute process. ACT 112: Negative or not required by law. The above report was generated using voice recognition software. It may contain grammatical, syntax or spelling errors. Electronically signed by: Jonathon Lee M.D. 04/17/2022 11:19 AM Discharge Plan Visit Data Chief Complaint: Syncope (Near Syncope) Stated Complaint: PASSING OUT, DEHYDRATED ED Provider: Gross,Alen M Discharge Problem: Syncope, Fall, Diarrhea Forms Stand Alone Forms: My [facility] Prescriptions Prescriptions: No Action lamotrigine [Lamictal] 200 mg tablet 200 mg PO BID 30 Days Qty: 60 5RF Rx Instructions: Take with 50mg to make 250mg (DME) blood sugar diagnostic Strip See Rx Instructions .ROUTE .MEDSUPPLY Qty: 3 1RF Rx Instructions: Test 3 times daily or as directed. (DME) blood-glucose meter [OneTouch Ultra2 Meter] Misc See Rx Instructions .Route Qty: 1 0RF Rx Instructions: As directed to test 1-2x daily (DME) lancets [OneTouch Delica Lancets] [address] [facility] See Rx Instructions .ROUTE .MEDSUPPLY Qty: 300 3RF Rx Instructions: Test three times a day Ubrelvy 100 mg tablet 100 mg PO DIRECTED MDD 200mg PRN (Reason: migraine headache) 30 Days Qty: 16 5RF Rx Instructions: take one prn migraine, may repeat in 2 hours if needed promethazine 25 mg tablet 25 mg PO BID PRN (Reason: Nausea from migraine) 30 Days Qty: 20 0RF azelastine 137 mcg (0.1 %) aerosol,spray 2 spray intranasal BID PRN (Reason: nasal congestion) Qty: 30 2RF Rx Instructions: administer into each nostril levothyroxine 50 mcg tablet 50 mcg PO DAILYBB Qty: 90 3RF pantoprazole 40 mg tablet,delayed release (DR/EC) See Rx Instructions .ROUTE .COMPLEX Qty: 60 11RF Dose Instruction: TAKE 1 TABLET BY MOUTH TWICE A DAY Rx Instructions: TAKE 1 TABLET BY MOUTH TWICE A DAY albuterol sulfate 90 mcg/actuation HFA aerosol inhaler 2 puff INHALATION Q4 PRN (Reason: Shortness Of Breath) Qty: 18 3RF Rx Instructions: 2 puffs inhalation every 4-6 hours PRN; naproxen 500 mg tablet 500 mg PO BID 30 Days Qty: 60 0RF topiramate 100 mg tablet 100 mg PO .COMPLEX Qty: 90 5RF Rx Instructions: 100 mg orally IN THE AM AND 200MG IN THE PM; (DME) OneTouch Ultra Test Strip See Rx Instructions .Route Qty: 300 1RF Rx Instructions: use to test three times daily lamotrigine 25 mg tablet 50 mg PO BID Rx Instructions: Take with 200mg to make 250mg Latuda 80 mg tablet 80 mg PO DAILY Rx Instructions: must administer with food (at least 350 calories) lorazepam 0.5 mg tablet 0.5 mg PO DAILY PRN (Reason: Anxiety) Emgality Pen 120 mg/mL pen injector 120 mg subcut .COMPLEX 30 Days Qty: 1 5RF Rx Instructions: 120 mg subcutaneously ONCE A MONTH; senna 8.6 mg capsule 8.6 mg PO QDL melatonin 10 mg capsule 10 mg PO HS PRN (Reason: sleep) Qty: 30 0RF docusate sodium [Colace] 100 mg capsule 100 mg PO QAM PRN (Reason: Constipation) benztropine 0.5 mg tablet 1 mg PO AMPM Linzess 290 mcg capsule 290 mcg PO DAILY Rx Instructions: TAKE 1 CAPSULE BY MOUTH DAILY fluoxetine 40 mg capsule 40 mg PO QAM Rx Instructions: TOTAL DOSE 60 MG--TAKES WITH 20 MG CAP. Cbd Gummy 25 mg PO HS buspirone 30 mg tablet 30 mg PO BID Referrals Referrals: Pro,Jesus Rivers MD [Primary Care Provider] -
[2022-04-17 10:54] LABS: Basophils # (auto) 0.02 K/uL (0-0.2); Basophils % (auto) 0.4 %; Eosinophils # (auto) 0.39 K/uL (0-0.50); Eosinophils % (auto) 7.2 %; Hematocrit (blood only) 35.4 % (37.0-47.0); Hemoglobin 11.4 g/dl (12.0-16.0); Immature Granulocytes # (auto) 0.01 K/uL (0.01-0.20); Immature Granulocytes % (auto) 0.2 %; Lymphocytes # (auto) 1.76 K/uL (1.2-3.4); Lymphocytes % (auto) 32.5 %; Mean Corpuscular Hemoglobin 27.8 pg (25.0-34.0); Mean Corpuscular Hgb Conc 32.2 g/dL (32.0-36.0); Mean Corpuscular Volume 86.3 fL (80.0-100.0); Mean Platelet Volume 11.2 fL (9.4-12.4); Monocytes # (auto) 0.42 K/uL (0.11-0.59); Monocytes % (auto) 7.8 %; Neutrophils # (auto) 2.81 K/uL (1.40-6.50); Neutrophils % (auto) 51.9 %; Platelet Count 221 K/uL (130-400); RDW Coefficient of Variation 14.5 % (11.5-14.5); RDW Standard Deviation 45.7 fL (36.4-46.3); White Blood Count 5.41 K/ul (4.8-10.8)
[2022-04-17 11:10] LABS: Appearance Urine Cloudy (Clear); Bacteria Urine Automated Negative (Negative); Bilirubin Urine Negative (Negative); Blood Urine Negative (Negative); Color Urine Dark Yellow; Epithelial Cell Urine Auto >30 /lpf (0-5); Glucose Urine UA Negative (Negative); Ketones Urine Negative (Negative); Leukocyte Esterase Urine Negative (Negative); Nitrite Urine Negative (Negative); Protein Urine Trace (Negative); Specific Gravity Urine 1.043 (1.000-1.030); Urobilinogen Urine Negative (Negative); pH Urine 5.5 (4.5-7.5)
[2022-04-17 11:11] LABS: Alanine Aminotransferase 15 U/L (7-52); Albumin Globulin Ratio 1.3 (0.9-2); Albumin Level 4.2 gm/dl (3.4-5.0); Alkaline Phosphatase 62 U/L (34-104); Anion Gap 7 (3-11); Aspartate Aminotransferase 16 U/L (13-39); Bilirubin,Total 0.3 mg/dl (0.2-1.0); Blood Urea Nitrogen 23 mg/dl (6-23); Calcium 8.7 mg/dl (8.5-10.1); Carbon Dioxide 18 mmol/L (21-32); Chloride 112 mmol/L (98-107); Creatinine Clr Calc Pharmacy 73.2 ml/min; Est GFR (African American) 83.4 ml/min; Est GFR (Non-African American) 71.9 ml/min; Globulin 3.3 gm/dl (2.5-4.0); Glucose 94 mg/dl (70-99(Fasting)); Lipase 30 U/L (11-82); Potassium 3.9 mmol/L (3.5-5.1); Sodium 137 mmol/L (136-145); Total Protein 7.5 gm/dl (6.0-8.3)
[2022-04-17 11:18] LABS: Troponin I High Sensitivity < 2.3 pg/ml (0-14)
--- NOTE | 2022-04-17 11:20 | XRay Report ---
XR chest 1V portable HISTORY: 36 years-old Female Chest pain, nonspecific COMPARISON: 08/10/2021 TECHNIQUE: AP view of the chest FINDINGS: Cardiomediastinal and hilar silhouettes are within normal limits. No pneumothorax, pleural effusion, airspace consolidation or pulmonary edema. The bones of the chest appear grossly intact. IMPRESSION: No acute process. ACT 112: Negative or not required by law. The above report was generated using voice recognition software. It may contain grammatical, syntax o r spelling errors. Electronically signed by: Jonathon Lee M.D. 04/17/2022 11:19 AM
[2022-04-17 11:32] LABS: Influenza A virus by PCR Negative (Neg); Influenza B virus by PCR Negative (Neg); RSV by PCR Negative (Neg); SARS CoV2 RNA(COVID-19) Ceph NEGATIVE (Negative)
--- NOTE | 2022-04-17 11:41 | CT Scan Report ---
CT head/brain wo con CLINICAL HISTORY: 36 years-old Female with seizure. Acute seizure like activity TECHNIQUE: Multiple axial CT images of the head were obtained without contrast. A dose lowering tech nique was utilized adhering to the principles of ALARA. CT DOSE: 537.48 mGy.cm COMPARISON: 01/31/2022. FINDINGS: No acute intracranial hemorrhage, midline shift, intracranial mass, hydrocephalus, territorial ischem ia or abnormal extra-axial collection. Right frontal lobe periventricular/golden radiata and external capsule encephalomalacia redemonstrated. No acute calvarial fracture.. Degenerative changes of the right frontal calvarium. The paranasal sin uses, mastoid air cells, and middle ear cavities are clear. IMPRESSION: Chronic findings as above. No acute intracranial abnormality. ACT 112: Negative or not required by law. The above report was generated using voice recognition software. It may contain grammatical, syntax o r spelling errors. Electronically signed by: Jonathon Lee M.D. 04/17/2022 11:39 AM
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
[2022-04-17 13:39] LABS: Creatine Kinase 67 U/L (26-192); Magnesium 2.1 mg/dl (1.7-2.4)
[2022-04-17] MEDS ORDERED: OPTIRAY 350 100ml IV ONE (13:39)
--- NOTE | 2022-04-17 14:00 | CT Scan Report ---
ABDOMEN AND PELVIS CT WITH IV CONTRAST CT DOSE: 337.07 mGy.cm HISTORY: Acute generalized abdominal pain abdominal pain, persistent hematochezia TECHNIQUE: Multiaxial CT images of the abdomen and pelvis were performed following the IV administrat ion of 88 cc of Optiray, A dose lowering technique was utilized adhering to the principles of ALARA. COMPARISON STUDY: 01/31/2022 FINDINGS: Clear lung bases. No pneumatosis or pneumoperitoneum. Unremarkable spleen, pancreas and adr enal glands. Cholecystectomy with likely postsurgical biliary ductal dilation. Unremarkable liver. Pa tency of the hepatic and portal veins. No hydronephrosis. Decompressed urinary bladder with wall thickening. Mild atherosclerosis of the abd ominal aorta. No lymphadenopathy. Uterus appears surgically absent. No bowel obstruction. Large and s mall bowel air-fluid levels without bowel wall thickening. Appendectomy. Remarkable soft tissues. Chr onic bilateral L5 pars defects with 2 mm anterolisthesis. Mild lumbar levoscoliosis. No acute fractur e. IMPRESSION: 1. Large and small bowel air-fluid levels suggests of a nonspecific enteritis with diarrheal illness. 2. No bowel obstruction or bowel wall thickening. 3. Appendectomy. ACT 112: Negative or not required by law. The above report was generated using voice recognition software. It may contain grammatical, syntax o r spelling errors. Electronically signed by: Jonathon Lee M.D. 04/17/2022 1:58 PM
[2022-04-17] MEDS ORDERED: ONDANSETRON INJ 2 MG/ML 2 ML VIAL IV PRN (15:53)
[2022-04-17] MEDS ORDERED: ALBUTEROL HFA 8 GM INHALER INH PRN (15:53)
[2022-04-17] MEDS ORDERED: LORazepam 2 MG/1 ML VIAL IV PRN (15:53)
[2022-04-17] MEDS ORDERED: PROMETHAZINE HCL 25 MG TAB PO PRN (15:53)
[2022-04-17] MEDS ORDERED: POLYETHYLENE (MIRALAX) 17 GM PACK PO PRN (15:53)
[2022-04-17] MEDS ORDERED: HYDROmorphone INJ 0.5 MG/0.5 ML SYR IV STA (16:23)
[2022-04-17 17:02] LABS: Iron 45 mcg/dl (35-150); Total Iron Binding Cap Calc 412 mcg/dl (250-450); Transferrin (FE) Percent Satur 11 % (15-50); Unsaturated Iron Binding Cap 367 mcg/dl (155-355)
[2022-04-17 17:21] LABS: Ferritin 7.3 ng/ml (8-388)
[2022-04-17] MEDS ORDERED: ACETAMINOPHEN 325 MG TAB PO PRN (20:05)
[2022-04-17] MEDS: BENZTROPINE MESYLATE 1 MG TAB PO SCH (20:27)
[2022-04-17] MEDS: TOPIRAMATE 100 MG TAB PO SCH (20:27)
[2022-04-17] MEDS: busPIRone 15 MG TAB PO SCH (20:27)
[2022-04-17] MEDS: lamoTRIgine 100 MG TAB PO SCH (20:28)
[2022-04-17] MEDS: MELATONIN 3 MG TAB PO PRN (20:31)
[2022-04-17] MEDS: LORazepam 0.5 MG TAB PO PRN (20:32)
[2022-04-17] MEDS ORDERED: METOCLOPRAMIDE HCL INJ 5 MG/ML 2 ML VIAL IV ONE (21:56)
[2022-04-18] MEDS: LEVOTHYROXINE SODIUM 50 MCG TABLET PO SCH (05:54)
[2022-04-18 07:38] LABS: Basophils # (auto) 0.03 K/uL (0-0.2); Basophils % (auto) 0.8 %; Eosinophils # (auto) 0.31 K/uL (0-0.50); Eosinophils % (auto) 8.3 %; Hematocrit (blood only) 33.9 % (37.0-47.0); Hemoglobin 11.1 g/dl (12.0-16.0); Immature Granulocytes # (auto) 0.01 K/uL (0.01-0.20); Immature Granulocytes % (auto) 0.3 %; Lymphocytes % (auto) 32.2 %; Mean Corpuscular Hemoglobin 27.3 pg (25.0-34.0); Mean Corpuscular Hgb Conc 32.7 g/dL (32.0-36.0); Mean Corpuscular Volume 83.5 fL (80.0-100.0); Mean Platelet Volume 11.2 fL (9.4-12.4); Monocytes # (auto) 0.34 K/uL (0.11-0.59); Monocytes % (auto) 9.1 %; Neutrophils # (auto) 1.84 K/uL (1.40-6.50); Neutrophils % (auto) 49.3 %; Platelet Count 208 K/uL (130-400); RDW Coefficient of Variation 14.6 % (11.5-14.5); Red Blood Count 4.06 M/uL (4.20-5.40); White Blood Count 3.73 K/ul (4.8-10.8)
[2022-04-18 07:58] LABS: BUN Creatinine Ratio 22.6 (10-20); Calcium 8.7 mg/dl (8.5-10.1); Creatinine Clr Calc Pharmacy 77.5 ml/min; Est GFR (Non-African American) 78.5 ml/min; Magnesium 2.2 mg/dl (1.7-2.4); Potassium 3.7 mmol/L (3.5-5.1)
[2022-04-18] MEDS ORDERED: SODIUM CHLORIDE 0.9% 1000ML 1,000 ML IV ONE (08:11)
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
[2022-04-18] MEDS: BENZTROPINE MESYLATE 1 MG TAB PO SCH ×2 (08:32→21:28)
[2022-04-18] MEDS: busPIRone 15 MG TAB PO SCH ×2 (08:32→21:27)
[2022-04-18] MEDS: TOPIRAMATE 100 MG TAB PO SCH ×2 (08:32→21:28)
[2022-04-18] MEDS: lamoTRIgine 100 MG TAB PO SCH ×2 (08:33→21:27)
[2022-04-18] MEDS: FLUoxetine HCL 20 MG CAP PO SCH (08:33)
[2022-04-18] MEDS: LURASIDONE HCL 40 MG TAB PO SCH (08:34)
--- NOTE | 2022-04-18 10:07 | Gastrointestinal Consultation ---
Date of Consultation April 18, 2022 Assessment & Plan (1) Diarrhea: Discussed case with Dr. Walker who advised on plan. - can await stool studies though there may be more of a viral, self limited cause for diarrhea given nonspecific enteritis on the CT. - will proceed with EGD and colonoscopy as an outpatient. - okay to advance diet from GI standpoint. History of Present Illness Reason for Consultation: hematochezia Requesting Physician: Isabelle Rider DO Attending Physician: Isabelle Rider DO History of Present Illness Patient is a 36 year old female who presented to the ED with a 4 day history of diarrhea and had multiple episodes of seizure vs syncopal events. Patient tells me that since her admission her diarrhea has improved somewhat. she tells me that her baseline is constipation. Last bowel movement was yesterday morning. she admits to some minimal blood in the stool but no melena. Stool studies have been ordered but so far there are no results for this as of yet. CT suggestive of nonspecific enteritis. she does admit to some nausea, vomiting, but tells me none since admission. She also admits to some midline abdominal pain but feel this has also improved since admission. she is set up for egd and colonoscopy in the coming weeks. 04/17/22 hgb 9.6 04/18/[address] 04/17/22 suggestive of nonspecific enteritis. Allergies Allergy/AdvReac Type Severity Reaction Status Date / Time morphine Allergy Intermediate rash on Verified 04/17/22 11:30 arms methocarbamol Allergy Mild RASH Verified 04/17/22 11:30 NSAIDS (Non-Steroidal AdvReac Severe Gastritis/GI Verified 04/17/22 11:30 Anti-Inflamma bleed bupropion AdvReac Intermediate AVOID DUE Verified 04/17/22 11:30 TO LOWERING SEIZURE THRESHOLD tramadol AdvReac Intermediate AVOID DUE Verified 04/17/22 11:30 TO LOWERING SEIZURE THRESHOLD trazodone AdvReac Intermediate SEVERE Verified 04/17/22 11:30 DIZZINESS Home Medications Medication Instructions Recorded Confirmed Type sennosides 8.6 mg capsule (senna) 8.6 mg PO QDL 01/01/19 04/17/22 History lamotrigine 200 mg tablet 200 mg PO BID 30 days #60 tabs 02/07/19 04/17/22 Rx (Lamictal) melatonin 10 mg capsule 10 mg PO HS PRN sleep #30 caps 08/22/19 04/17/22 Rx docusate sodium 100 mg capsule 100 mg PO QAM PRN Constipation 09/25/19 04/17/22 History (Colace) fluoxetine 40 mg capsule 40 mg PO QAM 08/14/20 04/17/22 History blood sugar diagnostic #3 Boxes 10/12/20 04/14/22 Rx blood-glucose meter (OneTouch #1 ea 03/12/21 04/14/22 Rx Ultra2 Meter) lamotrigine 25 mg tablet 50 mg PO BID 03/30/21 04/17/22 History Cbd Gummy 25 mg PO HS 08/10/21 04/17/22 History benztropine 0.5 mg tablet 1 mg PO AMPM 09/14/21 04/17/22 History buspirone 30 mg tablet 30 mg PO BID 09/14/21 04/17/22 History lancets 33 gauge (OneTouch Delica #300 ea 09/23/21 04/14/22 Rx Lancets) lorazepam 0.5 mg tablet 0.5 mg PO DAILY PRN Anxiety 12/08/21 04/17/22 History lurasidone 80 mg tablet (Latuda) 80 mg PO DAILY 12/08/21 04/17/22 History galcanezumab-gnlm 120 mg/mL 120 mg subcut .COMPLEX 30 days #1 01/18/22 04/17/22 Rx subcutaneous pen injector mL (Emgality Pen) ubrogepant 100 mg tablet (Ubrelvy) 100 mg PO DIRECTED PRN migraine 01/28/22 04/17/22 Rx headache 30 days #16 tabs linaclotide 290 mcg capsule 290 mcg PO DAILY 01/31/22 04/17/22 History (Linzess) promethazine 25 mg tablet 25 mg PO BID PRN Nausea from 02/15/22 04/17/22 Rx migraine 30 days #20 tabs azelastine 137 mcg (0.1 %) nasal 2 spray intranasal BID PRN nasal 02/17/22 04/17/22 Rx spray aerosol congestion #30 mL levothyroxine 50 mcg tablet 50 mcg PO DAILYBB #90 tabs 03/01/22 04/17/22 Rx pantoprazole 40 mg tablet,delayed See Rx Instructions .Route 03/08/22 04/17/22 Rx release .COMPLEX #60 tabs albuterol sulfate 90 mcg/actuation 2 puff inhalation Q4 PRN Shortness 03/18/22 04/17/22 Rx aerosol inhaler Of Breath #18 grams naproxen 500 mg tablet 500 mg PO BID 30 days #60 tabs 03/23/22 04/17/22 Rx topiramate 100 mg tablet 100 mg PO .COMPLEX #90 tabs 04/07/22 04/17/22 Rx blood sugar diagnostic (OneTouch #300 ea 04/14/22 Rx Ultra Test strips) Patient History Medical History Anxiety and depression Chronic low back pain DVT (deep venous thrombosis) Elevated liver function tests Epilepsy Family history of blood clots History of ovarian cyst Hx of blood clots Hx of hiatal hernia Hypothyroidism IBS (irritable colon syndrome) Lumbar radicular pain Migraine without aura, not intractable, without status migrainosus Moderate cervical dysplasia Polysubstance dependence (01/10/12) Post traumatic stress disorder Stroke Suicide attempt by multiple drug overdose Surgical History H/O LEEP History of appendectomy History of colonoscopy History of endometrial ablation History of esophagogastroduodenoscopy (EGD) Hx of cholecystectomy S/P section S/P cholecystectomy S/P subdural hematoma evacuation S/P total abdominal hysterectomy Status post tubal ligation [facility] teeth extracted Family History Mother Blood clots in brain Lung cancer Uncle Hx of blood clots Other Breast cancer FHx: cancer Family history of lung disease Denies family history of Ovarian cancer Crohn's disease Colorectal cancer IBS (irritable bowel syndrome) Social History Smoking Status: Current every day smoker Tobacco Type: E-cigarettes / Vaping Age Started Using Tobacco: 24; Age Quit Using Tobacco: 35; packs per day: 2; Cigarettes Per Day: 20; Second Hand Exposure: No; Hx Alcohol Use: No Hx Substance Use: No Preferred Language: Bulgarian Communication Ability: Effective Visual Impairment: No Limitations Hearing Ability: Normal Personal Driver Required: No Beliefs That Will Affect Care: None Current Living Situation: Other Current Living Situation Comment: lives with fiance current occupational status: disabled How many Children do You have: 1 Feels Safe at Home: Yes Childhood Exposure to Second-Hand Smoke: Yes (Mother) Dental Care, Regularly: Yes Physical Activity Frequency: 3-4 Times per Week Seatbelt Use: sometimes Sunscreen Use: No Assistive Devices: None Review of Systems Review of Systems: All systems reviewed & are unremarkable except as noted in HPI & below Physical Exam Constitutional: WD/WN, vitals as above Respiratory: normal respiratory effort, lungs clear to auscultation Cardiovascular: RRR, no murmur, no edema Gastrointestinal (Abdomen): normal bowel sounds, soft, nontender, no hepatosplenomegaly Skin: no rashes, warm and dry Psychiatric: Orientation: alert and oriented x 3 Affect: euthymic affect Results & Data ([facility]) Vital Signs (Past 12 Hours) Vital Signs Temp Pulse Pulse Resp BP Pulse Ox O2 Del Method 04/18/22 07:53 36.6 C 75 18 93/60 L 98 Room Air 04/18/22 06:50 78 04/18/22 02:46 36.8 C 82 20 109/73 96 Room Air Diagnostic Findings ABDOMEN AND PELVIS CT WITH IV CONTRAST CT DOSE: 337.07 mGy.cm HISTORY: Acute generalized abdominal pain abdominal pain, persistent hematochezia TECHNIQUE: Multiaxial CT images of the abdomen and pelvis were performed following the IV administration of 88 cc of Optiray, A dose lowering technique was utilized adhering to the principles of ALARA. COMPARISON STUDY: 01/31/2022 FINDINGS: Clear lung bases. No pneumatosis or pneumoperitoneum. Unremarkable spleen, pancreas and adrenal glands. Cholecystectomy with likely postsurgical biliary ductal dilation. Unremarkable liver. Patency of the hepatic and portal veins. No hydronephrosis. Decompressed urinary bladder with wall thickening. Mild atherosclerosis of the abdominal aorta. No lymphadenopathy. Uterus appears surgically absent. No bowel obstruction. Large and small bowel air-fluid levels without bowel wall thickening. Appendectomy. Remarkable soft tissues. Chronic bilateral L5 pars defects with 2 mm anterolisthesis. Mild lumbar levoscoliosis. No acute fracture. IMPRESSION: 1. Large and small bowel air-fluid levels suggests of a nonspecific enteritis with diarrheal illness. 2. No bowel obstruction or bowel wall thickening. 3. Appendectomy. ACT 112: Negative or not required by law. The above report was generated using voice recognition software. It may contain grammatical, syntax or spelling errors. Electronically signed by: Jonathon Lee M.D. 04/17/2022 1:58 PM PG Care Time/CCT Total # of Minutes Spent Total Time Spent with Patient: Total time spent is greater than 50% in coordination of care (as documented) at patient's floor/unit and/or counseling patient: Coding Level of Care Code 24518 IN/OBS CONSULT LVL 2,35M Diagnoses Diarrhea R19.7 Time Spent (min) 35
--- NOTE | 2022-04-18 12:10 | XCELERA ---
[id number]
[2022-04-18] MEDS ORDERED: UBROGEPANT 100 MG TAB PO ONE (14:00)
[2022-04-18] MEDS ORDERED: IRON SUCROSE 300 MG in SODIUM CHLORIDE 0.9% 250 ML IV ONE (20:00)
[2022-04-18] MEDS: LORazepam 0.5 MG TAB PO PRN (21:27)
[2022-04-18] MEDS: MELATONIN 3 MG TAB PO PRN (21:27)
[2022-04-18] MEDS: PANTOprazole 40 MG TAB PO SCH (21:38)
--- NOTE | 2022-04-19 05:03 | Electrocardiogram Report ---
Test Reason : Blood Pressure : / mmHG Vent. Rate : 080 BPM Atrial Rate : 080 BPM P-R Int : 134 ms QRS Dur : 076 ms QT Int : 390 ms P-R-T Axes : 058 035 039 degrees QTc Int : 449 ms Normal sinus rhythm Normal ECG When compared with ECG of 31-JAN-2022 16:25, No significant change Confirmed by Reji Willoughby ([id number]) on 04/19/2022 5:02:59 AM Referred By: REFERRED SELF Confirmed By:Reji Willoughby
[2022-04-19] MEDS: LEVOTHYROXINE SODIUM 50 MCG TABLET PO SCH (06:04)
[2022-04-19 06:20] LABS: Basophils # (auto) 0.04 K/uL (0-0.2); Basophils % (auto) 0.8 %; Eosinophils # (auto) 0.31 K/uL (0-0.50); Eosinophils % (auto) 6.1 %; Hemoglobin 10.3 g/dl (12.0-16.0); Immature Granulocytes # (auto) 0.01 K/uL (0.01-0.20); Immature Granulocytes % (auto) 0.2 %; Lymphocytes # (auto) 1.43 K/uL (1.2-3.4); Lymphocytes % (auto) 28.3 %; Mean Corpuscular Hemoglobin 27.6 pg (25.0-34.0); Mean Corpuscular Hgb Conc 32.2 g/dL (32.0-36.0); Mean Corpuscular Volume 85.8 fL (80.0-100.0); Mean Platelet Volume 10.6 fL (9.4-12.4); Monocytes # (auto) 0.38 K/uL (0.11-0.59); Monocytes % (auto) 7.5 %; Neutrophils # (auto) 2.89 K/uL (1.40-6.50); Neutrophils % (auto) 57.1 %; Platelet Count 193 K/uL (130-400); RDW Coefficient of Variation 14.3 % (11.5-14.5); RDW Standard Deviation 44.5 fL (36.4-46.3); Red Blood Count 3.73 M/uL (4.20-5.40); White Blood Count 5.06 K/ul (4.8-10.8)
[2022-04-19 06:42] LABS: BUN Creatinine Ratio 22.3 (10-20); Calcium 8.6 mg/dl (8.5-10.1); Creatinine Clr Calc Pharmacy 71.7 ml/min; Est GFR (African American) 80.4 ml/min; Est GFR (Non-African American) 69.4 ml/min
[2022-04-19] MEDS: TOPIRAMATE 100 MG TAB PO SCH (08:48)
[2022-04-19] MEDS: FLUoxetine HCL 20 MG CAP PO SCH (08:49)
[2022-04-19] MEDS: PANTOprazole 40 MG TAB PO SCH (08:49)
[2022-04-19] MEDS: LURASIDONE HCL 40 MG TAB PO SCH (08:50)
[2022-04-19] MEDS: lamoTRIgine 100 MG TAB PO SCH (08:50)
[2022-04-19] MEDS: BENZTROPINE MESYLATE 1 MG TAB PO SCH (08:52)
[2022-04-19] MEDS: busPIRone 15 MG TAB PO SCH (08:52)
[2022-04-19] MEDS ORDERED: PANTOprazole 40 MG TAB PO SCH (09:00)
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
== END 2022-04-19 14:08 | disposition home or self-care (01) ==
LOC: EDINP 10:06 → ED 10:06 → SUATTDRO 13:27 → EDINP 16:31 → 2N 17:00

== ENCOUNTER 2022-07-06 16:39 | Inpatient (IN) ==
--- NOTE | 2022-07-06 17:17 | Emergency Department Note ---
Impression & Plan Acute confusion, Dizziness, Altered mental status, History of CVA (cerebrovascular accident) ED Provider Note NAME: BRUCE ALTMAN AGE: 37 SEX: F : 1985 ARRIVES VIA: Walk-In INFORMANT: [Patient] ED PROVIDER(S): [ED TEMP] CHIEF COMPLAINT: Confusion HISTORY OF PRESENT ILLNESS: The patient is a 37-year-old female who presents with some confusion and difficulty with gait, speech and thinking. At this has all been present throughout the day today, she even was thought to be a bit altered yesterday but things definitely worsened today. Her family is at bedside. The patient was seen earlier in the day in this ED. Work-up was unrevealing. CT of the brain was unremarkable. When the patient returned home from today's ED visit, she seemed even worse. She could not remember what kind of work-up was done, she had a hard time with her balance, she was dizzy, her speech was off and she seemed confused. When she returned back today to put on her gown, she could not figure out how to get dressed into the gown. The patient feels on edge as if there is something wrong with her body. She has a hard time keeping still. She denies any chest pain. She had a mild headache earlier. No fever, chills, cough or congestion. The patient did not use any drugs, she denies alcohol use today. The patient states that she is taking her medications as prescribed. As per the family, the patient has history of CVA, she does have an ongoing left facial droop but her speech today seems worse than baseline. PMHx/PSHx: See Below SOCIAL HISTORY: See Below. PHYSICAL EXAM: GENERAL: Patient is in no acute distress. HEENT: No acute trauma, normocephalic atraumatic, mucous membranes moist, no nasal congestion. NECK: No stridor, no adenopathy, no meningismus, trachea is midline. LUNGS: Clear to auscultation bilaterally, no wheeze, no rhonchi, breath sounds equal. HEART: Without murmurs gallops or rubs, regular rate and rhythm. ABDOMEN: Soft, nontender, bowel sounds positive, no peritonitis. EXTREMITIES: No cyanosis or edema, full range of motion of all the joints without pain or difficulty, no signs for acute trauma. NEUROLOGIC: Slight speech slur. Awake and alert. Slight left facial droop. Has a hard time figuring out how to follow commands. Had some slight left upper extremity drift which seemed intermittent with her testing. No upper extremity cerebellar dysfunction. She had a harder time with cerebellar function of the right leg but there was no lower extremity drift. The right leg cerebellar dysfunction improved with repeat testing. SKIN: No rash, no jaundice, no diaphoresis. DIFFERENTIAL DIAGNOSIS: Stroke, medication reaction, drug or alcohol abuse, dehydration, electrolyte imbalance, infection, liver or renal failure, among others. EMERGENCY DEPARTMENT COURSE/PROCEDURES: Prior/Outside records reviewed: Previous ED visit. ECG per my interpretation: Indication was altered mental state. The ECG showed a normal sinus rhythm with a rate of 81. There was some nonspecific ST change. There is no ST elevation, no PVCs. The QTc was 455. Continuous Cardiac Monitoring per my interpretation: An order was placed for continuous cardiac monitoring. The monitor shows a rate of 82 with normal sinus rhythm. Critical Care Note: I have personally spent 43 minutes of critical care time in the direct management of this patient. This includes bedside care, interpretation of diagnostic studies, and testing, discussion with consultants, patient, and family members, and other required patient management activities. This 43 minutes is in excess of all separately billable procedures. MEDICAL DECISION MAKING: There is no leukocytosis or concerning anemia. There is a normal platelet c ount. CO2 was slightly low at 17, no renal failure. No electrolyte abnormality in need of emergent correction. Lactic acid level was not elevated making sepsis less likely. No concerning liver enzyme elevation. Ammonia level was not not elevated. ECG shows a sinus rhythm, no obvious acute ischemia. Cardiac enzyme testing x1 is not consistent with acute cardiac injury. TSH was low however, her T4 was normal. Urinalysis did not show infection. Urine drug screen was negative. Alcohol level was undetectable. COVID test was negative. Brain MRI did not show any acute process. Findings of an older stroke were seen. On exam, the patient seemed somewhat confused and had a hard time fol lowing commands. There were some subtle neurologic findings to the upper and lower extremities which seemed more intermittent than persistent. The patient received IV saline, 1 L. She was given 1 mg of IV Ativan in preparation for her MRI. The cause for her confusion, her dizziness, her difficulty with balance, her difficulty following commands is unclear. She is not at her mental baseline as per her family. I do think a hospital stay is warranted. Further work-up/observation is needed. The patient in the past has had similar trouble from medication interactions, this of course is a possibility with today's presentation as well. DISPOSITION: Patient's presentation and findings warrant a hospital stay. Past Med/Surg History Medical History Abdominal pain FOR ABOUT A MONTH/REASON FOR UPCOMING PROCEDURES Anxiety and depression Blurry vision, bilateral EYE TESTING FOR/STARTING OF CATARACT - ? FURTHER DETAILS. UPCOMING MRI ...NOT YET SCHEDULED Chronic low back pain DVT (deep venous thrombosis) Patient reports h/o "bilateral upper extremities and brain started from IVs" Elevated liver function tests Encounter for pre-operative examination Epilepsy LAST SEIZURE 6 MON AGO/TRAMADOL CAUSED IT Family history of blood clots Gastritis Hematochezia REASON FOR UPCOMING PROCEDURES History of COVID-19 APPROX 1 YR AGO History of ovarian cyst Hx of hiatal hernia Hypothyroidism IBS (irritable colon syndrome) Lumbar radicular pain Migraine without aura, not intractable, without status migrainosus MIGRAINES/UNDER CONTROL CURRENTLY Nausea and vomiting REASON FOR UPCOMING PROCEDURES/ONGOING FOR A MONTH Post traumatic stress disorder Pre-diabetes Stroke x 2, 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 Per PCP note second CVA is a result of "right basal ganglia hemorrhagic intraparenchymal stroke/hematoma evacuation 2018. Patient also follows with [facility] as well as [facility]. [facility] follows patient for post hemorrhagic stroke/hematoma with residual left facial droop and dysarthria." Suicide attempt by multiple drug overdose previous attempt, but no thoughts of harming self now Syncope HX Surgical History H/O LEEP conization History of appendectomy History of colonoscopy History of endometrial ablation History of esophagogastroduodenoscopy (EGD) Hx of cholecystectomy S/P section S/P cholecystectomy S/P subdural hematoma evacuation S/P total abdominal hysterectomy Status post tubal ligation Mayo teeth extracted Family History Mother Blood clots in brain Lung cancer Uncle Hx of blood clots Family history of colon cancer Grandmother Family history of diabetes mellitus Uncle Family history of colon cancer Other Breast cancer FHx: cancer Family history of lung disease Denies family history of Ovarian cancer Crohn's disease Colorectal cancer IBS (irritable bowel syndrome) Social History Smoking Status: Current every day smoker Tobacco Type: E-cigarettes / Vaping Age Started Using Tobacco: 24; Age Quit Using Tobacco: 35; packs per day: 2; Cigarettes Per Day: VAPE DAILY/ADVISED NPO; Second Hand Exposure: No; Do You Dip or Chew Tobacco: No; Hx Alcohol Use: No Hx Substance Use: Yes (HX/SUBOXONE REHAB FOR - 3 YR AGO REHAB DONE/NO RELAPSE) Last Used Substance Other:: this past summer went to rehab Substance Use Type Other:: suboxone Preferred Language: Burkinan Communication Ability: Effective Visual Impairment: No Limitations Hearing Ability: Normal Warp Trucker Required: No Beliefs That Will Affect Care: None Current Living Situation: Other Current Living Situation Comment: AG AND HIS DAUGHTER current occupational status: disabled How many Children do You have: 1 Feels Safe at Home: Yes Childhood Exposure to Second-Hand Smoke: Yes (Mother) Diet: regular Dental Care, Regularly: Yes Physical Activity Frequency: 3-4 Times per Week Seatbelt Use: sometimes Sunscreen Use: No Assistive Devices: Denture - Upper Allergies Allergies Allergy/AdvReac Type Severity Reaction Status Date / Time methocarbamol Allergy Intermediate RASH Verified 07/06/22 17:16 morphine Allergy Intermediate rash on Verified 07/06/22 17:16 arms trazodone AdvReac Severe SEVERE Verified 07/06/22 17:16 DIZZINESS bupropion AdvReac Intermediate AVOID DUE Verified 07/06/22 17:16 TO LOWERING SEIZURE THRESHOLD NSAIDS (Non-Steroidal AdvReac Intermediate Gastritis/GI Verified 07/06/22 17:16 Anti-Inflamma bleed tramadol AdvReac Intermediate AVOID DUE Verified 07/06/22 17:16 TO LOWERING SEIZURE THRESHOLD Home Meds Home Medications Medication Instructions Recorded Confirmed sennosides 8.6 mg capsule (senna) 8.6 mg PO QDL 01/01/19 07/06/22 docusate sodium 100 mg capsule 100 mg PO QAM PRN Constipation 09/25/19 07/06/22 (Colace) fluoxetine 40 mg capsule 80 mg PO QAM 08/14/20 07/06/22 lamotrigine 25 mg tablet 50 mg PO BID 03/30/21 07/06/22 Cbd Gummy 25 mg PO HS 08/10/21 07/06/22 buspirone 30 mg tablet 30 mg PO BID 09/14/21 07/06/22 lorazepam 0.5 mg tablet 0.25 - 0.5 mg PO DAILY PRN Anxiety 12/08/21 07/06/22 linaclotide 290 mcg capsule 290 mcg PO HS 01/31/22 07/06/22 (Linzess) benztropine 1 mg tablet 1 mg PO BID 05/15/22 07/06/22 promethazine 25 mg tablet 25 mg PO DIRECTED PRN Nausea 05/15/22 07/06/22 topiramate 100 mg tablet See Rx Instructions .Route .COMPLEX 05/23/22 07/06/22 ondansetron HCl 4 mg tablet 4 mg PO Q8H PRN NAUSEA/VOMITING 07/06/22 07/06/22 Previous Rx's Medication Instructions Recorded lamotrigine 200 mg tablet 200 mg PO BID 30 days #60 tabs 02/07/19 (Lamictal) melatonin 10 mg capsule 10 mg PO HS PRN sleep #30 caps 08/22/19 blood sugar diagnostic #3 Boxes 10/12/20 blood-glucose meter (OneTouch #1 ea 03/12/21 Ultra2 Meter) lancets 33 gauge (OneTouch Delica #300 ea 09/23/21 Lancets) albuterol sulfate 90 mcg/actuation 2 puff inhalation Q4 PRN Shortness 03/18/22 aerosol inhaler Of Breath #18 grams blood sugar diagnostic (OneTouch #300 ea 04/14/22 Ultra Test strips) pantoprazole 40 mg tablet,delayed 40 mg PO BID #60 tabs 04/19/22 release azelastine 137 mcg (0.1 %) nasal 2 spray intranasal BID PRN nasal 05/10/22 spray aerosol congestion #30 mL peg 3350-electrolytes 236 240 ml PO Q10M #4,000 mL 05/20/22 gram-22.74 gram-6.74 gram-5.86 gram solution (Golytely) levothyroxine 25 mcg tablet 25 mcg PO QAM #30 tabs 06/29/22 galcanezumab-gnlm 120 mg/mL 120 mg subcut .COMPLEX 30 days #1 06/30/22 subcutaneous pen injector mL (Emgality Pen) ubrogepant 100 mg tablet (Ubrelvy) 100 mg PO DIRECTED PRN migraine 06/30/22 headache 30 days #16 tabs Results & Data (ED) Vital Signs Vital Signs - 24 hr 07/06/22 16:41 07/06/22 17:16 07/06/22 17:50 Temperature 37.1 C Temperature Source Temporal Artery Scan Pulse Rate 121 H 88 Pulse Rate [Apical] Pulse Rate from SpO2 Sensor Respiratory Rate 18 Respiratory Effort / Characteristics Non-Labored Spontaneous Respiratory Depth Normal Blood Pressure 111/76 Blood Pressure [Right Arm] Blood Pressure Mean 87 Blood Pressure Mean [Right Arm] Pulse Oximetry 98 Oxygen Delivery Method Room Air Room Air Sepsis Recent Fever Within 48 Hours No Sepsis New/Unexplained Change in Mental Status No Sepsis Action Taken by Nursing No Action Required 07/06/22 17:50 07/06/22 17:51 07/06/22 20:14 Temperature Temperature Source Pulse Rate Pulse Rate [Apical] 82 79 Pulse Rate from SpO2 Sensor Respiratory Rate 19 18 Respiratory Effort / Characteristics Non-Labored Respiratory Depth Normal Blood Pressure Blood Pressure [Right Arm] 115/81 121/86 Blood Pressure Mean Blood Pressure Mean [Right Arm] 92 97 Pulse Oximetry 99 99 100 Oxygen Delivery Method Room Air Room Air Room Air Sepsis Recent Fever Within 48 Hours Sepsis New/Unexplained Change in Mental Status Sepsis Action Taken by Nursing 07/06/22 23:00 Temperature Temperature Source Pulse Rate Pulse Rate [Apical] Pulse Rate from SpO2 Sensor 80 Respiratory Rate Respiratory Effort / Characteristics Respiratory Depth Blood Pressure Blood Pressure [Right Arm] Blood Pressure Mean Blood Pressure Mean [Right Arm] Pulse Oximetry 100 Oxygen Delivery Method Sepsis Recent Fever Within 48 Hours Sepsis New/Unexplained Change in Mental Status Sepsis Action Taken by Custodial Medications Current Medication List: was personally reviewed by me Laboratory Data Attestation: I reviewed the patient's lab results. 07/06/22 17:32 07/06/22 17:32 Lab Results 07/06/22 07/06/22 07/06/22 Range/Units 17:32 17:32 17:32 WBC 6.69 (4.8-10.8) K/ul RBC 4.44 (4.20-5.40) M/uL Hgb 12.6 (12.0-16.0) g/dl Hct 37.8 (37.0-47.0) % MCV 85.1 (80.0-100.0) fL MCH 28.4 (25.0-34.0) pg MCHC 33.3 (32.0-36.0) g/dL RDW Std Deviation 47.7 H (36.4-46.3) fL RDW Coeff of Cristi 15.2 H (11.5-14.5) % Plt Count 179 (130-400) K/uL MPV 11.5 (9.4-12.4) fL Immature Gran % (Auto) 0.1 % Neut % (Auto) 76.9 % Lymph % (Auto) 18.4 % [place] % (Auto) 4.3 % Eos % (Auto) 0.0 % Baso % (Auto) 0.3 % Neut # (Auto) 5.14 (1.40-6.50) K/uL Lymph # (Auto) 1.23 (1.2-3.4) K/uL [place] # (Auto) 0.29 (0.11-0.59) K/uL Eos # (Auto) 0.00 (0-0.50) K/uL Baso # (Auto) 0.02 (0-0.2) K/uL Immature Gran # (Auto) 0.01 (0.01-0.20) K/uL Sodium 140 (136-145) mmol/L Potassium 3.7 (3.5-5.1) mmol/L Chloride 117 H (98-107) mmol/L Carbon Dioxide 17 L (21-32) mmol/L Anion Gap 6 (3-11) BUN 13 (6-23) mg/dl Creatinine 0.89 (0.6-1.2) mg/dl Est Cr Clr Drug Dosing 70.9 ml/min Est GFR ( Amer) 95.3 ml/min Est GFR (Non-Af Amer) 82.2 ml/min BUN/Creatinine Ratio 14.6 (10-20) Glucose 89 (70-99(Fasting)) mg/dl Lactate (0.4-2.0) mmol/L Calcium 8.6 (8.6-10.3) mg/dl Magnesium 2.1 (1.7-2.4) mg/dl Total Bilirubin 0.3 (0.2-1.0) mg/dl AST 16 (13-39) U/L ALT 16 (7-52) U/L Alkaline Phosphatase 72 (34-104) U/L Ammonia (18-72) umol/L Troponin I High Sens < 2.3 (0-14) pg/ml Total Protein 6.6 (6.0-8.3) gm/dl Albumin 3.9 (3.4-5.0) gm/dl Globulin 2.7 (2.5-4.0) gm/dl Albumin/Globulin Ratio 1.4 (0.9-2) TSH 0.178 L (0.300-4.500) uIu/ml Free T4 0.82 (0.61-1.60) ng/dl Urine Color Urine Appearance (Clear) Urine pH (4.5-7.5) Ur Specific [place] (1.000-1.030) Urine Protein (Negative) Urine Glucose (UA) (Negative) Urine Ketones (Negative) Urine Blood (Negative) Urine Nitrite (Negative) Urine Bilirubin (Negative) Urine Urobilinogen (Negative) Ur Leukocyte Esterase (Negative) Urine Opiates Screen (Neg) Ur Methadone, Qual (Neg) Urine Barbiturates (Neg) Ur Phencyclidine (PCP) (Neg) U Amphetamin/Meth Scrn (Neg) MDMA (Ecstasy) Screen (Neg) U Benzodiazepines Scrn (Neg) Ur Cocaine Metabolite (Neg) U Marijuana (THC) Screen (Neg) Ethyl Alcohol mg/dL (<10.0) mg/dl SARS-CoV-2, RNA, NAAT (NEGATIVE) 07/06/22 07/06/22 07/06/22 Range/Units 17:45 17:45 17:45 WBC (4.8-10.8) K/ul RBC (4.20-5.40) M/uL Hgb (12.0-16.0) g/dl Hct (37.0-47.0) % MCV (80.0-100.0) fL MCH (25.0-34.0) pg MCHC (32.0-36.0) g/dL RDW Std Deviation (36.4-46.3) fL RDW Coeff of Cristi (11.5-14.5) % Plt Count (130-400) K/uL MPV (9.4-12.4) fL Immature Gran % (Auto) % Neut % (Auto) % Lymph % (Auto) % [place] % (Auto) % Eos % (Auto) % Baso % (Auto) % Neut # (Auto) (1.40-6.50) K/uL Lymph # (Auto) (1.2-3.4) K/uL [place] # (Auto) (0.11-0.59) K/uL Eos # (Auto) (0-0.50) K/uL Baso # (Auto) (0-0.2) K/uL Immature Gran # (Auto) (0.01-0.20) K/uL Sodium (136-145) mmol/L Potassium (3.5-5.1) mmol/L Chloride (98-107) mmol/L Carbon Dioxide (21-32) mmol/L Anion Gap (3-11) BUN (6-23) mg/dl Creatinine (0.6-1.2) mg/dl Est Cr Clr Drug Dosing ml/min Est GFR ( Amer) ml/min Est GFR (Non-Af Amer) ml/min BUN/Creatinine Ratio (10-20) Glucose (70-99(Fasting)) mg/dl Lactate (0.4-2.0) mmol/L Calcium (8.6-10.3) mg/dl Magnesium (1.7-2.4) mg/dl Total Bilirubin (0.2-1.0) mg/dl AST (13-39) U/L ALT (7-52) U/L Alkaline Phosphatase (34-104) U/L Ammonia (18-72) umol/L Troponin I High Sens (0-14) pg/ml Total Protein (6.0-8.3) gm/dl Albumin (3.4-5.0) gm/dl Globulin (2.5-4.0) gm/dl Albumin/Globulin Ratio (0.9-2) TSH (0.300-4.500) uIu/ml Free T4 (0.61-1.60) ng/dl Urine Color Yellow Urine Appearance Clear (Clear) Urine pH 6.5 (4.5-7.5) Ur Specific [place] 1.015 (1.000-1.030) Urine Protein Negative (Negative) Urine Glucose (UA) Negative (Negative) Urine Ketones Negative (Negative) Urine Blood Negative (Negative) Urine Nitrite Negative (Negative) Urine Bilirubin Negative (Negative) Urine Urobilinogen Negative (Negative) Ur Leukocyte Esterase Negative (Negative) Urine Opiates Screen Neg (Neg) Ur Methadone, Qual Neg (Neg) Urine Barbiturates Neg (Neg) Ur Phencyclidine (PCP) Neg (Neg) U Amphetamin/Meth Scrn Neg (Neg) MDMA (Ecstasy) Screen Neg (Neg) U Benzodiazepines Scrn Neg (Neg) Ur Cocaine Metabolite Neg (Neg) U Marijuana (THC) Screen Neg (Neg) Ethyl Alcohol mg/dL (<10.0) mg/dl SARS-CoV-2, RNA, NAAT NEGATIVE (NEGATIVE) 07/06/22 07/06/22 07/06/22 Range/Units 18:11 18:11 18:11 WBC (4.8-10.8) K/ul RBC (4.20-5.40) M/uL Hgb (12.0-16.0) g/dl Hct (37.0-47.0) % MCV (80.0-100.0) fL MCH (25.0-34.0) pg MCHC (32.0-36.0) g/dL RDW Std Deviation (36.4-46.3) fL RDW Coeff of Critsi (11.5-14.5) % Plt Count (130-400) K/uL MPV (9.4-12.4) fL Immature Gran % (Auto) % Neut % (Auto) % Lymph % (Auto) % [place] % (Auto) % Eos % (Auto) % Baso % (Auto) % Neut # (Auto) (1.40-6.50) K/uL Lymph # (Auto) (1.2-3.4) K/uL [place] # (Auto) (0.11-0.59) K/uL Eos # (Auto) (0-0.50) K/uL Baso # (Auto) (0-0.2) K/uL Immature Gran # (Auto) (0.01-0.20) K/uL Sodium (136-145) mmol/L Potassium (3.5-5.1) mmol/L Chloride (98-107) mmol/L Carbon Dioxide (21-32) mmol/L Anion Gap (3-11) BUN (6-23) mg/dl Creatinine (0.6-1.2) mg/dl Est Cr Clr Drug Dosing ml/min Est GFR ( Amer) ml/min Est GFR (Non-Af Amer) ml/min BUN/Creatinine Ratio (10-20) Glucose (70-99(Fasting)) mg/dl Lactate 0.9 (0.4-2.0) mmol/L Calcium (8.6-10.3) mg/dl Magnesium (1.7-2.4) mg/dl Total Bilirubin (0.2-1.0) mg/dl AST (13-39) U/L ALT (7-52) U/L Alkaline Phosphatase (34-104) U/L Ammonia 23.0 (18-72) umol/L Troponin I High Sens (0-14) pg/ml Total Protein (6.0-8.3) gm/dl Albumin (3.4-5.0) gm/dl Globulin (2.5-4.0) gm/dl Albumin/Globulin Ratio (0.9-2) TSH (0.300-4.500) uIu/ml Free T4 (0.61-1.60) ng/dl Urine Color Urine Appearance (Clear) Urine pH (4.5-7.5) Ur Specific [place] (1.000-1.030) Urine Protein (Negative) Urine Glucose (UA) (Negative) Urine Ketones (Negative) Urine Blood (Negative) Urine Nitrite (Negative) Urine Bilirubin (Negative) Urine Urobilinogen (Negative) Ur Leukocyte Esterase (Negative) Urine Opiates Screen (Neg) Ur Methadone, Qual (Neg) Urine Barbiturates (Neg) Ur Phencyclidine (PCP) (Neg) U Amphetamin/Meth Scrn (Neg) MDMA (Ecstasy) Screen (Neg) U Benzodiazepines Scrn (Neg) Ur Cocaine Metabolite (Neg) U Marijuana (THC) Screen (Neg) Ethyl Alcohol mg/dL < 10.0 (<10.0) mg/dl SARS-CoV-2, RNA, NAAT (NEGATIVE) Administered Medications Discontinued Medications Sodium Chloride (Nss 1000ml) 1,000 mls @ 999 mls/hr IV .Q1H1M CHAITANYA Stop: 07/06/22 18:30 Last Infusion: 07/06/22 18:53 Dose: 0 mls/hr Documented By: Admin: 07/06/22 17:50 Dose: 999 mls/hr Documented By: Lorazepam (Lorazepam 2 Mg/1 Ml Vial) 1 mg IV NOW STA Stop: 07/06/22 19:00 Last Admin: 07/06/22 19:06 Dose: 1 mg Documented By: Imaging Data Radiologist's Impression: Brain MRI 07/06/22 17:28 Exam(s): MRI HEAD Without Contrast EXAM: MR Head Without Intravenous Contrast CLINICAL HISTORY: Reason for exam: hist cva, off balance, confused. TECHNIQUE: Magnetic resonance images of the head/brain without intravenous contrast in multiple planes. COMPARISON: No relevant prior studies available. FINDINGS: No acute territorial infarct. No acute intracranial hemorrhage. No midline shift or mass effect. Encephalomalacia in the RIGHT MCA territory, consistent with old infarct. Images are degraded by motion artifact. The visualized orbits appear grossly unremarkable. The calvarium is intact. The visualized paranasal sinuses and mastoid air cells are grossly clear. IMPRESSION: No acute territorial infarct. Encephalomalacia in the RIGHT MCA territory, consistent with old infarct. No acute intracranial hemorrhage. Electronically signed by: Demetrius Delaney MD 07/06/22 20:[address] OF THE HEAD WITHOUT CONTRAST CLINICAL HISTORY: h/o CVAs, ?seizure/shaking episode COMPARISON STUDY: Head CT April 17, 2022 and MRI of the brain June 13, 2022. CT DOSE: 625.80 mGy.cm TECHNIQUE: Helical axial images of the head were obtained without IV contrast. Automated exposure control was utilized for the study. A dose lowering technique was utilized adhering to the principles of ALARA. FINDINGS: No acute intracranial hemorrhage, midline shift or mass effect is present. Old right basal ganglia infarct is again noted with encephalomalacia. The appearance of the brain is unchanged. The ventricular system is unremarkable. The basal cisterns are patent. No extra-axial collections are present. There are no findings to suggest acute dural sinus thrombosis or acute territorial infarct. There is no acute calvarial fracture. Right frontal jevon hole is noted. IMPRESSION: No acute intracranial findings. No change in appearance of the brain. Discharge Plan Visit Data Chief Complaint: Confusion Stated Complaint: CONFUSED,SEEING PEOPLE,MOTOR SKILLS OFF ED Provider: Zeeshan Menjivar Discharge Problem: Acute confusion, Dizziness, Altered mental status, History of CVA (cerebrovascular accident) Forms Stand Alone Forms: My [facility] [place] [facility] Prescriptions Prescriptions: No Action lamotrigine [Lamictal] 200 mg tablet 200 mg PO BID 30 Days Qty: 60 5RF Rx Instructions: TOTAL DOSE 250 MG--TAKES WITH 50 MG TAB. (DME) blood sugar diagnostic Strip See Rx Instructions .ROUTE .MEDSUPPLY Qty: 3 1RF Rx Instructions: Test 3 times daily or as directed. (DME) blood-glucose meter [OneTouch Ultra2 Meter] Misc See Rx Instructions .Route Qty: 1 0RF Rx Instructions: As directed to test 1-2x daily (DME) lancets [OneTouch Delica Lancets] 33 gauge misc See Rx Instructions .ROUTE .MEDSUPPLY Qty: 300 3RF Rx Instructions: Test three times a day albuterol sulfate 90 mcg/actuation HFA aerosol inhaler 2 puff INHALATION Q4 PRN (Reason: Shortness Of Breath) Qty: 18 3RF Rx Instructions: 2 puffs inhalation every 4-6 hours PRN; (DME) OneTouch Ultra Test Strip See Rx Instructions .Route Qty: 300 1RF Rx Instructions: use to test three times daily azelastine 137 mcg (0.1 %) aerosol,spray 2 spray intranasal BID PRN (Reason: nasal congestion) Qty: 30 2RF Rx Instructions: administer into each nostril peg 3350-electrolytes [Golytely] 236-22.74-6.74 -5.86 gram recon soln 240 ml PO Q10M Qty: 4000 0RF Rx Instructions: Take per split dose instructions Emgality Pen 120 mg/mL pen injector 120 mg subcut .COMPLEX 30 Days Qty: 1 2RF Rx Instructions: 120 mg subcutaneously ONCE A MONTH; USUALLY THE 13TH OR 14TH OF THE MONTH Ubrelvy 100 mg tablet 100 mg PO DIRECTED MDD 200mg PRN (Reason: migraine headache) 30 Days Qty: 16 2RF Rx Instructions: take one prn migraine, may repeat in 2 hours if needed lamotrigine 25 mg tablet 50 mg PO BID Rx Instructions: TOTAL DOSE 250 MG--TAKES WITH 200 MG TAB. lorazepam 0.5 mg tablet 0.25 - 0.5 mg PO DAILY PRN (Reason: Anxiety) senna 8.6 mg capsule 8.6 mg PO QDL melatonin 10 mg capsule 10 mg PO HS PRN (Reason: sleep) Qty: 30 0RF Patient Comments: USUALLY EVERY NIGHT docusate sodium [Colace] 100 mg capsule 100 mg PO QAM PRN (Reason: Constipation) levothyroxine 25 mcg tablet 25 mcg PO QAM Qty: 30 3RF Linzess 290 mcg capsule 290 mcg PO HS Rx Instructions: TAKE 1 CAPSULE BY MOUTH DAILY topiramate 100 mg tablet See Rx Instructions .ROUTE .COMPLEX Rx Instructions: TAKES 100 mg QAM, THEN 200MG QPM. pantoprazole 40 mg tablet,delayed release (DR/EC) 40 mg PO BID Qty: 60 0RF ondansetron HCl 4 mg tablet 4 mg PO Q8H PRN (Reason: NAUSEA/VOMITING) Rx Instructions: TAKE 1 TABLET BY MOUTH EVERY 8 HOURS fluoxetine 40 mg capsule 80 mg PO QAM Cbd Gummy 25 mg PO HS buspirone 30 mg tablet 30 mg PO BID benztropine 1 mg tablet 1 mg PO BID promethazine 25 mg tablet 25 mg PO DIRECTED PRN (Reason: Nausea) Referrals Referrals: Pro,Jesus Rivers MD [Primary Care Provider] -
[2022-07-06] MEDS ORDERED: SODIUM CHLORIDE 0.9% 1000ML 1,000 ML IV SCH (17:30)
[2022-07-06 17:57] LABS: Basophils # (auto) 0.02 K/uL (0-0.2); Basophils % (auto) 0.3 %; Hematocrit (blood only) 37.8 % (37.0-47.0); Hemoglobin 12.6 g/dl (12.0-16.0); Immature Granulocytes # (auto) 0.01 K/uL (0.01-0.20); Immature Granulocytes % (auto) 0.1 %; Lymphocytes # (auto) 1.23 K/uL (1.2-3.4); Lymphocytes % (auto) 18.4 %; Mean Corpuscular Hemoglobin 28.4 pg (25.0-34.0); Mean Corpuscular Hgb Conc 33.3 g/dL (32.0-36.0); Mean Corpuscular Volume 85.1 fL (80.0-100.0); Mean Platelet Volume 11.5 fL (9.4-12.4); Monocytes # (auto) 0.29 K/uL (0.11-0.59); Monocytes % (auto) 4.3 %; Neutrophils # (auto) 5.14 K/uL (1.40-6.50); Neutrophils % (auto) 76.9 %; Platelet Count 179 K/uL (130-400); RDW Coefficient of Variation 15.2 % (11.5-14.5); RDW Standard Deviation 47.7 fL (36.4-46.3); Red Blood Count 4.44 M/uL (4.20-5.40); White Blood Count 6.69 K/ul (4.8-10.8)
[2022-07-06 18:02] LABS: Appearance Urine Clear (Clear); Bilirubin Urine Negative (Negative); Blood Urine Negative (Negative); Color Urine Yellow; Glucose Urine UA Negative (Negative); Ketones Urine Negative (Negative); Leukocyte Esterase Urine Negative (Negative); Nitrite Urine Negative (Negative); Protein Urine Negative (Negative); Specific Gravity Urine 1.015 (1.000-1.030); Urobilinogen Urine Negative (Negative); pH Urine 6.5 (4.5-7.5)
[2022-07-06 18:11] LABS: Alanine Aminotransferase 16 U/L (7-52); Albumin Globulin Ratio 1.4 (0.9-2); Albumin Level 3.9 gm/dl (3.4-5.0); Alkaline Phosphatase 72 U/L (34-104); Anion Gap 6 (3-11); Aspartate Aminotransferase 16 U/L (13-39); BUN Creatinine Ratio 14.6 (10-20); Bilirubin,Total 0.3 mg/dl (0.2-1.0); Blood Urea Nitrogen 13 mg/dl (6-23); Calcium 8.6 mg/dl (8.6-10.3); Carbon Dioxide 17 mmol/L (21-32); Chloride 117 mmol/L (98-107); Creatinine Clr Calc Pharmacy 70.9 ml/min; Est GFR (African American) 95.3 ml/min; Est GFR (Non-African American) 82.2 ml/min; Globulin 2.7 gm/dl (2.5-4.0); Glucose 89 mg/dl (70-99(Fasting)); Magnesium 2.1 mg/dl (1.7-2.4); Potassium 3.7 mmol/L (3.5-5.1); Sodium 140 mmol/L (136-145); Total Protein 6.6 gm/dl (6.0-8.3)
[2022-07-06 18:17] LABS: Troponin I High Sensitivity < 2.3 pg/ml (0-14)
[2022-07-06 18:28] LABS: Thyroid Stimulating Hormone 0.178 uIu/ml (0.300-4.500)
[2022-07-06 18:45] LABS: Amphetamines+Metham, Urine Neg (Neg); Barbiturates, Urine Neg (Neg); Benzodiazepine, Urine Neg (Neg); Cocaine, Urine Neg (Neg); MDMA (Ecstacy), Urine Neg (Neg); Methadone, Urine Neg (Neg); Opiate, Urine Neg (Neg); Phencyclidine, Urine Neg (Neg)
[2022-07-06] MEDS ORDERED: LORazepam 2 MG/1 ML VIAL IV STA (18:59)
[2022-07-06 20:14] LABS: T4 Free Thyroxine 0.82 ng/dl (0.61-1.60)
--- NOTE | 2022-07-06 20:44 | Magnetic Resonance Report ---
Exam(s): MRI HEAD Without Contrast EXAM: MR Head Without Intravenous Contrast CLINICAL HISTORY: Reason for exam: hist cva, off balance, confused. TECHNIQUE: Magnetic resonance images of the head/brain without intravenous contrast in multiple planes. COMPARISON: No relevant prior studies available. FINDINGS: No acute territorial infarct. No acute intracranial hemorrhage. No midline shift or mass effect. Encephalomalacia in the RIGHT MCA territory, consistent with old infarct. Images are degraded by motion artifact. The visualized orbits appear grossly unremarkable. The calvarium is intact. The visualized paranasal sinuses and mastoid air cells are grossly clear. IMPRESSION: No acute territorial infarct. Encephalomalacia in the RIGHT MCA territory, consistent with old infarct. No acute intracranial hemorrhage. Electronically signed by: Demetrius Delaney MD 07/06/22 20:43 PM
--- NOTE | 2022-07-06 23:02 | History & Physical Report ---
Date of Service July 06, 2022 Assessment & Plan (1) Altered mental status: Plan: 37 y/o female with a complex PMHx significant for previous CVA - TIA, CVA x2, intracranial hemorrhage, mood disorder - with previous suicide attempts, migraines, seizures, polypharmacy, GERD here for evaluation of AMS admitted for observation and further workup #AMS Baseline mentation unclear. Patient with significant past neurological history with CVA x2, TIA, intracranial hemorrhage. Patient developed seizures as a result of her previous CVA. Etiology unclear - neurological vs arrhythmia vs polypharmacy vs intoxication vs encephalitis. MRI Brain did not show any new areas of infarct. Encephalomalacia in the right MCA territory, consistent with old infarct was noted. Ammonia WNL. Tele has not showed signs of arrhythmia at this point. No meningitis signs on exam. Patient is on multiple medications which may be contributing to symptoms. There is also concern for possible OD as patient has OD'ed in the past. Utox was negative. Patient does have a history of seizures on topomax and lamictal so subclinical seizures cannot be ruled out. Consider neurology consult. [] EEG [] Lamictal level [] B12/folate [] clarify baseline mentation with family #Polypharmacy Patient is on several medications that may be contributing to her mental status. Fluoxetine, benztropine, buspirone, lorazepam, melatonin held overnight. Could consider restarting in the AM at lower doses vs consulting psychiatry for guidance. #Seizures Patient on topomax and lamictal. Continue home meds #Chronic Headaches #Migraines Patient does have chronic headaches as well. Patient on Ubrelvy as needed and Emgality monthly. Continue home meds #Hypercoagulopathy Patient had hypercoagulopathy workup in the past. 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 Patient also with elevated antiphospholipid abs. Will repeat this. Unfortunately patient has a history of intracranial hemorrhage. Has refused anticoagulation since this occurred. [] f/u antiphospholipid abs #History of Suicide Attempt Several prior suicide attempts in the form of OD. Denies any current SI/HI. Denies taking any other medications. Utox neg. MDD vs GOSIA vs bipolar disorder vs borderline personality disorder as mood control suboptimal on multiple medications as listed above. Unclear what diagnosis she currently holds. Reaching out to psychiatry could be useful for this as well. #Constipation Continue home regimen. Clarify with patient what works best. #GERD Continue pantoprazole See attending attestation for further documentation. Code status: full DVT ppx: contraindicated FENGI: regular Dispo:MedSurg with tele (2) Intracranial hemorrhage: (3) Chronic headaches: (4) Polypharmacy: (5) Seizure disorder as sequela of cerebrovascular accident: (6) History of suicide attempt: History of Present Illness Chief Complaint: AMS Primary Care Provider: Jesus Diamond MD 37 y/o female with a complex PMHx significant for previous CVA - TIA, CVA x2, intracranial hemorrhage, mood disorder - with previous suicide attempts, migraines, seizures, polypharmacy, GERD here for evaluation of AMS. Patient was seen in the ED and evaluated for CVA with CT Head this was negative for acute intracranial abnormalities thus patient was sent home. Re-presented with worsening mental status. History limited by patient cooperation. Baseline mentation is unclear. No SI/HI at this time. Patient had coagulopathy workup in the past, but actual workup is unclear. Upon further chart review did test positive for MTHFR gene and had an elevated antiphospholipid antibody screen in the past as well. She was on warfarin at some point but after her intracranial hemorrhage anticoagulation was discontinued. There is a strong family history of blood clots as well. Labs: Utox neg. No notable labs Imaging: MRI Brain Allergies Allergy/AdvReac Type Severity Reaction Status Date / Time methocarbamol Allergy Intermediate RASH Verified 07/06/22 17:16 morphine Allergy Intermediate rash on Verified 07/06/22 17:16 arms trazodone AdvReac Severe SEVERE Verified 07/06/22 17:16 DIZZINESS bupropion AdvReac Intermediate AVOID DUE Verified 07/06/22 17:16 TO LOWERING SEIZURE THRESHOLD NSAIDS (Non-Steroidal AdvReac Intermediate Gastritis/GI Verified 07/06/22 17:16 Anti-Inflamma bleed tramadol AdvReac Intermediate AVOID DUE Verified 07/06/22 17:16 TO LOWERING SEIZURE THRESHOLD Home Medications Medication Instructions Recorded Confirmed Type sennosides 8.6 mg capsule (senna) 8.6 mg PO QDL 01/01/19 07/06/22 History lamotrigine 200 mg tablet 200 mg PO BID 30 days #60 tabs 02/07/19 07/06/22 Rx (Lamictal) melatonin 10 mg capsule 10 mg PO HS PRN sleep #30 caps 08/22/19 07/06/22 Rx docusate sodium 100 mg capsule 100 mg PO QAM PRN Constipation 09/25/19 07/06/22 History (Colace) fluoxetine 40 mg capsule 80 mg PO QAM 08/14/20 07/06/22 History blood sugar diagnostic #3 Boxes 10/12/20 06/29/22 Rx blood-glucose meter (OneTouch #1 ea 03/12/21 06/29/22 Rx Ultra2 Meter) lamotrigine 25 mg tablet 50 mg PO BID 03/30/21 07/06/22 History Cbd Gummy 25 mg PO HS 08/10/21 07/06/22 History buspirone 30 mg tablet 30 mg PO BID 09/14/21 07/06/22 History lancets 33 gauge (OneTouch Delica #300 ea 09/23/21 06/29/22 Rx Lancets) lorazepam 0.5 mg tablet 0.25 - 0.5 mg PO DAILY PRN Anxiety 12/08/21 07/06/22 History linaclotide 290 mcg capsule 290 mcg PO HS 01/31/22 07/06/22 History (Linzess) albuterol sulfate 90 mcg/actuation 2 puff inhalation Q4 PRN Shortness 03/18/22 07/06/22 Rx aerosol inhaler Of Breath #18 grams blood sugar diagnostic (OneTouch #300 ea 04/14/22 06/29/22 Rx Ultra Test strips) pantoprazole 40 mg tablet,delayed 40 mg PO BID #60 tabs 04/19/22 07/06/22 Rx release azelastine 137 mcg (0.1 %) nasal 2 spray intranasal BID PRN nasal 05/10/22 07/06/22 Rx spray aerosol congestion #30 mL benztropine 1 mg tablet 1 mg PO BID 05/15/22 07/06/22 History peg 3350-electrolytes 236 240 ml PO Q10M #4,000 mL 05/20/22 07/06/22 Rx gram-22.74 gram-6.74 gram-5.86 gram solution (Golytely) topiramate 100 mg tablet See Rx Instructions .Route .COMPLEX 05/23/22 07/06/22 History levothyroxine 25 mcg tablet 25 mcg PO QAM #30 tabs 06/29/22 07/06/22 Rx galcanezumab-gnlm 120 mg/mL 120 mg subcut .COMPLEX 30 days #1 06/30/22 07/06/22 Rx subcutaneous pen injector mL (Emgality Pen) ubrogepant 100 mg tablet (Ubrelvy) 100 mg PO DIRECTED PRN migraine 06/30/22 07/06/22 Rx headache 30 days #16 tabs ondansetron HCl 4 mg tablet 4 mg PO Q8H PRN NAUSEA/VOMITING 07/06/22 07/06/22 History ondansetron HCl 4 mg tablet 4 mg PO BID #60 tabs 07/07/22 Rx Past Med/Surg History Medical History Abdominal pain FOR ABOUT A MONTH/REASON FOR UPCOMING PROCEDURES Anxiety and depression Blurry vision, bilateral EYE TESTING FOR/STARTING OF CATARACT - ? FURTHER DETAILS. UPCOMING MRI ...NOT YET SCHEDULED Chronic low back pain DVT (deep venous thrombosis) Patient reports h/o "bilateral upper extremities and brain started from IVs" Elevated liver function tests Encounter for pre-operative examination Epilepsy LAST SEIZURE 6 MON AGO/TRAMADOL CAUSED IT Family history of blood clots Gastritis Hematochezia REASON FOR UPCOMING PROCEDURES History of COVID-19 APPROX 1 YR AGO History of ovarian cyst Hx of hiatal hernia Hypothyroidism IBS (irritable colon syndrome) Lumbar radicular pain Migraine without aura, not intractable, without status migrainosus MIGRAINES/UNDER CONTROL CURRENTLY Nausea and vomiting REASON FOR UPCOMING PROCEDURES/ONGOING FOR A MONTH Post traumatic stress disorder Pre-diabetes Stroke x 2, 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 Per PCP note second CVA is a result of "right basal ganglia hemorrhagic intraparenchymal stroke/hematoma evacuation 2018. Patient also follows with [facility] as well as [facility]. [facility] follows patient for post hemorrhagic stroke/hematoma with residual left facial droop and dysarthria." Suicide attempt by multiple drug overdose previous attempt, but no thoughts of harming self now Syncope HX Surgical History H/O LEEP conization History of appendectomy History of colonoscopy History of endometrial ablation History of esophagogastroduodenoscopy (EGD) Hx of cholecystectomy S/P section S/P cholecystectomy S/P subdural hematoma evacuation S/P total abdominal hysterectomy Status post tubal ligation [place] teeth extracted Family History Mother Blood clots in brain Lung cancer Uncle Hx of blood clots Family history of colon cancer Grandmother Family history of diabetes mellitus Uncle Family history of colon cancer Other Breast cancer FHx: cancer Family history of lung disease Denies family history of Ovarian cancer Crohn's disease Colorectal cancer IBS (irritable bowel syndrome) Social History Smoking Status: Current every day smoker Tobacco Type: E-cigarettes / Vaping Age Started Using Tobacco: 24; Age Quit Using Tobacco: 35; packs per day: 2; Cigarettes Per Day: VAPE DAILY/ADVISED NPO; Second Hand Exposure: No; Do You Dip or Chew Tobacco: No; Hx Alcohol Use: No Hx Substance Use: Yes (HX/SUBOXONE REHAB FOR - 3 YR AGO REHAB DONE/NO RELAPSE) Last Used Substance Other:: this past summer went to rehab Substance Use Type Other:: suboxone Preferred Language: Kyrgyz Communication Ability: Effective Visual Impairment: No Limitations Hearing Ability: Normal 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 Beliefs That Will Affect Care: None Current Living Situation: Other Current Living Situation Comment: AG AND HIS DAUGHTER current occupational status: disabled How many Children do You have: 1 Feels Safe at Home: Yes Childhood Exposure to Second-Hand Smoke: Yes (Mother) Diet: regular Dental Care, Regularly: Yes Physical Activity Frequency: 3-4 Times per Week Seatbelt Use: sometimes Sunscreen Use: No Assistive Devices: Denture - Upper Review of Systems Review of Systems: +headache no f/c/CP/SOB/leg swelling/calf pain/dysuria/constipation/abdominal pain Physical Exam Physical Exam: Gen: well appearing female in NAD, awoken from sleep HEENT: AT NC Resp: CTAB no wheezing CV: RRR no m/r/g Abd: soft, non-distended, non-tender MSK: no gross deformities Skin: no rashes or bruising Neuro: Gen: alert and oriented to person place and time CN II-XII tested and intact - possible slight left sided facial droop corner of the mouth Strength: 5/5 in all muscle groups Sensation: sensation to light touch Gait: not assessed Results & Data Results & Data Vital Signs (Past 12 Hours) Vital Signs Temp Pulse Pulse Resp BP BP Pulse Ox 07/06/22 20:14 79 18 121/86 100 07/06/22 17:51 99 07/06/22 17:50 82 19 115/81 99 07/06/22 17:50 07/06/22 17:16 88 07/06/22 16:41 37.1 C 121 H 18 111/76 98 O2 Del Method 07/06/22 20:14 Room Air 07/06/22 17:51 Room Air 07/06/22 17:50 Room Air 07/06/22 17:50 Room Air 07/06/22 17:16 07/06/22 16:41 Room Air Laboratory Results 07/06/22 17:32 07/06/22 17:32 Diagnostic Findings Brain MRI 07/06/22 17:28 CLINICAL HISTORY: Reason for exam: hist cva, off balance, confused. FINDINGS: No acute territorial infarct. No acute intracranial hemorrhage. No midline shift or mass effect. Encephalomalacia in the RIGHT MCA territory, consistent with old infarct. Images are degraded by motion artifact. The visualized orbits appear grossly unremarkable. The calvarium is intact. The visualized paranasal sinuses and mastoid air cells are grossly clear. IMPRESSION: No acute territorial infarct. Encephalomalacia in the RIGHT MCA territory, consistent with old infarct. No acute intracranial hemorrhage. Code Status & VTE Plan VTE Prophylaxis Plan VTE Prophylaxis will be ordered: No Reason for no VTE drug order: Contraindicated Supervising Physician Co-Signing Physician Notes Attending addendum: I have physically seen this patient, have supervised the medical residents activities, and agree with the H&P unless as otherwise noted. Assessment and Plan: Altered mental status/confusion and disorientation history of chronic migraine headaches/history of suicide attempt- Significant cerebrovascular disease history, with CVA/TIA, CVA x2, intracranial hemorrhage, mood disorder and previous suicide attempts MRI brain did not show acute infarcts Differential including toxic ingestion, polypharmacy/medicamentosa, metabolic e ncephalopathy, other Continue Lamictal and topiramate, holding other medications overnight until ass essed by psychiatry Order EEG Consult psychiatry Hypothyroidism-continue levothyroxine GERD- Continue pantoprazole Remaining orders and notations as noted Resident Activity Tracking Resident Involvement: Resident Care Provided Care Provided: Adult [facility] Medicine
[2022-07-07] MEDS ORDERED: lamoTRIgine 25 MG TAB PO SCH (00:13)
[2022-07-07] MEDS ORDERED: DOCUSATE SODIUM 100 MG CAP PO PRN (00:13)
[2022-07-07] MEDS ORDERED: lamoTRIgine 100 MG TAB PO SCH (00:13)
[2022-07-07 00:23] LABS: Lyme Ab IgG w/WB Rflx Negative (Negative); Lyme Ab IgM w/WB Rflx Negative (Negative)
[2022-07-07 04:52] LABS: BUN Creatinine Ratio 11.9 (10-20); Calcium 7.8 mg/dl (8.6-10.3); Creatinine Clr Calc Pharmacy 75.1 ml/min; Est GFR (African American) 102.2 ml/min; Est GFR (Non-African American) 88.2 ml/min; Potassium 3.4 mmol/L (3.5-5.1)
--- NOTE | 2022-07-07 08:44 | Discharge Summary ---
Date of Service July 07, 2022 Admission HPI Per Admitting Provider 37 y/o female with a complex PMHx significant for previous CVA - TIA, CVA x2, intracranial hemorrhage, mood disorder - with previous suicide attempts, migraines, seizures, polypharmacy, GERD here for evaluation of AMS. Patient was seen in the ED and evaluated for CVA with CT Head this was negative for acute intracranial abnormalities thus patient was sent home. Re-presented with worsening mental status. History limited by patient cooperation. Baseline mentation is unclear. No SI/HI at this time. Patient had coagulopathy workup in the past, but actual workup is unclear. Upon further chart review did test positive for MTHFR gene and had an elevated antiphospholipid antibody screen in the past as well. She was on warfarin at some point but after her intracranial hemorrhage anticoagulation was discontinued. There is a strong family history of blood clots as well. Labs: Utox neg. No notable labs Imaging: MRI Brain Principal Diagnosis Encephalopathy unspecified Discharge Exam Pt is awake and at her baseline with some dysarthria, but can ambulate in room, has a negative ROS, states has no issues at this time Discharge Data Allergies Allergy/AdvReac Type Severity Reaction Status Date / Time methocarbamol Allergy Intermediate RASH Verified 07/06/22 17:16 morphine Allergy Intermediate rash on Verified 07/06/22 17:16 arms trazodone AdvReac Severe SEVERE Verified 07/06/22 17:16 DIZZINESS bupropion AdvReac Intermediate AVOID DUE Verified 07/06/22 17:16 TO LOWERING SEIZURE THRESHOLD NSAIDS (Non-Steroidal AdvReac Intermediate Gastritis/GI Verified 07/06/22 17:16 Anti-Inflamma bleed tramadol AdvReac Intermediate AVOID DUE Verified 07/06/22 17:16 TO LOWERING SEIZURE THRESHOLD Consultations 07/06/22 21:18 ED Decision to Admit Stat Ordered Studies 07/06/22 17:28 MR brain wo con Stat Hospital Course (1) Altered mental status: 37 y/o female with a complex PMHx significant for previous CVA - TIA, CVA x2, intracranial hemorrhage, mood disorder - with previous suicide attempts, migraines, seizures, polypharmacy, GERD here for evaluation of AMS admitted for observation and further workup Patient has encephalopathy of undetermined significance. Is on polypharmacy and has had previous depression in the past with suicidal ideation. On the day of her discharge she denies any suicidal ideation she has help at home with her daughter she does not feel she had any issues with her medications but she is on many of them. She provided a typed out med list we reconciled at the time of discharge and she was able to ambulate in her room and feels she is at her baseline to return home Urine tox screen was unremarkable Lyme disease is negative antiphospholipid levels are pending at time of discharge Chronic Seizures Patient on topomax and lamictal. Continue home meds Chronic Headaches / Migraines Patient does have chronic headaches as well. Patient on Ubrelvy as needed and Emgality monthly. Continue home meds Hypercoagulopathy Patient had hypercoagulopathy workup in the past. 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 Patient also with elevated antiphospholipid abs. Will repeat this. Unfortunately patient has a history of intracranial hemorrhage. Has refused anticoagulation since this occurred. pending antiphospholipid abs History of Suicide Attempt Several prior suicide attempts in the form of OD. Denies any current SI/HI. Denies taking any other medications. Utox neg. MDD vs GOSIA vs bipolar disorder vs borderline personality disorder as mood control suboptimal on multiple medications as listed above. Unclear what diagnosis she currently holds. Reaching out to psychiatry could be useful for this as well. (2) Intracranial hemorrhage: (3) Chronic headaches: (4) Polypharmacy: (5) Seizure disorder as sequela of cerebrovascular accident: (6) History of suicide attempt: Total Time Total Time Spent Total Time Spent (In Minutes): It required greater than 30 minutes to prepare this patient for discharge Discharge Plan Discharge Items Patient Disposition: Home - Self-Care Reason For Visit: AMS Discharge Diagnosis: Encephalopathy unclear etiology Activity: Resume your previous activity Non-emergency contact: Primary Care Provider Call non-emergency contact if: your symptoms worsen Follow-up/Referrals: Jesus Diamond MD [Primary Care Provider] - Diet: Regular Ambulatory Orders: Basic Metabolic Panel (Routine) Timeframe: 5 Days Location: Determined by Patient Ordered By: Gonzalo Dunlap Attending Provider Instructions: Please take your medications as prescribed, follow up with Dr Diamond within a week of discharge please have bloodwork next week please have a healthy diet and consider a multiple vitamin Pending Studies at Discharge: No Stand-Alone Forms: [employer], Smoking Cessation Medications and DC Order Prescriptions: New ondansetron HCl 4 mg tablet 4 mg PO BID Qty: 60 0RF Continued lamotrigine [Lamictal] 200 mg tablet 200 mg PO BID 30 Days Qty: 60 5RF Rx Instructions: TOTAL DOSE 250 MG--TAKES WITH 50 MG TAB. (DME) blood sugar diagnostic Strip See Rx Instructions .ROUTE .MEDSUPPLY Qty: 3 1RF Rx Instructions: Test 3 times daily or as directed. (DME) blood-glucose meter [[employer] Ultra2 Meter] Misc See Rx Instructions .Route Qty: 1 0RF Rx Instructions: As directed to test 1-2x daily (DME) lancets [CloudjutsuTouch Delica Lancets] 33 gauge [facility] [employer] See Rx Instructions .ROUTE .MEDSUPPLY Qty: 300 3RF Rx Instructions: Test three times a day albuterol sulfate 90 mcg/actuation HFA aerosol inhaler 2 puff INHALATION Q4 PRN (Reason: Shortness Of Breath) Qty: 18 3RF Rx Instructions: 2 puffs inhalation every 4-6 hours PRN; (DME) OneTouch Ultra Test Strip See Rx Instructions .Route Qty: 300 1RF Rx Instructions: use to test three times daily azelastine 137 mcg (0.1 %) aerosol,spray 2 spray intranasal BID PRN (Reason: nasal congestion) Qty: 30 2RF Rx Instructions: administer into each nostril peg 3350-electrolytes [Golytely] 236-22.74-6.74 -5.86 gram recon soln 240 ml PO Q10M Qty: 4000 0RF Rx Instructions: Take per split dose instructions Emgality Pen 120 mg/mL pen injector 120 mg subcut .COMPLEX 30 Days Qty: 1 2RF Rx Instructions: 120 mg subcutaneously ONCE A MONTH; USUALLY THE 13TH OR 14TH OF THE MONTH Ubrelvy 100 mg tablet 100 mg PO DIRECTED MDD 200mg PRN (Reason: migraine headache) 30 Days Qty: 16 2RF Rx Instructions: take one prn migraine, may repeat in 2 hours if needed lamotrigine 25 mg tablet 50 mg PO BID Rx Instructions: TOTAL DOSE 250 MG--TAKES WITH 200 MG TAB. lorazepam 0.5 mg tablet 0.25 - 0.5 mg PO DAILY PRN (Reason: Anxiety) senna 8.6 mg capsule 8.6 mg PO QDL melatonin 10 mg capsule 10 mg PO HS PRN (Reason: sleep) Qty: 30 0RF Patient Comments: USUALLY EVERY NIGHT docusate sodium [Colace] 100 mg capsule 100 mg PO QAM PRN (Reason: Constipation) levothyroxine 25 mcg tablet 25 mcg PO QAM Qty: 30 3RF Linzess 290 mcg capsule 290 mcg PO HS Rx Instructions: TAKE 1 CAPSULE BY MOUTH DAILY topiramate 100 mg tablet See Rx Instructions .ROUTE .COMPLEX Rx Instructions: TAKES 100 mg QAM, THEN 200MG QPM. pantoprazole 40 mg tablet,delayed release (DR/EC) 40 mg PO BID Qty: 60 0RF ondansetron HCl 4 mg tablet 4 mg PO Q8H PRN (Reason: NAUSEA/VOMITING) Rx Instructions: TAKE 1 TABLET BY MOUTH EVERY 8 HOURS fluoxetine 40 mg capsule 80 mg PO QAM Cbd Gummy 25 mg PO HS buspirone 30 mg tablet 30 mg PO BID benztropine 1 mg tablet 1 mg PO BID Discontinued promethazine 25 mg tablet 25 mg PO DIRECTED PRN (Reason: Nausea) Discharge Orders: Discharge Order (Routine); Ordered 07/07/22 Ordered By: Gonzalo Wilcox Admission Data Admit Date/Time: 07/06/22 22:49 Attending Provider: Gonzalo Wilcox Admit Provider: Layla Rowe Primary Care Provider: Jesus Diamond Other Providers: Camden Camargo Coding Level of Care Code 79311 INP/OBS DISCH >30 MIN Diagnoses Altered mental status R41.82 Intracranial hemorrhage I62.9 Chronic headaches R51 Polypharmacy Z79.899 Seizure disorder as sequela of cerebrovascular accident I69.398; G40.909 History of suicide attempt Z91.51
[2022-07-07] MEDS ORDERED: TOPIRAMATE 100 MG TAB PO SCH ×2 (09:00→21:00)
[2022-07-07] MEDS ORDERED: PANTOprazole 40 MG TAB PO SCH (09:00)
[2022-07-07] MEDS ORDERED: SENNA 8.6 MG TAB PO SCH (11:30)
[2022-07-07] MEDS ORDERED: LINACLOTIDE 145 MCG CAPSULE PO SCH (21:00)
--- NOTE | 2022-07-07 22:18 | Billing Data ---
Date of Service July 07, 2022 Coding Level of Care Code 27967 INT INP/OBS CARE
--- NOTE | 2022-07-08 05:50 | Electrocardiogram Report ---
Test Reason : Blood Pressure : / mmHG Vent. Rate : 081 BPM Atrial Rate : 081 BPM P-R Int : 158 ms QRS Dur : 080 ms QT Int : 392 ms P-R-T Axes : 059 025 025 degrees QTc Int : 455 ms Normal sinus rhythm Nonspecific ST and T wave abnormality Abnormal ECG When compared with ECG of 06-JUL-2022 11:31, No significant change Confirmed by Jose Sahrp ([id number]) on 07/08/2022 5:50:13 AM Referred By: REFERRED SELF Confirmed By:Jose Sharp
--- NOTE | 2022-07-09 10:42 | Discharge Summary ---
Date of Service July 07, 2022 Admission HPI Per Admitting Provider 37 y/o female with a complex PMHx significant for previous CVA - TIA, CVA x2, intracranial hemorrhage, mood disorder - with previous suicide attempts, migraines, seizures, polypharmacy, GERD here for evaluation of AMS. Patient was seen in the ED and evaluated for CVA with CT Head this was negative for acute intracranial abnormalities thus patient was sent home. Re-presented with worsening mental status. History limited by patient cooperation. Baseline mentation is unclear. No SI/HI at this time. Patient had coagulopathy workup in the past, but actual workup is unclear. Upon further chart review did test positive for MTHFR gene and had an elevated antiphospholipid antibody screen in the past as well. She was on warfarin at some point but after her intracranial hemorrhage anticoagulation was discontinued. There is a strong family history of blood clots as well. Labs: Utox neg. No notable labs Imaging: MRI Brain Principal Diagnosis encephalopathy resolved Discharge Exam awake alert and appropriate Discharge Data Allergies Allergy/AdvReac Type Severity Reaction Status Date / Time methocarbamol Allergy Intermediate RASH Verified 07/06/22 17:16 morphine Allergy Intermediate rash on Verified 07/06/22 17:16 arms trazodone AdvReac Severe SEVERE Verified 07/06/22 17:16 DIZZINESS bupropion AdvReac Intermediate AVOID DUE Verified 07/06/22 17:16 TO LOWERING SEIZURE THRESHOLD NSAIDS (Non-Steroidal AdvReac Intermediate Gastritis/GI Verified 07/06/22 17:16 Anti-Inflamma bleed tramadol AdvReac Intermediate AVOID DUE Verified 07/06/22 17:16 TO LOWERING SEIZURE THRESHOLD Consultations 07/06/22 21:18 ED Decision to Admit Stat Ordered Studies 07/06/22 17:28 MR brain wo con Stat Hospital Course (1) Altered mental status: 37 y/o female with a complex PMHx significant for previous CVA - TIA, CVA x2, intracranial hemorrhage, mood disorder - with previous suicide attempts, migraines, seizures, polypharmacy, GERD here for evaluation of AMS admitted for observation and further workup Patient has encephalopathy of undetermined significance. Is on polypharmacy and has had previous depression in the past with suicidal ideation. On the day of her discharge she denies any suicidal ideation she has help at home with her daughter she does not feel she had any issues with her medications but she is on many of them. She provided a typed out med list we reconciled at the time of discharge and she was able to ambulate in her room and feels she is at her baseline to return home Urine tox screen was unremarkable Lyme disease is negative antiphospholipid levels are pending at time of discharge Chronic Seizures Patient on topomax and lamictal. Continue home meds Chronic Headaches / Migraines Patient does have chronic headaches as well. Patient on Ubrelvy as needed and Emgality monthly. Continue home meds Hypercoagulopathy Patient had hypercoagulopathy workup in the past. 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 Patient also with elevated antiphospholipid abs. Will repeat this. Unfortunately patient has a history of intracranial hemorrhage. Has refused anticoagulation since this occurred. pending antiphospholipid abs History of Suicide Attempt Several prior suicide attempts in the form of OD. Denies any current SI/HI. Denies taking any other medications. Utox neg. MDD vs GOSIA vs bipolar disorder vs borderline personality disorder as mood control suboptimal on multiple medications as listed above. Unclear what diagnosis she currently holds. Reaching out to psychiatry could be useful for this as well. (2) Intracranial hemorrhage: (3) Chronic headaches: (4) Polypharmacy: (5) Seizure disorder as sequela of cerebrovascular accident: (6) History of suicide attempt: Total Time Total Time Spent Total Time Spent (In Minutes): greater than 30 minutes were required to create this dishcarge summary Discharge Plan Discharge Items Patient Disposition: Home - Self-Care Reason For Visit: AMS Discharge Diagnosis: Encephalopathy unclear etiology Activity: Resume your previous activity Non-emergency contact: Primary Care Provider Call non-emergency contact if: your symptoms worsen Follow-up/Referrals: Jesus Diamond MD [Primary Care Provider] - Diet: Regular Ambulatory Orders: Basic Metabolic Panel (Routine) Timeframe: 5 Days Location: Determined by Patient Ordered By: Gonzalo Gage Attending Provider Instructions: Please take your medications as prescribed, follow up with Dr Diamond within a week of discharge please have bloodwork next week please have a healthy diet and consider a multiple vitamin Pending Studies at Discharge: No Stand-Alone Forms: My [employer], Smoking Cessation Medications and DC Order Prescriptions: New ondansetron HCl 4 mg tablet 4 mg PO BID Qty: 60 0RF Continued lamotrigine [Lamictal] 200 mg tablet 200 mg PO BID 30 Days Qty: 60 5RF Rx Instructions: TOTAL DOSE 250 MG--TAKES WITH 50 MG TAB. (DME) blood sugar diagnostic Strip See Rx Instructions .ROUTE .MEDSUPPLY Qty: 3 1RF Rx Instructions: Test 3 times daily or as directed. (DME) blood-glucose meter [[employer]Touch Ultra2 Meter] Mis See Rx Instructions .Route Qty: 1 0RF Rx Instructions: As directed to test 1-2x daily (DME) lancets [OneTouch Delica Lancets] 33 gauge misc See Rx Instructions .ROUTE .MEDSUPPLY Qty: 300 3RF Rx Instructions: Test three times a day albuterol sulfate 90 mcg/actuation HFA aerosol inhaler 2 puff INHALATION Q4 PRN (Reason: Shortness Of Breath) Qty: 18 3RF Rx Instructions: 2 puffs inhalation every 4-6 hours PRN; (DME) OneTouch Ultra Test Strip See Rx Instructions .Route Qty: 300 1RF Rx Instructions: use to test three times daily azelastine 137 mcg (0.1 %) aerosol,spray 2 spray intranasal BID PRN (Reason: nasal congestion) Qty: 30 2RF Rx Instructions: administer into each nostril peg 3350-electrolytes [Golytely] 236-22.74-6.74 -5.86 gram recon soln 240 ml PO Q10M Qty: 4000 0RF Rx Instructions: Take per split dose instructions Emgality Pen 120 mg/mL pen injector 120 mg subcut .COMPLEX 30 Days Qty: 1 2RF Rx Instructions: 120 mg subcutaneously ONCE A MONTH; USUALLY THE 13TH OR 14TH OF THE MONTH Ubrelvy 100 mg tablet 100 mg PO DIRECTED MDD 200mg PRN (Reason: migraine headache) 30 Days Qty: 16 2RF Rx Instructions: take one prn migraine, may repeat in 2 hours if needed lamotrigine 25 mg tablet 50 mg PO BID Rx Instructions: TOTAL DOSE 250 MG--TAKES WITH 200 MG TAB. lorazepam 0.5 mg tablet 0.25 - 0.5 mg PO DAILY PRN (Reason: Anxiety) senna 8.6 mg capsule 8.6 mg PO QDL melatonin 10 mg capsule 10 mg PO HS PRN (Reason: sleep) Qty: 30 0RF Patient Comments: USUALLY EVERY NIGHT docusate sodium [Colace] 100 mg capsule 100 mg PO QAM PRN (Reason: Constipation) levothyroxine 25 mcg tablet 25 mcg PO QAM Qty: 30 3RF Linzess 290 mcg capsule 290 mcg PO HS Rx Instructions: TAKE 1 CAPSULE BY MOUTH DAILY topiramate 100 mg tablet See Rx Instructions .ROUTE .COMPLEX Rx Instructions: TAKES 100 mg QAM, THEN 200MG QPM. pantoprazole 40 mg tablet,delayed release (DR/EC) 40 mg PO BID Qty: 60 0RF ondansetron HCl 4 mg tablet 4 mg PO Q8H PRN (Reason: NAUSEA/VOMITING) Rx Instructions: TAKE 1 TABLET BY MOUTH EVERY 8 HOURS fluoxetine 40 mg capsule 80 mg PO QAM Cbd Gummy 25 mg PO HS buspirone 30 mg tablet 30 mg PO BID benztropine 1 mg tablet 1 mg PO BID Discontinued promethazine 25 mg tablet 25 mg PO DIRECTED PRN (Reason: Nausea) Discharge Orders: Discharge Order (Routine); Ordered 07/07/22 Ordered By: Gonzalo Wilcox Admission Data Admit Date/Time: 07/06/22 22:49 Attending Provider: Gonzalo Wilcox Admit Provider: Layla Rowe Primary Care Provider: Jesus Diamond Other Providers: Camden Camargo Other Interventions: Discharge Summary Assessment (RN) Last Done: 07/07/22 08:48 Coding Level of Care Code 65936 INP/OBS DISCH >30 MIN Diagnoses Altered mental status R41.82 Intracranial hemorrhage I62.9 Chronic headaches R51 Polypharmacy Z79.899 Seizure disorder as sequela of cerebrovascular accident I69.398; G40.909 History of suicide attempt Z91.51
== END 2022-07-07 09:20 | disposition home or self-care (01) | DRG 71 ==
LOC: ED 16:39 → SUATTDRO 22:49 → EDINP 22:49
DX: Z88.5 Allergy status to narcotic agent; G93.40 Encephalopathy, unspecified; E03.9 Hypothyroidism, unspecified; G40.909 Epilepsy, unspecified, not intractable, without status epilepticus; D68.59 Other primary thrombophilia; I69.198 Other sequelae of nontraumatic intracerebral hemorrhage; K59.00 Constipation, unspecified; G43.909 Migraine, unspecified, not intractable, without status migrainosus; Z79.890 Hormone replacement therapy; F39 Unspecified mood [affective] disorder; K21.9 Gastro-esophageal reflux disease without esophagitis; Z20.822 Contact with and (suspected) exposure to COVID-19; Z79.899 Other long term (current) drug therapy; Z91.51 Personal history of suicidal behavior; F17.290 Nicotine dependence, other tobacco product, uncomplicated

== ENCOUNTER 2022-09-12 20:10 | Inpatient (IN) ==
[2022-09-12] MEDS ORDERED: SODIUM CHLORIDE 0.9% 1000ML 1,000 ML IV ONE (20:40)
[2022-09-12] MEDS ORDERED: LORazepam 2 MG/1 ML VIAL IV STA (20:40)
--- NOTE | 2022-09-12 20:45 | Emergency Department Note ---
Impression & Plan Suicide attempt, Anticholinergic drug overdose ED Provider Note Name: BRUCE TAYR Age: 37 Sex: F Arrives Via: Walk-In Informant: Patient, Significant Other ED Provider: Buck Vo MD Chief Complaint: Drug overdose Impression: As per impression above Medical Decision Makin-year-old female arrives following a suicide attempt at roughly 7 PM this evening. It is under the impression she had taken 10 to 15 tablets of Unisom. They do not have the bottle with them. Patient admits this was a suicide attempt but is now regretting it and feels she is not suicidal now. She admits she is stressed and sad that her daughter is currently in the ICU in [place] following a stroke. Patient is somewhat anxious and agitated difficult to rule out anticholinergic syndrome. She was given some Ativan and fluids with vast improvement. Laboratory work-up is benign. Initial Tylenol level is 4 and she really seems to have a slightly positive Tylenol level. A repeat at 4 hours from ingestion is 0 though. EKG is reassuring. She was kept on the monitor over several hours without any concerning findings. Patient was felt to be medically clear at 1 AM and observation was completed. There is a 302 petition on the chart but patient is currently willing for hospitalization voluntarily. She was signed out to overnight ED physician pending placement. Prior Medical Record and Triage/Nursing Notes reviewed by Me Extensive external chart reviewed including previous discharge summaries Differentials:Overdose, toxicologic, infection, hypoglycemia, electrolyte abnormalities, cardiac sources, intracerebral event, neurologic, trauma, as well as other pathologies. Vital Signs: reviewed and remarkable for mildly tachy on arrival Interventions: Ativan 1 mg IV, normal saline bolus 1 L IV Labs:Reviewed and remarkable for no significant abnormalities EKG:Per My Interpretation: Indication overdose. Normal sinus rhythm at 72 bpm QTc 464. No ectopy no ischemia. When compared to EKG July 09, 2022 there is no significant change. Cardiac/Tele Monitoring: Cardiac Monitoring: An Order was placed for continuous cardiac monitoring. The monitor shows a rate of 70 with a normal sinus rhythm. Consults:Mental health case management evaluated patient and agrees with need for psychiatric hospitalization Plan: Disposition: Signed out to Dr Ames Condition: Good History of Present Illness:37-year-old female arrives for evaluation of suicide attempt. Patient notes she has been incredibly stressed due to her daughter having just been diagnosed with a stroke and being in ICU. Today she went out and bought a sleep aid which she took 10 to 15 tablets. She notes she is feeling bit jittery and anxious after taking it. This occurred somewhere around 7 PM. Denies any other attempts to harm herself. No cutting or other foreign body ingestions. No other pills drugs or alcohol. She admits a history of depression previous psychiatric placement. Denies any falls, trauma, injuries. Denies anyone trying to harm her. Patient states that she regrets having taken these medicines and does not feel she is currently suicidal or homicidal. Patient does note that a little while after taking all the pills she did vomit. Past History:See Below Home Medications:See Below Allergies:See Below Vitals:Blood Pressure: 105/68, Pulse 97, RR 18, T 36.8C, O2 99% on RA Physical Exam: GENERAL: Patient is anxious/tremulous appearing and in mild distress. RESPIRATORY: No dyspnea. Clear to auscultation and equal bilaterally. No wheeze, no rhonchi. CARDIOVASCULAR: Regular rate and rhythm.No murmurs, rubs, gallops appreciated. GASTROINTESTINAL: Abdomen soft, non-tender, no peritonitis.Bowel sounds positive.No masses appreciated. EXTREMITIES: Normal motion all extremities, no cyanosis, no edema. NEUROLOGIC: Alert and oriented, tremulous and mildly shaky though moving all extremities without difficulty SKIN: No rash, no jaundice, no diaphoresis. PSYCH: Anxious admits suicide attempt but denies currently being suicidal or homicidal GCS: 15 ED Course: Times/Reassessments: Patient is sleeping no distress. Easily awakened denies any symptoms and is agreeable to plan Buck Vo MD Past Med/Surg History Medical History (Updated 09/13/22 @ 02:52 by Buck Vo MD) Abdominal pain FOR ABOUT A MONTH/REASON FOR UPCOMING PROCEDURES Anxiety and depression Blurry vision, bilateral EYE TESTING FOR/STARTING OF CATARACT - ? FURTHER DETAILS. UPCOMING MRI ...NOT YET SCHEDULED Chronic low back pain DVT (deep venous thrombosis) Patient reports h/o "bilateral upper extremities and brain started from IVs" Elevated liver function tests Epilepsy LAST SEIZURE >6 MON AGO/TRAMADOL CAUSED IT Family history of blood clots Gastritis Hematochezia REASON FOR UPCOMING PROCEDURES History of COVID-19 APPROX 1 YR AGO History of ovarian cyst Hx of hiatal hernia Hypothyroidism IBS (irritable colon syndrome) Lumbar radicular pain Migraine without aura, not intractable, without status migrainosus MIGRAINES/UNDER CONTROL CURRENTLY Nausea and vomiting REASON FOR UPCOMING PROCEDURES/ONGOING FOR A MONTH Post traumatic stress disorder Pre-diabetes Stroke x 2, 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 Per PCP note second CVA is a result of "right basal ganglia hemorrhagic intraparenchymal stroke/hematoma evacuation 2018. Patient also follows with [facility] as well as [facility]. [facility] follows patient for post hemorrhagic stroke/hematoma with residual left facial droop and dysarthria." Suicide attempt by multiple drug overdose previous attempt, but no thoughts of harming self now Syncope HX Surgical History H/O LEEP conization History of appendectomy History of colonoscopy History of endometrial ablation History of esophagogastroduodenoscopy (EGD) Hx of cholecystectomy S/P section S/P cholecystectomy S/P subdural hematoma evacuation S/P total abdominal hysterectomy ovaries remain Status post tubal ligation [place] teeth extracted Family History Mother Blood clots in brain Lung cancer Uncle Hx of blood clots Family history of colon cancer Grandmother Family history of diabetes mellitus Uncle Family history of colon cancer Other Breast cancer FHx: cancer Family history of lung disease Denies family history of Ovarian cancer Crohn's disease Colorectal cancer IBS (irritable bowel syndrome) Social History Smoking Status: Current every day smoker Tobacco Type: E-cigarettes / Vaping Age Started Using Tobacco: 24; Age Quit Using Tobacco: 35; packs per day: 2; Cigarettes Per Day: vapes daily- advised; Second Hand Exposure: No; Do You Dip or Chew Tobacco: No; Hx Alcohol Use: No Hx Substance Use: Yes (HX/SUBOXONE REHAB FOR - 3 YR AGO REHAB DONE/NO RELAPSE) Substance Use Type Other:: suboxone Preferred Language: Citizen Of The [place] Communication Ability: Effective Visual Impairment: No Limitations Hearing Ability: Normal Nuclear Criticality Safety Engineer Required: No Beliefs That Will Affect Care: None Current Living Situation: Other Current Living Situation Comment: AG AND HIS DAUGHTER current occupational status: disabled How many Children do You have: 1 Feels Safe at Home: Yes Childhood Exposure to Second-Hand Smoke: Yes (Mother) Diet: regular Dental Care, Regularly: Yes Physical Activity Frequency: 3-4 Times per Week Seatbelt Use: sometimes Sunscreen Use: No Gender Identity: Female Assistive Devices: Denture - Upper Allergies Allergies Allergy/AdvReac Type Severity Reaction Status Date / Time methocarbamol Allergy Intermediate RASH Verified 08/22/22 15:51 morphine Allergy Intermediate rash on Verified 08/22/22 15:51 arms trazodone AdvReac Severe SEVERE Verified 08/22/22 15:51 DIZZINESS bupropion AdvReac Intermediate AVOID DUE Verified 08/22/22 15:51 TO LOWERING SEIZURE THRESHOLD NSAIDS (Non-Steroidal AdvReac Intermediate Gastritis/GI Verified 08/22/22 15:51 Anti-Inflamma bleed tramadol AdvReac Intermediate AVOID DUE Verified 08/22/22 15:51 TO LOWERING SEIZURE THRESHOLD Home Meds Home Medications Medication Instructions Recorded Confirmed sennosides 8.6 mg capsule (senna) 8.6 mg PO QDL 01/01/19 08/22/22 docusate sodium 100 mg capsule 100 mg PO QAM PRN Constipation 09/25/19 08/22/22 (Colace) fluoxetine 40 mg capsule 80 mg PO QAM 08/14/20 08/22/22 Cbd Gummy 25 mg PO HS 08/10/21 08/22/22 buspirone 30 mg tablet 30 mg PO BID 09/14/21 08/22/22 lorazepam 0.5 mg tablet 0.25 - 0.5 mg PO DAILY PRN Anxiety 12/08/21 08/22/22 linaclotide 290 mcg capsule 290 mcg PO HS 01/31/22 08/22/22 (Linzess) benztropine 1 mg tablet 1 mg PO BID 05/15/22 08/22/22 topiramate 100 mg tablet See Rx Instructions .Route .COMPLEX 05/23/22 08/22/22 multivitamin (One Daily 1 tab PO DAILY 07/15/22 08/22/22 Multivitamin tablet) bisacodyl 10 mg rectal suppository 10 mg NH DAILY PRN 08/10/22 08/22/22 (Dulcolax (bisacodyl)) cyclosporine 0.05 % eye drops in a 1 drp ophthalmic (eye) Q12H 08/10/22 08/22/22 dropperette (Restasis) Previous Rx's Medication Instructions Recorded melatonin 10 mg capsule 10 mg PO HS PRN sleep #30 caps 08/22/19 blood sugar diagnostic #3 Boxes 10/12/20 blood-glucose meter (OneTouch #1 ea 03/12/21 Ultra2 Meter) lancets 33 gauge (OneTouch Delica #300 ea 09/23/21 Lancets) albuterol sulfate 90 mcg/actuation 2 puff inhalation Q4 PRN Shortness 03/18/22 aerosol inhaler Of Breath #18 grams blood sugar diagnostic (OneTouch #300 ea 04/14/22 Ultra Test strips) pantoprazole 40 mg tablet,delayed 40 mg PO BID #60 tabs 04/19/22 release azelastine 137 mcg (0.1 %) nasal 2 spray intranasal BID PRN nasal 05/10/22 spray aerosol congestion #30 mL levothyroxine 25 mcg tablet 25 mcg PO QAM #30 tabs 06/29/22 galcanezumab-gnlm 120 mg/mL 120 mg subcut .COMPLEX 30 days #1 06/30/22 subcutaneous pen injector mL (Emgality Pen) ubrogepant 100 mg tablet (Ubrelvy) 100 mg PO DIRECTED PRN migraine 06/30/22 headache 30 days #16 tabs lamotrigine 250 mg tablet,extended 250 mg PO BID #60 tabs 08/22/22 release 24 hr ondansetron HCl 4 mg tablet See Rx Instructions .Route 09/02/22 .COMPLEX #60 tabs Results & Data (ED) Vital Signs Vital Signs - 24 hr 09/12/22 20:20 09/12/22 21:00 09/12/22 20:52 Temperature 36.8 C Temperature Source Temporal Artery Scan Pulse Rate 97 H 72 71 Respiratory Rate 18 17 Respiratory Depth Normal Blood Pressure 105/68 104/77 Blood Pressure Mean 80 86 Pulse Oximetry 99 98 Oxygen Delivery Method Room Air Room Air Sepsis Recent Fever Within 48 Hours No Sepsis New/Unexplained Change in Mental Status N/A Sepsis Action Taken by Nursing No Action Required 09/12/22 21:30 09/12/22 22:00 09/12/22 22:30 Temperature Temperature Source Pulse Rate 68 67 Respiratory Rate 19 19 Respiratory Depth Blood Pressure 99/69 L 111/71 118/84 Blood Pressure Mean 79 84 95 Pulse Oximetry 98 100 Oxygen Delivery Method Room Air Room Air Sepsis Recent Fever Within 48 Hours Sepsis New/Unexplained Change in Mental Status Sepsis Action Taken by Nursing 09/12/22 22:30 09/12/22 23:00 09/12/22 23:00 Temperature Temperature Source Pulse Rate 69 77 Respiratory Rate 17 18 Respiratory Depth Blood Pressure 108/88 Blood Pressure Mean 94 Pulse Oximetry 97 Oxygen Delivery Method Room Air Sepsis Recent Fever Within 48 Hours Sepsis New/Unexplained Change in Mental Status Sepsis Action Taken by Nursing 09/12/22 23:30 09/12/22 23:30 09/13/22 00:00 Temperature Temperature Source Pulse Rate 71 Respiratory Rate 18 Respiratory Depth Blood Pressure 124/78 117/86 Blood Pressure Mean 93 96 Pulse Oximetry 95 Oxygen Delivery Method Room Air Sepsis Recent Fever Within 48 Hours Sepsis New/Unexplained Change in Mental Status Sepsis Action Taken by Nursing 09/13/22 00:00 09/13/22 00:57 09/13/22 00:30 Temperature Temperature Source Pulse Rate 68 66 Respiratory Rate 16 Respiratory Depth Blood Pressure 119/83 Blood Pressure Mean 95 Pulse Oximetry 97 Oxygen Delivery Method Room Air Sepsis Recent Fever Within 48 Hours Sepsis New/Unexplained Change in Mental Status Sepsis Action Taken by Nursing 09/13/22 00:30 09/13/22 01:00 09/13/22 01:00 Temperature Temperature Source Pulse Rate 67 66 Respiratory Rate 17 16 Respiratory Depth Blood Pressure 119/85 Blood Pressure Mean 96 Pulse Oximetry Oxygen Delivery Method Sepsis Recent Fever Within 48 Hours Sepsis New/Unexplained Change in Mental Status Sepsis Action Taken by Nursing 09/13/22 01:30 09/13/22 02:00 09/13/22 02:30 Temperature Temperature Source Pulse Rate 62 63 63 Respiratory Rate 17 16 16 Respiratory Depth Blood Pressure Blood Pressure Mean Pulse Oximetry 97 97 97 Oxygen Delivery Method Room Air Room Air Sepsis Recent Fever Within 48 Hours Sepsis New/Unexplained Change in Mental Status Sepsis Action Taken by Nursing Laboratory Data 09/12/22 Unknown 09/12/22 Unknown Lab Results 09/12/22 09/12/22 09/12/22 Range/Units 22:59 Unknown Unknown WBC 5.24 (4.8-10.8) K/ul RBC 4.13 L (4.20-5.40) M/uL Hgb 12.0 (12.0-16.0) g/dl Hct 36.1 L (37.0-47.0) % MCV 87.4 (80.0-100.0) fL MCH 29.1 (25.0-34.0) pg MCHC 33.2 (32.0-36.0) g/dL RDW Std Deviation 47.8 H (36.4-46.3) fL RDW Coeff of Cristi 14.9 H (11.5-14.5) % Plt Count 184 (130-400) K/uL MPV 11.6 (9.4-12.4) fL Immature Gran % (Auto) 0.2 % Neut % (Auto) 50.3 % Lymph % (Auto) 39.9 % [place] % (Auto) 6.9 % Eos % (Auto) 2.1 % Baso % (Auto) 0.6 % Neut # (Auto) 2.64 (1.40-6.50) K/uL Lymph # (Auto) 2.09 (1.2-3.4) K/uL [place] # (Auto) 0.36 (0.11-0.59) K/uL Eos # (Auto) 0.11 (0-0.50) K/uL Baso # (Auto) 0.03 (0-0.2) K/uL Immature Gran # (Auto) 0.01 (0.01-0.20) K/uL Sodium 137 (136-145) mmol/L Potassium 3.4 L (3.5-5.1) mmol/L Chloride 113 H (98-107) mmol/L Carbon Dioxide 17 L (21-32) mmol/L Anion Gap 7 (3-11) BUN 23 (6-23) mg/dl Creatinine 1.10 (0.6-1.2) mg/dl Est Cr Clr Drug Dosing 57.4 ml/min Est GFR ( Amer) 73.8 ml/min Est GFR (Non-Af Amer) 63.6 ml/min BUN/Creatinine Ratio 20.9 H (10-20) Glucose 85 (70-99(Fasting)) mg/dl Calcium 8.7 (8.6-10.3) mg/dl Total Bilirubin 0.3 (0.2-1.0) mg/dl AST 12 L (13-39) U/L ALT 8 (7-52) U/L Alkaline Phosphatase 43 (34-104) U/L Total Protein 6.9 (6.0-8.3) gm/dl Albumin 4.0 (3.4-5.0) gm/dl Globulin 2.9 (2.5-4.0) gm/dl Albumin/Globulin Ratio 1.4 (0.9-2) TSH (0.300-4.500) uIu/ml Urine Color Urine Appearance (Clear) Urine pH (4.5-7.5) Ur Specific [place] (1.000-1.030) Urine Protein (Negative) Urine Glucose (UA) (Negative) Urine Ketones (Negative) Urine Blood (Negative) Urine Nitrite (Negative) Urine Bilirubin (Negative) Urine Urobilinogen (Negative) Ur Leukocyte Esterase (Negative) Urine WBC (Auto) (0-5) /hpf Urine RBC (Auto) (0-4) /hpf U Hyaline Cast (Auto) (0-5) /lpf U Epithel Cells (Auto) (0-5) /lpf Urine Bacteria (Auto) (Negative) Urine Crystals (None Prsent) Calcium Oxalate Crystal (None Prsent) Salicylates (3.0-30) mg/dl Urine Opiates Screen (Neg) Ur Methadone, Qual (Neg) Acetaminophen < 3 L (10-30) ug/ml Urine Barbiturates (Neg) Ur Phencyclidine (PCP) (Neg) U Amphetamin/Meth Scrn (Neg) MDMA (Ecstasy) Screen (Neg) U Benzodiazepines Scrn (Neg) Ur Cocaine Metabolite (Neg) U Marijuana (THC) Screen (Neg) Ethyl Alcohol mg/dL (<10.0) mg/dl SARS-CoV-2, RNA, NAAT (NEGATIVE) 09/12/22 09/12/22 09/12/22 Range/Units Unknown Unknown Unknown WBC (4.8-10.8) K/ul RBC (4.20-5.40) M/uL Hgb (12.0-16.0) g/dl Hct (37.0-47.0) % MCV (80.0-100.0) fL MCH (25.0-34.0) pg MCHC (32.0-36.0) g/dL RDW Std Deviation (36.4-46.3) fL RDW Coeff of Cristi (11.5-14.5) % Plt Count (130-400) K/uL MPV (9.4-12.4) fL Immature Gran % (Auto) % Neut % (Auto) % Lymph % (Auto) % [place] % (Auto) % Eos % (Auto) % Baso % (Auto) % Neut # (Auto) (1.40-6.50) K/uL Lymph # (Auto) (1.2-3.4) K/uL [place] # (Auto) (0.11-0.59) K/uL Eos # (Auto) (0-0.50) K/uL Baso # (Auto) (0-0.2) K/uL Immature Gran # (Auto) (0.01-0.20) K/uL Sodium (136-145) mmol/L Potassium (3.5-5.1) mmol/L Chloride (98-107) mmol/L Carbon Dioxide (21-32) mmol/L Anion Gap (3-11) BUN (6-23) mg/dl Creatinine (0.6-1.2) mg/dl Est Cr Clr Drug Dosing ml/min Est GFR ( Amer) ml/min Est GFR (Non-Af Amer) ml/min BUN/Creatinine Ratio (10-20) Glucose (70-99(Fasting)) mg/dl Calcium (8.6-10.3) mg/dl Total Bilirubin (0.2-1.0) mg/dl AST (13-39) U/L ALT (7-52) U/L Alkaline Phosphatase (34-104) U/L Total Protein (6.0-8.3) gm/dl Albumin (3.4-5.0) gm/dl Globulin (2.5-4.0) gm/dl Albumin/Globulin Ratio (0.9-2) TSH 1.242 (0.300-4.500) uIu/ml Urine Color Urine Appearance (Clear) Urine pH (4.5-7.5) Ur Specific [place] (1.000-1.030) Urine Protein (Negative) Urine Glucose (UA) (Negative) Urine Ketones (Negative) Urine Blood (Negative) Urine Nitrite (Negative) Urine Bilirubin (Negative) Urine Urobilinogen (Negative) Ur Leukocyte Esterase (Negative) Urine WBC (Auto) (0-5) /hpf Urine RBC (Auto) (0-4) /hpf U Hyaline Cast (Auto) (0-5) /lpf U Epithel Cells (Auto) (0-5) /lpf Urine Bacteria (Auto) (Negative) Urine Crystals (None Prsent) Calcium Oxalate Crystal (None Prsent) Salicylates < 3.0 L (3.0-30) mg/dl Urine Opiates Screen (Neg) Ur Methadone, Qual (Neg) Acetaminophen 4 L (10-30) ug/ml Urine Barbiturates (Neg) Ur Phencyclidine (PCP) (Neg) U Amphetamin/Meth Scrn (Neg) MDMA (Ecstasy) Screen (Neg) U Benzodiazepines Scrn (Neg) Ur Cocaine Metabolite (Neg) U Marijuana (THC) Screen (Neg) Ethyl Alcohol mg/dL < 10.0 (<10.0) mg/dl SARS-CoV-2, RNA, NAAT (NEGATIVE) 09/12/22 09/12/22 09/12/22 Range/Units Unknown Unknown Unknown WBC (4.8-10.8) K/ul RBC (4.20-5.40) M/uL Hgb (12.0-16.0) g/dl Hct (37.0-47.0) % MCV (80.0-100.0) fL MCH (25.0-34.0) pg MCHC (32.0-36.0) g/dL RDW Std Deviation (36.4-46.3) fL RDW Coeff of Cristi (11.5-14.5) % Plt Count (130-400) K/uL MPV (9.4-12.4) fL Immature Gran % (Auto) % Neut % (Auto) % Lymph % (Auto) % [place] % (Auto) % Eos % (Auto) % Baso % (Auto) % Neut # (Auto) (1.40-6.50) K/uL Lymph # (Auto) (1.2-3.4) K/uL [place] # (Auto) (0.11-0.59) K/uL Eos # (Auto) (0-0.50) K/uL Baso # (Auto) (0-0.2) K/uL Immature Gran # (Auto) (0.01-0.20) K/uL Sodium (136-145) mmol/L Potassium (3.5-5.1) mmol/L Chloride (98-107) mmol/L Carbon Dioxide (21-32) mmol/L Anion Gap (3-11) BUN (6-23) mg/dl Creatinine (0.6-1.2) mg/dl Est Cr Clr Drug Dosing ml/min Est GFR ( Amer) ml/min Est GFR (Non-Af Amer) ml/min BUN/Creatinine Ratio (10-20) Glucose (70-99(Fasting)) mg/dl Calcium (8.6-10.3) mg/dl Total Bilirubin (0.2-1.0) mg/dl AST (13-39) U/L ALT (7-52) U/L Alkaline Phosphatase (34-104) U/L Total Protein (6.0-8.3) gm/dl Albumin (3.4-5.0) gm/dl Globulin (2.5-4.0) gm/dl Albumin/Globulin Ratio (0.9-2) TSH (0.300-4.500) uIu/ml Urine Color Yellow Urine Appearance Turbid A (Clear) Urine pH 5.5 (4.5-7.5) Ur Specific [place] 1.039 H (1.000-1.030) Urine Protein Trace H (Negative) Urine Glucose (UA) Negative (Negative) Urine Ketones Trace H (Negative) Urine Blood Negative (Negative) Urine Nitrite Negative (Negative) Urine Bilirubin Negative (Negative) Urine Urobilinogen Negative (Negative) Ur Leukocyte Esterase Negative (Negative) Urine WBC (Auto) 1-5 (0-5) /hpf Urine RBC (Auto) 0-4 (0-4) /hpf U Hyaline Cast (Auto) 0 (0-5) /lpf U Epithel Cells (Auto) 20-30 H (0-5) /lpf Urine Bacteria (Auto) Negative (Negative) Urine Crystals Calcium Oxalate A (None Prsent) Calcium Oxalate Crystal Present A (None Prsent) Salicylates (3.0-30) mg/dl Urine Opiates Screen Neg (Neg) Ur Methadone, Qual Neg (Neg) Acetaminophen (10-30) ug/ml Urine Barbiturates Neg (Neg) Ur Phencyclidine (PCP) Neg (Neg) U Amphetamin/Meth Scrn Neg (Neg) MDMA (Ecstasy) Screen Neg (Neg) U Benzodiazepines Scrn Neg (Neg) Ur Cocaine Metabolite Neg (Neg) U Marijuana (THC) Screen Neg (Neg) Ethyl Alcohol mg/dL (<10.0) mg/dl SARS-CoV-2, RNA, NAAT NEGATIVE (NEGATIVE) Administered Medications Discontinued Medications Sodium Chloride (Nss 1000ml) 1,000 mls @ 999 mls/hr IV .Q1H1M ONE Stop: 09/12/22 21:40 Last Infusion: 09/12/22 22:15 Dose: 0 mls/hr Documented By: Admin: 09/12/22 21:02 Dose: 999 mls/hr Documented By: MARIA Lorazepam (Lorazepam 2 Mg/1 Ml Vial) 1 mg IV NOW STA Stop: 09/12/22 20:41 Last Admin: 09/12/22 21:02 Dose: 1 mg Documented By: MARIA Discharge Plan Visit Data Chief Complaint: Overdose (Intentional) Stated Complaint: TOOK SLEEPING PILLS, UNSPECIFIED AMOUNT ED Provider: Adrianna Ames Discharge Problem: Suicide attempt, Anticholinergic drug overdose Forms Stand Alone Forms: [facility], Suicide Prevention Resources Prescriptions Prescriptions: No Action (DME) blood sugar diagnostic Strip See Rx Instructions .ROUTE .MEDSUPPLY Qty: 3 1RF Rx Instructions: Test 3 times daily or as directed. (DME) blood-glucose meter [OneTouch Ultra2 Meter] Mis See Rx Instructions .Route Qty: 1 0RF Rx Instructions: As directed to test 1-2x daily (DME) lancets [OneTouch Delica Lancets] [facility] See Rx Instructions .ROUTE .MEDSUPPLY Qty: 300 3RF Rx Instructions: Test three times a day albuterol sulfate 90 mcg/actuation HFA aerosol inhaler 2 puff INHALATION Q4 PRN (Reason: Shortness Of Breath) Qty: 18 3RF Rx Instructions: 2 puffs inhalation every 4-6 hours PRN; (DME) OneTouch Ultra Test Strip See Rx Instructions .Route Qty: 300 1RF Rx Instructions: use to test three times daily azelastine 137 mcg (0.1 %) aerosol,spray 2 spray intranasal BID PRN (Reason: nasal congestion) Qty: 30 2RF Rx Instructions: administer into each nostril Emgality Pen 120 mg/mL pen injector 120 mg subcut .COMPLEX 30 Days Qty: 1 2RF Rx Instructions: 120 mg subcutaneously ONCE A MONTH; USUALLY THE OR 14TH OF THE MONTH Ubrelvy 100 mg tablet 100 mg PO DIRECTED MDD 200mg PRN (Reason: migraine headache) 30 Days Qty: 16 2RF Rx Instructions: take one prn migraine, may repeat in 2 hours if needed ondansetron HCl 4 mg tablet See Rx Instructions .ROUTE .COMPLEX Qty: 60 0RF Dose Instruction: TAKE 1 TABLET BY MOUTH TWICE A DAY Rx Instructions: TAKE 1 TABLET BY MOUTH TWICE A DAY lorazepam 0.5 mg tablet 0.25 - 0.5 mg PO DAILY PRN (Reason: Anxiety) bisacodyl [Dulcolax (bisacodyl)] 10 mg suppository 10 mg [place] DAILY PRN cyclosporine [Restasis] 0.05 % dropperette 1 drp ophthalmic (eye) Q12H lamotrigine 250 mg tablet extended release 24hr 250 mg PO BID Qty: 60 5RF senna 8.6 mg capsule 8.6 mg PO QDL melatonin 10 mg capsule 10 mg PO HS PRN (Reason: sleep) Qty: 30 0RF Patient Comments: USUALLY EVERY NIGHT docusate sodium [Colace] 100 mg capsule 100 mg PO QAM PRN (Reason: Constipation) levothyroxine 25 mcg tablet 25 mcg PO QAM Qty: 30 3RF multivitamin [One Daily Multivitamin] Tablet 1 tab PO DAILY Linzess 290 mcg capsule 290 mcg PO HS Rx Instructions: TAKE 1 CAPSULE BY MOUTH DAILY topiramate 100 mg tablet See Rx Instructions .ROUTE .COMPLEX Rx Instructions: TAKES 100 mg QAM, THEN 200MG QPM. pantoprazole 40 mg tablet,delayed release (DR/EC) 40 mg PO BID Qty: 60 0RF fluoxetine 40 mg capsule 80 mg PO QAM Cbd Gummy 25 mg PO HS buspirone 30 mg tablet 30 mg PO BID benztropine 1 mg tablet 1 mg PO BID Referrals Referrals: ProJesus MD [Primary Care Provider] -
[2022-09-12 21:12] LABS: Basophils # (auto) 0.03 K/uL (0-0.2); Basophils % (auto) 0.6 %; Eosinophils # (auto) 0.11 K/uL (0-0.50); Eosinophils % (auto) 2.1 %; Hematocrit (blood only) 36.1 % (37.0-47.0); Immature Granulocytes # (auto) 0.01 K/uL (0.01-0.20); Immature Granulocytes % (auto) 0.2 %; Lymphocytes # (auto) 2.09 K/uL (1.2-3.4); Lymphocytes % (auto) 39.9 %; Mean Corpuscular Hemoglobin 29.1 pg (25.0-34.0); Mean Corpuscular Hgb Conc 33.2 g/dL (32.0-36.0); Mean Corpuscular Volume 87.4 fL (80.0-100.0); Mean Platelet Volume 11.6 fL (9.4-12.4); Monocytes # (auto) 0.36 K/uL (0.11-0.59); Monocytes % (auto) 6.9 %; Neutrophils # (auto) 2.64 K/uL (1.40-6.50); Neutrophils % (auto) 50.3 %; Platelet Count 184 K/uL (130-400); RDW Coefficient of Variation 14.9 % (11.5-14.5); RDW Standard Deviation 47.8 fL (36.4-46.3); Red Blood Count 4.13 M/uL (4.20-5.40); White Blood Count 5.24 K/ul (4.8-10.8)
[2022-09-12 21:17] LABS: Appearance Urine Turbid (Clear); Bacteria Urine Automated Negative (Negative); Bilirubin Urine Negative (Negative); Blood Urine Negative (Negative); Color Urine Yellow; Glucose Urine UA Negative (Negative); Ketones Urine Trace (Negative); Leukocyte Esterase Urine Negative (Negative); Nitrite Urine Negative (Negative); Protein Urine Trace (Negative); Specific Gravity Urine 1.039 (1.000-1.030); Urobilinogen Urine Negative (Negative); pH Urine 5.5 (4.5-7.5)
[2022-09-12 21:28] LABS: Albumin Globulin Ratio 1.4 (0.9-2); BUN Creatinine Ratio 20.9 (10-20); Bilirubin,Total 0.3 mg/dl (0.2-1.0); Calcium 8.7 mg/dl (8.6-10.3); Creatinine Clr Calc Pharmacy 57.4 ml/min; Est GFR (African American) 73.8 ml/min; Est GFR (Non-African American) 63.6 ml/min; Globulin 2.9 gm/dl (2.5-4.0); Potassium 3.4 mmol/L (3.5-5.1); Total Protein 6.9 gm/dl (6.0-8.3)
[2022-09-12 21:30] LABS: Acetaminophen 4 ug/ml (10-30); Salicylate < 3.0 mg/dl (3.0-30)
[2022-09-12 21:31] LABS: Calcium Oxalate Crystals Urine Present (None Prsent)
[2022-09-12 21:33] LABS: Cast Urine Automated 0 /lpf (0-5); Epithelial Cell Urine Auto 20-30 /lpf (0-5); RBC Urine Automated 0-4 /hpf (0-4)
[2022-09-12 21:45] LABS: Amphetamines+Metham, Urine Neg (Neg); Barbiturates, Urine Neg (Neg); Benzodiazepine, Urine Neg (Neg); Cocaine, Urine Neg (Neg); MDMA (Ecstacy), Urine Neg (Neg); Methadone, Urine Neg (Neg); Opiate, Urine Neg (Neg); Phencyclidine, Urine Neg (Neg)
--- NOTE | 2022-09-13 02:32 | Emergency Department Note ---
ED Visit Note I received this patient in sign out at the change of shift from Dr. Vo pending mental health bed search. Pt is on a 201 at this time. Patient was signed out at the change of shift to Dr. Galindo pending placement. .
--- NOTE | 2022-09-13 06:40 | Emergency Department Note ---
ED Visit Note Case was signed over to me by Dr. Ames at 6:30 AM. The patient is currently under 201 for overdose as a suicidal gesture. Patient is currently awaiting bed placement. There were no overnight issues during the emergency department observation time. Patient's disposition is pending for suicidal ideation with intentional overdose. Patient has been medically cleared by Dr. Ames .
--- NOTE | 2022-09-13 11:58 | Emergency Department Note ---
ED Visit Note Patient has been admitted to 3 [facility]. for psychiatric evaluation due to suicidal ideation Patient's disposition time is 11:57 AM on September 13, 2022 .
[2022-09-13] MEDS ORDERED: BISMUTH SUBSALICYLATE LIQD 236 ML PO PRN (12:03)
[2022-09-13] MEDS ORDERED: MAGNESIUM HYDROXIDE SUSP 30 ML UDC PO PRN (12:03)
[2022-09-13] MEDS ORDERED: ACETAMINOPHEN 325 MG TAB PO PRN (12:03)
[2022-09-13] MEDS ORDERED: hydrOXYzine HCl 25 MG TAB PO PRN ×2 (12:03)
[2022-09-13] MEDS ORDERED: ALUMINUM/MAGNESIUM SUSP 30 ML UDC PO PRN (12:03)
[2022-09-13] MEDS ORDERED: SODIUM CHLORIDE 0.65% NA SOLN 45 ML (OCEAN) PRN (12:03)
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
[2022-09-13] MEDS ORDERED: ALBUTEROL HFA 8 GM INHALER INH PRN (14:19)
[2022-09-13] MEDS ORDERED: AZELASTINE HCL 0.1% NASAL 200 SPRAYS/27,400 MCG BTL PRN (14:19)
[2022-09-13] MEDS ORDERED: DOCUSATE SODIUM 100 MG CAP PO PRN (14:19)
[2022-09-13] MEDS ORDERED: ARTIFICIAL TEARS OP PRN (14:37)
[2022-09-13] MEDS: LEVOTHYROXINE SODIUM 25 MCG TABLET PO SCH (15:49)
[2022-09-13] MEDS ORDERED: LORazepam 0.5 MG TAB PO PRN (19:34)
[2022-09-13] MEDS: ONDANSETRON 4 MG OD TAB PO SCH (20:50)
[2022-09-13] MEDS: busPIRone 15 MG TAB PO SCH (20:50)
[2022-09-13] MEDS: PANTOprazole 40 MG TAB PO SCH (20:51)
[2022-09-13] MEDS ORDERED: TOPIRAMATE 100 MG TAB PO SCH (21:00)
[2022-09-13] MEDS ORDERED: LINACLOTIDE 145 MCG CAPSULE PO SCH (22:00)
[2022-09-14] MEDS: LEVOTHYROXINE SODIUM 25 MCG TABLET PO SCH (08:43)
[2022-09-14] MEDS: PANTOprazole 40 MG TAB PO SCH (08:43)
[2022-09-14] MEDS: busPIRone 15 MG TAB PO SCH (08:43)
[2022-09-14] MEDS: ONDANSETRON 4 MG OD TAB PO SCH (08:44)
[2022-09-14] MEDS ORDERED: MULTIVITAMIN TAB PO SCH (09:00)
[2022-09-14] MEDS ORDERED: TOPIRAMATE 100 MG TAB PO SCH (09:00)
[2022-09-14] MEDS ORDERED: FLUoxetine HCL 20 MG CAP PO SCH (09:00)
--- NOTE | 2022-09-14 09:29 | Psychiatric Progress Note ---
Date of Service September 14, 2022 Impression / Recommendations Impression 37 y/o F with long psychiatric history including multiple admissions and overdoses who carries diagnoses of Bipolar I disorder, Panic disorder, PTSD, Borderline Personality disorder whose recent stressors include her young adult daughter's recent stroke and feeling marginalized within her family and rejected by her daughter. This overdose appears likely to be impulsive and related to the borderline personality disorder since she does not currently endorse much in the way of depression or anxiety symptoms. This was very impulsive and poorly- planned with little apparent consideration of health or other consequences. She is currently unstable and requires psychiatric hospitalization for safety, stabilization, and possible medication changes. She does not appear currently to be on a mood stabilizer, which her diagnoses suggest might be beneficial but which her history of multiple failed medication trials suggests may not be as likely to help as one might ordinarily hope. 09/14/2022: (1) Bipolar II disorder, most recent episode major depressive: (2) Panic disorder: (3) Post traumatic stress disorder: (4) Borderline personality disorder: (5) Suicide attempt: (6) Anticholinergic drug overdose: Plan 09/14/2022: * continue buspirone 30 mg BID * continue fluoxetine 80 mg daily 09/13/2022The patient was admitted to the [facility] ([facility] mental [facility] unit) on q15 min checks (behavioral with suicide precautions) for safety. The patient will participate in group, recreational, and milieu therapies and will be offered additional individual and family sessions as clinically appropriate. Will attempt to identify potential mood stabilizer that she might appropriately be able to take and that has not previously been trialled. * continue buspirone 30 mg BID * continue fluoxetine 80 mg daily Inventory Assets Strengths: voluntary, has local treaters Needs: safety and stabilization, possible medication adjustment, additional coping skills, increased outpatient services Suicide Risk Level Suicide Risk Level: Moderate (q15 min suicide checks) Suicide Risk Level Comments: recent overdose, currently denies suicidal thoughts Risk Factors Assessment Male: No : Yes Do You Have Access To A Gun?: No Health Problems: Yes Mental Health Diagnoses: Yes Substance Use Disorders: No Previous Attempt: Yes Family History of Suicide: No Previous Psychiatric Hospitalization: Yes Hopelessness: No Protective Factors Assessment : No Responsible for Young Children: Yes Employed: No Stable Relationships: No Supportive Family: No Good Rapport with Provider: Yes Interval History Identifying Information BRUCE ALTMAN is a 37-year-old F who currently lives in [place] with her fiance and his daughter, has a history of Bipolar II Disorder, Borderline Personality Disorder, Panic Disorder, PTSD, and was admitted on 09/13/22 12:04 on a 201 voluntary commitment for overdose. Chief Complaint "[]". Review of Systems Sleep Information Total Hours of Sleep: 8.5 Meal Information Percent Meal Consumed - Dinner: 75 Subjective Subjective Patient was seen & assessed and interval progress reviewed in a multidisciplinary team meeting with the treatment team. For details, see the "Impression" section below. Physical Exam Psychiatric Orientation: alert, oriented to person, oriented to place, oriented to time and cooperative Apperance: appropriately dressed and + disheveled Eye Contact: + fair eye contact Motor Behavior: no abnormal motor movements; no psychomotor agitation and no psychomotor retardation Speech: normal rate/rhythm/volume of speech Affect: + constricted affect Mood: + dysphoric mood Thought Process: + concrete thought process Thought Content: + cognitive distortions and reality based without delusions; no hopelessness, no worthlessness and no self deprecation Suicidal Thoughts: denies suicidal plan and denies suicidal intent; + reports suicidal thoughts (chronic, usually fleeting) Homicidal Thoughts: denies homicidal thoughts Hallucinations: no auditory hallucinations and no visual hallucinations Cognition: recent memory grossly intact, remote memory grossly intact and attention grossly intact Estimated Intelligence: + below average estimated intelligence Insight: + poor insight Judgment: + poor judgement Vital Signs (Past 24 Hours) Last Vital Signs Temp 36.9 C 09/14/22 06:30 Pulse 76 09/14/22 06:30 Resp 16 09/14/22 06:30 BP 105/71 09/14/22 06:30 Pulse Ox 100 09/13/22 13:02 O2 Del Method Room Air 09/13/22 13:02 Results & Data ([facility]) Current Inpatient Medications Current Inpatient Medications: Current Inpatient Medications Acetaminophen (Acetaminophen 325 Mg Tab) 650 mg PO Q4H PRN PRN Reason: Headache or Minor Fever Stop: 10/13/22 12:02 Last Admin: 09/13/22 18:45 Dose: 650 mg Al Hydrox/Mg Hydrox/Simethicone (Aluminum/Magnesium Susp 30 Ml Udc) 30 ml PO Q4H PRN PRN Reason: GI Upset Stop: 10/13/22 12:02 Albuterol (Albuterol Hfa 8 Gm Inhaler) 2 puffs INH Q4H PRN PRN Reason: Shortness Of Breath Stop: 10/13/22 14:18 Artificial Tears (Artificial Tears) 1 drops OP QID PRN PRN Reason: Dryness Stop: 10/13/22 14:36 Azelastine HCl (Azelastine Hcl 0.1% Nasal 200 Sprays/27,400 Mcg Btl) 2 sprays NA BID PRN PRN Reason: nasal congestion Stop: 10/13/22 14:18 Bismuth Subsalicylate (Bismuth Subsalicylate Liqd 236 Ml) 15 ml PO PRN PRN PRN Reason: Loose Stool Stop: 10/13/22 12:02 Buspirone HCl (Buspirone 15 Mg Tab) 30 mg PO BID [facility] Stop: 10/13/22 20:59 Last Admin: 09/14/22 08:43 Dose: 30 mg Docusate Sodium (Docusate Sodium 100 Mg Cap) 100 mg PO QAM PRN PRN Reason: Constipation Stop: 10/13/22 14:18 Fluoxetine HCl (Fluoxetine Hcl 20 Mg Cap) 80 mg PO QAM [facility] Stop: 10/14/22 08:59 Last Admin: 09/14/22 08:44 Dose: 80 mg Levothyroxine Sodium (Levothyroxine Sodium 25 Mcg Tablet) 25 mcg PO DAILYBB [facility] Stop: 10/13/22 14:29 Last Admin: 09/14/22 08:43 Dose: 25 mcg Linaclotide (Linaclotide 145 Mcg Capsule) 290 mcg PO HS [facility] Stop: 10/13/22 21:59 Last Admin: 09/13/22 20:51 Dose: 290 mcg Lorazepam (Lorazepam 0.5 Mg Tab) 0.25 mg PO DAILY PRN PRN Reason: Anxiety Stop: 10/13/22 19:33 Last Admin: 09/14/22 08:43 Dose: 0.25 mg Magnesium Hydroxide (Magnesium Hydroxide Susp 30 Ml Udc) 30 ml PO DAILY PRN PRN Reason: Constipation Stop: 10/13/22 12:02 Miscellaneous (*Ubrogepant [Ubrelvy]*Order Awaiting Action) 1 each N/A QS [facility] Stop: 10/13/22 15:59 Last Admin: 09/14/22 08:38 Dose: Not Given Multivitamins (Multivitamin Tab) 1 tab PO QAM [facility] Stop: 10/14/22 08:59 Last Admin: 09/14/22 08:44 Dose: 1 tab Ondansetron HCl (Ondansetron 4 Mg Od Tab) 4 mg PO BID [facility] Stop: 10/13/22 20:59 Last Admin: 09/14/22 08:44 Dose: 4 mg Pantoprazole Sodium (Pantoprazole 40 Mg Tab) 40 mg PO BID [facility] Stop: 10/13/22 20:59 Last Admin: 09/14/22 08:43 Dose: 40 mg Sennosides (Senna 8.6 Mg Tab) 8.6 mg PO QDL [facility] Stop: 10/14/22 12:29 Last Admin: 09/14/22 08:44 Dose: 8.6 mg Sodium Chloride (Sodium Chloride 0.65% Na Soln 45 Ml (Ralls)) 1 - 2 sprays NA PRN PRN PRN Reason: Nasal Dryness/Congestion Stop: 10/13/22 12:02 Topiramate (Topiramate 100 Mg Tab) 100 mg PO QAM [facility] Stop: 10/14/22 08:59 Last Admin: 09/14/22 08:44 Dose: 100 mg Topiramate (Topiramate 100 Mg Tab) 200 mg PO QPM [facility] Stop: 10/13/22 20:59 Last Admin: 09/13/22 20:50 Dose: 200 mg Mental Health & Subst Abuse Tx Psychiatrist Name of Psychiatrist: Josefina Parsons Psychiatrist's Date Of Appointment With Psychiatric Provider: 09/22/22 Time of Appointment with Psychiatrist: 11:00 AM Psychiatric Appointment Comment: [address] [place] [address] Therapist Name of Therapist: [facility] Therapist's Time of Therapist Appointment: [address] [place] [id number] Therapy Appointment Comment: Please resume your normal therapy schedule. Post Discharge Appointments Primary Care Physician Name Of Family Doctor/PCP: [facility] Time of Appointment with PCP: [address] [place] [address] Provider Appointment Comment: Please follow-up with your PCP as needed. (6) Anticholinergic drug overdose Encounter type: initial encounter Injury intent: intentional self-harm Qualified Code(s): T44.3X2A - Poisoning by other parasympatholytics [anticholinergics and antimuscarinics] and spasmolytics, intentional self-harm, initial encounter
--- NOTE | 2022-09-14 11:49 | Discharge Summary ---
Date of Service September 14, 2022 History of Present Illness As part of a thorough review of the available medical records, I have read and confirmed the following notes by the ED physician: "37-year-old female arrives following a suicide attempt at roughly 7 PM this evening. It is under the impression she had taken 10 to 15 tablets of Unisom. They do not have the bottle with them. Patient admits this was a suicide attempt but is now regretting it and feels she is not suicidal now. She admits she is stressed and sad that her daughter is currently in the ICU in [place] following a stroke. Patient is somewhat anxious and agitated difficult to rule out anticholinergic syndrome. She was given some Ativan and fluids with vast improvement. Laboratory work-up is benign. Initial Tylenol level is 4 and she really seems to have a slightly positive Tylenol level. A repeat at 4 hours from ingestion is 0 though. EKG is reassuring. She was kept on the monitor over several hours without any concerning findings. Patient was felt to be medically clear at 1 AM and observation was completed. There is a 302 petition on the chart but patient is currently willing for hospitalization voluntarily." "37-year-old female arrives for evaluation of suicide attempt. Patient notes she has been incredibly stressed due to her daughter having just been diagnosed with a stroke and being in ICU. Today she went out and bought a sleep aid which she took 10 to 15 tablets. She notes she is feeling bit jittery and anxious after taking it. This occurred somewhere around 7 PM. Denies any other attempts to harm herself. No cutting or other foreign body ingestions. No other pills drugs or alcohol. She admits a history of depression previous psychiatric placement. Denies any falls, trauma, injuries. Denies anyone trying to harm her. Patient states that she regrets having taken these medicines and does not feel she is currently suicidal or homicidal. Patient does note that a little while after taking all the pills she did vomit." and the following notes by the ED psychiatric adult protective caseworker: "Met with Delia to complete brief mental health assessment. She is accompanied by her partner, Terrence. Delia states that she took "a bunch of pills. at least 10 or so" of [id number] sleep aids. She cannot remember what kind/brand of pills she took, just that it said sleep on the bottle. She admits that she overdosed on this medication as an attempt to kill herself. She relays that her daughter is currently hospitalized in [place] for an acute stroke and somehow her daughter mentioned today that she did not need her mother so Delia figured she should just go and kill herself. She took these pills at approx 1930 according to text messages she sent to her partner that stated, "I just took a bunch of pills". Delia admits that she did not want to come to the hospital and had to be convinced to do so, but does state she would be willing and voluntary to sign herself in for mental health treatment." "Delia is medically clear as of 99 - met with her to complete psychiatric assessment. She is still somnolent but able to participate in assessment. Delia denies feeling extended periods of depression and characterizes her suicide attempt as an impulsive response to the situation with her daughter. She is also not getting along with her mother and her sister, who are also involved in the coordination and planning that is going along with her daughter being hospitalized. She describes how she felt prior to overdosing as "overwhelmed". She states she has not really been sleeping and her appetite is "on/off". She does endorse increased anxiety but has difficulty describing which symptoms of anxiety she has been experiencing. She denies HI and A/V hallucinations as well as SIB. She is diagnosed with Depression, Anxiety, and Bipolar Disorder. She follows with [facility] for therapy and Scar[facility] Parsons at [facility] for medication management and psychiatry. Delia has an extensive medical history that includes two strokes. She is still willing for inpatient treatment" Review of the medical record reveals psychiatric history of multiple admissions for overdoses. Pt. carries diagnosis of Bipolar II Disorder, Borderline Personality Disorder, Panic Disorder, PTSD. Review of pertinent labs reveals they are noncontributory except for mild normocytic, normochromic anemia, mild hypokalemia and for urine toxicology screen that was negative for metabolites of all tested substrates. BAL was <10 mg/dL. Pt endorses recent events essentially as documented in the ED. She says her primary precipitant was the way "family members were trying to control" aspects of the care of her 21 y/o daughter who had a stroke 2 weeks ago. Pt says "there's some kind of family thing plus control" that she believes is the reason for that stroke. She says that this current episode is like previous overdoses in that they've all involved times when "other people can't get along with" her. While it sounds as if she made a specific effort to go buy OTC sleeping pills, she isn't able to tell me what they were, how many were in the bottle to start with, or whether any were left. (It seems most likely that this was doxylamine 25 mg, the smallest package size of which is usually 16.) She says she bought something additional rather than overdosing on any of her prescriptions because "that would be dangerous". She says she no longer feels s uicidal but can't really say what has changed that might account for that. She is not very interested in medication changes. Physical Exam Psychiatric Orientation: alert, oriented to person, oriented to place, oriented to time and cooperative Apperance: appropriately dressed and + disheveled Eye Contact: + fair eye contact Motor Behavior: no abnormal motor movements; no psychomotor agitation and no psychomotor retardation Speech: normal rate/rhythm/volume of speech Affect: + constricted affect Mood: + dysphoric mood Thought Process: + concrete thought process Thought Content: + cognitive distortions and reality based without delusions; no hopelessness, no worthlessness and no self deprecation Suicidal Thoughts: denies suicidal plan and denies suicidal intent; + reports suicidal thoughts (chronic, usually fleeting) Homicidal Thoughts: denies homicidal thoughts Hallucinations: no auditory hallucinations and no visual hallucinations Cognition: recent memory grossly intact, remote memory grossly intact and attention grossly intact Estimated Intelligence: + below average estimated intelligence Insight: + poor insight Judgment: + poor judgement Vital Signs (Past 24 Hours) Last Vital Signs Temp 36.9 C 09/14/22 11:37 Pulse 76 09/14/22 11:37 Resp 16 09/14/22 11:37 BP 105/71 09/14/22 11:37 Pulse Ox 100 09/14/22 11:37 O2 Del Method Room Air 09/13/22 13:02 .dcpe Principal Diagnosis Bipolar II Disorder, Depressed Psychiatric Data See daily stay summary. In short, safety was maintained and the patient was cooperative with care. Medication changes were not made, though some old prescriptions that pt says she has not been taking were not ordered and, at discharge, removed from her medication list. A family session was not held and safety plan was completed prior to discharge. 09/14/2022: Pt has consistently reported since arrival on the unit that she has not been having any suicidal thoughts, nor even any significant symptoms of depression or anxiety. Last night she asked to "sign a 72" (-hour request for AMA discharge) but then decided not to. This morning she tells me she still wants to leave, remains free from suicidal thoughts, and feels euthymic. We spent time going over her outpatient resources since she says that the precipitant for her overdose what that she "didn't have anyone to talk to". I pointed out, e.g., that she could consider trying to get in touch with her therapist or talking with her fiance (neither of which occurred to her). 09/13/2022: 37 y/o F with long psychiatric history including multiple admissions and overdoses who carries diagnoses of Bipolar I disorder, Panic disorder, PTSD, Borderline Personality disorder whose recent stressors include her young adult daughter's recent stroke and feeling marginalized within her family and rejected by her daughter. This overdose appears likely to be impulsive and related to the borderline personality disorder since she does not currently endorse much in the way of depression or anxiety symptoms. This was very impulsive and poorly- planned with little apparent consideration of health or other consequences. She is currently unstable and requires psychiatric hospitalization for safety, stabilization, and possible medication changes. She does not appear currently to be on a mood stabilizer, which her diagnoses suggest might be beneficial but which her history of multiple failed medication trials suggests may not be as likely to help as one might ordinarily hope. Day of Discharge Assessment Today the patient voices readiness for discharge. They note improvement in mood and deny thoughts to harm self or others. Thoughts remain organized and they are improved from admission. There is no evidence of psychosis. They agree to take mediations as prescribed and keep follow-up appointments. They are stable for discharge to outpatient level of care. Advance Directives Advance Directives Information Provided: Yes Advance Directives: No Mental Health Advance Directive: No Advance Directives on File: No Living Will: No Power of Gizzard Skin Remover: No Advance Directives Reason:: Declines as Mental Health Visit. Suicide Risk Level Suicide Risk Level: Low (q15 min observation checks) Suicide Risk Level Comments: has denied any suicidal thoughts since admission Risk Factors Assessment Male: No : Yes Do You Have Access To A Gun?: No Health Problems: Yes Mental Health Diagnoses: Yes Substance Use Disorders: No Previous Attempt: Yes Family History of Suicide: No Previous Psychiatric Hospitalization: Yes Hopelessness: No Protective Factors Assessment : No Responsible for Young Children: Yes Employed: No Stable Relationships: No Supportive Family: No Good Rapport with Provider: Yes Tobacco Cessation at Discharge Tobacco Cessation Medication Prescribed at Discharge: Offered & Pt Refused Total Time Total Time Spent: Greater Than 30 Minutes Total Time Includes: Examination of the patient, Discharge Planning, Medication Reconciliation and As well as (documentation) Discharge Data Lab Results 09/12/22 09/12/22 09/12/22 22:59 Unknown Unknown WBC 5.24 RBC 4.13 L Hgb 12.0 Hct 36.1 L MCV 87.4 MCH 29.1 MCHC 33.2 RDW Std Deviation 47.8 H RDW Coeff of Cristi 14.9 H Plt Count 184 MPV 11.6 Immature Gran % (Auto) 0.2 Neut % (Auto) 50.3 Lymph % (Auto) 39.9 [place] % (Auto) 6.9 Eos % (Auto) 2.1 Baso % (Auto) 0.6 Neut # (Auto) 2.64 Lymph # (Auto) 2.09 [place] # (Auto) 0.36 Eos # (Auto) 0.11 Baso # (Auto) 0.03 Immature Gran # (Auto) 0.01 Sodium 137 Potassium 3.4 L Chloride 113 H Carbon Dioxide 17 L Anion Gap 7 BUN 23 Creatinine 1.10 Est Cr Clr Drug Dosing 57.4 Est GFR ( Amer) 73.8 Est GFR (Non-Af Amer) 63.6 BUN/Creatinine Ratio 20.9 H Glucose 85 Calcium 8.7 Total Bilirubin 0.3 AST 12 L ALT 8 Alkaline Phosphatase 43 Total Protein 6.9 Albumin 4.0 Globulin 2.9 Albumin/Globulin Ratio 1.4 TSH Urine Color Urine Appearance Urine pH Ur Specific [place] Urine Protein Urine Glucose (UA) Urine Ketones Urine Blood Urine Nitrite Urine Bilirubin Urine Urobilinogen Ur Leukocyte Esterase Urine WBC (Auto) Urine RBC (Auto) U Hyaline Cast (Auto) U Epithel Cells (Auto) Urine Bacteria (Auto) Urine Crystals Calcium Oxalate Crystal Salicylates Urine Opiates Screen Ur Methadone, Qual Acetaminophen < 3 L Urine Barbiturates Ur Phencyclidine (PCP) U Amphetamin/Meth Scrn MDMA (Ecstasy) Screen U Benzodiazepines Scrn Ur Cocaine Metabolite U Marijuana (THC) Screen Ethyl Alcohol mg/dL SARS-CoV-2, RNA, NAAT 09/12/22 09/12/22 09/12/22 Unknown Unknown Unknown WBC RBC Hgb Hct MCV MCH MCHC RDW Std Deviation RDW Coeff of Cristi Plt Count MPV Immature Gran % (Auto) Neut % (Auto) Lymph % (Auto) [place] % (Auto) Eos % (Auto) Baso % (Auto) Neut # (Auto) Lymph # (Auto) [place] # (Auto) Eos # (Auto) Baso # (Auto) Immature Gran # (Auto) Sodium Potassium Chloride Carbon Dioxide Anion Gap BUN Creatinine Est Cr Clr Drug Dosing Est GFR ( Amer) Est GFR (Non-Af Amer) BUN/Creatinine Ratio Glucose Calcium Total Bilirubin AST ALT Alkaline Phosphatase Total Protein Albumin Globulin Albumin/Globulin Ratio TSH 1.242 Urine Color Urine Appearance Urine pH Ur Specific [place] Urine Protein Urine Glucose (UA) Urine Ketones Urine Blood Urine Nitrite Urine Bilirubin Urine Urobilinogen Ur Leukocyte Esterase Urine WBC (Auto) Urine RBC (Auto) U Hyaline Cast (Auto) U Epithel Cells (Auto) Urine Bacteria (Auto) Urine Crystals Calcium Oxalate Crystal Salicylates < 3.0 L Urine Opiates Screen Ur Methadone, Qual Acetaminophen 4 L Urine Barbiturates Ur Phencyclidine (PCP) U Amphetamin/Meth Scrn MDMA (Ecstasy) Screen U Benzodiazepines Scrn Ur Cocaine Metabolite U Marijuana (THC) Screen Ethyl Alcohol mg/dL < 10.0 SARS-CoV-2, RNA, NAAT 09/12/22 09/12/22 09/12/22 Unknown Unknown Unknown WBC RBC Hgb Hct MCV MCH MCHC RDW Std Deviation RDW Coeff of Cristi Plt Count MPV Immature Gran % (Auto) Neut % (Auto) Lymph % (Auto) [place] % (Auto) Eos % (Auto) Baso % (Auto) Neut # (Auto) Lymph # (Auto) [place] # (Auto) Eos # (Auto) Baso # (Auto) Immature Gran # (Auto) Sodium Potassium Chloride Carbon Dioxide Anion Gap BUN Creatinine Est Cr Clr Drug Dosing Est GFR ( Amer) Est GFR (Non-Af Amer) BUN/Creatinine Ratio Glucose Calcium Total Bilirubin AST ALT Alkaline Phosphatase Total Protein Albumin Globulin Albumin/Globulin Ratio TSH Urine Color Yellow Urine Appearance Turbid A Urine pH 5.5 Ur Specific [place] 1.039 H Urine Protein Trace H Urine Glucose (UA) Negative Urine Ketones Trace H Urine Blood Negative Urine Nitrite Negative Urine Bilirubin Negative Urine Urobilinogen Negative Ur Leukocyte Esterase Negative Urine WBC (Auto) 1-5 Urine RBC (Auto) 0-4 U Hyaline Cast (Auto) 0 U Epithel Cells (Auto) 20-30 H Urine Bacteria (Auto) Negative Urine Crystals Calcium Oxalate A Calcium Oxalate Crystal Present A Salicylates Urine Opiates Screen Neg Ur Methadone, Qual Neg Acetaminophen Urine Barbiturates Neg Ur Phencyclidine (PCP) Neg U Amphetamin/Meth Scrn Neg MDMA (Ecstasy) Screen Neg U Benzodiazepines Scrn Neg Ur Cocaine Metabolite Neg U Marijuana (THC) Screen Neg Ethyl Alcohol mg/dL SARS-CoV-2, RNA, NAAT NEGATIVE Hospital Course (1) Bipolar II disorder, most recent episode major depressive: (2) Panic disorder: (3) Post traumatic stress disorder: (4) Borderline personality disorder: (5) Suicide attempt: (6) Anticholinergic drug overdose: Plan 09/13/2022: The patient was admitted to the [facility] ([facility] mental health unit) on q15 min checks (behavioral with suicide precautions) for safety. The patient will participate in group, recreational, and milieu therapies and will be offered additional individual and family sessions as clinically appropriate. Will attempt to identify potential mood stabilizer that she might appropriately be able to take and that has not previously been trialed. Mental Health & Subst Abuse Tx Psychiatrist Name of Psychiatrist: [facility] Psychiatrist's Date Of Appointment With Psychiatric Provider: 09/22/22 Time of Appointment with Psychiatrist: 11:00 AM Psychiatric Appointment Comment: [address] [place] [address] Psychiatrist Release of Information: Obtained, Reviewed and Signed Therapist Name of Therapist: [facility]ist's Time of Therapist Appointment: [address] [place] [id number] Therapy Appointment Comment: Please resume your normal therapy schedule. Therapist Release of Information: Obtained, Reviewed and Signed Post Discharge Appointments Primary Care Physician Name Of Family Doctor/PCP: [facility] Time of App[facility]ment with [facility]CP: [address] [place] [address] Provider Appointment Comment: Please follow-up with your PCP as needed. Smoking Cessation Counseling Tobacco Cessation Medication Prescribed at Discharge: Offered & Pt Refused Contact Information Discharge Discharge Address: [address] [place] [address] Discharge Plan Discharge Items Patient Disposition: Home - Self-Care Reason For Visit: MDD Discharge Diagnosis: Bipolar II Disorder, Depressed Activity: Resume your previous activity Non-emergency contact: Primary Care Provider and Psychiatrist Call non-emergency contact if: you have any medication questions and your symptoms worsen Follow-up/Referrals: Jesus Diamond MD [Primary Care Provider] - Diet: Regular Addtl Attending Provider Instructions: SPECIAL CARE INSTRUCTIONS: 1. Follow through with your scheduled aftercare appointments. If unable to keep an appointment, please call to reschedule. 2. Take your medication only as prescribed. Medication should not be changed or stopped without the approval of your doctor. In the event of worsening symptoms or concerns about side effects, contact your doctor immediately. 3. Utilize new healthy coping skills, anger management skills, and stress management skills learned during your hospitalization. Journal feelings and process them with a support person. Identify stressors or situations that may result in relapse, deterioration or inappropriate behaviors and develop a plan to deal with those issues. 4. If your coping skills are ineffective and you are in crisis, contact your outpatient providers for direction. If unable to reach your providers, please call the [facility] CRISIS LINE AT , go to the [facility] walk-in center at [address], [address], [place], or go to the closest Emergency Room. 5. Avoid alcohol and un-prescribed drugs. 6. You have been provided with the Mental Health Advance Directives Pamphlet for your review. 7. Your condition is stable for discharge to outpatient level of care, but recovery is an ongoing process. Ifthoughts to harm yourself or others return, follow the safety plan developed during your stay. Planning for a safe return home includes securing weapons. Our treatment team recommends weaponsbe removed from the home until your outpatient provider reassesses your progress. In rare cases where the items themselvescannot be removed, guns and ammunitionshould be secured separatelyand keys stored by a reliable personoutside of the home. If you were admitted on an involuntary commitment, the police or other legal authorities may be involved in this process. AFTERCARE APPOINTMENTS: * Please call your insurance company prior to your scheduled appointment to confirm your aftercare providers are covered. Take your insurance information to your appointments. WHO TO CALL AND WHEN: Medical Emergencies: For questions or emergencies related to your hospital stay, please contact the Inpatient Behavioral Health Unit at [phone]. A psychiatric tech is on-call 05/09 for the Behavioral Health Unit for emergencies At any time you feel your situation is an emergency, you may also call 911 immediately. Pending Studies at Discharge: No Stand-Alone Forms: My [facility] Active Storage, Smoking Cessation Medications and DC Order Prescriptions: Continued albuterol sulfate 90 mcg/actuation HFA aerosol inhaler 2 puff INHALATION Q4 PRN (Reason: Shortness Of Breath) Qty: 18 3RF Rx Instructions: 2 puffs inhalation every 4-6 hours PRN; azelastine 137 mcg (0.1 %) aerosol,spray 2 spray intranasal BID PRN (Reason: nasal congestion) Qty: 30 2RF Rx Instructions: administer into each nostril Emgality Pen 120 mg/mL pen injector 120 mg subcut .COMPLEX 30 Days Qty: 1 2RF Rx Instructions: 120 mg subcutaneously ONCE A MONTH; USUALLY THE 13TH OR 14TH OF THE MONTH Ubrelvy 100 mg tablet 100 mg PO DIRECTED MDD 200mg PRN (Reason: migraine headache) 30 Days Qty: 16 2RF Rx Instructions: take one prn migraine, may repeat in 2 hours if needed ondansetron HCl 4 mg tablet See Rx Instructions .ROUTE .COMPLEX Qty: 60 0RF Dose Instruction: TAKE 1 TABLET BY MOUTH TWICE A DAY Rx Instructions: TAKE 1 TABLET BY MOUTH TWICE A DAY lorazepam 0.5 mg tablet 0.25 - 0.5 mg PO DAILY PRN (Reason: Anxiety) cyclosporine [Restasis] 0.05 % dropperette 1 drp ophthalmic (eye) Q12H senna 8.6 mg capsule 8.6 mg PO QDL docusate sodium [Colace] 100 mg capsule 100 mg PO QAM PRN (Reason: Constipation) levothyroxine 25 mcg tablet 25 mcg PO QAM Qty: 30 3RF multivitamin [One Daily Multivitamin] Tablet 1 tab PO DAILY Linzess 290 mcg capsule 290 mcg PO HS Rx Instructions: TAKE 1 CAPSULE BY MOUTH DAILY topiramate 100 mg tablet See Rx Instructions .ROUTE .COMPLEX Rx Instructions: TAKES 100 mg QAM, THEN 200MG QPM. pantoprazole 40 mg tablet,delayed release (DR/EC) 40 mg PO BID Qty: 60 0RF fluoxetine 40 mg capsule 80 mg PO QAM buspirone 30 mg tablet 30 mg PO BID Discontinued lamotrigine 250 mg tablet extended release 24hr 250 mg PO BID Qty: 60 5RF benztropine 1 mg tablet 1 mg PO BID Discharge Orders: Discharge Order (Routine); Ordered 09/14/22 Ordered By: Frankie Ybarra Admission Data Admit Date/Time: 09/13/22 12:04 Attending Provider: Frankie Ybarra Admit Provider: Frankie Ybarra Primary Care Provider: Jesus Diamond Other Interventions: Discharge Summary Assessment (RN) Last Done: 09/14/22 11:37 PSY Interdisciplinary Discharge Planning Last Done: 09/14/22 11:39 Coding Level of Care Code 86071 D/C day mgmt > 30 min Diagnoses Bipolar II disorder, most recent episode major depressive F31.81 Panic disorder F41.0 Post traumatic stress disorder F43.10 Borderline personality disorder F60.3 Suicide attempt T14.91XA Anticholinergic drug overdose T44.3X2A Encounter type: initial encounter Injury intent: intentional self-harm Time Spent (min) 36
[2022-09-14] MEDS ORDERED: SENNA 8.6 MG TAB PO SCH (12:30)
--- NOTE | 2022-09-14 23:07 | Electrocardiogram Report ---
Test Reason : Blood Pressure : / mmHG Vent. Rate : 072 BPM Atrial Rate : 072 BPM P-R Int : 158 ms QRS Dur : 080 ms QT Int : 424 ms P-R-T Axes : 060 046 038 degrees QTc Int : 464 ms Normal sinus rhythm Normal ECG When compared with ECG of 09-JUL-2022 18:39, Nonspecific T wave abnormality no longer evident in Anterior leads Confirmed by Jose Sharp ([id number]) on 09/14/2022 11:06:50 PM Referred By: REFERRED SELF Confirmed By:Jose Sharp
== END 2022-09-14 11:54 | disposition home or self-care (01) | DRG 885 ==
LOC: ED 20:10 → 3S 09-13 12:04
DX: F17.290 Nicotine dependence, other tobacco product, uncomplicated; Z88.6 Allergy status to analgesic agent; Z79.1 Long term (current) use of non-steroidal anti-inflammatories (NSAID); Z79.890 Hormone replacement therapy; Z79.899 Other long term (current) drug therapy; Z88.8 Allergy status to other drugs, medicaments and biological substances; T14.91XA Suicide attempt, initial encounter; F43.10 Post-traumatic stress disorder, unspecified; F60.3 Borderline personality disorder; Z88.5 Allergy status to narcotic agent; T44.3X2A Poisoning by other parasympatholytics [anticholinergics and antimuscarinics] and spasmolytics, intentional self-harm, initial encounter; F41.0 Panic disorder [episodic paroxysmal anxiety]; F31.81 Bipolar II disorder

== ENCOUNTER 2023-03-28 16:03 | Inpatient (IN) ==
[2023-03-28 17:07] LABS: Appearance Urine Clear (Clear); Bilirubin Urine Negative (Negative); Blood Urine Negative (Negative); Color Urine Dark Yellow; Glucose Urine UA Negative (Negative); Ketones Urine Negative (Negative); Leukocyte Esterase Urine Negative (Negative); Nitrite Urine Negative (Negative); Protein Urine Negative (Negative); Specific Gravity Urine 1.027 (1.000-1.030); Urobilinogen Urine Negative (Negative); pH Urine 5.5 (4.5-7.5)
[2023-03-28] MEDS: LORazepam 1 MG TAB SL STA (17:18)
[2023-03-28 17:45] LABS: Amphetamines+Metham, Urine Neg (Neg); Barbiturates, Urine Neg (Neg); Benzodiazepine, Urine Neg (Neg); Cocaine, Urine Neg (Neg); MDMA (Ecstacy), Urine Neg (Neg); Marijuana, Urine Neg (Neg); Methadone, Urine Neg (Neg); Opiate, Urine Neg (Neg); Phencyclidine, Urine Neg (Neg)
[2023-03-28 18:09] LABS: Acetaminophen < 3 ug/ml (10-30); Salicylate < 3.0 mg/dl (3.0-30)
[2023-03-28 18:12] LABS: Basophils # (auto) 0.01 K/uL (0.00-0.20); Basophils % (auto) 0.2 %; Eosinophils # (auto) 0.08 K/uL (0.00-0.50); Eosinophils % (auto) 1.7 %; Hematocrit (blood only) 37.4 % (37.0-47.0); Hemoglobin 12.2 g/dl (12.0-16.0); Immature Granulocytes # (auto) 0.01 K/uL (0.01-0.20); Immature Granulocytes % (auto) 0.2 %; Lymphocytes # (auto) 1.36 K/uL (1.20-3.40); Lymphocytes % (auto) 28.5 %; Mean Corpuscular Hgb Conc 32.6 g/dL (32.0-36.0); Mean Corpuscular Volume 85.8 fL (80.0-100.0); Mean Platelet Volume 11.9 fL (9.4-12.4); Monocytes # (auto) 0.26 K/uL (0.11-0.59); Monocytes % (auto) 5.4 %; Neutrophils # (auto) 3.06 K/uL (1.40-6.50); Platelet Count 177 K/uL (130-400); RDW Coefficient of Variation 14.5 % (11.5-14.5); RDW Standard Deviation 45.4 fL (36.4-46.3); Red Blood Count 4.36 M/uL (4.20-5.40); White Blood Count 4.78 K/ul (4.8-10.8)
[2023-03-28 18:23] LABS: Albumin Globulin Ratio 1.3 (0.9-2); Albumin Level 4.1 gm/dl (3.4-5.0); BUN Creatinine Ratio 15.7 (10-20); Bilirubin,Total 0.4 mg/dl (0.2-1.0); Calcium 8.5 mg/dl (8.6-10.3); Creatinine Clr Calc Pharmacy 61.9 ml/min; Est GFR (African American) 80.8 ml/min; Est GFR (Non-African American) 69.7 ml/min; Globulin 3.2 gm/dl (2.5-4.0); Potassium 3.4 mmol/L (3.5-5.1); Total Protein 7.3 gm/dl (6.0-8.3)
[2023-03-28 18:37] LABS: Thyroid Stimulating Hormone 1.732 uIu/ml (0.300-4.500)
[2023-03-28] MEDS: OPTIRAY 320 125ml IV ONE (18:47)
--- NOTE | 2023-03-28 19:22 | CT Scan Report ---
CT angio neck with con, CT angio head w con, CT head/brain wo con CLINICAL HISTORY: rodriguez TECHNIQUE: Contiguous axial CT images of the head were acquired from the base of the skull to the gab hugo without intravenous contrast administration. CT angiography of the head and neck was performed f ollowing intravenous administration of iodinated contrast. Coronal and sagittal MIPS were obtained fr om the axial data set and were submitted for review. Automated dose lowering techniques and/or adjus tment according to patient size were utilized for this examination. All measurements were calculated based on NASCET criteria. CT DOSE: 983.21 mGy.cm Comparison: Comparison is made to CTA head and neck 01/02/2022 FINDINGS: Focal encephalomalacia is in the right frontal lobe. Postsurgical changes are seen. No hemorrhage or CT evidence of infarct is seen. Lungs and soft tissues are unremarkable. CTA Neck: A 3 vessel aortic arch is shown. There is no significant atherosclerotic plaque in the aor tic arch or the origins of the innominate, left common carotid, and left subclavian arteries. The co mmon carotid, external carotid, cervical segments of the internal carotid arteries, and the cervical segments of the vertebral arteries are patent without hemodynamically significant stenosis. The left vertebral artery is dominant. CTA Head: The anterior and posterior cerebral circulations are patent. No hemodynamically significan t stenosis, aneurysm, dissection, or arteriovenous malformation is shown. IMPRESSION: 1. No acute intracranial hemorrhage, evidence of acute territorial infarction, or other acute intrac ranial disease process. Postsurgical changes at the right frontal lobe. 2. No occlusion, hemodynamically significant stenosis, or dissection in the major cervical arteries. 3. No occlusion, hemodynamically significant stenosis, aneurysm, dissection, or arteriovenous malfor mation in the major intracranial arteries. Assessment of stenosis of the internal carotid arteries is based on NASCET criteria. ACT 112: Negative or not required by law. Electronically signed by: Bharath Dennison M.D. 03/28/2023 7:20 PM
[2023-03-28] MEDS ORDERED: DOCUSATE SODIUM 100 MG CAP PO PRN (20:44)
[2023-03-28] MEDS ORDERED: ALUMINUM/MAGNESIUM SUSP 30 ML UDC PO PRN (20:53)
[2023-03-28] MEDS ORDERED: MAGNESIUM HYDROXIDE SUSP 30 ML UDC PO PRN (20:53)
[2023-03-28] MEDS ORDERED: ACETAMINOPHEN 325 MG TAB PO PRN (20:53)
[2023-03-28] MEDS ORDERED: BISMUTH SUBSALICYLATE LIQD 236 ML PO PRN (20:53)
[2023-03-28] MEDS ORDERED: SODIUM CHLORIDE 0.65% NA SOLN 45 ML (OCEAN) PRN (20:53)
[2023-03-28] MEDS ORDERED: ONDANSETRON 4 MG OD TAB PO PRN (21:20)
[2023-03-28] MEDS: busPIRone 15 MG TAB PO SCH (21:59)
[2023-03-28] MEDS: PANTOprazole 40 MG TAB PO SCH (22:23)
--- NOTE | 2023-03-28 22:50 | Emergency Department Note ---
History of Present Illness General Chief complaint: Mental Health Evaluation Stated complaint: WANTS TO HURT HERSELF Time Seen by Provider: 03/28/23 16:24 Source: patient and family History of Present Illness Provider complaint: Mental health evaluation 37-year-old female with history of suicide attempts borderline personality disorder bipolar disorder presents emergency department with family for suicidal ideation. Patient reports she has been having thoughts of wanting herself for the last month. She reports she been having increasing problems with her family. Today, her daughter at bedside states she was holding a knife threatening to kill himself. Her significant other is at bedside and states he caught the patient trying to buy [id number] medications which she is planning on overdosing on. He states that he stopped her from buying these and she admits to not taking any pills in attempt to hurt herself. The significant other brought the patient into the emergency department for evaluation. Patient does report headaches. She states her headaches usually do come up on when she is under a lot of stress. She states her anxiety has been very high and Ativan has been helping. She calls Ativan her "happy pill". Home Medications Medication Instructions Recorded Confirmed Type sennosides 8.6 mg capsule (senna) 8.6 mg PO QDL 01/01/19 03/24/23 History docusate sodium 100 mg capsule 100 mg PO QAM PRN Constipation 09/25/19 03/24/23 History (Colace) fluoxetine 40 mg capsule 80 mg PO QAM 08/14/20 03/24/23 History buspirone 30 mg tablet 30 mg PO BID 09/14/21 03/28/23 History lorazepam 0.5 mg tablet 0.25 - 0.5 mg PO DAILY PRN Anxiety 12/08/21 03/24/23 History albuterol sulfate 90 mcg/actuation 2 puff inhalation Q4 PRN Shortness 03/18/22 03/24/23 Rx aerosol inhaler Of Breath #18 grams cyclosporine 0.05 % eye drops in a 1 drp ophthalmic (eye) Q12H 08/10/22 03/24/23 History dropperette (Restasis) linaclotide 290 mcg capsule 290 mcg PO HS #90 caps 10/18/22 03/24/23 Rx (Linzess) galcanezumab-gnlm 120 mg/mL 120 mg subcut .COMPLEX 30 days #1 11/10/22 03/24/23 Rx subcutaneous pen injector mL (Emgality Pen) topiramate 150 mg capsule 300 mg (2 x 150 mg) PO DAILY #60 ea 11/10/22 03/24/23 Rx sprinkle,extended release 24 hr ubrogepant 100 mg tablet (Ubrelvy) 100 mg PO DIRECTED PRN migraine 11/10/22 03/24/23 Rx headache 30 days #16 tabs azelastine 137 mcg (0.1 %) nasal 2 spray intranasal BID PRN nasal 01/02/23 03/24/23 Rx spray aerosol congestion #30 mL levothyroxine 25 mcg tablet 25 mcg PO QAM #30 tabs 02/07/23 03/24/23 Rx lamotrigine 250 mg tablet,extended 250 mg PO BID #60 tabs 02/17/23 03/24/23 Rx release 24 hr pantoprazole 40 mg tablet,delayed See Rx Instructions .Route 02/23/23 03/24/23 Rx release .COMPLEX #60 tabs fluticasone propionate 50 1 spray intranasal DAILY #16 grams 03/07/23 03/24/23 Rx mcg/actuation nasal spray,suspension (Allergy Relief (fluticasone)) topiramate 50 mg capsule 50 mg PO DAILY #30 ea 03/07/23 03/24/23 Rx sprinkle,extended release 24 hr ondansetron HCl 4 mg tablet See Rx Instructions .Route 03/20/23 03/24/23 Rx .COMPLEX #60 tabs Allergies Allergy/AdvReac Type Severity Reaction Status Date / Time methocarbamol Allergy Intermediate RASH Verified 03/24/23 11:16 morphine Allergy Intermediate rash on Verified 03/24/23 11:16 arms trazodone AdvReac Severe SEVERE Verified 03/24/23 11:16 DIZZINESS acetaminophen [From Tylenol] AdvReac Intermediate Liver Verified 03/24/23 11:16 disease bupropion AdvReac Intermediate AVOID DUE Verified 03/24/23 11:16 TO LOWERING SEIZURE THRESHOLD NSAIDS (Non-Steroidal AdvReac Intermediate Gastritis/GI Verified 03/24/23 11:16 Anti-Inflamma bleed olanzapine [From Zyprexa] AdvReac Intermediate Anxiety Unverified 03/24/23 11:16 tramadol AdvReac Intermediate AVOID DUE Verified 03/24/23 11:16 TO LOWERING SEIZURE THRESHOLD Past Med/Surg History Medical History Neck pain Nausea Irritable bowel syndrome Hypokalemia Eye injury Epilepsy Convulsions Anxiety Abdominal pain Spondylolysis with spondylolisthesis Restless legs syndrome Recurrent major depressive disorder Primary hypercoagulable state Pityriasis rosea Part of body swollen Panic disorder without agoraphobia (01/19/11) Memory loss or impairment Lymphadenopathy Lumbosacral radiculopathy Low back pain Insomnia Generalized pain Dyspnea on exertion Diverticulitis of colon Chronic vulvitis Central sleep apnea Bruising Breast pain Benzodiazepine overdose (01/10/12) Atrophic vaginitis Acid reflux disease Abnormal ECG Panic disorder Bipolar II disorder, most recent episode major depressive Borderline personality disorder Anticholinergic drug overdose Suicide attempt BRBPR (bright red blood per rectum) History of suicide attempt Blurry vision, bilateral EYE TESTING FOR/STARTING OF CATARACT - ? FURTHER DETAILS. UPCOMING MRI ...NOT YET SCHEDULED History of COVID-19 APPROX 1 YR AGO Pre-diabetes Gastritis Left arm pain Left arm swelling Iron deficiency anemia Seizure disorder as sequela of cerebrovascular accident Hematochezia REASON FOR UPCOMING PROCEDURES Syncope HX Shaking Acquired deviated nasal septum Allergic rhinitis Current use of proton pump inhibitor Anemia Elevated liver function tests Weight gain Chronic low back pain Constipation Acid indigestion Hypoglycemia Dysphagia Lumbar radicular pain Sacroiliitis Polypharmacy Migraine without aura, not intractable, without status migrainosus MIGRAINES/UNDER CONTROL CURRENTLY Family history of blood clots Chronic headaches Intracranial hemorrhage (~07/2018) Hx of hiatal hernia Hypothyroidism Post traumatic stress disorder Stroke x 2, 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 Per PCP note second CVA is a result of "right basal ganglia hemorrhagic intraparenchymal stroke/hematoma evacuation 2018. Patient also follows with [facility] as well as [facility]. [facility] follows patient for post hemorrhagic stroke/hematoma with residual left facial droop and dysarthria." DVT (deep venous thrombosis) Patient reports h/o "bilateral upper extremities and brain started from IVs" History of ovarian cyst Moderate cervical dysplasia IBS (irritable colon syndrome) Suicide attempt by multiple drug overdose previous attempt, but no thoughts of harming self now Epilepsy LAST SEIZURE >6 MON AGO/TRAMADOL CAUSED IT Surgical History S/P subdural hematoma evacuation History of appendectomy History of esophagogastroduodenoscopy (EGD) History of colonoscopy S/P section S/P cholecystectomy H/O LEEP conization History of endometrial ablation [place] teeth extracted S/P total abdominal hysterectomy ovaries remain Status post tubal ligation Hx of cholecystectomy Family History Mother Blood clots in brain Lung cancer Uncle Hx of blood clots Family history of colon cancer Grandmother Family history of diabetes mellitus Uncle Family history of colon cancer Other Breast cancer FHx: cancer Family history of lung disease Denies family history of Ovarian cancer Crohn's disease Colorectal cancer IBS (irritable bowel syndrome) Social History Smoking Status: Current every day smoker Tobacco Type: E-cigarettes / Vaping Age Started Using Tobacco: 24; Age Quit Using Tobacco: 35; packs per day: 2; Cigarettes Per Day: vapes daily- advised; Second Hand Exposure: No; Do You Dip or Chew Tobacco: No; Hx Alcohol Use: No Hx Substance Use: Yes (HX/SUBOXONE REHAB FOR - 3 YR AGO REHAB DONE/NO RELAPSE) Substance Use Type Other:: suboxone Preferred Language: [place] Citizen Communication Ability: Effective Visual Impairment: No Limitations Hearing Ability: Normal Pest Controller Assistant Required: No Beliefs That Will Affect Care: None Current Living Situation: Other Current Living Situation Comment: AG AND HIS DAUGHTER current occupational status: disabled How many Children do You have: 1 Feels Safe at Home: Yes Childhood Exposure to Second-Hand Smoke: Yes (Mother) Diet: regular Dental Care, Regularly: Yes Physical Activity Frequency: 3-4 Times per Week Seatbelt Use: sometimes Sunscreen Use: No Gender Identity: Female Assistive Devices: Denture - Upper Assistive Devices Comment: Glasses at home, dentues with Pt. Physical Exam Vital Signs Vital Signs - 24 hr 03/28/23 16:24 Temperature 36.7 C Temperature Source Temporal Artery Scan Pulse Rate 91 H Respiratory Rate 20 Respiratory Effort / Characteristics Non-Labored Spontaneous Respiratory Depth Normal Respiratory Pattern Regular Blood Pressure 120/80 Blood Pressure Mean 93 Pulse Oximetry 99 Oxygen Delivery Method Room Air Sepsis Recent Fever Within 48 Hours No Sepsis New/Unexplained Change in Mental Status No Sepsis Action Taken by Nursing No Action Required Physical Exam GENERAL: She is oriented to person, place, and time. She appears well-developed and well-nourished. She does not appear distressed. HENT: Exam performed. -Head: Normocephalic and atraumatic. -Right Ear: External ear normal. No mastoid erythema -Left Ear: External ear normal. No mastoid erythema -Mouth/Throat: The oropharynx is clear and moist. No trismus in the jaw. No dental abscesses or uvula swelling. No oropharyngeal exudate or tonsillar abscesses. EYES: Conjunctivae and EOM are normal. Pupils are equal, round, and reactive to light. Right eye exhibits no discharge. Left eye exhibits no discharge. No scleral icterus. NECK: Normal range of motion. Neck supple. No JVD present. No rigidity. No tracheal deviation and normal range of motion present. CV: Normal rate, regular rhythm, normal heart sounds and intact distal pulses. There is no peripheral edema. Palpable radial pulses bue. PULM/CHEST: Effort normal and breath sounds normal. No respiratory distress. No stridor. She has no wheezes. She has no rales. MUSC/SKEL: Normal range of motion. There is no peripheral edema, tenderness or deformity. LYMPH: No cervical adenopathy. NEURO: She is alert and oriented to person, place, and time. She has normal strength. No cranial nerve deficit or sensory deficit. Coordination and gait normal. GCS eye subscore is 4. GCS verbal subscore is 5. GCS motor subscore is 6. Cerebellar tests wnl. SKIN: Skin is warm and dry. She is not diaphoretic. PSYCH: She has a normal mood and affect. Behavior is normal. Judgment and thought content normal. Course Course 1623: The patient was evaluated in room A7. A complete history and physical exam was performed 1930: Patient medically cleared awaiting psychiatric evaluation and placement. 2100: Patient excepted to 3 S. Administered Medications Buspirone HCl (Buspirone 15 Mg Tab) 30 mg PO BID REPLACED BY [facility] Stop: 04/27/23 20:59 Last Admin: 03/28/23 21:59 Dose: 30 mg Documented By: CLD Pantoprazole Sodium (Pantoprazole 40 Mg Tab) 40 mg PO BID REPLACED BY [facility] Stop: 04/27/23 20:59 Last Admin: 03/28/23 22:23 Dose: 40 mg Documented By: CLD Discontinued Medications Ioversol (Optiray 320 125ml) 117 ml IV ONCE ONE Stop: 03/28/23 18:48 Last Admin: 03/28/23 18:47 Dose: 117 ml Documented By: JMP Lorazepam (Lorazepam 1 Mg Tab) 1 mg SL NOW STA Stop: 03/28/23 16:48 Last Admin: 03/28/23 17:18 Dose: 1 mg Documented By: AMS Medical Decision Making Laboratory Data Attestation: I reviewed the patient's lab results. 03/28/23 17:10 03/28/23 17:10 Lab Results 03/28/23 03/28/23 03/28/23 Range/Units 16:35 17:10 17:15 WBC 4.78 L (4.8-10.8) K/ul RBC 4.36 (4.20-5.40) M/uL Hgb 12.2 (12.0-16.0) g/dl Hct 37.4 (37.0-47.0) % MCV 85.8 (80.0-100.0) fL MCH 28.0 (25.0-34.0) pg MCHC 32.6 (32.0-36.0) g/dL RDW Std Deviation 45.4 (36.4-46.3) fL RDW Coeff of Cristi 14.5 (11.5-14.5) % Plt Count 177 (130-400) K/uL MPV 11.9 (9.4-12.4) fL Immature Gran % (Auto) 0.2 % Neut % (Auto) 64.0 % Lymph % (Auto) 28.5 % [place] % (Auto) 5.4 % Eos % (Auto) 1.7 % Baso % (Auto) 0.2 % Neut # (Auto) 3.06 (1.40-6.50) K/uL Lymph # (Auto) 1.36 (1.20-3.40) K/uL [place] # (Auto) 0.26 (0.11-0.59) K/uL Eos # (Auto) 0.08 (0.00-0.50) K/uL Baso # (Auto) 0.01 (0.00-0.20) K/uL Immature Gran # (Auto) 0.01 (0.01-0.20) K/uL Sodium 138 (136-145) mmol/L Potassium 3.4 L (3.5-5.1) mmol/L Chloride 113 H (98-107) mmol/L Carbon Dioxide 18 L (21-32) mmol/L Anion Gap 7 (3-11) BUN 16 (6-23) mg/dl Creatinine 1.02 (0.6-1.2) mg/dl Est Cr Clr Drug Dosing 61.9 ml/min Est GFR ( Amer) 80.8 ml/min Est GFR (Non-Af Amer) 69.7 ml/min BUN/Creatinine Ratio 15.7 (10-20) Glucose 92 (70-99(Fasting)) mg/dl Calcium 8.5 L (8.6-10.3) mg/dl Total Bilirubin 0.4 (0.2-1.0) mg/dl AST 176 H (13-39) U/L ALT 148 H (7-52) U/L Alkaline Phosphatase 118 H (34-104) U/L Total Protein 7.3 (6.0-8.3) gm/dl Albumin 4.1 (3.4-5.0) gm/dl Globulin 3.2 (2.5-4.0) gm/dl Albumin/Globulin Ratio 1.3 (0.9-2) TSH 1.732 (0.300-4.500) uIu/ml Urine Color Dark Yellow Urine Appearance Clear (Clear) Urine pH 5.5 (4.5-7.5) Ur Specific [place] 1.027 (1.000-1.030) Urine Protein Negative (Negative) Urine Glucose (UA) Negative (Negative) Urine Ketones Negative (Negative) Urine Blood Negative (Negative) Urine Nitrite Negative (Negative) Urine Bilirubin Negative (Negative) Urine Urobilinogen Negative (Negative) Ur Leukocyte Esterase Negative (Negative) POC Ur Test NEG (NEG) Salicylates < 3.0 L (3.0-30) mg/dl Urine Opiates Screen Neg (Neg) Ur Methadone, Qual Neg (Neg) Acetaminophen < 3 L (10-30) ug/ml Urine Barbiturates Neg (Neg) Ur Phencyclidine (PCP) Neg (Neg) U Amphetamin/Meth Scrn Neg (Neg) MDMA (Ecstasy) Screen Neg (Neg) U Benzodiazepines Scrn Neg (Neg) Ur Cocaine Metabolite Neg (Neg) U Marijuana (THC) Screen Neg (Neg) Ethyl Alcohol mg/dL < 10.0 (<10.0) mg/dl SARS-CoV-2, RNA, NAAT NEGATIVE (NEGATIVE) Imaging Data Radiologist's Impression: Head CT 03/28/23 16:48 CT angio neck with con, CT angio head w con, CT head/brain wo con CLINICAL HISTORY: rodriguez TECHNIQUE: Contiguous axial CT images of the head were acquired from the base of the skull to the vertex without intravenous contrast administration. CT angiography of the head and neck was performed following intravenous administration of iodinated contrast. Coronal and sagittal MIPS were obtained from the axial data set and were submitted for review. Automated dose lowering techniques and/or adjustment according to patient size were utilized for this examination. All measurements were calculated based on NASCET criteria. CT DOSE: 983.21 mGy.cm Comparison: Comparison is made to CTA head and neck 01/02/2022 FINDINGS: Focal encephalomalacia is in the right frontal lobe. Postsurgical changes are seen. No hemorrhage or CT evidence of infarct is seen. Lungs and soft tissues are unremarkable. CTA Neck: A 3 vessel aortic arch is shown. There is no significant atherosclerotic plaque in the aortic arch or the origins of the innominate, left common carotid, and left subclavian arteries. The common carotid, external carotid, cervical segments of the internal carotid arteries, and the cervical segments of the vertebral arteries are patent without hemodynamically significant stenosis. The left vertebral artery is dominant. CTA Head: The anterior and posterior cerebral circulations are patent. No hemodynamically significant stenosis, aneurysm, dissection, or arteriovenous malformation is shown. IMPRESSION: 1. No acute intracranial hemorrhage, evidence of acute territorial infarction, or other acute intracranial disease process. Postsurgical changes at the right frontal lobe. 2. No occlusion, hemodynamically significant stenosis, or dissection in the major cervical arteries. 3. No occlusion, hemodynamically significant stenosis, aneurysm, dissection, or arteriovenous malformation in the major intracranial arteries. Assessment of stenosis of the internal carotid arteries is based on NASCET criteria. ACT 112: Negative or not required by law. Electronically signed by: Bharath Dennison M.D. 03/28/2023 7:20 PM Head CTA 03/28/23 16:48 CT angio neck with con, CT angio head w con, CT head/brain wo con CLINICAL HISTORY: rodriguez TECHNIQUE: Contiguous axial CT images of the head were acquired from the base of the skull to the vertex without intravenous contrast administration. CT angiography of the head and neck was performed following intravenous administration of iodinated contrast. Coronal and sagittal MIPS were obtained from the axial data set and were submitted for review. Automated dose lowering techniques and/or adjustment according to patient size were utilized for this examination. All measurements were calculated based on NASCET criteria. CT DOSE: 983.21 mGy.cm Comparison: Comparison is made to CTA head and neck 01/02/2022 FINDINGS: Focal encephalomalacia is in the right frontal lobe. Postsurgical changes are seen. No hemorrhage or CT evidence of infarct is seen. Lungs and soft tissues are unremarkable. CTA Neck: A 3 vessel aortic arch is shown. There is no significant atherosclerotic plaque in the aortic arch or the origins of the innominate, left common carotid, and left subclavian arteries. The common carotid, external carotid, cervical segments of the internal carotid arteries, and the cervical segments of the vertebral arteries are patent without hemodynamically significant stenosis. The left vertebral artery is dominant. CTA Head: The anterior and posterior cerebral circulations are patent. No hemodynamically significant stenosis, aneurysm, dissection, or arteriovenous malformation is shown. IMPRESSION: 1. No acute intracranial hemorrhage, evidence of acute territorial infarction, or other acute intracranial disease process. Postsurgical changes at the right frontal lobe. 2. No occlusion, hemodynamically significant stenosis, or dissection in the major cervical arteries. 3. No occlusion, hemodynamically significant stenosis, aneurysm, dissection, or arteriovenous malformation in the major intracranial arteries. Assessment of stenosis of the internal carotid arteries is based on NASCET criteria. ACT 112: Negative or not required by law. Electronically signed by: Bharath Dennison M.D. 03/28/2023 7:20 PM Neck CTA 03/28/23 16:48 CT angio neck with con, CT angio head w con, CT head/brain wo con CLINICAL HISTORY: rodriguez TECHNIQUE: Contiguous axial CT images of the head were acquired from the base of the skull to the vertex without intravenous contrast administration. CT angiography of the head and neck was performed following intravenous administration of iodinated contrast. Coronal and sagittal MIPS were obtained from the axial data set and were submitted for review. Automated dose lowering techniques and/or adjustment according to patient size were utilized for this examination. All measurements were calculated based on NASCET criteria. CT DOSE: 983.21 mGy.cm Comparison: Comparison is made to CTA head and neck 01/02/2022 FINDINGS: Focal encephalomalacia is in the right frontal lobe. Postsurgical changes are seen. No hemorrhage or CT evidence of infarct is seen. Lungs and soft tissues are unremarkable. CTA Neck: A 3 vessel aortic arch is shown. There is no significant atherosclerotic plaque in the aortic arch or the origins of the innominate, left common carotid, and left subclavian arteries. The common carotid, external carotid, cervical segments of the internal carotid arteries, and the cervical segments of the vertebral arteries are patent without hemodynamically significant stenosis. The left vertebral artery is dominant. CTA Head: The anterior and posterior cerebral circulations are patent. No hemodynamically significant stenosis, aneurysm, dissection, or arteriovenous malformation is shown. IMPRESSION: 1. No acute intracranial hemorrhage, evidence of acute territorial infarction, or other acute intracranial disease process. Postsurgical changes at the right frontal lobe. 2. No occlusion, hemodynamically significant stenosis, or dissection in the major cervical arteries. 3. No occlusion, hemodynamically significant stenosis, aneurysm, dissection, or arteriovenous malformation in the major intracranial arteries. Assessment of stenosis of the internal carotid arteries is based on NASCET criteria. ACT 112: Negative or not required by law. Electronically signed by: Bharath Dennison M.D. 03/28/2023 7:20 PM ECG Data Attestation: I personally reviewed and interpreted this ECG as follows: Rate (beats per minute): 72 Rhythm: + normal sinus ECG Intervals/blocks: + Normal MO and + Normal QT-c ECG ST segments: + Normal ST segments Additional Comments: QRS 72 MDM Narrative 1624: The patient was evaluated in room A7. A complete history and physical exam was performed 1930: Patient medically cleared awaiting psychiatric evaluation and placement. 2100: Patient excepted to 3 S. Impression & Plan Depression with suicidal ideation, Anxiety Discharge Plan Visit Data Chief Complaint: Mental Health Evaluation Stated Complaint: WANTS TO HURT HERSELF ED Provider: Leander Valencia Discharge Problem: Depression with suicidal ideation, Anxiety Patient Disposition: Admitted As Inpatient Discharge Instructions Interventions: ED Discharge Assessment Last Done: 03/28/23 20:51
[2023-03-29] MEDS: LEVOTHYROXINE SODIUM 25 MCG TABLET PO SCH (08:25)
[2023-03-29] MEDS: FLUTICASONE PROPIONATE NA SPR 16 GM BTL SCH (09:24)
[2023-03-29] MEDS: FLUoxetine HCL 20 MG CAP PO SCH (09:24)
[2023-03-29] MEDS: LORazepam 0.5 MG TAB PO PRN ×2 (09:25→14:13)
--- NOTE | 2023-03-29 11:00 | History & Physical ---
Date of Service March 29, 2023 Impression / Recommendations Impression 37 yo female with complex psychiatric and medical history, admit following threats of self-injury during period of family conflict. negative acetominophen level but LFTs are significantly elevated compared to last contact. (1) Panic disorder: (2) Bipolar II disorder, most recent episode major depressive: (3) Post traumatic stress disorder: (4) Epilepsy: (5) Liver function abnormality: Plan The patient was admitted to the [facility] ([facility] mental [facility] unit) on q15 min checks (behavioral with suicide precautions) for safety. The patient will participate in group, recreational, and milieu therapies and will be offered additional individual and family sessions as clinically appropriate. Risks/benefits/alternatives reviewed re: current medications. Lamictal dose high for psych indication but patient reports for seizure. Will repeat LFTs to explore trend. Overall, I spent a total of 58 minutes with this case, including review of chart, direct evaluation of the patient, counseling the patient, ordering medication, coordination with nursing, interdisciplinary team meeting, risk assessment, and documentation. Inventory Assets Strengths: motivated toward outpatient therapy, med compliant Needs: improve coping, family meeting Suicide Risk Level Suicide Risk Level: High-Moderate (q15 min suicide checks) Risk Factors Assessment : Yes Do You Have Access To A Gun?: No Health Problems: Yes Mental Health Diagnoses: Yes Substance Use Disorders: Yes (in remission) Previous Attempt: No (denies ingestion 2022 was attempt) Previous Psychiatric Hospitalization: Yes Protective Factors Assessment Responsible for Young Children: Yes Employed: No Stable Relationships: No Psychiatric History Identifying Data BRUCE ALTMAN is a 37-year-old F from [place], has a history of 2 prior [facility] admits, and was admitted on 03/28/23 20:21 on a 201 voluntary commitment for SI with plan. Chief Complaint "I just needed a break". History of Present Illness Reviewed and confirmed presenting complaint as outlined in the ED CM note: Met with patient with Dr. Valencia for a brief MH evaluation. Patient's daughter and paramour were present. Patient reports feeling very stressed and overwhelmed. She reports she has been having feelings of wanting to hurt herself or end her life. She reports she has been feeling this way for a few weeks now. Patient states she has been having issues with both of her daughters and that her and her significant other have also been arguing. Patient reports she has a counselor through [employer], that she has met with her one time, but will only see her once every two weeks and she feels she might need more intervention at this time. Patient is prescribed MH medication and takes it as prescribed but reports feeling the need to take her Ativan more often at this time due to increased stress and anxiety. Patient reports severe anxiety last evening. Patient's significant other states he caught patient buying over the counter Tylenol at [facility] in attempts to overdose, but when she was caught she put it back on the shelf. Patient's daughter also reported patient was taking her finger over the blade of a knife in front of her. Patient denies this stating she would never cut herself as she feels it would hurt too much. Patient denies history of SIB. Today the patient describes ongoing upset that her 21 yo daughter doesn't "pay much attention to me" and denies any gesture with a knife as described. She continues to maintain that she was buying excedrin for a headache but later admitted to perhaps having hid this or similar medication in the house since "he gives me such a hard time about having it." She reported no concerns re: her [employer] or medication and is glad to have ready access to therapy. She stated her current therapist didn't have an opening next week as working into schedule but did tell her about additional groups now available through [facility] (?[facility]). The patient stated her main stressor yesterday was having to call the police to the home twice as her fiances 11 yo daughter was acting out aggressively, throwing and breaking things. She told her fiance she needed a break and then argued with everyone later in the day as described. Past Psychiatric History Current Psychiatric Diagnosis: Depression, Anxiety, Bipolar, PTSD Outpatient Services: [facility]--therapy [facility]--medication Previous Psych Admissions: 2018 [facility], September 2022 sleeping pill ingestion (denied suicide attempt) Do You Have Access To A Gun?: No History of Previous Suicide Attempt: No Past Medication Trials: [facility] records pending, patient's fiance manages her current medications Allergies Allergy/AdvReac Type Severity Reaction Status Date / Time methocarbamol Allergy Intermediate RASH Verified 03/24/23 11:16 morphine Allergy Intermediate rash on Verified 03/24/23 11:16 arms trazodone AdvReac Severe SEVERE Verified 03/24/23 11:16 DIZZINESS acetaminophen [From Tylenol] AdvReac Intermediate Liver Verified 03/24/23 11:16 disease bupropion AdvReac Intermediate AVOID DUE Verified 03/24/23 11:16 TO LOWERING SEIZURE THRESHOLD NSAIDS (Non-Steroidal AdvReac Intermediate Gastritis/GI Verified 03/24/23 11:16 Anti-Inflamma bleed olanzapine [From Zyprexa] AdvReac Intermediate Anxiety Unverified 03/24/23 11:16 tramadol AdvReac Intermediate AVOID DUE Verified 03/24/23 11:16 TO LOWERING SEIZURE THRESHOLD Home Medications Medication Instructions Recorded Confirmed Type sennosides 8.6 mg capsule (senna) 8.6 mg PO QDL 01/01/19 03/28/23 History docusate sodium 100 mg capsule 100 mg PO QAM PRN Constipation 09/25/19 03/28/23 History (Colace) fluoxetine 40 mg capsule 80 mg PO QAM 08/14/20 03/28/23 History buspirone 30 mg tablet 30 mg PO BID 09/14/21 03/28/23 History lorazepam 0.5 mg tablet 0.25 - 0.5 mg PO DAILY PRN Anxiety 12/08/21 03/28/23 History albuterol sulfate 90 mcg/actuation 2 puff inhalation Q4 PRN Shortness 03/18/22 03/24/23 Rx aerosol inhaler Of Breath #18 grams cyclosporine 0.05 % eye drops in a 1 drp ophthalmic (eye) Q12H 08/10/22 03/28/23 History dropperette (Restasis) linaclotide 290 mcg capsule 290 mcg PO HS #90 caps 10/18/22 03/28/23 Rx (Linzess) galcanezumab-gnlm 120 mg/mL 120 mg subcut .COMPLEX 30 days #1 11/10/22 03/24/23 Rx subcutaneous pen injector mL (Emgality Pen) topiramate 150 mg capsule 300 mg (2 x 150 mg) PO DAILY #60 ea 11/10/22 03/28/23 Rx sprinkle,extended release 24 hr ubrogepant 100 mg tablet (Ubrelvy) 100 mg PO DIRECTED PRN migraine 11/10/22 03/28/23 Rx headache 30 days #16 tabs azelastine 137 mcg (0.1 %) nasal 2 spray intranasal BID PRN nasal 01/02/23 03/24/23 Rx spray aerosol congestion #30 mL levothyroxine 25 mcg tablet 25 mcg PO QAM #30 tabs 02/07/23 03/28/23 Rx lamotrigine 250 mg tablet,extended 250 mg PO BID #60 tabs 02/17/23 03/28/23 Rx release 24 hr pantoprazole 40 mg tablet,delayed See Rx Instructions .Route 02/23/23 03/28/23 Rx release .COMPLEX #60 tabs fluticasone propionate 50 1 spray intranasal DAILY #16 grams 03/07/23 03/28/23 Rx mcg/actuation nasal spray,suspension (Allergy Relief (fluticasone)) topiramate 50 mg capsule 50 mg PO DAILY #30 ea 03/07/23 03/28/23 Rx sprinkle,extended release 24 hr ondansetron HCl 4 mg tablet See Rx Instructions .Route 03/20/23 03/28/23 Rx .COMPLEX #60 tabs Family History Family History of: Depression, Anxiety and Bipolar Family Mental Health History Comment: Reports mother and sister Alcohol History Hx of Alcohol Use Over the Past 12 Months: No AUDIT Total Score: 0 Smoking Use Have You Smoked or Used Tobacco Products in the Last 30 Days: Yes tobacco type: e-cigarettes Smoking Status: Current every day smoker Substance History Hx of Prescription Med Misuse Over the Past 12 Months: No Hx of Over the Counter Med Misuse Over the Past 12 Months: No Hx of Inhalent Misuse Over the Past 12 Months: No Hx of Organic Substance Use Over the Past 12 Months: No Hx of Illegal Substances/Street Drug Use Over Past 12 Months: No Problems as a Result of Past Substance Use: None Identified Problems as a Result of Past Substance Use Comments: 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 Other Number Of Children: 2 (1 biological, 1 step) Beliefs That Will Affect Care: None Hx Legal Problems: No Hx Traumatic Life Events: Yes Patient History Medical History Neck pain Nausea Irritable bowel syndrome Hypokalemia Eye injury Epilepsy Convulsions Anxiety Abdominal pain Spondylolysis with spondylolisthesis Restless legs syndrome Recurrent major depressive disorder Primary hypercoagulable state Pityriasis rosea Part of body swollen Panic disorder without agoraphobia (01/19/11) Memory loss or impairment Lymphadenopathy Lumbosacral radiculopathy Low back pain Insomnia Generalized pain Dyspnea on exertion Diverticulitis of colon Chronic vulvitis Central sleep apnea Bruising Breast pain Benzodiazepine overdose (01/10/12) Atrophic vaginitis Acid reflux disease Abnormal ECG Panic disorder Bipolar II disorder, most recent episode major depressive Borderline personality disorder Anticholinergic drug overdose Suicide attempt BRBPR (bright red blood per rectum) History of suicide attempt Blurry vision, bilateral EYE TESTING FOR/STARTING OF CATARACT - ? FURTHER DETAILS. UPCOMING MRI ...NOT YET SCHEDULED History of COVID-19 APPROX 1 YR AGO Pre-diabetes Gastritis Left arm pain Left arm swelling Iron deficiency anemia Seizure disorder as sequela of cerebrovascular accident Hematochezia REASON FOR UPCOMING PROCEDURES Syncope HX Shaking Acquired deviated nasal septum Allergic rhinitis Current use of proton pump inhibitor Anemia Elevated liver function tests Weight gain Chronic low back pain Constipation Acid indigestion Hypoglycemia Dysphagia Lumbar radicular pain Sacroiliitis Polypharmacy Migraine without aura, not intractable, without status migrainosus MIGRAINES/UNDER CONTROL CURRENTLY Family history of blood clots Chronic headaches Intracranial hemorrhage (~07/2018) Hx of hiatal hernia Hypothyroidism Post traumatic stress disorder Stroke x 2, 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 Per PCP note second CVA is a result of "right basal ganglia hemorrhagic intraparenchymal stroke/hematoma evacuation 2018. Patient also follows with [facility] as well as [facility]. [facility] follows patient for post hemorrhagic stroke/hematoma with residual left facial droop and dysarthria." DVT (deep venous thrombosis) Patient reports h/o "bilateral upper extremities and brain started from IVs" History of ovarian cyst Moderate cervical dysplasia IBS (irritable colon syndrome) Suicide attempt by multiple drug overdose previous attempt, but no thoughts of harming self now Epilepsy LAST SEIZURE >6 MON AGO/TRAMADOL CAUSED IT Surgical History S/P subdural hematoma evacuation History of appendectomy History of esophagogastroduodenoscopy (EGD) History of colonoscopy S/P section S/P cholecystectomy H/O LEEP conization History of endometrial ablation [place] teeth extracted S/P total abdominal hysterectomy ovaries remain Status post tubal ligation Hx of cholecystectomy Family History Mother Blood clots in brain Lung cancer Uncle Hx of blood clots Family history of colon cancer Grandmother Family history of diabetes mellitus Uncle Family history of colon cancer Other Breast cancer FHx: cancer Family history of lung disease Denies family history of Ovarian cancer Crohn's disease Colorectal cancer IBS (irritable bowel syndrome) Social History Smoking Status: Current every day smoker Tobacco Type: E-cigarettes / Vaping Age Started Using Tobacco: 24; Age Quit Using Tobacco: 35; packs per day: 2; Cigarettes Per Day: vapes daily- advised; Second Hand Exposure: No; Do You Dip or Chew Tobacco: No; Hx Alcohol Use: No Hx Substance Use: Yes (HX/SUBOXONE REHAB FOR - 3 YR AGO REHAB DONE/NO RELAPSE) Substance Use Type Other:: suboxone Preferred Language: Afghan Communication Ability: Effective Visual Impairment: No Limitations Hearing Ability: Normal Tight Rope Walker Required: No Beliefs That Will Affect Care: None Current Living Situation: Other Current Living Situation Comment: AG AND HIS DAUGHTER current occupational status: disabled How many Children do You have: 1 Feels Safe at Home: Yes Childhood Exposure to Second-Hand Smoke: Yes (Mother) Diet: regular Dental Care, Regularly: Yes Physical Activity Frequency: 3-4 Times per Week Seatbelt Use: sometimes Sunscreen Use: No Gender Identity: Female Assistive Devices: Denture - Upper Assistive Devices Comment: Glasses at home, dentues with Pt. Review of Systems Review of Systems: All systems reviewed & are unremarkable except as noted in HPI & below Physical Exam Psychiatric: Orientation: alert and oriented x 3 Apperance: appropriately dressed and appropriately groomed Eye Contact: good eye contact Motor Behavior: + abnormal motor movements (appeared to have some oral dyskinesias like licking lip/teeth but dentures) Speech: normal rate/rhythm/volume of speech Affect: + depressed affect Mood: + depressed mood Thought Process: goal directed thought process Thought Content: reality based without delusions Suicidal Thoughts: denies suicidal plan and denies suicidal intent; + reports suicidal thoughts (intermittent) Homicidal Thoughts: denies h omicidal thoughts Hallucinations: no auditory hallucinations and no visual hallucinations Cognition: attention grossly intact and language grossly intact Estimated Intelligence: consistent with education level Insight: + limited insight Judgment: + limited judgement Vital Signs (Past 24 Hours): Last Vital Signs Temp 36.8 C 03/29/23 06:38 Pulse 81 03/29/23 06:38 Resp 16 03/29/23 06:38 BP 109/75 03/29/23 06:38 Pulse Ox 99 03/28/23 21:27 O2 Del Method Room Air 03/28/23 21:27 Exam Statement: A physical exam was performed in the ED by Dr. Valencia for the purposes of medical clearance. I accept that physical as correct and adequate for the purposes of the inpatient physical exam. Results & Data ([facility]) Laboratory Results Laboratory Results - last 24 hr 03/28/23 03/28/23 03/28/23 16:35 17:10 17:15 WBC 4.78 L RBC 4.36 Hgb 12.2 Hct 37.4 MCV 85.8 MCH 28.0 MCHC 32.6 RDW Std Deviation 45.4 RDW Coeff of Cristi 14.5 Plt Count 177 MPV 11.9 Immature Gran % (Auto) 0.2 Neut % (Auto) 64.0 Lymph % (Auto) 28.5 [place] % (Auto) 5.4 Eos % (Auto) 1.7 Baso % (Auto) 0.2 Neut # (Auto) 3.06 Lymph # (Auto) 1.36 [place] # (Auto) 0.26 Eos # (Auto) 0.08 Baso # (Auto) 0.01 Immature Gran # (Auto) 0.01 Sodium 138 Potassium 3.4 L Chloride 113 H Carbon Dioxide 18 L Anion Gap 7 BUN 16 Creatinine 1.02 Est Cr Clr Drug Dosing 61.9 Est GFR ( Amer) 80.8 Est GFR (Non-Af Amer) 69.7 BUN/Creatinine Ratio 15.7 Glucose 92 Calcium 8.5 L Total Bilirubin 0.4 AST 176 H ALT 148 H Alkaline Phosphatase 118 H Total Protein 7.3 Albumin 4.1 Globulin 3.2 Albumin/Globulin Ratio 1.3 TSH 1.732 Urine Color Dark Yellow Urine Appearance Clear Urine pH 5.5 Ur Specific [place] 1.027 Urine Protein Negative Urine Glucose (UA) Negative Urine Ketones Negative Urine Blood Negative Urine Nitrite Negative Urine Bilirubin Negative Urine Urobilinogen Negative Ur Leukocyte Esterase Negative POC Ur Test NEG Salicylates < 3.0 L Urine Opiates Screen Neg Ur Methadone, Qual Neg Acetaminophen < 3 L Urine Barbiturates Neg Ur Phencyclidine (PCP) Neg U Amphetamin/Meth Scrn Neg MDMA (Ecstasy) Screen Neg U Benzodiazepines Scrn Neg Ur Cocaine Metabolite Neg U Marijuana (THC) Screen Neg Ethyl Alcohol mg/dL < 10.0 SARS-CoV-2, RNA, NAAT NEGATIVE Diagnostic Findings EKG with nl QTc performed in ED Head CT 03/28/23 16:48 CT angio neck with con, CT angio head w con, CT head/brain wo con CLINICAL HISTORY: rodriguez TECHNIQUE: Contiguous axial CT images of the head were acquired from the base of the skull to the vertex without intravenous contrast administration. CT angiography of the head and neck was performed following intravenous administration of iodinated contrast. Coronal and sagittal MIPS were obtained from the axial data set and were submitted for review. Automated dose lowering techniques and/or adjustment according to patient size were utilized for this examination. All measurements were calculated based on NASCET criteria. CT DOSE: 983.21 mGy.cm Comparison: Comparison is made to CTA head and neck 01/02/2022 FINDINGS: Focal encephalomalacia is in the right frontal lobe. Postsurgical changes are seen. No hemorrhage or CT evidence of infarct is seen. Lungs and soft tissues are unremarkable. CTA Neck: A 3 vessel aortic arch is shown. There is no significant atherosclerotic plaque in the aortic arch or the origins of the innominate, left common carotid, and left subclavian arteries. The common carotid, external carotid, cervical segments of the internal carotid arteries, and the cervical segments of the vertebral arteries are patent without hemodynamically significant stenosis. The left vertebral artery is dominant. CTA Head: The anterior and posterior cerebral circulations are patent. No hemodynamically significant stenosis, aneurysm, dissection, or arteriovenous malformation is shown. IMPRESSION: 1. No acute intracranial hemorrhage, evidence of acute territorial infarction, or other acute intracranial disease process. Postsurgical changes at the right frontal lobe. 2. No occlusion, hemodynamically significant stenosis, or dissection in the major cervical arteries. 3. No occlusion, hemodynamically significant stenosis, aneurysm, dissection, or arteriovenous malformation in the major intracranial arteries. Assessment of stenosis of the internal carotid arteries is based on NASCET criteria. ACT 112: Negative or not required by law. Electronically signed by: Bharath Dennison M.D. 03/28/2023 7:20 PM Head CTA 03/28/23 16:48 CT angio neck with con, CT angio head w con, CT head/brain wo con CLINICAL HISTORY: rodriguez TECHNIQUE: Contiguous axial CT images of the head were acquired from the base of the skull to the vertex without intravenous contrast administration. CT angiography of the head and neck was performed following intravenous administration of iodinated contrast. Coronal and sagittal MIPS were obtained from the axial data set and were submitted for review. Automated dose lowering techniques and/or adjustment according to patient size were utilized for this examination. All measurements were calculated based on NASCET criteria. CT DOSE: 983.21 mGy.cm Comparison: Comparison is made to CTA head and neck 01/02/2022 FINDINGS: Focal encephalomalacia is in the right frontal lobe. Postsurgical changes are seen. No hemorrhage or CT evidence of infarct is seen. Lungs and soft tissues are unremarkable. CTA Neck: A 3 vessel aortic arch is shown. There is no significant atherosclerotic plaque in the aortic arch or the origins of the innominate, left common carotid, and left subclavian arteries. The common carotid, external carotid, cervical segments of the internal carotid arteries, and the cervical segments of the vertebral arteries are patent without hemodynamically significant stenosis. The left vertebral artery is dominant. CTA Head: The anterior and posterior cerebral circulations are patent. No hemodynamically significant stenosis, aneurysm, dissection, or arteriovenous malformation is shown. IMPRESSION: 1. No acute intracranial hemorrhage, evidence of acute territorial infarction, or other acute intracranial disease process. Postsurgical changes at the right frontal lobe. 2. No occlusion, hemodynamically significant stenosis, or dissection in the major cervical arteries. 3. No occlusion, hemodynamically significant stenosis, aneurysm, dissection, or arteriovenous malformation in the major intracranial arteries. Assessment of stenosis of the internal carotid arteries is based on NASCET criteria. ACT 112: Negative or not required by law. Electronically signed by: Bharath Dennison M.D. 03/28/2023 7:20 PM Neck CTA 03/28/23 16:48 CT angio neck with con, CT angio head w con, CT head/brain wo con CLINICAL HISTORY: rodriguez TECHNIQUE: Contiguous axial CT images of the head were acquired from the base of the skull to the vertex without intravenous contrast administration. CT angiography of the head and neck was performed following intravenous administration of iodinated contrast. Coronal and sagittal MIPS were obtained from the axial data set and were submitted for review. Automated dose lowering techniques and/or adjustment according to patient size were utilized for this examination. All measurements were calculated based on NASCET criteria. CT DOSE: 983.21 mGy.cm Comparison: Comparison is made to CTA head and neck 01/02/2022 FINDINGS: Focal encephalomalacia is in the right frontal lobe. Postsurgical changes are seen. No hemorrhage or CT evidence of infarct is seen. Lungs and soft tissues are unremarkable. CTA Neck: A 3 vessel aortic arch is shown. There is no significant atherosclerotic plaque in the aortic arch or the origins of the innominate, left common carotid, and left subclavian arteries. The common carotid, external carotid, cervical segments of the internal carotid arteries, and the cervical segments of the vertebral arteries are patent without hemodynamically significant stenosis. The left vertebral artery is dominant. CTA Head: The anterior and posterior cerebral circulations are patent. No h emodynamically significant stenosis, aneurysm, dissection, or arteriovenous malformation is shown. IMPRESSION: 1. No acute intracranial hemorrhage, evidence of acute territorial infarction, or other acute intracranial disease process. Postsurgical changes at the right frontal lobe. 2. No occlusion, hemodynamically significant stenosis, or dissection in the major cervical arteries. 3. No occlusion, hemodynamically significant stenosis, aneurysm, dissection, or arteriovenous malformation in the major intracranial arteries. Assessment of stenosis of the internal carotid arteries is based on NASCET criteria. ACT 112: Negative or not required by law. Electronically signed by: Bharath Dennison M.D. 03/28/2023 7:20 PM Current Inpatient Medications Current Inpatient Medications: Current Inpatient Medications Acetaminophen (Acetaminophen 325 Mg Tab) 650 mg PO Q4H PRN PRN Reason: Headache or Minor Fever Stop: 04/27/23 20:52 Al Hydrox/Mg Hydrox/Simethicone (Aluminum/Magnesium Susp 30 Ml Udc) 30 ml PO Q4H PRN PRN Reason: GI Upset Stop: 04/27/23 20:52 Bismuth Subsalicylate (Bismuth Subsalicylate Liqd 236 Ml) 15 ml PO PRN PRN PRN Reason: Loose Stool Stop: 04/27/23 20:52 Buspirone HCl (Buspirone 15 Mg Tab) 30 mg PO BID [facility] Stop: 04/27/23 20:59 Last Admin: 03/29/23 09:23 Dose: 30 mg Docusate Sodium (Docusate Sodium 100 Mg Cap) 100 mg PO QAM PRN PRN Reason: Constipation Stop: 04/27/23 20:43 Fluoxetine HCl (Fluoxetine Hcl 20 Mg Cap) 80 mg PO QAM [facility] Stop: 04/28/23 08:59 Last Admin: 03/29/23 09:24 Dose: 80 mg Fluticasone Propionate (Fluticasone Propionate Na Spr 16 Gm Btl) 1 sprays NA D AILY [facility] Stop: 04/28/23 08:59 Last Admin: 03/29/23 09:24 Dose: 1 sprays Hydroxyzine HCl (Hydroxyzine Hcl 25 Mg Tab) 50 mg PO HSZ PRN PRN Reason: Insomnia Stop: 04/27/23 20:52 Levothyroxine Sodium (Levothyroxine Sodium 25 Mcg Tablet) 25 mcg PO DAILYBB [facility] Stop: 04/28/23 06:29 Last Admin: 03/29/23 08:25 Dose: 25 mcg Lorazepam (Lorazepam 0.5 Mg Tab) 0.5 mg PO Q6H PRN PRN Reason: Anxiety Stop: 04/28/23 10:16 Magnesium Hydroxide (Magnesium Hydroxide Susp 30 Ml Udc) 30 ml PO DAILY PRN PRN Reason: Constipation Stop: 04/27/23 20:52 Non-Formulary Medication (Lamotrigine) 250 mg PO BID [facility] Stop: 04/27/23 20:59 Non-Formulary Medication (Topiramate) 50 mg PO DAILY [facility] Stop: 04/28/23 08:59 Non-Formulary Medication (Topiramate) 300 mg PO DAILY [facility] Stop: 04/28/23 08:59 Non-Formulary Medication (Cyclosporine [Restasis]) 1 drops OP Q12H [facility] Stop: 04/27/23 20:44 Non-Formulary Medication (Linaclotide [Linzess]) 290 mcg PO HS [facility] Stop: 04/27/23 20:59 Non-Formulary Medication (Ubrogepant [Ubrelvy]) 100 mg PO DIRECTED PRN PRN Reason: migraine headache Ondansetron HCl (Ondansetron 4 Mg Od Tab) 4 mg PO BID PRN PRN Reason: Nausea And Vomiting Stop: 04/27/23 21:19 Pantoprazole Sodium (Pantoprazole 40 Mg Tab) 40 mg PO BID [facility] Stop: 04/27/23 20:59 Last Admin: 03/29/23 09:24 Dose: 40 mg Sennosides (Senna 8.6 Mg Tab) 8.6 mg PO QDL [facility] Stop: 04/28/23 12:29 Sodium Chloride (Sodium Chloride 0.65% Na Soln 45 Ml ([place]anda)) 1 - 2 sprays NA PRN PRN PRN Reason: Nasal Dryness/Congestion Stop: 04/27/23 20:52
[2023-03-29] MEDS: SENNA 8.6 MG TAB PO SCH (14:25)
[2023-03-29] MEDS: NON-FORMULARY MEDICATION (Lamotrigine 250 mg tablet extended release 24hr) PO SCH (14:35)
[2023-03-29] MEDS: NON-FORMULARY MEDICATION (Linaclotide [Linzess] 290 mcg capsule) PO SCH (14:36)
[2023-03-29] MEDS ORDERED: ARTIFICIAL TEARS OPB PRN (14:55)
[2023-03-29] MEDS: UBROGEPANT 100 MG TAB PO PRN (18:42)
[2023-03-29] MEDS: hydrOXYzine HCl 25 MG TAB PO PRN (21:20)
[2023-03-29] MEDS: LAMOTRIGINE 250 MG PO SCH (21:21)
[2023-03-29] MEDS: LINACLOTIDE 290 MCG PO SCH (21:22)
--- NOTE | 2023-03-30 05:26 | Electrocardiogram Report ---
Test Reason : Blood Pressure : / mmHG Vent. Rate : 072 BPM Atrial Rate : 072 BPM P-R Int : 148 ms QRS Dur : 072 ms QT Int : 396 ms P-R-T Axes : 063 052 048 degrees QTc Int : 433 ms Normal sinus rhythm Normal ECG When compared with ECG of 21-FEB-2023 11:08, No significant change was found Confirmed by Jose Sharp ([id number]) on 03/30/2023 5:25:52 AM Referred By: REFERRED SELF Confirmed By:Jose Sharp
[2023-03-30] MEDS: TOPIRAMATE PO SCH ×2 (08:42→08:43)
[2023-03-30 08:59] LABS: Bilirubin Direct 0.1 mg/dl (0-0.2); Bilirubin,Total 0.3 mg/dl (0.2-1.0); Total Protein 6.8 gm/dl (6.0-8.3)
--- NOTE | 2023-03-30 13:41 | Discharge Summary ---
Date of Service March 30, 2023 History of Present Illness Reviewed and confirmed presenting complaint as outlined in the ED CM note: Met with patient with Dr. Valencia for a brief MH evaluation. Patient's daughter and paramour were present. Patient reports feeling very stressed and overwhelmed. She reports she has been having feelings of wanting to hurt herself or end her life. She reports she has been feeling this way for a few weeks now. Patient states she has been having issues with both of her daughters and that her and her significant other have also been arguing. Patient reports she has a counselor through [employer], that she has met with her one time, but will only see her once every two weeks and she feels she might need more intervention at this time. Patient is prescribed MH medication and takes it as prescribed but reports feeling the need to take her Ativan more often at this time due to increased stress and anxiety. Patient reports severe anxiety last evening. Patient's significant other states he caught patient buying over the counter Tylenol at [facility] in attempts to overdose, but when she was caught she put it back on the shelf. Patient's daughter also reported patient was taking her finger over the blade of a knife in front of her. Patient denies this stating she would never cut herself as she feels it would hurt too much. Patient denies history of SIB. Today the patient describes ongoing upset that her 21 yo daughter doesn't "pay much attention to me" and denies any gesture with a knife as described. She continues to maintain that she was buying excedrin for a headache but later admitted to perhaps having hid this or similar medication in the house since "he gives me such a hard time about having it." She reported no concerns re: her overall health or medication and is glad to have ready access to therapy. She stated her current therapist didn't have an opening next week as working into schedule but did tell her about additional groups now available through [facility] (?[facility]). The patient stated her main stressor yesterday was having to call the police to the home twice as her fiances 11 yo daughter was acting out aggressively, throwing and breaking things. She told her fiance she needed a break and then argued with everyone later in the day as described. Physical Exam Psychiatric See admission H&P and DOD assessment. Vital Signs (Past 24 Hours) Last Vital Signs Temp 36.8 C 03/30/23 06:35 Pulse 81 03/30/23 06:36 Resp 16 03/30/23 06:35 BP 104/72 03/30/23 06:36 Pulse Ox 99 03/28/23 21:27 O2 Del Method Room Air 03/28/23 21:27 Principal Diagnosis bipolar disorder Psychiatric Data See daily stay summary. In short, safety was maintained and the patient was cooperative with care. Her medications were continued unchanged though she did benefit from Vistaril prn 50 mg for sleep so a short supply was given for prn use at discharge. A family session was held with her fiance and safety plan was completed prior to discharge which included securing medications and him continuing to oversee her medication administration. She did sign a 72 hour notice. The patient's hospitalization was therefore brief as she immediately requested discharge this am. During her stay there was no evidence of timbo, psychosis, AMS, or impulse control issues interfering with her medical decision making and as such she does not meet criteria for 302 under [place] mental health law. The preferred treatment for her borderline personality disorder is ongoing outpatient therapy with a DBT component for self-regulation and she did agree to continue outpatient care. She denied ingestion prior to admission and Tylenol level was negative. Her LFTs were transiently elevated for unclear reason and this appears to be resolving quickly on repeat labs. She was scheduled for a follow up with her PCP. Day of Discharge Assessment Today the patient voices readiness for discharge. They note improvement in mood and deny thoughts to harm self or others. Thoughts remain organized and they are improved from admission. There is no evidence of psychosis. They agree to take mediations as prescribed and keep follow-up appointments. They are stable for discharge to outpatient level of care. Transition of Care Transition Of Care Record: was reviewed with the patient Advance Directives Advance Directives Information Provided: Yes Advance Directives: No Mental Health Advance Directive: No Advance Directives on File: No Living Will: No Power of Braille Coder: No Advance Directives Reason:: Declines as Mental Health Visit. Suicide Risk Level Suicide Risk Level Comments: Suicide risk at discharge is deemed low as the patient is no longer requiring 24-hr monitoring, has a safety plan, and is free of suicidal ideation at discharge. Risk Factors Assessment : Yes Do You Have Access To A Gun?: No Health Problems: Yes Mental Health Diagnoses: Yes Substance Use Disorders: Yes (in remission) Previous Attempt: No (denies ingestion 2022 was attempt) Previous Psychiatric Hospitalization: Yes Protective Factors Assessment Responsible for Young Children: Yes Employed: No Stable Relationships: No Tobacco Cessation at Discharge Tobacco Cessation Medication Prescribed at Discharge: Not Applicable/Non-Smoker Total Time Total Time Spent: Greater Than 30 Minutes (34 min) Total Time Includes: Examination of the patient, Discharge Planning and Medication Reconciliation Discharge Data Lab Results 03/28/23 03/28/23 03/28/23 16:35 17:10 17:15 WBC 4.78 L RBC 4.36 Hgb 12.2 Hct 37.4 MCV 85.8 MCH 28.0 MCHC 32.6 RDW Std Deviation 45.4 RDW Coeff of Cristi 14.5 Plt Count 177 MPV 11.9 Immature Gran % (Auto) 0.2 Neut % (Auto) 64.0 Lymph % (Auto) 28.5 [place] % (Auto) 5.4 Eos % (Auto) 1.7 Baso % (Auto) 0.2 Neut # (Auto) 3.06 Lymph # (Auto) 1.36 [place] # (Auto) 0.26 Eos # (Auto) 0.08 Baso # (Auto) 0.01 Immature Gran # (Auto) 0.01 Sodium 138 Potassium 3.4 L Chloride 113 H Carbon Dioxide 18 L Anion Gap 7 BUN 16 Creatinine 1.02 Est Cr Clr Drug Dosing 61.9 Est GFR ( Amer) 80.8 Est GFR (Non-Af Amer) 69.7 BUN/Creatinine Ratio 15.7 Glucose 92 Calcium 8.5 L Total Bilirubin 0.4 Direct Bilirubin AST 176 H ALT 148 H Alkaline Phosphatase 118 H Total Protein 7.3 Albumin 4.1 Globulin 3.2 Albumin/Globulin Ratio 1.3 TSH 1.732 Urine Color Dark Yellow Urine Appearance Clear Urine pH 5.5 Ur Specific [place] 1.027 Urine Protein Negative Urine Glucose (UA) Negative Urine Ketones Negative Urine Blood Negative Urine Nitrite Negative Urine Bilirubin Negative Urine Urobilinogen Negative Ur Leukocyte Esterase Negative POC Ur Test NEG Salicylates < 3.0 L Urine Opiates Screen Neg Ur Methadone, Qual Neg Acetaminophen < 3 L Urine Barbiturates Neg Ur Phencyclidine (PCP) Neg U Amphetamin/Meth Scrn Neg MDMA (Ecstasy) Screen Neg U Benzodiazepines Scrn Neg Ur Cocaine Metabolite Neg U Marijuana (THC) Screen Neg Ethyl Alcohol mg/dL < 10.0 SARS-CoV-2, RNA, NAAT NEGATIVE 03/30/23 08:21 WBC RBC Hgb Hct MCV MCH MCHC RDW Std Deviation RDW Coeff of Cristi Plt Count MPV Immature Gran % (Auto) Neut % (Auto) Lymph % (Auto) [place] % (Auto) Eos % (Auto) Baso % (Auto) Neut # (Auto) Lymph # (Auto) [place] # (Auto) Eos # (Auto) Baso # (Auto) Immature Gran # (Auto) Sodium Potassium Chloride Carbon Dioxide Anion Gap BUN Creatinine Est Cr Clr Drug Dosing Est GFR ( Amer) Est GFR (Non-Af Amer) BUN/Creatinine Ratio Glucose Calcium Total Bilirubin 0.3 Direct Bilirubin 0.1 AST 26 ALT 63 H Alkaline Phosphatase 81 Total Protein 6.8 Albumin 4.0 Globulin Albumin/Globulin Ratio TSH Urine Color Urine Appearance Urine pH Ur Specific [place] Urine Protein Urine Glucose (UA) Urine Ketones Urine Blood Urine Nitrite Urine Bilirubin Urine Urobilinogen Ur Leukocyte Esterase POC Ur Test Salicylates Urine Opiates Screen Ur Methadone, Qual Acetaminophen Urine Barbiturates Ur Phencyclidine (PCP) U Amphetamin/Meth Scrn MDMA (Ecstasy) Screen U Benzodiazepines Scrn Ur Cocaine Metabolite U Marijuana (THC) Screen Ethyl Alcohol mg/dL SARS-CoV-2, RNA, NAAT Hospital Course (1) Panic disorder: (2) Bipolar II disorder, most recent episode major depressive: (3) Post traumatic stress disorder: (4) Epilepsy: (5) Liver function abnormality: Plan 03/29/2023: The patient was admitted to the [facility] ([facility] mental [facility] unit) on q15 min checks (behavioral with suicide precautions) for safety. The patient will participate in group, recreational, and milieu therapies and will be offered additional individual and family sessions as clinically appropriate. Risks/benefits/alternatives reviewed re: current medications. Lamictal dose high for psych indication but patient reports for seizure. Will repeat LFTs to explore trend. Overall, I spent a total of 58 minutes with this case, including review of chart, direct evaluation of the patient, counseling the patient, ordering medication, coordination with nursing, interdisciplinary team meeting, risk assessment, and documentation. Mental Health & Subst Abuse Tx Psychiatrist Name of Psychiatrist: Josefina Parsons Psychiatrist's Date Of Appointment With Psychiatric Provider: 04/03/2023 Time of Appointment with Psychiatrist: 10:40am Psychiatric Appointment Comment: [address] [place] [address] Psychiatrist Release of Information: Obtained, Reviewed and Signed Therapist Name of Therapist: GudeliaBartyuli Therapist's Date of Therapist Appointment: 04/06/2023 Time of Therapist Appointment: 1pm Therapy Appointment Comment: [address] [place] [address] Therapist Release of Information: Obtained, Reviewed and Signed Post Discharge Appointments Primary Care Physician Name Of Family Doctor/PCP: [facility] Date of Future Appointment with PCP: Monday04/04/23 (with SHANTANU Bellamy) Time of Appointment with PCP: 11:30AM Provider Appointment Comment: [address], [place] [address] Primary Care Release of Information: Obtained, Reviewed and Signed Smoking Cessation Counseling Tobacco Cessation Medication Prescribed at Discharge: Not Applicable/Non-Smoker Contact Information Discharge Phone Number: [phone] , [place] [address] Discharge Address: [phone] Discharge Plan Discharge Items Patient Disposition: Home - Self-Care Reason For Visit: BIPOLAR DISORDER Discharge Diagnosis: same Activity: Resume your previous activity Non-emergency contact: Primary Care Provider, Psychiatrist and Therapist Call non-emergency contact if: you have any medication questions and your symptoms worsen Follow-up/Referrals: Jesus Diamond MD [Primary Care Provider] - Diet: Regular Addtl Attending Provider Instructions: SPECIAL CARE INSTRUCTIONS: 1. Follow through with your scheduled aftercare appointments. If unable to keep an appointment, please call to reschedule. 2. Take your medication only as prescribed. Medication should not be changed or stopped without the approval of your doctor. In the event of worsening symptoms or concerns about side effects, contact your doctor immediately. 3. Utilize new healthy coping skills, anger management skills, and stress management skills learned during your hospitalization. Journal feelings and process them with a support person. Identify stressors or situations that may result in relapse, deterioration or inappropriate behaviors and develop a plan to deal with those issues. 4. If your coping skills are ineffective and you are in crisis, contact your outpatient providers for direction. If unable to reach your providers, please call the [facility] CRISIS LINE AT , go to the [facility] walk-in center at [address], [address], [place], or go to the closest Emergency Room. 5. Avoid alcohol and un-prescribed drugs. 6. You have been provided with the Mental Health Advance Directives Pamphlet for your review. 7. Your condition is stable for discharge to outpatient level of care, but recovery is an ongoing process. Ifthoughts to harm yourself or others return, follow the safety plan developed during your stay. Planning for a safe return home includes securing weapons. Our treatment team recommends weaponsbe removed from the home until your outpatient provider reassesses your progress. In rare cases where the items themselvescannot be removed, guns and ammunitionshould be secured separatelyand keys stored by a reliable personoutside of the home. If you were admitted on an involuntary commitment, the police or other legal authorities may be involved in this process. AFTERCARE APPOINTMENTS: * Please call your insurance company prior to your scheduled appointment to confirm your aftercare providers are covered. Take your insurance information to your appointments. WHO TO CALL AND WHEN: Medical Emergencies: For questions or emergencies related to your hospital stay, please contact the Inpatient Behavioral Health Unit at [phone]. A psychiatric mental health nurse is on-call 05/09 for the Behavioral Health Unit for emergencies At any time you feel your situation is an emergency, you may also call 911 immediately. Pending Studies at Discharge: No Stand-Alone Forms: [facility] [place] [facility], Smoking Cessation Medications and DC Order Prescriptions: New hydroxyzine HCl 50 mg tablet 50 mg PO HSZ PRN (Reason: Insomnia) Qty: 10 0RF Continued albuterol sulfate 90 mcg/actuation HFA aerosol inhaler 2 puff INHALATION Q4 PRN (Reason: Shortness Of Breath) Qty: 18 3RF Rx Instructions: 2 puffs inhalation every 4-6 hours PRN; Linzess 290 mcg capsule 290 mcg PO HS Qty: 90 3RF Rx Instructions: TAKE 1 CAPSULE BY MOUTH DAILY azelastine 137 mcg (0.1 %) aerosol,spray 2 spray intranasal BID PRN (Reason: nasal congestion) Qty: 30 2RF Hold Instructions: trial flonase Rx Instructions: administer into each nostril levothyroxine 25 mcg tablet 25 mcg PO QAM Qty: 30 3RF lamotrigine 250 mg tablet extended release 24hr 250 mg PO BID Qty: 60 2RF pantoprazole 40 mg tablet,delayed release (DR/EC) See Rx Instructions .ROUTE .COMPLEX Qty: 60 11RF Dose Instruction: TAKE 1 TABLET BY MOUTH TWICE A DAY Rx Instructions: TAKE 1 TABLET BY MOUTH TWICE A DAY topiramate 50 mg capsule,sprinkle,ER 24hr 50 mg PO DAILY Qty: 30 2RF Rx Instructions: take with 300mg total 350mg ondansetron HCl 4 mg tablet See Rx Instructions .ROUTE .COMPLEX Qty: 60 1RF Dose Instruction: TAKE 1 TABLET BY MOUTH TWICE A DAY Rx Instructions: TAKE 1 TABLET BY MOUTH TWICE A DAY lorazepam 0.5 mg tablet 0.25 - 0.5 mg PO DAILY PRN (Reason: Anxiety) cyclosporine [Restasis] 0.05 % dropperette 1 drp ophthalmic (eye) Q12H topiramate 150 mg capsule,sprinkle,ER 24hr 300 mg PO DAILY Qty: 60 5RF Ubrelvy 100 mg tablet 100 mg PO DIRECTED MDD 200mg PRN (Reason: migraine headache) 30 Days Qty: 16 5RF Rx Instructions: take one prn migraine, may repeat in 2 hours if needed Emgality Pen 120 mg/mL pen injector 120 mg subcut .COMPLEX 30 Days Qty: 1 6RF Rx Instructions: 120 mg subcutaneously ONCE A MONTH senna 8.6 mg capsule 8.6 mg PO QDL docusate sodium [Colace] 100 mg capsule 100 mg PO QAM PRN (Reason: Constipation) fluticasone propionate [Allergy Relief (fluticasone)] 50 mcg/actuation spray,suspension 1 spray intranasal DAILY Qty: 16 2RF Rx Instructions: administer into each nostril fluoxetine 40 mg capsule 80 mg PO QAM buspirone 30 mg tablet 30 mg PO BID Discharge Orders: Discharge Order (Routine); Ordered 03/30/23 Ordered By: Julianne Le Admission Data Admit Date/Time: 03/28/23 20:21 Attending Provider: Julianne Le Admit Provider: Julianne Le Primary Care Provider: Jesus Diamond Coding Level of Care Code 21690 D/C day mgmt > 30 min Diagnoses Panic disorder F41.0 Bipolar II disorder, most recent episode major depressive F31.81 Post traumatic stress disorder F43.10 Epilepsy G40.909 Liver function abnormality R94.5
== END 2023-03-30 13:50 | disposition home or self-care (01) | DRG 885 ==
LOC: ED 16:03 → 3S 20:21

== ENCOUNTER 2023-06-20 14:13 | Inpatient (IN) ==
[2023-06-20 15:08] LABS: Basophils # (auto) 0.04 K/uL (0.00-0.20); Basophils % (auto) 0.8 %; Eosinophils # (auto) 0.18 K/uL (0.00-0.50); Eosinophils % (auto) 3.4 %; Hematocrit (blood only) 36.7 % (37.0-47.0); Hemoglobin 12.3 g/dl (12.0-16.0); Immature Granulocytes # (auto) 0.01 K/uL (0.01-0.20); Immature Granulocytes % (auto) 0.2 %; Lymphocytes # (auto) 2.04 K/uL (1.20-3.40); Lymphocytes % (auto) 38.9 %; Mean Corpuscular Hemoglobin 27.3 pg (25.0-34.0); Mean Corpuscular Hgb Conc 33.5 g/dL (32.0-36.0); Mean Corpuscular Volume 81.6 fL (80.0-100.0); Mean Platelet Volume 11.1 fL (9.4-12.4); Monocytes # (auto) 0.37 K/uL (0.11-0.59); Monocytes % (auto) 7.1 %; Neutrophils % (auto) 49.6 %; Platelet Count 216 K/uL (130-400); RDW Coefficient of Variation 14.6 % (11.5-14.5); White Blood Count 5.24 K/ul (4.8-10.8)
--- NOTE | 2023-06-20 15:28 | Emergency Department Note ---
Impression & Plan Overdose, Depression with suicidal ideation ED Provider Note NAME: BRUCE ALTMAN AGE: 38 SEX: F : 1985 ARRIVES VIA: Walk-In INFORMANT: Patient, ED PROVIDER(S): Naresh Friedman MD CHIEF COMPLAINT: Overdose MEDICAL DECISION MAKING: Patient presents due to concern for overdose and wanting to harm herself by taking medication appropriately. The patient did take 2 Zantac, 4 25 mg Benadryl and 4 of her B12 vitamins. Patient's blood work and EKG unremarkable. Given the amounts reported do not think she requires discussion with poison control at this time. Patient is amenable to inpatient treatment. Blood work was obtained EKG obtained. Patient was he medically cleared seen and evaluated by psych continuous pillowcase cutter and referrals were made. Patient was accepted for inpatient treatment. Discussion w/ other healthcare providers: ED case management Prior /Outside records reviewed: None Differential diagnosis: Mood disorder, infection, hypoglycemia, electrolyte abnormalities, dehydration, medication side effect among others were considered. Diagnostics, as interpreted by me: ECG: Normal sinus rhythm, rate of 70, normal intervals, normal axis no ST elevations. Cardiac monitoring: An order was placed for continuous cardiac monitoring. The monitor shows a rate of 75 with sinus rhythm. Patient was placed on pulse oximetry Medical decision rules: Suicide risk severity score Imaging studies: None HPI: Patient presents due to concern for suicidal ideation and overdose. The patient states that she was thinking about harming herself and took 2 Zantac for 25 mg Benadryl and 4 of her B12 supplements. Patient states that she does feel occasionally restless. The patient denies any falls or trauma. No nausea vomiting. Patient is amenable to inpatient treatment. She denies any HI or AVH. Patient states that she thinks as though she has been sleeping too much although her significant other bedside reports that sometimes she takes caffeine pills. The patient did have 2 drinks on Monday and 2 drinks on Monday. Patient denies any drug use but does smoke tobacco. Patient states that she has had increased stresses at home which include her significant other. PAST MEDICAL HISTORY: See Below PAST SURGICAL HISTORY: See Below SOCIAL HISTORY: See Below HOME MEDICATIONS: See Below ALLERGIES: See Below VITALS: See Below PHYSICAL EXAMINATION: GENERAL: NAD, non-toxic. EYE EXAM: Normal conjunctiva. PERRL, no anisocoria and EOM's grossly intact w/o pain. OROPHARYNX: Moist mucus membranes, false teeth in place. NECK: Trachea midline, no stridor. LUNGS: Clear to auscultation. Normal chest wall mechanics. HEART: NSR, no MRG. ABDOMEN: Abdomen soft, non-tender, no masses, no rebound or guarding. BACK: No CVA TTP. SKIN: No rashes and no bruising. UPPER EXTREMITIES: Upper extremities are grossly normal. LOWER EXTREMITIES: Grossly normal, no edema. NEURO EXAM: A&O x3, cranial nerves II-XII grossly intact, normal speech, moves all 4 extremities. Psych: Positive SI with plan, negative HI or AVH. None Past Med/Surg History Medical History Liver function abnormality Depression with suicidal ideation Neck pain Nausea Irritable bowel syndrome Hypokalemia Eye injury Epilepsy Convulsions Anxiety Abdominal pain Spondylolysis with spondylolisthesis Restless legs syndrome Recurrent major depressive disorder Primary hypercoagulable state Pityriasis rosea Part of body swollen Panic disorder without agoraphobia (01/19/11) Memory loss or impairment Lymphadenopathy Lumbosacral radiculopathy Low back pain Insomnia Generalized pain Dyspnea on exertion Diverticulitis of colon Chronic vulvitis Central sleep apnea Bruising Breast pain Benzodiazepine overdose (01/10/12) Atrophic vaginitis Acid reflux disease Abnormal ECG Panic disorder Bipolar II disorder, most recent episode major depressive Borderline personality disorder Anticholinergic drug overdose Suicide attempt BRBPR (bright red blood per rectum) History of suicide attempt Blurry vision, bilateral EYE TESTING FOR/STARTING OF CATARACT - ? FURTHER DETAILS. UPCOMING MRI ...NOT YET SCHEDULED History of COVID-19 APPROX 1 YR AGO Pre-diabetes Gastritis Left arm pain Left arm swelling Iron deficiency anemia Seizure disorder as sequela of cerebrovascular accident Hematochezia REASON FOR UPCOMING PROCEDURES Syncope HX Shaking Acquired deviated nasal septum Allergic rhinitis Current use of proton pump inhibitor Anemia Elevated liver function tests Weight gain Chronic low back pain Constipation Acid indigestion Hypoglycemia Dysphagia Lumbar radicular pain Sacroiliitis Polypharmacy Migraine without aura, not intractable, without status migrainosus MIGRAINES/UNDER CONTROL CURRENTLY Family history of blood clots Chronic headaches Intracranial hemorrhage (~07/2018) Hx of hiatal hernia Hypothyroidism Post traumatic stress disorder Stroke x 2, 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 Per PCP note second CVA is a result of "right basal ganglia hemorrhagic intraparenchymal stroke/hematoma evacuation 2018. Patient also follows with [facility] as well as [facility]. [facility] follows patient for post hemorrhagic stroke/hematoma with residual left facial droop and dysarthria." DVT (deep venous thrombosis) Patient reports h/o "bilateral upper extremities and brain started from IVs" History of ovarian cyst Moderate cervical dysplasia IBS (irritable colon syndrome) Suicide attempt by multiple drug overdose previous attempt, but no thoughts of harming self now Epilepsy LAST SEIZURE >6 MON AGO/TRAMADOL CAUSED IT Surgical History S/P subdural hematoma evacuation History of appendectomy History of esophagogastroduodenoscopy (EGD) History of colonoscopy S/P section S/P cholecystectomy H/O LEEP conization History of endometrial ablation [place] teeth extracted S/P total abdominal hysterectomy ovaries remain Status post tubal ligation Hx of cholecystectomy Family History Mother Blood clots in brain Lung cancer Uncle Hx of blood clots Family history of colon cancer Grandmother Family history of diabetes mellitus Uncle Family history of colon cancer Other Breast cancer FHx: cancer Family history of lung disease Denies family history of Ovarian cancer Crohn's disease Colorectal cancer IBS (irritable bowel syndrome) Social History Smoking Status: Current every day smoker Tobacco Type: E-cigarettes / Vaping Age Started Using Tobacco: 24; Age Quit Using Tobacco: 35; packs per day: 2; Cigarettes Per Day: vapes daily- advised; Second Hand Exposure: No; Do You Dip or Chew Tobacco: No; Hx Alcohol Use: No Hx Substance Use: Yes (HX/SUBOXONE REHAB FOR - 3 YR AGO REHAB DONE/NO RELAPSE) Substance Use Type Other:: suboxone Preferred Language: Lao Communication Ability: Effective Visual Impairment: No Limitations Hearing Ability: Normal Senior Environmental Technician Required: No Beliefs That Will Affect Care: None Current Living Situation: Other Current Living Situation Comment: AG AND HIS DAUGHTER current occupational status: disabled How many Children do You have: 1 Feels Safe at Home: Hesitant to Answer Childhood Exposure to Second-Hand Smoke: Yes (Mother) Diet: regular Dental Care, Regularly: Yes Physical Activity Frequency: 3-4 Times per Week Seatbelt Use: sometimes Sunscreen Use: No Gender Identity: Female Assistive Devices: Denture - Upper Allergies Allergies Allergy/AdvReac Type Severity Reaction Status Date / Time methocarbamol Allergy Intermediate RASH Verified 06/20/23 10:26 morphine Allergy Intermediate rash on Verified 06/20/23 10:26 arms trazodone AdvReac Severe SEVERE Verified 06/20/23 10:26 DIZZINESS acetaminophen [From Tylenol] AdvReac Intermediate Liver Verified 06/20/23 10:26 disease bupropion AdvReac Intermediate AVOID DUE Verified 06/20/23 10:26 TO LOWERING SEIZURE THRESHOLD NSAIDS (Non-Steroidal AdvReac Intermediate Gastritis/GI Verified 06/20/23 10:26 Anti-Inflamma bleed olanzapine [From Zyprexa] AdvReac Intermediate Anxiety Unverified 06/20/23 10:26 tramadol AdvReac Intermediate AVOID DUE Verified 06/20/23 10:26 TO LOWERING SEIZURE THRESHOLD Home Meds Home Medications Medication Instructions Recorded Confirmed sennosides 8.6 mg capsule (senna) 8.6 mg PO QDL 01/01/19 06/20/23 docusate sodium 100 mg capsule 100 mg PO QAM PRN Constipation 09/25/19 06/20/23 (Colace) fluoxetine 40 mg capsule 80 mg PO QAM 08/14/20 06/20/23 buspirone 30 mg tablet 30 mg PO BID 09/14/21 06/20/23 lorazepam 0.5 mg tablet 0.25 - 0.5 mg PO DAILY PRN Anxiety 12/08/21 06/20/23 cyclosporine 0.05 % eye drops in a 1 drp ophthalmic (eye) Q12H 08/10/22 06/20/23 dropperette (Restasis) benztropine 1 mg tablet 1 mg PO BID 05/02/23 06/20/23 Previous Rx's Medication Instructions Recorded albuterol sulfate 90 mcg/actuation 2 puff inhalation Q4 PRN Shortness 03/18/22 aerosol inhaler Of Breath #18 grams linaclotide 290 mcg capsule 290 mcg PO HS #90 caps 10/18/22 (Linzess) azelastine 137 mcg (0.1 %) nasal 2 spray intranasal BID PRN nasal 01/02/23 spray aerosol congestion #30 mL pantoprazole 40 mg tablet,delayed See Rx Instructions .Route 02/23/23 release .COMPLEX #60 tabs fluticasone propionate 50 1 spray intranasal DAILY #16 grams 03/07/23 mcg/actuation nasal spray,suspension (Allergy Relief (fluticasone)) hydroxyzine HCl 50 mg tablet 50 mg PO HSZ PRN Insomnia #10 tabs 03/30/23 topiramate 150 mg capsule 300 mg (2 x 150 mg) PO DAILY #60 ea 04/25/23 sprinkle,extended release 24 hr ubrogepant 100 mg tablet (Ubrelvy) 100 mg PO DIRECTED PRN migraine 04/25/23 headache 30 days #16 tabs hydrocortisone 2.5 % topical cream 1 applic OK DAILY PRN hemorrhoids 05/02/23 with perineal applicator #30 grams (Anusol-HC) erenumab-aooe 70 mg/mL 70 mg subcut MONTHLY #1 ea 05/12/23 subcutaneous auto-injector (Aimovig Autoinjector) ondansetron HCl 4 mg tablet See Rx Instructions .Route 05/15/23 .COMPLEX #60 tabs lamotrigine 250 mg tablet,extended 250 mg PO BID #60 tabs 05/17/23 release 24 hr topiramate 50 mg capsule 50 mg PO DAILY #30 ea 05/17/23 sprinkle,extended release 24 hr levothyroxine 25 mcg tablet 25 mcg PO QAM #30 tabs 05/29/23 cholecalciferol (vitamin D3) 1,250 50,000 unit PO .ONCE WEEKLY #12 06/20/23 mcg (50,000 unit) capsule caps Results & Data (ED) Vital Signs Vital Signs - 24 hr 06/20/23 14:20 06/20/23 15:02 06/20/23 15:30 Temperature 36.5 C Temperature Source Oral Pulse Rate 96 H 66 Pulse Rate [Apical] 75 Pulse Rate from SpO2 Sensor 71 Pulse Rhythm [Apical] Regular Pulse Strength [Apical] Normal Respiratory Rate 18 18 14 Respiratory Effort / Characteristics Non-Labored Spontaneous Respiratory Depth Normal Normal Respiratory Pattern Regular Blood Pressure 118/78 108/74 Blood Pressure [Right Arm] 104/79 Blood Pressure Mean 91 85 Blood Pressure Mean [Right Arm] 87 Blood Pressure Position [Right Arm] Sitting Pulse Oximetry 98 98 99 Oxygen Delivery Method Room Air Room Air Sepsis Recent Fever Within 48 Hours No Sepsis New/Unexplained Change in Mental Status N/A Sepsis Action Taken by Nursing No Action Required 06/20/23 16:00 06/20/23 17:00 Temperature Temperature Source Pulse Rate 72 Pulse Rate [Apical] 81 Pulse Rate from SpO2 Sensor Pulse Rhythm [Apical] Regular Pulse Strength [Apical] Respiratory Rate 16 Respiratory Effort / Characteristics Non-Labored Respiratory Depth Normal Respiratory Pattern Regular Blood Pressure Blood Pressure [Right Arm] 110/77 Blood Pressure Mean Blood Pressure Mean [Right Arm] 88 Blood Pressure Position [Right Arm] Pulse Oximetry 99 Oxygen Delivery Method Room Air Sepsis Recent Fever Within 48 Hours Sepsis New/Unexplained Change in Mental Status Sepsis Action Taken by Skilled Nursing Medications Current Medication List: was personally reviewed by me Laboratory Data Attestation: I reviewed the patient's lab results. 06/20/23 14:52 06/20/23 14:52 Lab Results 06/20/23 06/20/23 06/20/23 Range/Units 14:52 15:35 15:53 WBC 5.24 (4.8-10.8) K/ul RBC 4.50 (4.20-5.40) M/uL Hgb 12.3 (12.0-16.0) g/dl Hct 36.7 L (37.0-47.0) % MCV 81.6 (80.0-100.0) fL MCH 27.3 (25.0-34.0) pg MCHC 33.5 (32.0-36.0) g/dL RDW Std Deviation 43.0 (36.4-46.3) fL RDW Coeff of Cristi 14.6 H (11.5-14.5) % Plt Count 216 (130-400) K/uL MPV 11.1 (9.4-12.4) fL Immature Gran % (Auto) 0.2 % Neut % (Auto) 49.6 % Lymph % (Auto) 38.9 % [place] % (Auto) 7.1 % Eos % (Auto) 3.4 % Baso % (Auto) 0.8 % Neut # (Auto) 2.60 (1.40-6.50) K/uL Lymph # (Auto) 2.04 (1.20-3.40) K/uL [place] # (Auto) 0.37 (0.11-0.59) K/uL Eos # (Auto) 0.18 (0.00-0.50) K/uL Baso # (Auto) 0.04 (0.00-0.20) K/uL Immature Gran # (Auto) 0.01 (0.01-0.20) K/uL Sodium 139 (136-145) mmol/L Potassium 3.6 (3.5-5.1) mmol/L Chloride 114 H (98-107) mmol/L Carbon Dioxide 18 L (21-32) mmol/L Anion Gap 7 (3-11) BUN 19 (6-23) mg/dl Creatinine 1.22 H (0.6-1.2) mg/dl Est Cr Clr Drug Dosing 51.2 ml/min Est GFR ( Amer) 64.6 ml/min Est GFR (Non-Af Amer) 55.8 ml/min BUN/Creatinine Ratio 15.6 (10-20) Glucose 92 (70-99(Fasting)) mg/dl Calcium 9.2 (8.6-10.3) mg/dl Total Bilirubin 0.3 (0.2-1.0) mg/dl AST 14 (13-39) U/L ALT 12 (7-52) U/L Alkaline Phosphatase 53 (34-104) U/L Total Protein 7.3 (6.0-8.3) gm/dl Albumin 4.1 (3.4-5.0) gm/dl Globulin 3.2 (2.5-4.0) gm/dl Albumin/Globulin Ratio 1.3 (0.9-2) TSH 1.556 (0.300-4.500) uIu/ml Urine Color Yellow Urine Appearance Clear (Clear) Urine pH 6.5 (4.5-7.5) Ur Specific [place] 1.024 (1.000-1.030) Urine Protein Negative (Negative) Urine Glucose (UA) Negative (Negative) Urine Ketones Negative (Negative) Urine Blood Negative (Negative) Urine Nitrite Negative (Negative) Urine Bilirubin Negative (Negative) Urine Urobilinogen Negative (Negative) Ur Leukocyte Esterase Trace H (Negative) Urine WBC (Auto) 0-5 (0-5) /hpf Urine RBC (Auto) 0-2 (0-2) /hpf U Hyaline Cast (Auto) 0-2 (0-2) /lpf U Epithel Cells (Auto) 0-2 (0-2) /hpf Urine Bacteria (Auto) None Seen (None Seen) Urine Test Negative (Negative) Salicylates 6.5 (3.0-30) mg/dl Urine Opiates Screen Neg (Neg) Ur Methadone, Qual Neg (Neg) Acetaminophen 9 L (10-30) ug/ml Urine Barbiturates Neg (Neg) Ur Phencyclidine (PCP) Neg (Neg) U Amphetamin/Meth Scrn Neg (Neg) MDMA (Ecstasy) Screen Neg (Neg) U Benzodiazepines Scrn Neg (Neg) Ur Cocaine Metabolite Neg (Neg) U Marijuana (THC) Screen Neg (Neg) Ethyl Alcohol mg/dL < 10.0 (<10.0) mg/dl SARS-CoV-2, RNA, NAAT (NEGATIVE) 06/20/23 Range/Units 17:27 WBC (4.8-10.8) K/ul RBC (4.20-5.40) M/uL Hgb (12.0-16.0) g/dl Hct (37.0-47.0) % MCV (80.0-100.0) fL MCH (25.0-34.0) pg MCHC (32.0-36.0) g/dL RDW Std Deviation (36.4-46.3) fL RDW Coeff of Cristi (11.5-14.5) % Plt Count (130-400) K/uL MPV (9.4-12.4) fL Immature Gran % (Auto) % Neut % (Auto) % Lymph % (Auto) % [place] % (Auto) % Eos % (Auto) % Baso % (Auto) % Neut # (Auto) (1.40-6.50) K/uL Lymph # (Auto) (1.20-3.40) K/uL [place] # (Auto) (0.11-0.59) K/uL Eos # (Auto) (0.00-0.50) K/uL Baso # (Auto) (0.00-0.20) K/uL Immature Gran # (Auto) (0.01-0.20) K/uL Sodium (136-145) mmol/L Potassium (3.5-5.1) mmol/L Chloride (98-107) mmol/L Carbon Dioxide (21-32) mmol/L Anion Gap (3-11) BUN (6-23) mg/dl Creatinine (0.6-1.2) mg/dl Est Cr Clr Drug Dosing ml/min Est GFR ( Amer) ml/min Est GFR (Non-Af Amer) ml/min BUN/Creatinine Ratio (10-20) Glucose (70-99(Fasting)) mg/dl Calcium (8.6-10.3) mg/dl Total Bilirubin (0.2-1.0) mg/dl AST (13-39) U/L ALT (7-52) U/L Alkaline Phosphatase (34-104) U/L Total Protein (6.0-8.3) gm/dl Albumin (3.4-5.0) gm/dl Globulin (2.5-4.0) gm/dl Albumin/Globulin Ratio (0.9-2) TSH (0.300-4.500) uIu/ml Urine Color Urine Appearance (Clear) Urine pH (4.5-7.5) Ur Specific [place] (1.000-1.030) Urine Protein (Negative) Urine Glucose (UA) (Negative) Urine Ketones (Negative) Urine Blood (Negative) Urine Nitrite (Negative) Urine Bilirubin (Negative) Urine Urobilinogen (Negative) Ur Leukocyte Esterase (Negative) Urine WBC (Auto) (0-5) /hpf Urine RBC (Auto) (0-2) /hpf U Hyaline Cast (Auto) (0-2) /lpf U Epithel Cells (Auto) (0-2) /hpf Urine Bacteria (Auto) (None Seen) Urine Test (Negative) Salicylates (3.0-30) mg/dl Urine Opiates Screen (Neg) Ur Methadone, Qual (Neg) Acetaminophen (10-30) ug/ml Urine Barbiturates (Neg) Ur Phencyclidine (PCP) (Neg) U Amphetamin/Meth Scrn (Neg) MDMA (Ecstasy) Screen (Neg) U Benzodiazepines Scrn (Neg) Ur Cocaine Metabolite (Neg) U Marijuana (THC) Screen (Neg) Ethyl Alcohol mg/dL (<10.0) mg/dl SARS-CoV-2, RNA, NAAT NEGATIVE (NEGATIVE) Administered Medications Benztropine Mesylate (Benztropine Mesylate 1 Mg Tab) 1 mg PO BID [facility] Stop: 07/21/23 08:59 Last Admin: 06/21/23 08:07 Dose: 1 mg Documented By: ANA Buspirone HCl (Buspirone 15 Mg Tab) 30 mg PO BID [facility] Stop: 07/21/23 08:59 Last Admin: 06/21/23 08:07 Dose: 30 mg Documented By: ANA Fluoxetine HCl (Fluoxetine Hcl 20 Mg Cap) 60 mg PO QAM [facility] Stop: 07/21/23 08:59 Last Admin: 06/21/23 08:06 Dose: 60 mg Documented By: ANA Hydroxyzine HCl (Hydroxyzine Hcl 25 Mg Tab) 25 mg PO Q4H PRN PRN Reason: Anxiety Stop: 07/21/23 00:24 Last Admin: 06/21/23 06:01 Dose: 25 mg Documented By: LUIS A Lamotrigine (Lamotrigine 100 Mg Tab) 250 mg PO BID [facility]; Protocol Stop: 07/21/23 08:59 Last Admin: 06/21/23 08:07 Dose: 250 mg Documented By: ANA Levothyroxine Sodium (Levothyroxine Sodium 25 Mcg Tablet) 25 mcg PO DAILYBB [facility] Stop: 07/21/23 07:59 Last Admin: 06/21/23 08:05 Dose: 25 mcg Documented By: ANA Topiramate (Topiramate 100 Mg Tab) 300 mg PO DAILY [facility] Stop: 07/21/23 08:59 Last Admin: 06/21/23 08:06 Dose: 300 mg Documented By: ANA Discontinued Medications Benztropine Mesylate (Benztropine Mesylate 1 Mg Tab) 1 mg PO NOW [facility] Stop: 06/21/23 01:03 Last Admin: 06/21/23 01:27 Dose: 1 mg Documented By: LUIS A Buspirone HCl (Buspirone 15 Mg Tab) 30 mg PO NOW [facility] Stop: 06/21/23 01:03 Last Admin: 06/21/23 01:26 Dose: 30 mg Documented By: LUIS A Lamotrigine (Lamotrigine 100 Mg Tab) 250 mg PO NOW [facility]; Protocol Stop: 06/21/23 01:05 Last Admin: 06/21/23 01:27 Dose: 250 mg Documented By: DMT Linaclotide (Linaclotide 145 Mcg Capsule) 290 mcg PO NOW [facility] Stop: 06/21/23 01:04 Last Admin: 06/21/23 01:26 Dose: 290 mcg Documented By: LUIS A Lorazepam (Lorazepam 1 Mg Tab) 1 mg SL [facility] Stop: 06/20/23 17:20 Last Admin: 06/20/23 17:27 Dose: 1 mg Documented By: BRET Discharge Plan Visit Data Chief Complaint: Mental Health Evaluation Stated Complaint: MENTAL HEALTH ED Provider: Naresh Friedman Discharge Problem: Overdose, Depression with suicidal ideation Patient Disposition: Admitted As Inpatient Discharge Instructions Interventions: ED Discharge Assessment Last Done: 06/20/23 23:39 Discharge Problem: Overdose Qualifiers: Encounter type: initial encounter Injury intent: intentional self-harm Q ualified Code(s): T50.902A - Poisoning by unspecified drugs, medicaments and biological substances, intentional self-harm, initial encounter
[2023-06-20 15:33] LABS: Salicylate 6.5 mg/dl (3.0-30)
[2023-06-20 15:35] LABS: Albumin Globulin Ratio 1.3 (0.9-2); Albumin Level 4.1 gm/dl (3.4-5.0); BUN Creatinine Ratio 15.6 (10-20); Bilirubin,Total 0.3 mg/dl (0.2-1.0); Calcium 9.2 mg/dl (8.6-10.3); Creatinine Clr Calc Pharmacy 51.2 ml/min; Est GFR (African American) 64.6 ml/min; Est GFR (Non-African American) 55.8 ml/min; Globulin 3.2 gm/dl (2.5-4.0); Potassium 3.6 mmol/L (3.5-5.1); Total Protein 7.3 gm/dl (6.0-8.3)
[2023-06-20 15:49] LABS: Thyroid Stimulating Hormone 1.556 uIu/ml (0.300-4.500)
[2023-06-20 16:07] LABS: Pregnancy Test, Urine Negative (Negative)
[2023-06-20 16:24] LABS: Appearance Urine Clear (Clear); Bacteria Urine Automated None Seen (None Seen); Bilirubin Urine Negative (Negative); Blood Urine Negative (Negative); Cast Urine Automated 0-2 /lpf (0-2); Color Urine Yellow; Epithelial Cell Urine Auto 0-2 /hpf (0-2); Glucose Urine UA Negative (Negative); Ketones Urine Negative (Negative); Leukocyte Esterase Urine Trace (Negative); Nitrite Urine Negative (Negative); Protein Urine Negative (Negative); RBC Urine Automated 0-2 /hpf (0-2); Specific Gravity Urine 1.024 (1.000-1.030); Urobilinogen Urine Negative (Negative); WBC Urine Automated 0-5 /hpf (0-5); pH Urine 6.5 (4.5-7.5)
[2023-06-20 16:41] LABS: Amphetamines+Metham, Urine Neg (Neg); Barbiturates, Urine Neg (Neg); Benzodiazepine, Urine Neg (Neg); Cocaine, Urine Neg (Neg); MDMA (Ecstacy), Urine Neg (Neg); Marijuana, Urine Neg (Neg); Methadone, Urine Neg (Neg); Opiate, Urine Neg (Neg); Phencyclidine, Urine Neg (Neg)
[2023-06-20] MEDS: LORazepam 1 MG TAB SL STA (17:27)
[2023-06-21] MEDS ORDERED: SODIUM CHLORIDE 0.65% NA SOLN 45 ML (OCEAN) PRN (00:25)
[2023-06-21] MEDS ORDERED: NICOTINE POLACRILEX 2 MG GUM MT PRN (00:25)
[2023-06-21] MEDS ORDERED: BISMUTH SUBSALICYLATE LIQD 236 ML PO PRN (00:25)
[2023-06-21] MEDS ORDERED: MAGNESIUM HYDROXIDE SUSP 30 ML UDC PO PRN (00:25)
[2023-06-21] MEDS: LINACLOTIDE 145 MCG CAPSULE PO STA (01:26)
[2023-06-21] MEDS: busPIRone 15 MG TAB PO STA (01:26)
[2023-06-21] MEDS: lamoTRIgine 100 MG TAB PO STA (01:27)
[2023-06-21] MEDS: BENZTROPINE MESYLATE 1 MG TAB PO STA (01:27)
[2023-06-21] MEDS: hydrOXYzine HCl 25 MG TAB PO PRN (06:01)
[2023-06-21] MEDS: LEVOTHYROXINE SODIUM 25 MCG TABLET PO SCH (08:05)
[2023-06-21] MEDS: TOPIRAMATE 100 MG TAB PO SCH (08:06)
[2023-06-21] MEDS: FLUoxetine HCL 20 MG CAP PO SCH (08:06)
[2023-06-21] MEDS: BENZTROPINE MESYLATE 1 MG TAB PO SCH (08:07)
[2023-06-21] MEDS: lamoTRIgine 100 MG TAB PO SCH (08:07)
[2023-06-21] MEDS: busPIRone 15 MG TAB PO SCH (08:07)
[2023-06-21] MEDS ORDERED: TOPIRAMATE 50 MG TAB PO SCH (09:00)
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
[2023-06-21] MEDS: LINACLOTIDE 145 MCG CAPSULE PO SCH (21:07)
[2023-06-22] MEDS: ALUMINUM/MAGNESIUM SUSP 30 ML UDC PO PRN (05:39)
--- NOTE | 2023-06-22 06:05 | Electrocardiogram Report ---
Test Reason : Blood Pressure : / mmHG Vent. Rate : 075 BPM Atrial Rate : 075 BPM P-R Int : 142 ms QRS Dur : 072 ms QT Int : 382 ms P-R-T Axes : 069 050 047 degrees QTc Int : 426 ms Normal sinus rhythm Normal ECG When compared with ECG of 27-MAY-2023 11:28, No significant change was found Confirmed by Jose Sharp ([id number]) on 06/22/2023 6:05:11 AM Referred By: Jesus Diamond Confirmed By:Jose Sharp
--- NOTE | 2023-06-22 11:09 | Psychiatric Progress Note ---
Date of Service June 22, 2023 Impression / Recommendations Impression BRUCE ALTMAN is a 38-year-old F who currently lives in with lance and daughter, has a history of bipolar 2 depression, PTSD, epilepsy, borderline PD, and was admitted on 06/20/23 23:11 on a 201 voluntary commitment for suicidal ideation. 06/22/23: Patient is future oriented in the determining her best disposition options. She denies suicidal ideation and presents concern for how it may impact her family members. (1) Borderline personality disorder: (2) Bipolar II disorder, most recent episode major depressive: (3) Suicide gesture: (4) Seizure disorder as sequela of cerebrovascular accident: (5) Migraine: (6) Hypothyroidism: Plan 06/22/23: continue home medications. Continue fluoxetine 60 mg daily. 06/21/23: continue home medications. Decrease fluoxetine to 60 mg daily. Suicide Risk Level Suicide Risk Level: Moderate (q15 min suicide checks) Risk Factors Assessment Male: No : No Do You Have Access To A Gun?: No Health Problems: Yes Mental Health Diagnoses: Yes Substance Use Disorders: No Previous Attempt: Yes Family History of Suicide: No Previous Psychiatric Hospitalization: Yes Hopelessness: No Protective Factors Assessment Employed: No Inter[employer] History Identifying Information BRUCE ALTMAN is a 38-year-old F who currently lives in with lance and daughter, has a history of bipolar 2 depression, PTSD, epilepsy, borderline PD, and was admitted on 06/20/23 23:11 on a 201 voluntary commitment for suicidal ideation. Chief Complaint "Not sure where I should go after I get discharged". Review of Systems Sleep Information Total Hours of Sleep: 5.25 Sleep Comments: Late admission Meal Information Percent Meal Consumed - Breakfast: 100 Percent Meal Consumed - Lunch: 80 Percent Meal Consumed - Dinner: 90 Subjective Subjective Patient was seen & assessed and interval progress reviewed with treatment team nursing and social work Overnight no acute events. Patient slept well. Patient is nervous and is unsure whether she should go home to her siblings home or she should go back to her fianc. talks about how there are many conflicts with her hossein's daughter and she at times feels unable to talk to her fianc about this. Reports often holding in her emotions and she focuses on taking care of others rather than herself. She does not want to involve her own biological daughter about her problems. We discuss potential options to open communication with her hossein and her hossein's daughter such as family counseling. She talks about not wanting to commit suicide because of how her might impact other family members. She denies suicidal ideation or homicidal ideation and auditory visual hallucinations. Physical Exam Mental Examination Appearance: Disheveled Eye Contact: Maintains Eye Contact Motor Behavior: Tics and Restless Speech: Normal Mood: Euthymic and Calm Affect: Appropriate and Constricted Thought Process: Intact and Linear Thought Content: Linear Hallucinations: None Insight: Fair Judgement: Poor (recent ingestion) Vital Signs (Past 24 Hours) Last Vital Signs Temp 36.7 C 06/22/23 06:42 Pulse 82 06/22/23 06:43 Resp 16 06/22/23 06:42 BP 99/64 L 06/22/23 06:43 Pulse Ox 99 06/21/23 03:38 O2 Del Method Room Air 06/21/23 03:38 Results & Data ([facility]) Current Inpatient Medications Current Inpatient Medications: Current Inpatient Medications Al Hydrox/Mg Hydrox/Simethicone (Aluminum/Magnesium Susp 30 Ml Udc) 30 ml PO Q4H PRN PRN Reason: GI Upset Stop: 07/21/23 00:24 Last Admin: 06/22/23 05:39 Dose: 30 ml Benztropine Mesylate (Benztropine Mesylate 1 Mg Tab) 1 mg PO BID [facility] Stop: 07/21/23 08:59 Last Admin: 06/22/23 08:43 Dose: 1 mg Bismuth Subsalicylate (Bismuth Subsalicylate Liqd 236 Ml) 15 ml PO PRN PRN PRN Reason: Loose Stool Stop: 07/21/23 00:24 Buspirone HCl (Buspirone 15 Mg Tab) 30 mg PO BID [facility] Stop: 07/21/23 08:59 Last Admin: 06/22/23 08:43 Dose: 30 mg Fluoxetine HCl (Fluoxetine Hcl 20 Mg Cap) 60 mg PO QAM [facility] Stop: 07/21/23 08:59 Last Admin: 06/22/23 08:44 Dose: 60 mg Hydroxyzine HCl (Hydroxyzine Hcl 25 Mg Tab) 50 mg PO HSZ PRN PRN Reason: Insomnia Stop: 07/21/23 00:24 Hydroxyzine HCl (Hydroxyzine Hcl 25 Mg Tab) 25 mg PO Q4H PRN PRN Reason: Anxiety Stop: 07/21/23 00:24 Last Admin: 06/22/23 09:03 Dose: 25 mg Lamotrigine (Lamotrigine 100 Mg Tab) 250 mg PO BID [facility]; Protocol Stop: 07/21/23 08:59 Last Admin: 06/22/23 08:47 Dose: 250 mg Levothyroxine Sodium (Levothyroxine Sodium 25 Mcg Tablet) 25 mcg PO DAILYBB [facility] Stop: 07/21/23 07:59 Last Admin: 06/22/23 08:16 Dose: 25 mcg Linaclotide (Linaclotide 145 Mcg Capsule) 290 mcg PO HS [facility] Stop: 07/21/23 21:59 Last Admin: 06/21/23 21:07 Dose: 290 mcg Magnesium Hydroxide (Magnesium Hydroxide Susp 30 Ml Udc) 30 ml PO DAILY PRN PRN Reason: Constipation Stop: 07/21/23 00:24 Miscellaneous (Order Awaiting Action [Ubrogepant]) 1 each N/A QS [facility] Stop: 07/21/23 15:59 Nicotine Polacrilex (Nicotine Polacrilex 2 Mg Gum) 1 piece MT PRN PRN PRN Reason: Nicotine Withdrawal Symptoms Stop: 07/21/23 00:24 Sodium Chloride (Sodium Chloride 0.65% Na Soln 45 Ml ([place])) 1 - 2 sprays NA PRN PRN PRN Reason: Nasal Dryness/Congestion Stop: 07/21/23 00:24 Topiramate (Topiramate 100 Mg Tab) 300 mg PO DAILY [facility] Stop: 07/21/23 08:59 Last Admin: 06/22/23 08:48 Dose: 300 mg Mental Health & Subst Abuse Tx Psychiatrist Name of Psychiatrist: Josefina Psychiatrist's Date Of Appointment With Psychiatric Provider: 06/06/23 Time of Appointment with Psychiatrist: 1:20PM Psychiatric Appointment Comment: rescheduled for post-hospital visit Therapist Name of Therapist: Unable to remember name - [facility] in [place] Post Discharge Appointments Neurologist Name of Neurologist: Dr. Sabillon (SHANTANU Martinez) Neurologist's Date of Appointment with Neurologist: 06/27/23 Time of Appointment with Neurologist: 9:30 AM Neurology Appointment Comment: [id number]
[2023-06-22] MEDS ORDERED: bisacodyL 5 MG TABEC PO PRN (11:45)
[2023-06-22] MEDS ORDERED: SIMETHICONE 80 MG CHEW PO PRN (11:45)
[2023-06-22] MEDS: bisacodyL 5 MG TABEC PO ONE (13:42)
[2023-06-22] MEDS: DOCUSATE SODIUM 100 MG CAP PO SCH (13:42)
[2023-06-22] MEDS: UBROGEPANT 100 MG PO PRN (20:18)
[2023-06-22] MEDS: BENZTROPINE MESYLATE 0.5 MG TAB PO SCH (21:15)
--- NOTE | 2023-06-23 10:32 | Psychiatric Progress Note ---
Date of Service June 23, 2023 Impression / Recommendations Impression BRUCE ALTMAN is a 38-year-old F who currently lives in with lance and daughter, has a history of bipolar 2 depression, PTSD, epilepsy, borderline PD, and was admitted on 06/20/23 23:11 on a 201 voluntary commitment for suicidal ideation. 06/23/23: Patient endorsed improved anxiety symptoms. Having regular bowel movements. Denies having crying spells or panic symptoms. Anxious about the future disposition. Is tolerating the decreased dose of Cogentin and Prozac. (1) Borderline personality disorder: (2) Bipolar II disorder, most recent episode major depressive: (3) Suicide gesture: (4) Seizure disorder as sequela of cerebrovascular accident: (5) Migraine: (6) Hypothyroidism: Plan 06/23/23: continue home medications. Continue fluoxetine 60 mg daily. Decrease Cogentin to 0.5mg BID (concern for worsening constipation). Start colace 100mg BID. Start dulcolax 5mg BID PRN for constipation. 06/22/23: continue home medications. Continue fluoxetine 60 mg daily. 06/21/23: continue home medications. Decrease fluoxetine to 60 mg daily. Suicide Risk Level Suicide Risk Level: Moderate (q15 min suicide checks) Risk Factors Assessment Male: No : No Do You Have Access To A Gun?: No Health Problems: Yes Mental Health Diagnoses: Yes Substance Use Disorders: No Previous Attempt: Yes Family History of Suicide: No Previous Psychiatric Hospitalization: Yes Hopelessness: No Protective Factors Assessment Employed: No Interval History Identifying Information BRUCE ALTMAN is a 38-year-old F who currently lives in with lance and daughter, has a history of bipolar 2 depression, PTSD, epilepsy, borderline PD, and was admitted on 06/20/23 23:11 on a 201 voluntary commitment for suicidal ideation. Chief Complaint "not sure where I should stay after I leave". Review of Systems Sleep Information Total Hours of Sleep: 7.5 Sleep Comments: Late admission Meal Information Percent Meal Consumed - Breakfast: 100 Percent Meal Consumed - Lunch: 75 Percent Meal Consumed - Dinner: 70 Subjective Subjective Patient was seen & assessed and interval progress reviewed with treatment team nursing and social work Overnight no acute events. Patient had bowel movement. Patient denies suicidal ideation. She is unsure of whether she should go back to her fianc and his daughter or stay with her family. She discusses various coping skills such as walking with her dog. She details a relationship between her and her mother and how her mother often plays favorites and provokes her anxiety. She reports not having any crying spells and decreased anxiety since being admitted. She is tolerating the decreased dose of Prozac and Cogentin. She appears hopeful for the future. Physical Exam Mental Examination Appearance: Disheveled Eye Contact: Maintains Eye Contact Motor Behavior: Tics and Restless Speech: Normal Mood: Euthymic and Calm Affect: Appropriate and Constricted Thought Process: Intact and Linear Thought Content: Linear Hallucinations: None Insight: Fair Judgement: Poor (improving; recent ingestion however stable behavior on the unit, engaging with peers and staff) Vital Signs (Past 24 Hours) Last Vital Signs Temp 36.7 C 06/23/23 06:45 Pulse 78 06/23/23 06:46 Resp 16 06/23/23 06:45 BP 102/70 06/23/23 06:46 Pulse Ox 99 06/21/23 03:38 O2 Del Method Room Air 06/21/23 03:38 Results & Data ([facility]) Current Inpatient Medications Current Inpatient Medications: Current Inpatient Medications Al Hydrox/Mg Hydrox/Simethicone (Aluminum/Magnesium Susp 30 Ml Udc) 30 ml PO Q4H PRN PRN Reason: GI Upset Stop: 07/21/23 00:24 Last Admin: 06/22/23 11:11 Dose: 30 ml Benztropine Mesylate (Benztropine Mesylate 0.5 Mg Tab) 0.5 mg PO BID [facility] Stop: 07/22/23 20:59 Last Admin: 06/23/23 08:18 Dose: 0.5 mg Bisacodyl (Bisacodyl 5 Mg Tabec) 5 mg PO BID PRN PRN Reason: Constipation Stop: 07/22/23 11:44 Bismuth Subsalicylate (Bismuth Subsalicylate Liqd 236 Ml) 15 ml PO PRN PRN PRN Reason: Loose Stool Stop: 07/21/23 00:24 Buspirone HCl (Buspirone 15 Mg Tab) 30 mg PO BID [facility] Stop: 07/21/23 08:59 Last Admin: 06/23/23 08:18 Dose: 30 mg Docusate Sodium (Docusate Sodium 100 Mg Cap) 100 mg PO BID [facility] Stop: 07/22/23 11:44 Last Admin: 06/23/23 08:19 Dose: 100 mg Fluoxetine HCl (Fluoxetine Hcl 20 Mg Cap) 60 mg PO QAM [facility] Stop: 07/21/23 08:59 Last Admin: 06/23/23 08:20 Dose: 60 mg Hydroxyzine HCl (Hydroxyzine Hcl 25 Mg Tab) 50 mg PO HSZ PRN PRN Reason: Insomnia Stop: 07/21/23 00:24 Hydroxyzine HCl (Hydroxyzine Hcl 25 Mg Tab) 25 mg PO Q4H PRN PRN Reason: Anxiety Stop: 07/21/23 00:24 Last Admin: 06/23/23 00:54 Dose: 25 mg Lamotrigine (Lamotrigine 100 Mg Tab) 250 mg PO BID [facility]; Protocol Stop: 07/21/23 08:59 Last Admin: 06/23/23 08:21 Dose: 250 mg Levothyroxine Sodium (Levothyroxine Sodium 25 Mcg Tablet) 25 mcg PO DAILYBB [facility] Stop: 07/21/23 07:59 Last Admin: 06/23/23 08:18 Dose: 25 mcg Linaclotide (Linaclotide 145 Mcg Capsule) 290 mcg PO HS [facility] Stop: 07/21/23 21:59 Last Admin: 06/22/23 21:18 Dose: 290 mcg Magnesium Hydroxide (Magnesium Hydroxide Susp 30 Ml Udc) 30 ml PO DAILY PRN PRN Reason: Constipation Stop: 07/21/23 00:24 Nicotine Polacrilex (Nicotine Polacrilex 2 Mg Gum) 1 piece MT PRN PRN PRN Reason: Nicotine Withdrawal Symptoms Stop: 07/21/23 00:24 Simethicone (Simethicone 80 Mg Chew) 80 mg PO Q6H PRN PRN Reason: Flatulence Stop: 07/22/23 11:44 Sodium Chloride (Sodium Chloride 0.65% Na Soln 45 Ml ([place])) 1 - 2 sprays NA PRN PRN PRN Reason: Nasal Dryness/Congestion Stop: 07/21/23 00:24 Topiramate (Topiramate 100 Mg Tab) 300 mg PO DAILY [facility] Stop: 07/21/23 08:59 Last Admin: 06/23/23 08:23 Dose: 300 mg Ubrogepant (Pt Own Med - Ubrogepant 100 Mg Tab) 100 mg PO DAILY PRN PRN Reason: MIGRAINES Stop: 07/22/23 12:42 Last Admin: 06/22/23 20:18 Dose: 100 mg Mental Health & Subst Abuse Tx Psychiatrist Name of Psychiatrist: Josefina Psychiatrist's Date Of Appointment With Psychiatric Provider: 06/06/23 Time of Appointment with Psychiatrist: 1:20PM Psychiatric Appointment Comment: rescheduled for post-hospital visit Therapist Name of Therapist: Roosevelt Alonso Therapist's Therapy Appointment Comment: Please resume regular outpatient therapy schedule. Post Discharge Appointments Healthcare Consultant Name of Healthcare Consultant: Crisis Peer Support Time of Appointment with Healthcare Consultant: Please follow up with your peer support after discharge. Neurologist Name of Neurologist: Dr. Sabillon (SHANTANU Martinez) Neurologist's Date of Appointment with Neurologist: 06/27/23 Time of Appointment with Neurologist: 9:30 AM Neurology Appointment Comment: [address] [facility] Vincenzo Zamora Contact Information Discharge Discharge Address: [address] [place] [address], [address], [place] [id number]
--- NOTE | 2023-06-24 10:06 | Psychiatric Progress Note ---
Date of Service June 24, 2023 Impression / Recommendations Impression BRUCE ALTMAN is a 38-year-old F who currently lives in with fiance and daughter, has a history of bipolar 2 depression, PTSD, epilepsy, borderline PD, and was admitted on 06/20/23 23:11 on a 201 voluntary commitment for suicidal ideation and s/p suicide gesture vs attempt via overdose of medication. 06/24/23: Reviewed interim progress, some improvement in depression but continues to have anxiety with somatic symptoms. Agrees with discontinuation of Cogentin. Will continue to monitor sleep. Working on setting more boundaries and advocating for herself. Overall, I spent a total of 45 minutes on this case including meeting with the patient, reviewing the chart, nursing report, multidisciplinary team meeting, orders, and documentation. (1) Borderline personality disorder: (2) Bipolar II disorder, most recent episode major depressive: (3) Suicide gesture: (4) Seizure disorder as sequela of cerebrovascular accident: (5) Migraine: (6) Hypothyroidism: Plan 06/24/2023: Discontinue cogentin. Benadryl cream for skin irritation she attributes to recent loose bowel movements. Continue other current medications and tx plan. 06/23/23: continue home medications. Continue fluoxetine 60 mg daily. Decrease Cogentin to 0.5mg BID (concern for worsening constipation). Start colace 100mg BID. Start dulcolax 5mg BID PRN for constipation. 06/22/23: continue home medications. Continue fluoxetine 60 mg daily. 06/21/23: continue home medications. Decrease fluoxetine to 60 mg daily. Suicide Risk Level Suicide Risk Level: Moderate (q15 min suicide checks) (denies current SI but s/p recent attempt, feels safe here) Risk Factors Assessment Male: No : No Do You Have Access To A Gun?: No Health Problems: Yes Mental Health Diagnoses: Yes Substance Use Disorders: No Previous Attempt: Yes Family History of Suicide: No Previous Psychiatric Hospitalization: Yes Hopelessness: No Protective Factors Assessment Employed: No Interval History Identifying Information BRUCE ALTMAN is a 38-year-old F who currently lives in with fiance and daughter, has a history of bipolar 2 depression, PTSD, epilepsy, borderline PD, and was admitted on 06/20/23 23:11 on a 201 voluntary commitment for suicidal ideation. Chief Complaint "I'm getting a lot off my mind". Review of Systems Sleep Information Total Hours of Sleep: 5.30 Sleep Comments: Meal Information Percent Meal Consumed - Breakfast: 75 Percent Meal Consumed - Lunch: 10 Percent Meal Consumed - Dinner: 70 Nutrition Comment: "feeling full" Subjective Subjective Patient was seen & assessed and interval progress reviewed with treatment team nursing and social work. Has been requiring frequent prns for migraines, anxiety, and indigestion. Today reports some improvement in mood. Finding groups very helpful and learning how to set boundaries. Reviewed that Elena was started by outpatient psychiatric provider due to muscle twitches she has at night that bother her partner but she denies any discomfort from these nor being bothered by these. Reviewed that she could discuss this with her outpatient neurologist if they occurred in the future but she consents with discontinuing this. Not sleeping very well. Physical Exam Psychiatric Orientation: alert and oriented x 3 Apperance: appropriately dressed Eye Contact: + fair eye contact Motor Behavior: + abnormal motor movements (lip twitch, seems related to dentures, she denies any discomfort ) Speech: normal rate/rhythm/volume of speech Affect: + anxious affect and + constricted affect Mood: + depressed mood and + anxious mood Thought Process: goal directed thought process and + concrete thought process Thought Content: reality based without delusions Suicidal Thoughts: denies suicidal thoughts (but s/p recent suicide gesture vs attempt) Homicidal Thoughts: denies homicidal thoughts Hallucinations: no auditory hallucinations and no visual hallucinations Insight: + limited insight Judgment: + fair judgement Vital Signs (Past 24 Hours) Last Vital Signs Temp 36.6 C 06/24/23 06:52 Pulse 84 06/24/23 06:52 Resp 16 06/24/23 06:52 BP 105/73 06/24/23 06:52 Pulse Ox 99 06/24/23 06:52 O2 Del Method Room Air 06/24/23 06:52 Results & Data ([facility]) Current Inpatient Medications Current Inpatient Medications: Current Inpatient Medications Al Hydrox/Mg Hydrox/Simethicone (Aluminum/Magnesium Susp 30 Ml Udc) 30 ml PO Q4H PRN PRN Reason: GI Upset Stop: 07/21/23 00:24 Last Admin: 06/23/23 11:53 Dose: 30 ml Benztropine Mesylate (Benztropine Mesylate 0.5 Mg Tab) 0.5 mg PO BID [facility]A Stop: 07/22/23 20:59 Last Admin: 06/24/23 07:45 Dose: 0.5 mg Bisacodyl (Bisacodyl 5 Mg Tabec) 5 mg PO BID PRN PRN Reason: Constipation Stop: 07/22/23 11:44 Bismuth Subsalicylate (Bismuth Subsalicylate Liqd 236 Ml) 15 ml PO PRN PRN PRN Reason: Loose Stool Stop: 07/21/23 00:24 Buspirone HCl (Buspirone 15 Mg Tab) 30 mg PO BID [facility] Stop: 07/21/23 08:59 Last Admin: 06/24/23 07:45 Dose: 30 mg Docusate Sodium (Docusate Sodium 100 Mg Cap) 100 mg PO BID [facility] Stop: 07/22/23 11:44 Last Admin: 06/24/23 07:45 Dose: 100 mg Fluoxetine HCl (Fluoxetine Hcl 20 Mg Cap) 60 mg PO QAM [facility] Stop: 07/21/23 08:59 Last Admin: 06/24/23 07:44 Dose: 60 mg Hydroxyzine HCl (Hydroxyzine Hcl 25 Mg Tab) 50 mg PO HSZ PRN PRN Reason: Insomnia Stop: 07/21/23 00:24 Hydroxyzine HCl (Hydroxyzine Hcl 25 Mg Tab) 25 mg PO Q4H PRN PRN Reason: Anxiety Stop: 07/21/23 00:24 Last Admin: 06/24/23 05:57 Dose: 25 mg Lamotrigine (Lamotrigine 100 Mg Tab) 250 mg PO BID [facility]; Protocol Stop: 07/21/23 08:59 Last Admin: 06/24/23 07:45 Dose: 250 mg Levothyroxine Sodium (Levothyroxine Sodium 25 Mcg Tablet) 25 mcg PO DAILYBB [facility] Stop: 07/21/23 07:59 Last Admin: 06/24/23 07:44 Dose: 25 mcg Linaclotide (Linaclotide 145 Mcg Capsule) 290 mcg PO [facility] Stop: 07/21/23 21:59 Last Admin: 06/23/23 20:19 Dose: 290 mcg Magnesium Hydroxide (Magnesium Hydroxide Susp 30 Ml Udc) 30 ml PO DAILY PRN PRN Reason: Constipation Stop: 07/21/23 00:24 Nicotine Polacrilex (Nicotine Polacrilex 2 Mg Gum) 1 piece MT PRN PRN PRN Reason: Nicotine Withdrawal Symptoms Stop: 07/21/23 00:24 Simethicone (Simethicone 80 Mg Chew) 80 mg PO Q6H PRN PRN Reason: Flatulence Stop: 07/22/23 11:44 Sodium Chloride (Sodium Chloride 0.65% Na Soln 45 Ml ([place])) 1 - 2 sprays NA PRN PRN PRN Reason: Nasal Dryness/Congestion Stop: 07/21/23 00:24 Topiramate (Topiramate 100 Mg Tab) 300 mg PO DAILY [facility] Stop: 07/21/23 08:59 Last Admin: 06/24/23 07:46 Dose: 300 mg Ubrogepant (Pt Own Med - Ubrogepant 100 Mg Tab) 100 mg PO DAILY PRN PRN Reason: MIGRAINES Stop: 07/22/23 12:42 Last Admin: 06/23/23 14:11 Dose: 100 mg Mental Health & Subst Abuse Tx Psychiatrist Name of Psychiatrist: Josefina Psychiatrist's Date Of Appointment With Psychiatric Provider: 07/06/23 Time of Appointment with Psychiatrist: 1:20PM Psychiatric Appointment Comment: rescheduled for post-hospital visit Therapist Name of Therapist: Roosevelt Alonso Therapist's Therapy Appointment Comment: Please resume regular outpatient therapy schedule. Post Discharge Appointments Regional Director Of Admissions Name of Regional Director Of Admissions: Crisis Peer Support - Phone Number of Regional Director Of Admissions: Time of Appointment with Regional Director Of Admissions: Please follow up with your peer support after discharge. Neurologist Name of Neurologist: Dr. Sabillon (SHANTANU Martinez) Neurologist's Date of Appointment with Neurologist: 06/27/23 Time of Appointment with Neurologist: 9:30 AM Neurology Appointment Comment: [address] Contact Information Discharge Discharge Address: [address] [place] [address], [address] [place] [id number]
[2023-06-24] MEDS ORDERED: diphenhydrAMINE 2%/ZINC 0.1% CREAM 28.4GM TUBE EXT PRN (14:35)
[2023-06-24] MEDS: hydrOXYzine HCl 25 MG TAB PO PRN (21:13)
--- NOTE | 2023-06-25 10:07 | Psychiatric Progress Note ---
Date of Service June 25, 2023 Impression / Recommendations Impression BRUCE ALTMAN is a 38-year-old F who currently lives in with fimatt and daughter, has a history of bipolar 2 depression, PTSD, epilepsy, borderline PD, and was admitted on 06/20/23 23:11 on a 201 voluntary commitment for suicidal ideation and s/p suicide gesture vs attempt via overdose of medication. 06/25/23: Mood improving, thinking about how to set boundaries with her partner at home and anticipating barriers to maintaining these and how she will respond i.e. if her partner's daughter starts to yell or argue with her. She requests lower dose of Vistaril for anxiety to reduce fatigue when used. Overall, I spent a total of 55 minutes on this case including meeting with the patient, reviewing the chart, nursing report, multidisciplinary team meeting, orders, and documentation. (1) Borderline personality disorder: (2) Bipolar II disorder, most recent episode major depressive: (3) Suicide gesture: (4) Seizure disorder as sequela of cerebrovascular accident: (5) Migraine: (6) Hypothyroidism: Plan 06/25/2023: Continue current medications and tx plan. Vistaril 10mg prn for anxiety. 06/24/2023: Discontinue cogentin. Benadryl cream for skin irritation she attributes to recent loose bowel movements. Continue other current medications and tx plan. 06/23/23: continue home medications. Continue fluoxetine 60 mg daily. Decrease Cogentin to 0.5mg BID (concern for worsening constipation). Start colace 100mg BID. Start dulcolax 5mg BID PRN for constipation. 06/22/23: continue home medications. Continue fluoxetine 60 mg daily. 06/21/23: continue home medications. Decrease fluoxetine to 60 mg daily. Suicide Risk Level Suicide Risk Level: Moderate (q15 min suicide checks) (denies current SI but s/p recent attempt, feels safe here) Risk Factors Assessment Male: No : No Do You Have Access To A Gun?: No Health Problems: Yes Mental Health Diagnoses: Yes Substance Use Disorders: No Previous Attempt: Yes Family History of Suicide: No Previous Psychiatric Hospitalization: Yes Hopelessness: No Protective Factors Assessment Employed: No Interval History Identifying Information BRUCE ALTMAN is a 38-year-old F who currently lives in with lance and daughter, has a history of bipolar 2 depression, PTSD, epilepsy, borderline PD, and was admitted on 06/20/23 23:11 on a 201 voluntary commitment for suicidal ideation. Chief Complaint "A little anxious". Review of Systems Sleep Information Total Hours of Sleep: 7 Meal Information Percent Meal Consumed - Breakfast: 100 Percent Meal Consumed - Lunch: 75 Percent Meal Consumed - Dinner: 90 Nutrition Comment: "feeling full" Subjective Subjective Patient was seen & assessed and interval progress reviewed with treatment team nursing and social work. Having some fatigue but interacting well with peers and slept well. Reports improvement in depression but anxious about returning home and being able to hold boundaries with her partner and his daughter. Discussed challenge of wanting to work things out with her partner but also facing skepticism from her family that things will never change. This causes her to feel isolated at times as doesn't feel she can turn to her family for support when things aren't going well with her partner and his daughter. Reviewed some parenting approaches and positive reward based systems they could incorporate to help encourage improved dynamics at home. Physical Exam Psychiatric Orientation: alert and oriented x 3 Apperance: appropriately dressed Eye Contact: good eye contact Motor Behavior: no abnormal motor movements Speech: normal rate/rhythm/volume of speech Affect: + anxious affect Mood: + anxious mood Thought Process: goal directed thought process Thought Content: reality based without delusions Suicidal Thoughts: denies suicidal thoughts Homicidal Thoughts: denies homicidal thoughts Hallucinations: no auditory hallucinations and no visual hallucinations Insight: + fair insight Judgment: + fair judgement Vital Signs (Past 24 Hours) Last Vital Signs Temp 36.6 C 06/25/23 06:27 Pulse 80 06/25/23 06:27 Resp 18 06/25/23 06:27 BP 101/68 06/25/23 06:27 Pulse Ox 97 06/25/23 06:27 O2 Del Method Room Air 06/25/23 06:27 Results & Data ([facility]) Current Inpatient Medications Current Inpatient Medications: Current Inpatient Medications Al Hydrox/Mg Hydrox/Simethicone (Aluminum/Magnesium Susp 30 Ml Udc) 30 ml PO Q4H PRN PRN Reason: GI Upset Stop: 07/21/23 00:24 Last Admin: 06/23/23 11:53 Dose: 30 ml Bisacodyl (Bisacodyl 5 Mg Tabec) 5 mg PO BID PRN PRN Reason: Constipation Stop: 07/22/23 11:44 Bismuth Subsalicylate (Bismuth Subsalicylate Liqd 236 Ml) 15 ml PO PRN PRN PRN Reason: Loose Stool Stop: 07/21/23 00:24 Buspirone HCl (Buspirone 15 Mg Tab) 30 mg PO BID [facility] Stop: 07/21/23 08:59 Last Admin: 06/25/23 07:44 Dose: 30 mg Docusate Sodium (Docusate Sodium 100 Mg Cap) 100 mg PO BID [facility] Stop: 07/22/23 11:44 Last Admin: 06/25/23 07:46 Dose: 100 mg Fluoxetine HCl (Fluoxetine Hcl 20 Mg Cap) 60 mg PO QAM [facility] Stop: 07/21/23 08:59 Last Admin: 06/25/23 07:46 Dose: 60 mg Hydroxyzine HCl (Hydroxyzine Hcl 25 Mg Tab) 50 mg PO HSZ PRN PRN Reason: Insomnia Stop: 07/21/23 00:24 Last Admin: 06/24/23 21:13 Dose: 50 mg Hydroxyzine HCl (Hydroxyzine Hcl 25 Mg Tab) 25 mg PO Q4H PRN PRN Reason: Anxiety Stop: 07/21/23 00:24 Last Admin: 06/24/23 05:57 Dose: 25 mg Lamotrigine (Lamotrigine 100 Mg Tab) 250 mg PO BID [facility]; Protocol Stop: 07/21/23 08:59 Last Admin: 06/25/23 07:45 Dose: 250 mg Levothyroxine Sodium (Levothyroxine Sodium 25 Mcg Tablet) 25 mcg PO DAILYBB [facility] Stop: 07/21/23 07:59 Last Admin: 06/25/23 07:46 Dose: 25 mcg Linaclotide (Linaclotide 145 Mcg Capsule) 290 mcg PO HS [facility] Stop: 07/21/23 21:59 Last Admin: 06/24/23 21:12 Dose: 290 mcg Magnesium Hydroxide (Magnesium Hydroxide Susp 30 Ml Udc) 30 ml PO DAILY PRN PRN Reason: Constipation Stop: 07/21/23 00:24 Nicotine Polacrilex (Nicotine Polacrilex 2 Mg Gum) 1 piece MT PRN PRN PRN Reason: Nicotine Withdrawal Symptoms Stop: 07/21/23 00:24 Simethicone (Simethicone 80 Mg Chew) 80 mg PO Q6H PRN PRN Reason: Flatulence Stop: 07/22/23 11:44 Sodium Chloride (Sodium Chloride 0.65% Na Soln 45 Ml ([place])) 1 - 2 sprays NA PRN PRN PRN Reason: Nasal Dryness/Congestion Stop: 07/21/23 00:24 Topiramate (Topiramate 100 Mg Tab) 300 mg PO DAILY [facility] Stop: 07/21/23 08:59 Last Admin: 06/25/23 07:46 Dose: 300 mg Ubrogepant (Pt Own Med - Ubrogepant 100 Mg Tab) 100 mg PO DAILY PRN PRN Reason: MIGRAINES Stop: 07/22/23 12:42 Last Admin: 06/25/23 06:58 Dose: 100 mg Zinc Acetate/Diphenhydramine (Diphenhydramine 2%/Zinc 0.1% Cream 28.4gm Tube) 1 appln EXT BID PRN PRN Reason: skin irritation Stop: 07/24/23 14:34 Mental Health & Subst Abuse Tx Psychiatrist Name of Psychiatrist: Josefina Psychiatrist's Date Of Appointment With Psychiatric Provider: 07/06/23 Time of Appointment with Psychiatrist: 1:20PM Psychiatric Appointment Comment: rescheduled for post-hospital visit Therapist Name of Therapist: Roosevelt Alonso Therapist's Therapy Appointment Comment: Please resume regular outpatient therapy schedule. Post Discharge Appointments Wax Bleacher Name of Wax Bleacher: Crisis Peer Support - Phone Number of Wax Bleacher: Time of Appointment with Wax Bleacher: Please follow up with your peer support after discharge. Neurologist Name of Neurologist: Dr. Sabillon (SHANTANU Martinez) Neurologist's Date of Appointment with Neurologist: 06/27/23 Time of Appointment with Neurologist: 9:30 AM Neurology Appointment Comment: [address] Contact Information Discharge Discharge Address: [address] [place] [address], [address] [place] [id number]
[2023-06-25] MEDS ORDERED: hydrOXYzine HCl 10 MG TAB PO PRN (17:21)
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
== END 2023-06-26 10:55 | disposition home or self-care (01) | DRG 885 ==
LOC: ED 14:13 → SUATTDRO 23:11 → 3S 23:11